=== PATIENT | male | born 1955 | race Caucasian/White ===

== ENCOUNTER 2016-07-08 12:58 | Observation (INO) | payer MEDICARE ==
[2016-07-08 14:03] LABS: Basophils # (A) 0.1 k/uL (0-0.2); Basophils % (A) 1 %; CH 29.9; CHCM 34.4; Eosinophils % (A) 1 %; HCT 40.6 % (39.0-53.0); HGB 13.5 gm/dL (13.0-17.5); Luc # (Auto) 0.13; Luc % (Auto) 2; Lymphocytes # (A) 1.1 k/uL (1.0-4.8); Lymphocytes % (A) 16 %; MCH 29.1 pg (25.0-35.0); MCHC 33.3 g/dL (31.0-37.0); MCV 87.3 fL (80.0-100.0); Mean Platelet Volume 7.7; Monocytes # (A) 0.6 k/uL (0-1.0); Monocytes % (A) 9 %; Neutrophils # (A) 4.7 k/uL (1.3-7.7); Neutrophils % (A) 71 %; RBC 4.65 m/uL (4.30-5.90); WBC 6.6 k/uL (3.8-10.6); WBC (Perox) 6.97
[2016-07-08 14:13] LABS: ALT 37 U/L (21-72); AST 22 U/L (17-59); Alkaline Phosphatase 83 U/L (38-126); Amylase 43 U/L (30-110); Anion Gap 12 mmol/L; Blood Urea Nitrogen 10 mg/dL (9-20); Calcium 9.4 mg/dL (8.4-10.2); Carbon Dioxide 25 mmol/L (22-30); Chloride 102 mmol/L (98-107); Glucose 75 mg/dL (74-99); Magnesium 1.8 mg/dL (1.6-2.3); Non-African American GFR(MDRD) >60 (>60 ml/min/1.73 sqM); Potassium 4.2 mmol/L (3.5-5.1); Sodium 139 mmol/L (137-145); Total Bilirubin 0.7 mg/dL (0.2-1.3); Total Protein 6.9 g/dL (6.3-8.2)
[2016-07-08 14:19] LABS: Partial Thromboplastin Time 24.5 sec (22.0-30.0); Prothrombin Time 10.2 sec (9.0-12.0)
--- NOTE | 2016-07-08 14:31 | XR ---
EXAMINATION TYPE: XR chest 1V portable DATE OF EXAM: 07/08/2016 2:17 PM Comparison: None Clinical History: 61-year-old male with chest pain and shortness of breath Findings: Heart is upper limits of normal in size. Mild diffuse interstitial prominence appears chronic. No fra nk consolidation or significant pleural effusion. Hazy peripheral lower lung densities likely relate to overlying soft tissue. Impression: Limited portable exam. Chronic appearing changes. No definite acute process.
[2016-07-08] MEDS ORDERED: NITROGLYCERIN SL TABS 0.4 MG TAB SUBLINGUAL PRN (15:02)
[2016-07-08] MEDS ORDERED: HYDROcodone/APAP 10-325MG 1 EACH TAB PO PRN (15:06)
[2016-07-08] MEDS ORDERED: METOPROLOL TARTRATE 12.5 MG TAB PO STA (15:07)
--- NOTE | 2016-07-08 15:13 | ED ---
Chest Pain HPI - General Chief Complaint: Chest Pain Stated Complaint: Abnormal Labs Time Seen by Provider: 07/08/16 13:28 Source: patient, RN notes reviewed Mode of arrival: ambulatory Limitations: no limitations - History of Present Illness Initial Comments: This patient is 61-year-old man who presents to have evaluation for chest pain. The patient indicates that he had been having brief episodes of chest pain for the past couple of weeks, however he shoveled a lot of snow 3 days ago which resulted in a prolonged episode of substernal pressure type pain that was moderately severe. The pain had improved after 20-30 minutes of rest. He subsequently developed a bit of cough and a little bit of shortness of breath. The patient had seen his primary physician who told him that an EKG performed there was concerning and he was referred here to be seen. MD Complaint: chest pain -: days(s) Onset: during exertion Pain Location: substernal Pain Radiation: none Severity: moderate Quality: heaviness Consistency: now resolved Improves With: nothing Worsens With: exertion Other Symptoms: cough Treatments Prior to Arrival: none - Related Data Home Medications Medication Instructions Recorded Confirmed Enalapril [Vasotec] 20 mg PO BID 11/07/13 07/08/16 Meloxicam [Mobic] 7.5 tab PO DAILY PRN 12/31/15 07/08/16 Amitriptyline HCl [Elavil] 50 mg PO HS 07/08/16 07/08/16 Methadone [Dolophine] 15 tab PO TID 07/08/16 07/08/16 Previous Rx's Medication Instructions Recorded HYDROcodone/APAP 10-325MG [[place] 1 - 2 tab PO Q8H PRN #120 tab 06/16/16 10-325] Allergies Allergy/AdvReac Type Severity Reaction Status Date / Time ibuprofen [From Motrin] Allergy Nausea & Verified 07/08/16 13:45 Vomiting cashews Allergy Rash/Hives Uncoded 07/08/16 13:17 poison adán Allergy Rash/Hives Uncoded 07/08/16 13:17 POLYESTER AdvReac Rash/Hives Uncoded 07/08/16 13:17 Review of Systems ROS Statement: Those systems with pertinent positive or pertinent negative responses have been documented in the HPI. ROS Other: All systems not noted in ROS Statement are negative. Constitutional: Reports: chills, weakness. Denies: fever ENT: Denies: throat pain Respiratory: Reports: cough, dyspnea. Denies: hemoptysis Cardiovascular: Reports: chest pain. Denies: palpitations, edema, syncope Gastrointestinal: Denies: abdominal pain, nausea, vomiting Genitourinary: Denies: dysuria, hematuria Musculoskeletal: Denies: back pain Skin: Denies: rash Neurological: Reports: weakness (Generalized). Denies: headache, numbness EKG Findings - EKG Results: EKG: interpreted by ERMD, sinus rhythm (Rate 85 bpm), normal axis, normal QRS, normal ST/T Past Medical History Past Medical History: GERD/Reflux, Hyperlipidemia, Hypertension, Musculoskeletal Disorder, Osteoarthritis (OA), Sleep Apnea/CPAP/BIPAP Additional Past Medical History / Comment(s): CURRENT EDEMA ONE FOOT, C-PAP HAS HELPED REFLUX. HX CHRONIC BACK PAIN. SCIATICA-NUMBNESS CHERELLE. LEGS & FEET- AFFECTS BALANCE @ TIMES. HX PLANTAR FASCIITIS History of Any Multi-Drug Resistant Organisms: None Reported Past Surgical History: Back Surgery, Hernia Repair, Orthopedic Surgery Additional Past Surgical History / Comment(s): Back surgeries, pain clinic- multiple times, rt shoulder surgery 2003, [facility]. WRISTS 2005, DEQUERVAINS RELEASE RT WRIST 08/2013 & left wrist recently, umbilical hernia, VARICOSE VEIN SX Past Anesthesia/Blood Transfusion Reactions: No Reported Reaction Past Psychological History: Depression Additional Psychological History / Comment(s): past hx Smoking Status: Never smoker Past Alcohol Use History: None Reported Past Drug Use History: None Reported - Past Family History Mother Family Medical History: Cancer Additional Family Medical History / Comment(s): breast Father Family Medical History: Cancer Additional Family Medical History / Comment(s): lung ca General Exam Limitations: no limitations General appearance: alert, in no apparent distress, obese Head exam: Present: atraumatic, normocephalic Eye exam: Present: normal appearance. Absent: scleral icterus, conjunctival injection Neck exam: Present: normal inspection Respiratory exam: Present: normal lung sounds bilaterally. Absent: respiratory distress, wheezes, rales, rhonchi, stridor Cardiovascular Exam: Present: regular rate, normal rhythm, normal heart sounds. Absent: systolic murmur, diastolic murmur, rubs, gallop GI/Abdominal exam: Present: soft. Absent: distended, tenderness, guarding, rebound, rigid Extremities exam: Present: normal inspection, normal capillary refill. Absent: pedal edema, calf tenderness Back exam: Present: normal inspection. Absent: CVA tenderness (R), CVA tenderness (L) Neurological exam: Present: alert Skin exam: Present: warm, dry, intact, normal color. Absent: rash Course Vital Signs 07/08/16 07/08/16 07/08/16 13:14 14:17 15:17 Temperature 98.7 F Pulse Rate 90 82 78 Pulse Rate [ Right] Respiratory 18 18 Rate Blood Pressure 150/84 140/71 130/80 Blood Pressure [Right Arm] O2 Sat by Pulse 97 100 99 Oximetry 07/08/16 07/08/16 15:47 16:00 Temperature 97.8 F Pulse Rate 78 Pulse Rate [ 83 Right] Respiratory 18 18 Rate Blood Pressure 139/78 Blood Pressure 150/93 [Right Arm] O2 Sat by Pulse 100 100 Oximetry Chest Pain MDM - MDM Patient is 61-year-old man describing episode of angina referred here for possible EKG changes in the clinic. Patient be admitted for serial cardiac enzymes and cardiology consultation. Disposition Clinical Impression: Chest pain Disposition: ADMITTED IP TO THIS HOSP Condition: Fair
[2016-07-08] MEDS ORDERED: SODIUM CHLORIDE 0.9% 1,000 ML IV SCH (15:15)
[2016-07-08] MEDS: HEPARIN SODIUM,PORCINE 5,000 UNIT/ML 1 ML VIAL SQ SCH (17:40)
[2016-07-08] MEDS: METHADONE 5 MG TAB PO SCH (17:41)
[2016-07-08] MEDS: METOPROLOL TARTRATE 12.5 MG TAB PO SCH (20:00)
[2016-07-08] MEDS: LISINOPRIL 20 MG TAB PO SCH (20:01)
[2016-07-08 20:05] LABS: Creatine Kinase 96 U/L (55-170)
[2016-07-08 20:17] LABS: Creatine Kinase MB 2.1 ng/mL (0.0-2.4); Troponin I <0.012 ng/mL (0.000-0.034)
[2016-07-08] MEDS ORDERED: AMITRIPTYLINE HCL 25 MG TAB PO SCH (21:00)
[2016-07-09] MEDS: HEPARIN SODIUM,PORCINE 5,000 UNIT/ML 1 ML VIAL SQ SCH ×2 (00:20→08:46)
[2016-07-09 02:56] LABS: Cholesterol 194 mg/dL (<200); HDL Cholesterol 45 mg/dL (40-60); Triglycerides 173 mg/dL (<150)
[2016-07-09 03:01] LABS: Creatine Kinase 74 U/L (55-170)
[2016-07-09 03:14] LABS: Creatine Kinase MB 1.4 ng/mL (0.0-2.4); Troponin I <0.012 ng/mL (0.000-0.034)
[2016-07-09] MEDS: METHADONE 5 MG TAB PO SCH ×2 (05:21→08:44)
[2016-07-09 07:37] VITALS: BP 137/85; PULSE 78; RESP 18; TEMP 99
[2016-07-09] MEDS: LISINOPRIL 20 MG TAB PO SCH (08:45)
--- NOTE | 2016-07-09 08:45 | P.CRDCN ---
History of Present Illness Consult date: 07/09/16 Chief complaint: Chest pain History of present illness: This is a pleasant 61-year-old male patient with does not see any claim analyst with a past medical history significant for hypertension and dyslipidemia presented to the emergency room complaining of chest discomfort. He describes intermittent episodes of chest discomfort, in the mid of the chest , as a squeezing sensation, without any radiation to the arm or neck or shoulders and without any associated symptoms. These episodes of chest discomfort are of variable duration. The EKG showed sinus rhythm without any significant ST or T-wave abnormalities. The cardiac enzymes came in to be unremarkable. I am proceeding with a stress test to rule out any severe underlying CAD. Past Medical History Past Medical History: GERD/Reflux, Hyperlipidemia, Hypertension, Musculoskeletal Disorder, Osteoarthritis (OA), Sleep Apnea/CPAP/BIPAP Additional Past Medical History / Comment(s): CURRENT EDEMA ONE FOOT, C-PAP HAS HELPED REFLUX. HX CHRONIC BACK PAIN. SCIATICA-NUMBNESS CHERELLE. LEGS & FEET- AFFECTS BALANCE @ TIMES. HX PLANTAR FASCIITIS History of Any Multi-Drug Resistant Organisms: None Reported Past Surgical History: Back Surgery, Hernia Repair, Orthopedic Surgery Additional Past Surgical History / Comment(s): Back surgeries, pain clinic- multiple times, rt shoulder surgery 2003, [facility]. WRISTS 2005, DEQUERVAINS RELEASE RT WRIST 08/2013 & left wrist recently, umbilical hernia, VARICOSE VEIN SX Past Anesthesia/Blood Transfusion Reactions: No Reported Reaction Additional Past Anesthesia/Blood Transfusion Reaction / Comment(s): NO BLOOD TRANSFUSIONS (OTHER THEN HIS OWN DONATED). Past Psychological History: Depression Additional Psychological History / Comment(s): past hx Smoking Status: Never smoker Past Alcohol Use History: None Reported Past Drug Use History: None Reported - Past Family History Mother Family Medical History: Cancer Additional Family Medical History / Comment(s): breast Father Family Medical History: Cancer Additional Family Medical History / Comment(s): lung ca Medications and Allergies Home Medications Medication Instructions Recorded Confirmed Type Enalapril [Vasotec] 20 mg PO BID 11/07/13 07/08/16 History Meloxicam [Mobic] 7.5 tab PO DAILY PRN 12/31/15 07/08/16 History Amitriptyline HCl [Elavil] 50 mg PO HS 07/08/16 07/08/16 History Methadone [Dolophine] 15 tab PO TID 07/08/16 07/08/16 History Allergies Allergy/AdvReac Type Severity Reaction Status Date / Time ibuprofen [From Motrin] Allergy Nausea & Verified 07/08/16 13:45 Vomiting cashews Allergy Rash/Hives Uncoded 07/08/16 13:17 poison adán Allergy Rash/Hives Uncoded 07/08/16 13:17 POLYESTER AdvReac Rash/Hives Uncoded 07/08/16 13:17 Physical Exam Vitals: Vital Signs Temp Pulse Pulse Resp BP BP Pulse Ox 07/09/16 07:35 99 F 78 18 137/85 97 07/09/16 04:00 98.3 F 71 16 113/67 96 07/09/16 03:51 64 16 07/09/16 00:00 72 16 07/08/16 23:46 98.6 F 71 16 123/56 96 07/08/16 20:00 70 16 07/08/16 19:25 99.1 F 78 16 137/74 96 07/08/16 16:00 83 18 150/93 100 07/08/16 15:47 97.8 F 78 18 139/78 100 07/08/16 15:17 78 130/80 99 Intake and Output 07/08/16 07/09/16 07/09/16 22:59 06:59 14:59 Intake Total 568 Balance 568 Intake: Oral 568 Other: Voiding Method Toilet Toilet # Voids 1 1 Weight 110.2 kg - Constitutional General appearance: no acute distress - Respiratory Respiratory: bilateral: CTA - Cardiovascular Rhythm: regular Heart sounds: normal: S1, S2 Results 07/08/16 13:42 07/08/16 13:42 Cardiac Enzymes 07/08/16 07/09/16 Range/Units 19:35 02:09 CK-MB (CK-2) 2.1 1.4 (0.0-2.4) ng/mL Troponin I <0.012 <0.012 (0.000-0.034) ng/mL Lipids 07/09/16 Range/Units 02:09 Triglycerides 173 H (<150) mg/dL Cholesterol 194 (<200) mg/dL HDL Cholesterol 45 (40-60) mg/dL Current Medications Generic Name Dose Route Start Last Admin Trade Name Freq PRN Reason Stop Dose Admin Acetaminophen/Hydrocodone Bitart 1 each 07/08/16 15:06 07/08/16 19:58 [place] 10 PO 1 each Q8H PRN Administration Pain Amitriptyline HCl 50 mg 07/08/16 21:00 07/08/16 17:42 Elavil PO 50 mg HS RAMÍREZ Administration Aspirin 325 mg 07/09/16 09:00 Aspirin PO DAILY [facility] Heparin Sodium (Porcine) 5,000 unit 07/08/16 16:00 07/09/16 00:20 Heparin SQ Not Given Q8HR [facility] Sodium Chloride 1,000 mls @ 20 mls/hr 07/08/16 15:15 07/08/16 19:59 Saline 0.9% IV Not Given .Q24H [facility] Lisinopril 40 mg 07/08/16 21:00 07/08/16 20:01 Zestril PO 40 mg BID RAMÍREZ Administration Meloxicam 7.5 mg 07/09/16 09:00 Mobic PO DAILY PRN Arthritis Pain Methadone HCl 15 mg 07/08/16 16:00 07/09/16 05:21 Dolophine PO Not Given TID [facility] Metoprolol Tartrate 12.5 mg 07/08/16 21:00 07/08/16 20:00 Lopressor PO Not Given BID [facility] Nitroglycerin 0.4 mg 07/08/16 15:02 Nitrostat SUBLINGUAL Q5M PRN Chest Pain Intake and Output 07/08/16 07/09/16 07/09/16 22:59 06:59 14:59 Intake Total 568 Balance 568 Intake: Oral 568 Other: Voiding Method Toilet Toilet # Voids 1 1 Weight 110.2 kg Assessment and Plan Plan: Assessment #1 intermittent episodes of chest discomfort #2 systemic hypertension #3 dyslipidemia Plan #1 proceeding with a stress test #2 follow-up with the patient
[2016-07-09] MEDS ORDERED: MELOXICAM 7.5 MG TAB PO PRN (09:00)
[2016-07-09] MEDS ORDERED: ASPIRIN 325 MG TAB PO SCH (09:00)
--- NOTE | 2016-07-09 12:58 | ECHOS ---
DATE OF SERVICE: 07/09/2016 AGE: 61Y SEX: M HT: 70 WT: 242 lbs. Protocol Zac: X Others: Stress Echo Stage: III Dur. of Exercise: 6:30 *Heart Rate Blood Pressure *Rest: 84 Rest: 146/73 * *Max. Achieved: 137 Maximum BP: 172/51 85% PMHR: 134 100% PMHR: 158 *METS: 7.1 INDICATIONS: Chest pain. MEDICATIONS: CLINICAL INFORMATION: Shortness of breath, chest pain, hypertension, hypercholesterolemia. Patient has been having exertional chest heaviness and tightness described as tightness highly suggestive of angina. Resting ECG shows sinus rhythm, rate of 84 beats per minute, AK interval 0.16, QRS 0.08, normal ST-T waves. Utilizing a standard Zac protocol, a symptom-limited treadmill test was performed. Patient exercised for total of 6 minutes and 30 seconds, attained a peak heart rate of 137 beats per minute, which is approximately 87% predicted maximum heart rate without any ST segment deviations. Mild chest pressure. Patient's baseline images show normal thickening and contractility. Definity was used to look to look at the above to improve the endocardial definition. Postexercise images show improved contractility and thickening without any hypokinetic or dyskinetic segment consistent with normal study, but patient's symptoms are highly suggestive of angina. IMPRESSION: 1. Classical angina. Clinical correlation is suggested. 2. Patient had mild chest tightness without any ST segment deviations indicative of ischemia. 3. The patient has below average level of cardiopulmonary fitness as indicated by VO2 max and METs. 4. Patient attained peak metabolic activity equivalent to 7 to 8 METs.
[2016-07-09] MEDS: METOPROLOL TARTRATE 12.5 MG TAB PO SCH (14:52)
--- NOTE | 2016-07-09 18:38 | HP ---
H&P AND DISCHARGE SUMMARY DATE OF ADMISSION: Patient is ( ) who came in with complaints of shortness of breath and chest pain, mostly in the epigastric area and retrosternal area. Pressure-like sensation lasted for a few hours, without any light-headedness, shortness of breath. Patient's chest pain is non-pleuritic, not associated with food. Patient's chest pain has been going on for a few months on and off. Patient had a stress test which was negative. D-dimer is negative. Chest x-ray did not show any pneumonic process; not sure of the exact etiology of chest pain; may be related to gastritis. Patient will be empirically treated with 14 days of Prilosec. Discontinue meloxicam he was taking at home. REVIEW OF SYSTEMS: CONSTITUTIONAL: No fever, no malaise, no fatigue. HEENT: No recent visual problems or hearing problems. Denied any sore throat. CARDIOVASCULAR: As described in HPI. PULMONARY: No shortness of breath, no cough, no hemoptysis. GASTROINTESTINAL: No diarrhea, no nausea, no vomiting, no abdominal pain. Normoactive bowel sounds. NEUROLOGICAL: No headaches, no weakness, no numbness. HEMATOLOGICAL: Denies any bleeding or petechiae. GENITOURINARY: Denies any burning micturition, frequency, or urgency. MUSCULOSKELETAL/RHEUMATOLOGICAL: Denies any joint pain, swelling, or any muscle pain. ENDOCRINE: Denies any polyuria or polydipsia. The rest of the 14 point review of systems is negative. Past medical history is significant for: 1. Sleep apnea. 2. Diabetes mellitus. 3. Gastroesophageal reflux disease. 4. Hyperlipidemia. 5. Hypertension. 6. Hypothyroidism. PAST SURGICAL HISTORY: Left inguinal hernia repair. Skin cancer that was removed. SOCIAL HISTORY: Former smoker. Quit smoking in 1992. Denied any alcohol abuse or any drug abuse. FAMILY HISTORY: Mother had hypertension. Father is ; unknown history. Home medications include: 1. Acetaminophen. 2. Allopurinol. 3. Atorvastatin. 4. Bumex. 5. Diltiazem. 6. Ferrous sulfate. 7. Insulin Aspart 18 units at bedtime. 8. NovoLog sliding scale. 9. Ipratropium. 10. Albuterol. 11. Levothyroxine. 12. Omeprazole. ALLERGIES: NO KNOWN DRUG ALLERGIES. PHYSICAL EXAMINATION: VITAL SIGNS: ( ) GENERAL: The patient is alert and oriented x3, not in any acute distress. Well developed, well nourished. HEENT: Pupils are round and equally reacting to light. EOMI. No scleral icterus. No conjunctival pallor. Normocephalic, atraumatic. No pharyngeal erythema. No thyromegaly. CARDIOVASCULAR: S1 and S2 present. No murmurs, rubs, or gallops. PULMONARY: Chest is clear to auscultation, no wheezing or crackles. ABDOMEN: Soft, nontender, nondistended, normoactive bowel sounds. No palpable organomegaly. MUSCULOSKELETAL: No joint swelling or deformity. EXTREMITIES: Very minimal pedal edema appreciated. NEUROLOGICAL: Gross neurological examination did not reveal any focal deficits. SKIN: No rashes. LABORATORY DATA: CBC and comprehensive metabolic profile are essentially within normal limits. EKG did not show any ST-T wave changes. Troponins are negative. Stress test is negative at this point of time. ASSESSMENT AND PLAN: 1. Chest pain; appears to atypical. Rule out acute coronary artery syndrome and unstable angina. Patient's stress test was negative. Patient will be discharged today. 2. Possible gastritis or gastroesophageal reflux disease. Unsure of the exact etiology of his chest pain. Empiric proton pump inhibitor as mentioned above. 3. Hypertension. 4. Sleep apnea. 5. Hyperlipidemia. 6. Osteoarthritis. 7. Morbid obesity. For the above-mentioned chronic medical problems, patient will go ahead and continue his home medications. Dietary counseling for obesity was provided. This dictation is both H&P and discharge summary. Patient will follow up with primary care physician in about 3 to 7 days. Activity as tolerated. Cardiac diet.
== END 2016-07-09 15:23 | disposition home or self-care (01) ==
LOC: EC 12:58 → 3OBS 15:02
PROVIDERS: ADMIT Hospitalist; ATTEND Hospitalist
DX: R07.89 Other chest pain (principal); I10 Essential (primary) hypertension; E66.01 Morbid (severe) obesity due to excess calories; Z68.34 Body mass index [BMI] 34.0-34.9, adult; G47.30 Sleep apnea, unspecified; E78.5 Hyperlipidemia, unspecified; K21.9 Gastro-esophageal reflux disease without esophagitis; M19.90 Unspecified osteoarthritis, unspecified site; M54.41 Lumbago with sciatica, right side; F32.9 Major depressive disorder, single episode, unspecified; M54.42 Lumbago with sciatica, left side; G89.29 Other chronic pain; Z99.89 Dependence on other enabling machines and devices; Z79.891 Long term (current) use of opiate analgesic; Z79.1 Long term (current) use of non-steroidal anti-inflammatories (NSAID); Z79.899 Other long term (current) drug therapy; Z88.6 Allergy status to analgesic agent; Z80.1 Family history of malignant neoplasm of trachea, bronchus and lung; E03.9 Hypothyroidism, unspecified; Z87.891 Personal history of nicotine dependence; Z82.49 Family history of ischemic heart disease and other diseases of the circulatory system
CPT/HCPCS: 36415; 93005; 93017; 85379; 84439; 84481; 80061; 80053; 84443; 82150; 82550 ×2; 82553 ×2; 83690; 83735; 84484 ×2; 85025; 85610; 85730; 71010; 99285; G0378 ×2; C8928; J1644; Q9957; S0109 ×2; 93350

== ENCOUNTER 2016-07-27 12:55 | Observation (INO) | payer MEDICARE ==
[2016-07-27] MEDS ORDERED: ASPIRIN 81 MG CHEW PO STA (13:08)
[2016-07-27] MEDS ORDERED: NITROGLYCERIN OINT 1 INCH/GM PACKET TOPICAL STA (13:08)
--- NOTE | 2016-07-27 13:47 | ED ---
General Adult HPI - General Chief complaint: Chest Pain Stated complaint: Chest pain Time Seen by Provider: 07/27/16 13:08 Source: patient, RN notes reviewed Mode of arrival: wheelchair Limitations: no limitations - History of Present Illness Initial comments: Patient is a 61-year-old male significant past medical history for A. fib, who presents emergency room today with a chief complaint of increased chest pain. He does admit that chest pain started yesterday morning. He states he did take aspirin which did give him some relief. States that this morning was woken up with chest pain proxy 4 AM. He states that he took aspirin began with some relief. States he woke up again around 9 AM feeling chest pain once again which she did take another aspirin with begin some relief. States it started again around noon. States took nitro tablets with little relief of the symptoms. Patient states he is scheduled to have a heart catheterization next week. Patient states still having some pain some discomfort to the chest anteriorly. Currently rates a 4/10. She admits that he feels nauseated. Patient denies any recent fever, chills, shortness of breath, back pain, abdominal pain, vomiting, numbness or tingling, dysuria or hematuria, constipation or diarrhea, headaches or visual changes, or any other complaints. - Related Data Home Medications Medication Instructions Recorded Confirmed Amitriptyline HCl [Elavil] 50 mg PO HS 07/08/16 07/27/16 Methadone [Dolophine] 10 - 15 tab PO QID PRN 07/08/16 07/27/16 Enalapril Maleate [Vasotec] 10 mg PO QID 07/27/16 07/27/16 Nitroglycerin Sl Tabs [Nitrostat] 0.4 mg SUBLINGUAL Q5M PRN 07/27/16 07/27/16 Previous Rx's Medication Instructions Recorded HYDROcodone/APAP 10-325MG [[place] 1 - 2 tab PO Q8H PRN #120 tab 06/16/16 10-325] Allergies Allergy/AdvReac Type Severity Reaction Status Date / Time ibuprofen [From Motrin] Allergy Nausea & Verified 07/27/16 12:58 Vomiting cashews Allergy Rash/Hives Uncoded 07/27/16 12:58 poison adán Allergy Rash/Hives Uncoded 07/27/16 12:58 POLYESTER AdvReac Rash/Hives Uncoded 07/27/16 12:58 Review of Systems ROS Statement: Those systems with pertinent positive or pertinent negative responses have been documented in the HPI. ROS Other: All systems not noted in ROS Statement are negative. Past Medical History Past Medical History: GERD/Reflux, Hyperlipidemia, Hypertension, Musculoskeletal Disorder, Osteoarthritis (OA), Sleep Apnea/CPAP/BIPAP Additional Past Medical History / Comment(s): CURRENT EDEMA ONE FOOT, C-PAP HAS HELPED REFLUX. HX CHRONIC BACK PAIN. SCIATICA-NUMBNESS CHERELLE. LEGS & FEET- AFFECTS BALANCE @ TIMES. HX PLANTAR FASCIITIS History of Any Multi-Drug Resistant Organisms: None Reported Past Surgical History: Back Surgery, Hernia Repair, Orthopedic Surgery Additional Past Surgical History / Comment(s): Back surgeries, pain clinic- multiple times, rt shoulder surgery 2003, [facility]. WRISTS 2005, DEQUERVAINS RELEASE RT WRIST 08/2013 & left wrist recently, umbilical hernia, VARICOSE VEIN SX Past Anesthesia/Blood Transfusion Reactions: No Reported Reaction Additional Past Anesthesia/Blood Transfusion Reaction / Comment(s): NO BLOOD TRANSFUSIONS (OTHER THEN HIS OWN DONATED). Past Psychological History: Depression Additional Psychological History / Comment(s): past hx Smoking Status: Never smoker Past Alcohol Use History: None Reported Past Drug Use History: None Reported - Past Family History Mother Family Medical History: Cancer Additional Family Medical History / Comment(s): breast Father Family Medical History: Cancer Additional Family Medical History / Comment(s): lung ca General Exam - General Exam Comments Initial Comments: General: The patient is awake and alert, in no distress, and does not appear acutely ill. Eye: Pupils are equal, round and reactive to light, extra-ocular movements are intact. No nystagmus. There is normal conjunctiva bilaterally. No signs of icterus. Ears, nose, mouth and throat: There are moist mucous membranes and no oral lesions. Neck: The neck is supple, there is no tenderness or JVD. Cardiovascular: There is a regular rate and rhythm. No murmur, rub or gallop is appreciated. Respiratory: Lungs are clear to auscultation, respirations are non-labored, breath sounds are equal. No wheezes, stridor, rales, or rhonchi. Gastrointestinal: Soft, non-distended, non-tender abdomen without masses or organomegaly noted. There is no rebound or guarding present. No CVA tenderness. Bowel sounds are unremarkable. Musculoskeletal: Normal ROM, no tenderness. Strength 5/5. Sensation intact. Pulses equal bilaterally 2+. Neurological: A&O x 3. CN II-XII intact, There are no obvious motor or sensory deficits. Coordination appears grossly intact. Speech is normal. Skin: Skin is warm and dry and no rashes or lesions are noted. Psychiatric: Cooperative, appropriate mood & affect, normal judgment. Limitations: no limitations Course Vital Signs 07/27/16 07/27/16 07/27/16 12:58 13:15 14:24 Temperature 97.7 F Pulse Rate 72 74 68 Respiratory 18 16 18 Rate Blood Pressure 144/80 124/70 123/71 O2 Sat by Pulse 97 99 98 Oximetry Medical Decision Making - Medical Decision Making Patient's EKG shows normal sinus rhythm. Computer previous showing no acute changes. Patient's cardiac enzymes negative. Emergency room. Patient is symptomatic at this time is feeling relief after Nitropaste. Patient's x-ray reviewed and are unremarkable. Case discussed with the physician Dr. Grossman did discuss case with admitting physician Dr. Guzman will but the patient with consult cardiology. Patient aware the plan states understanding. - Lab Data Result diagrams: 07/27/16 13:41 07/27/16 13:41 Lab Results 07/27/16 07/27/16 07/27/16 Range/Units 13:41 13:41 13:41 WBC 6.8 (3.8-10.6) k/uL RBC 4.78 (4.30-5.90) m/uL Hgb 13.7 (13.0-17.5) gm/dL Hct 42.2 (39.0-53.0) % MCV 88.3 (80.0-100.0) fL MCH 28.7 (25.0-35.0) pg MCHC 32.5 (31.0-37.0) g/dL RDW 13.2 (11.5-15.5) % Plt Count 262 (150-450) k/uL Neutrophils % 62 % Lymphocytes % 29 % Monocytes % 6 % Eosinophils % 1 % Basophils % 1 % Neutrophils # 4.2 (1.3-7.7) k/uL Lymphocytes # 2.0 (1.0-4.8) k/uL Monocytes # 0.4 (0-1.0) k/uL Eosinophils # 0.1 (0-0.7) k/uL Basophils # 0.0 (0-0.2) k/uL PT (9.0-12.0) sec INR (<1.1) APTT (22.0-30.0) sec Sodium 140 (137-145) mmol/L Potassium 5.3 H (3.5-5.1) mmol/L Chloride 104 (98-107) mmol/L Carbon Dioxide 26 (22-30) mmol/L Anion Gap 10 mmol/L BUN 12 (9-20) mg/dL Creatinine 0.89 (0.66-1.25) mg/dL Est GFR (MDRD) Af Amer >60 (>60 ml/min/1.73 sqM) Est GFR (MDRD) Non-Af >60 (>60 ml/min/1.73 sqM) Glucose 97 (74-99) mg/dL Calcium 9.7 (8.4-10.2) mg/dL Magnesium 1.9 (1.6-2.3) mg/dL Total Bilirubin 0.5 (0.2-1.3) mg/dL AST 21 (17-59) U/L ALT 42 (21-72) U/L Alkaline Phosphatase 81 (38-126) U/L Total Creatine Kinase 85 (55-170) U/L CK-MB (CK-2) 2.4 (0.0-2.4) ng/mL CK-MB (CK-2) Rel Index 2.8 Troponin I <0.012 (0.000-0.034) ng/mL Total Protein 7.1 (6.3-8.2) g/dL Albumin 4.1 (3.5-5.0) g/dL 07/27/16 Range/Units 13:41 WBC (3.8-10.6) k/uL RBC (4.30-5.90) m/uL Hgb (13.0-17.5) gm/dL Hct (39.0-53.0) % MCV (80.0-100.0) fL MCH (25.0-35.0) pg MCHC (31.0-37.0) g/dL RDW (11.5-15.5) % Plt Count (150-450) k/uL Neutrophils % % Lymphocytes % % Monocytes % % Eosinophils % % Basophils % % Neutrophils # (1.3-7.7) k/uL Lymphocytes # (1.0-4.8) k/uL Monocytes # (0-1.0) k/uL Eosinophils # (0-0.7) k/uL Basophils # (0-0.2) k/uL PT 9.9 (9.0-12.0) sec INR 1.0 (<1.1) APTT 23.8 (22.0-30.0) sec Sodium (137-145) mmol/L Potassium (3.5-5.1) mmol/L Chloride (98-107) mmol/L Carbon Dioxide (22-30) mmol/L Anion Gap mmol/L BUN (9-20) mg/dL Creatinine (0.66-1.25) mg/dL Est GFR (MDRD) Af Amer (>60 ml/min/1.73 sqM) Est GFR (MDRD) Non-Af (>60 ml/min/1.73 sqM) Glucose (74-99) mg/dL Calcium (8.4-10.2) mg/dL Magnesium (1.6-2.3) mg/dL Total Bilirubin (0.2-1.3) mg/dL AST (17-59) U/L ALT (21-72) U/L Alkaline Phosphatase (38-126) U/L Total Creatine Kinase (55-170) U/L CK-MB (CK-2) (0.0-2.4) ng/mL CK-MB (CK-2) Rel Index Troponin I (0.000-0.034) ng/mL Total Protein (6.3-8.2) g/dL Albumin (3.5-5.0) g/dL Disposition Clinical Impression: Chest pain Disposition: ADMITTED IP TO THIS HOSP Condition: Stable Time of Disposition: 15:28
[2016-07-27 13:55] LABS: Basophils % (A) 1 %; CH 29.8; CHCM 33.9; Eosinophils # (A) 0.1 k/uL (0-0.7); Eosinophils % (A) 1 %; HCT 42.2 % (39.0-53.0); HDW 2.66; HGB 13.7 gm/dL (13.0-17.5); Luc # (Auto) 0.13; Luc % (Auto) 2; Lymphocytes % (A) 29 %; MCH 28.7 pg (25.0-35.0); MCHC 32.5 g/dL (31.0-37.0); MCV 88.3 fL (80.0-100.0); Mean Platelet Volume 7.8; Monocytes # (A) 0.4 k/uL (0-1.0); Monocytes % (A) 6 %; Neutrophils # (A) 4.2 k/uL (1.3-7.7); Neutrophils % (A) 62 %; RBC 4.78 m/uL (4.30-5.90); RDW 13.2 % (11.5-15.5); WBC 6.8 k/uL (3.8-10.6); WBC (Perox) 7.16
[2016-07-27 14:03] LABS: ALT 42 U/L (21-72); AST 21 U/L (17-59); Alkaline Phosphatase 81 U/L (38-126); Anion Gap 10 mmol/L; Blood Urea Nitrogen 12 mg/dL (9-20); Calcium 9.7 mg/dL (8.4-10.2); Carbon Dioxide 26 mmol/L (22-30); Chloride 104 mmol/L (98-107); Glucose 97 mg/dL (74-99); Magnesium 1.9 mg/dL (1.6-2.3); Non-African American GFR(MDRD) >60 (>60 ml/min/1.73 sqM); Potassium 5.3 mmol/L (3.5-5.1); Sodium 140 mmol/L (137-145); Total Bilirubin 0.5 mg/dL (0.2-1.3); Total Protein 7.1 g/dL (6.3-8.2)
--- NOTE | 2016-07-27 14:05 | XR ---
EXAMINATION TYPE: XR chest 2V DATE OF EXAM: 07/27/2016 1:53 PM COMPARISON: 07/08/2016 HISTORY: Chest pain FINDINGS: The lungs are clear and there is no pneumothorax, pleural effusion, or focal pneumonia. Hyperinflat ion suggests COPD and there is cardiac enlargement. No overt failure. IMPRESSION: 1. No acute process.
[2016-07-27 14:07] LABS: Partial Thromboplastin Time 23.8 sec (22.0-30.0); Prothrombin Time 9.9 sec (9.0-12.0)
[2016-07-27 14:23] LABS: Creatine Kinase 85 U/L (55-170)
[2016-07-27 14:36] LABS: Creatine Kinase MB 2.4 ng/mL (0.0-2.4); Troponin I <0.012 ng/mL (0.000-0.034)
[2016-07-27] MEDS ORDERED: MORPHINE SULFATE 4 MG/ML SYRINGE IV PRN (15:28)
[2016-07-27] MEDS ORDERED: HEPARIN SODIUM,PORCINE 5,000 UNIT/ML 1 ML VIAL IV ONE (15:28)
[2016-07-27] MEDS ORDERED: SODIUM CHLORIDE 0.9% 1,000 ML IV ONE (15:28)
[2016-07-27] MEDS ORDERED: HEPARIN SODIUM,PORCINE/D5W PMX 25,000 UNIT in DEXTROSE/WATER 1 500ML.BAG IV SCH (15:30)
[2016-07-27] MEDS: NITROGLYCERIN OINT 1 INCH/GM PACKET TOPICAL SCH (18:09)
[2016-07-27] MEDS ORDERED: NITROGLYCERIN SL TABS 0.4 MG TAB SUBLINGUAL PRN (18:48)
[2016-07-27 19:59] LABS: Creatine Kinase 90 U/L (55-170)
[2016-07-27 20:12] LABS: Creatine Kinase MB 2.4 ng/mL (0.0-2.4); Troponin I <0.012 ng/mL (0.000-0.034)
[2016-07-27] MEDS: LISINOPRIL 20 MG TAB PO SCH (20:20)
[2016-07-27] MEDS ORDERED: AMITRIPTYLINE HCL 50 MG TAB PO SCH (21:00)
[2016-07-28] MEDS: NITROGLYCERIN OINT 1 INCH/GM PACKET TOPICAL SCH ×4 (00:12→18:12)
[2016-07-28 01:53] LABS: Creatine Kinase 69 U/L (55-170)
[2016-07-28 02:06] LABS: Creatine Kinase MB 2.1 ng/mL (0.0-2.4); Troponin I <0.012 ng/mL (0.000-0.034)
[2016-07-28] MEDS ORDERED: HEPARIN SODIUM,PORCINE 5,000 UNIT/ML 1 ML VIAL IV PRN (02:59)
[2016-07-28 08:10] VITALS: RESP 18
[2016-07-28] MEDS ORDERED: ASPIRIN 325 MG TAB PO SCH (09:00)
--- NOTE | 2016-07-28 10:10 | CONS ---
DATE OF CONSULTATION: A 61-year-old male patient of Dr. Prince. This is a 61-year-old male patient who was just admitted to the hospital and underwent a stress test for chest discomfort. The chest pain was suspicious. He underwent exercise stress echo, which did not show any ECG abnormalities nor did it show any echocardiographic abnormalities, but he had chest discomfort at that time. He comes back again with recurrent chest discomfort. His cardiac enzymes are normal. Past medical history of hypertension, dyslipidemia and obstructive sleep apnea. PAST SURGERIES: Back surgery and varicose veins. REVIEW OF SYSTEMS: No fever, chills or rigors. No cough or expectoration. No nausea, vomiting, or diarrhea. No hematuria or dysuria. No strokes or seizures. No skin lesions or musculoskeletal complaints. Allergies to IBUPROFEN, CASHEWS, POISON PAULIE and POLYESTER. On examination, his blood pressure is in the normal range of 132/80 mmHg. Head and neck examination is normal. Heart sounds are normal. Lungs are clear on auscultation. Extremities are warm. No edema. ECG was reviewed and ECG is normal. Cardiac enzymes were reviewed and are normal. Labs are normal. IMPRESSION: Recurrent chest discomfort awaiting coronary angiography. SUGGEST: I will speak to Dr. Prince and hopefully he should be able to get an angiogram done in the next 24 to 48 hours. ( ) to the bottle labeler.
[2016-07-28 10:13] LABS: Cholesterol 280 mg/dL (<200); HDL Cholesterol 62 mg/dL (40-60); Triglycerides 182 mg/dL (<150)
[2016-07-28] MEDS ORDERED: HYDROcodone/APAP 10-325MG 1 EACH TAB PO PRN (11:41)
[2016-07-28] MEDS: ENALAPRIL 10 MG PO SCH ×2 (12:26→18:52)
--- NOTE | 2016-07-28 12:28 | P.HPIM ---
History of Present Illness 61-year-old male presented to the emergency room with complaints of chest pain states they were banding in nature with nausea patient has relief of chest pain with nitro. Patient had consultation with cardiology plan is for cardiac cath in the morning Review of Systems Constitutional: Reports fatigue Cardiovascular: Reports chest pain Gastrointestinal: Reports nausea Musculoskeletal: Reports low back pain Past Medical History Past Medical History: GERD/Reflux, Hyperlipidemia, Hypertension, Musculoskeletal Disorder, Osteoarthritis (OA), Sleep Apnea/CPAP/BIPAP Additional Past Medical History / Comment(s): CURRENT EDEMA ONE FOOT, C-PAP HAS HELPED REFLUX. HX CHRONIC BACK PAIN. SCIATICA-NUMBNESS CHERELLE. LEGS & FEET- AFFECTS BALANCE @ TIMES. HX PLANTAR FASCIITIS, STRESS TEST. History of Any Multi-Drug Resistant Organisms: None Reported Past Surgical History: Back Surgery, Hernia Repair, Orthopedic Surgery Additional Past Surgical History / Comment(s): Back surgeries, pain clinic- multiple times, rt shoulder surgery 2003, [facility]. WRISTS 2005, DEQUERVAINS RELEASE RT WRIST 08/2013 & left wrist recently, umbilical hernia, VARICOSE VEIN SX Past Anesthesia/Blood Transfusion Reactions: No Reported Reaction Additional Past Anesthesia/Blood Transfusion Reaction / Comment(s): NO BLOOD TRANSFUSIONS (OTHER THEN HIS OWN DONATED). Past Psychological History: Depression Additional Psychological History / Comment(s): past hx Smoking Status: Never smoker Past Alcohol Use History: Rare Past Drug Use History: None Reported - Past Family History Mother Family Medical History: Cancer Additional Family Medical History / Comment(s): breast Father Family Medical History: Cancer Additional Family Medical History / Comment(s): lung ca Medications and Allergies Home Medications Medication Instructions Recorded Confirmed Type Amitriptyline HCl [Elavil] 50 mg PO HS 07/08/16 07/27/16 History Methadone [Dolophine] 10 - 15 tab PO QID PRN 07/08/16 07/27/16 History Enalapril Maleate [Vasotec] 10 mg PO QID 07/27/16 07/27/16 History Nitroglycerin Sl Tabs [Nitrostat] 0.4 mg SUBLINGUAL Q5M PRN 07/27/16 07/27/16 History Allergies Allergy/AdvReac Type Severity Reaction Status Date / Time ibuprofen [From Motrin] Allergy Nausea & Verified 07/27/16 12:58 Vomiting cashews Allergy Rash/Hives Uncoded 07/27/16 12:58 poison adán Allergy Rash/Hives Uncoded 07/27/16 12:58 POLYESTER AdvReac Rash/Hives Uncoded 07/27/16 12:58 Physical Exam Vitals: Vital Signs Temp Pulse Pulse Resp BP BP Pulse Ox 07/28/16 11:58 98.7 F 84 18 132/80 93 L 07/28/16 08:00 98.5 F 75 18 132/80 95 07/28/16 04:00 97.8 F 70 16 110/55 97 07/28/16 03:31 64 16 07/28/16 00:00 70 16 07/27/16 23:57 98.1 F 72 16 129/63 94 L 07/27/16 20:00 16 07/27/16 19:45 98.8 F 86 16 122/83 94 L 07/27/16 16:15 98.1 F 78 16 125/74 99 Intake and Output 07/27/16 07/28/16 07/28/16 22:59 06:59 14:59 Intake Total 183.908 Balance 183.908 Intake: Intake, IV Titration 183.908 Amount Heparin Sodium,Porcine/ 183.908 D5w Pmx 25,000 unit In Dextrose/Water 1 500ml. bag @ 9.11 UNITS/KG/HR 19 .99 mls/hr IV .Q24H [facility] Rx#:[id number] Other: Voiding Method Toilet Toilet Toilet # Voids 1 2 Weight 109.7 kg 109.7 kg - Constitutional General appearance: obese - EENT Eyes: PERRLA Ears: bilateral: normal - Neck Neck: normal ROM - Respiratory Respiratory: bilateral: CTA - Cardiovascular Rhythm: regular - Gastrointestinal General gastrointestinal: soft - Integumentary Integumentary: normal - Neurologic Neurologic: CNII-XII intact - Psychiatric Psychiatric: A&O x's 3, appropriate affect, intact judgment & insight Results CBC & Chem 7: 07/27/16 13:41 07/27/16 13:41 Labs: Abnormal Lab Results - Last 24 Hours (Table) 07/28/16 07/28/16 Range/Units 09:07 09:07 APTT 34.5 H (22.0-30.0) sec Triglycerides 182 H (<150) mg/dL Cholesterol 280 H (<200) mg/dL LDL Cholesterol, Calc 182 H (0-99) mg/dL HDL Cholesterol 62 H (40-60) mg/dL Chest x-ray: report reviewed Thrombosis Risk Factor Assmnt - Choose All That Apply Any of the Below Risk Factors Present?: Yes Each Factor Represents 1 point: Obesity (BMI >25) Other Risk Factors: Yes Each Risk Factor Represents 2 Points: Age 61-74 years Other congenital or acquired thrombophilia - If yes, enter type in comment: No Thrombosis Risk Factor Assessment Total Risk Factor Score: 3 Thrombosis Risk Factor Assessment Level: Moderate Risk Assessment and Plan Plan: Assessment Chest pain Chronic back pain Sleep apnea uses CPAP Osteoarthritis GERD Hyperlipidemia Hypertension Plan Continue cardiac consultation cardiac catheterization plan for a.m.
[2016-07-28] MEDS: LISINOPRIL 20 MG TAB PO SCH (12:29)
[2016-07-28] MEDS ORDERED: ALPRAZolam 0.5 MG TAB PO PRN (14:07)
[2016-07-28] MEDS ORDERED: SODIUM CHLORIDE 0.9% 1,000 ML in EMPTY BAG 1 BAG IV ONE (14:07)
[2016-07-28] MEDS ORDERED: ASPIRIN 325 MG TAB PO STA (14:07)
[2016-07-28] MEDS ORDERED: ATORVASTATIN 80 MG TAB PO STA (14:07)
[2016-07-28] MEDS ORDERED: ALPRAZolam 0.25 MG TAB PO PRN (14:07)
[2016-07-28] MEDS ORDERED: IV FLUID CONTINUATION 1,000 ML IV ONE (14:45)
[2016-07-28] MEDS ORDERED: LIDOCAINE 2% INJ 20 MG/ML (20 ML MDV) ONE (15:03)
[2016-07-28] MEDS ORDERED: SODIUM CHLORIDE 0.9% (PF) 10 ML VIAL ONE (15:03)
[2016-07-28] MEDS ORDERED: VERAPAMIL 2.5 MG/ML 2 ML AMP ONE (15:03)
[2016-07-28] MEDS ORDERED: MIDAZOLAM 2 MG/2 ML VIAL ONE (15:15)
[2016-07-28] MEDS ORDERED: MIDAZOLAM 2 MG/2 ML VIAL IV ONE (15:16)
[2016-07-28] MEDS ORDERED: LIDOCAINE 2% INJ 20 MG/ML SQ ONE (15:17)
[2016-07-28] MEDS: VERAPAMIL SYRINGE (5 MG/10 ML) INTRAARTER ONE ×2 (15:20→15:28)
[2016-07-28] MEDS ORDERED: HEPARIN SODIUM 1,000 UNIT/ML VIAL ONE (15:20)
[2016-07-28] MEDS ORDERED: SODIUM CHLORIDE 0.9% 1,000 ML IV ONE (15:28)
[2016-07-28] MEDS ORDERED: IOHEXOL 350 MG/ML 100 ML BOTTLE INJ ONE (15:31)
[2016-07-28] MEDS ORDERED: RX INFO: IV CONTRAST WAS GIVEN 1 EACH MISC MISCELLANE PRN (15:49)
[2016-07-28] MEDS ORDERED: SODIUM CHLORIDE 0.9% 1,000 ML IV SCH (16:00)
[2016-07-28] MEDS ORDERED: AMITRIPTYLINE 25 MG PO SCH (21:00)
[2016-07-28 21:09] VITALS: BP 141/78; PULSE 74; TEMP 98.5
--- NOTE | 2016-07-29 07:39 | CC ---
DATE OF SERVICE: 07/28/2016 PERFORMING PHYSICIAN: Martin Prince MD, product support engineer. PROCEDURE PERFORMED: Selective right and left coronary angiogram. INDICATION: This is a pleasant 61-year-old gentleman who was admitted to the hospital with chest discomfort and was seen and evaluated by Dr. Mora who recommended proceeding with heart catheterization. APPROACH: Right radial artery. COMPLICATIONS: None. LEVEL OF SEDATION: Moderate. PROCEDURE DESCRIPTION: After obtaining informed consent, the patient was brought to the cardiac phlebotomy lab assistant. The right radial artery was cannulated using micropuncture technique. The micropuncture wire passed easily, then I placed 6 [place] sheath in the right radial artery. Subsequently, I did selective right and left coronary angiogram using JR4 and JL3.5 catheters. After that, the procedure was completed without any complication. SELECTIVE CORONARY ANGIOGRAM: 1. The right coronary artery is a large-caliber vessel and it is a dominant vessel. It is angiographically normal. It bifurcates distally into PDA and PLV branches; both are angiographically normal. 2. The left main is a short left main and almost ( ) and bifurcates into the left circumflex and left anterior descending artery. 3. The left circumflex is a large-caliber vessel and it is a nondominant vessel. The left circumflex is angiographically normal and in the midportion gives rise into a large first OM branch, which bifurcates into 2 separate branches; both are angiographically normal. 4. The left anterior descending artery; proximal LAD is angiographically normally. The mid LAD is normal and gives rise to the first and second diagonal branches; both are angiographically normal and the LAD distally is angiographically normal. CONCLUSION: Normal coronary angiogram. Postprocedure management will be medical treatment.
--- NOTE | 2016-07-29 10:37 | P.DS ---
Providers Date of admission: 07/27/16 15:28 Expected date of discharge: 07/28/16 Attending physician: Mauro Guzman Primary care physician: Mauro Guzman Hospital Course: 61-year-old male was admitted through the emergency room with complaints of chest pain. Dentition was found to have negative troponins. Patient had a cardiac cath that normal angiogram. Patient will be treated outpatient with medical treatment per cardiology Assessment Chest pain negative cardiac cath Chronic back pain narcotic dependence Sleep apnea was CPAP machine Osteoarthritis GERD Hyperlipidemia Hypertension Plan Discharge home with follow-up with cardiology for medical treatment Follow-up with family physician Patient Condition at Discharge: Stable Plan - Discharge Summary Discharge Medication List HYDROcodone/APAP 10-325MG [[place] 10-325] 1 - 2 tab PO Q8H PRN #120 tab 06/16/16 [Rx] Amitriptyline HCl [Elavil] 50 mg PO HS 07/08/16 [History] Methadone [Dolophine] 10 - 15 tab PO QID PRN 07/08/16 [History] Enalapril Maleate [Vasotec] 10 mg PO QID 07/27/16 [History] Nitroglycerin Sl Tabs [Nitrostat] 0.4 mg SUBLINGUAL Q5M PRN 07/27/16 [History] Follow up Appointment(s)/Referral(s): Mauro Guzman MD [Primary Care Provider] - 1-2 days Martin Prince MD [STAFF PHYSICIAN] - 1 Week (Appt for site check with Dr Prince on Aug 06 at 1:45 pm ) Patient Instructions/Handouts: After Heart Catheterization - Bobbin Handler, Heart Catheterization (DC) Activity/Diet/Wound Care/Special Instructions: TR Band discharge instructions: 1. no flexing at the wrist or lifting anything heavier than 5 pounds for 5 days. 2. remove any dressing over puncture site in 24 hours and leave open to air. 3. do not submerge wrist in water for 3 days. 4. circulation checks; anali, sensation, numbness, temperature, and color Discharge Disposition: HOME SELF-CARE
== END 2016-07-28 20:20 | disposition home or self-care (01) ==
LOC: EC 12:55 → 3OBS 15:28
PROVIDERS: ADMIT Family Medicine; ATTEND Family Medicine
DX: R07.9 Chest pain, unspecified (principal); G89.29 Other chronic pain; M54.9 Dorsalgia, unspecified; F11.20 Opioid dependence, uncomplicated; M19.90 Unspecified osteoarthritis, unspecified site; K21.9 Gastro-esophageal reflux disease without esophagitis; E78.5 Hyperlipidemia, unspecified; I10 Essential (primary) hypertension; F32.9 Major depressive disorder, single episode, unspecified; G47.33 Obstructive sleep apnea (adult) (pediatric); I48.91 Unspecified atrial fibrillation; Z79.899 Other long term (current) drug therapy; Z88.6 Allergy status to analgesic agent
CPT/HCPCS: 36415; 93454; 80061; 80053; 82550 ×2; 82553 ×2; 83735; 84484 ×2; 85025; 85610; 85730 ×2; 71020; 99285; G0378 ×2; C1769 ×2; C1894; J2001; J2250; J1644 ×3; Q9967; 93005; 96361; 96365; 96366; 96376

== ENCOUNTER → 2016-10-05 | Outpatient (CLI) | payer MEDICARE ==
[2016-10-05 14:51] VITALS: BP 140/84; PULSE 75; RESP 18; TEMP 98
--- NOTE | 2016-10-06 10:23 | P.CONS ---
History of Present Illness - Reason for Consult Consult date: 10/05/16 - History of Present Illness This is a follow-up visit for this 61 years old with a chronic history of severe low back pain, and diagnosed with lumbar facet back surgery syndrome, and he is here for medication refill, she'll deny any side effect of the medication and he has any fever or night sweats. Denies any change in the moment or urination, and he reported that the current pain medication helping him control his pain, but he reported that recently he started feeling increased of the low back pain, and intensity of the pain increases with any activity Past Medical History Past Medical History: GERD/Reflux, Hyperlipidemia, Hypertension, Musculoskeletal Disorder, Osteoarthritis (OA), Sleep Apnea/CPAP/BIPAP Additional Past Medical History / Comment(s): CURRENT EDEMA ONE FOOT, C-PAP HAS HELPED REFLUX. HX CHRONIC BACK PAIN. SCIATICA-NUMBNESS CHERELLE. LEGS & FEET- AFFECTS BALANCE @ TIMES. HX PLANTAR FASCIITIS, STRESS TEST. History of Any Multi-Drug Resistant Organisms: None Reported Past Surgical History: Back Surgery, Hernia Repair, Orthopedic Surgery Additional Past Surgical History / Comment(s): Back surgeries, pain clinic- multiple times, rt shoulder surgery 2003, [facility]. WRISTS 2005, DEQUERVAINS RELEASE RT WRIST 08/2013 & left wrist recently, umbilical hernia, VARICOSE VEIN SX Past Anesthesia/Blood Transfusion Reactions: No Reported Reaction Additional Past Anesthesia/Blood Transfusion Reaction / Comm: NO BLOOD TRANSFUSIONS (OTHER THEN HIS OWN DONATED). Past Psychological History: Depression Additional Psychological History / Comment(s): past hx Smoking Status: Never smoker Past Alcohol Use History: Rare Past Drug Use History: None Reported - Past Family History Mother Family Medical History: Cancer Additional Family Medical History / Comment(s): breast Father Family Medical History: Cancer Additional Family Medical History / Comment(s): lung ca Medications and Allergies Home Medications Medication Instructions Recorded Confirmed Type Enalapril Maleate [Vasotec] 10 mg PO QID 07/27/16 07/27/16 History Nitroglycerin Sl Tabs [Nitrostat] 0.4 mg SUBLINGUAL Q5M PRN 07/27/16 07/27/16 History Allergies Allergy/AdvReac Type Severity Reaction Status Date / Time ibuprofen [From Motrin] Allergy Nausea & Verified 10/05/16 14:38 Vomiting cashews Allergy Rash/Hives Uncoded 10/05/16 14:38 poison adán Allergy Rash/Hives Uncoded 10/05/16 14:38 POLYESTER AdvReac Rash/Hives Uncoded 10/05/16 14:38 Physical Exam Vitals: Vital Signs Temp Pulse Resp BP 10/05/16 14:42 98 F 75 18 140/84 Physical Examinations : 1-Constitutiona : Cooperative , not in acute distress . 2-HEENT : nech ; supple , no Lymphadenopathy , no Thyromegaly , normal thyroid size . eyes : no ptosis , no icterus, no photophobia . ENT : normal of hearing , normal oropharynx , no Thrush . 3- Respiratory : Chest clear to auscultations Bilaterally , no wheezing , no Rhonchi . 4- Cardiovascular : regular rate and rhythem , S1 , S2 , no S3 , no S4. 5- Gastrointestinal : abdomen soft no tenderness , bowel sounds positive all four quadrents , no organomegally . 6- Genitourinary : Defferred . 7- neurologic : Cranial nerve II to XII intact , no focal neurological deffecit . 8-psychatric : alert , oriented X 3 , appropriate affect , intact judgment and insight . 9-Lymphatic : no Lymphadenopathy . 10- musculoskeltal : exams of the cervical spine = normal motor stregnth in the deltoid and biceps, exams of the Lumber spine = normal moter stegnth lower extremities ,thigh and legs .5/5 deep tendon reflexes : normal Knee Jerk , normal ankle Jerk . positive lumber facet Loading Test strait leg raising test positive at 30 degree , RT ,LT , Fabere test positive RT and positive LT . 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 -Patient denies any side effect of the medication, and the current medication helped the patient to control the pain and improve activity of daily living, The patient was counseled about risk of opioid use, psychological risk associated with opioids discussed with the patient, body mass index and exercise. Patient signed the narcotic agreement , and was orally counseled not to overuse , abuse , divert, or sell medications ,and take them as prescribed only , and the patient was counseled against driving and while you are using the narcotic medication also not to use alcohol or any illicit drugs and the patient verbalized understanding that lack of compliance and could result in failure to renew narcotics prescriptions and possible discharge from the clinic - diagnoses, prognosis, and treatment options including but not limited to physical therapy, surgical interventions, interventional therapies and medication management including narcotics and adjuvant medication were discussed with the patient and all questions answered to the patient's satisfaction. Patient given a refill on his medication and he will follow up with the pain clinic in 2 months, and also patient could benefit from repeat, epidural steroid injections with lysis of epidural adhesions which would be under fluoroscopy guidance at the earliest convenience for the patient Time with Patient: Less than 30
== END | disposition home or self-care (01) ==
LOC: PNWHC3 13:40
PROVIDERS: ATTEND Specialist
DX: M51.36 Other intervertebral disc degeneration, lumbar region (principal); M47.816 Spondylosis without myelopathy or radiculopathy, lumbar region; E78.5 Hyperlipidemia, unspecified; I10 Essential (primary) hypertension; F32.9 Major depressive disorder, single episode, unspecified; Z79.899 Other long term (current) drug therapy; Z88.6 Allergy status to analgesic agent
CPT/HCPCS: 99211

== ENCOUNTER 2016-11-04 12:20 | Day surgery (SDC) | payer MEDICARE ==
[2016-11-02 18:13] VITALS: BMI 34.4
[~2016-11-04 12:20] MED LIST: LACTATED RINGERS 1,000 ML IV SCH
[2016-11-04 13:06] VITALS: TEMP 98.4
[2016-11-04] MEDS ORDERED: LIDOCAINE 1% 20 ML VIAL (10MG/ML) FOR IV START INTRADERMA ONE (13:17)
[2016-11-04] MEDS ORDERED: IOHEXOL 180 MG/ML 1 ML ML ONE (13:54)
[2016-11-04] MEDS ORDERED: fentaNYL (PF) 50 MCG/ML 2 ML AMP ONE (13:54)
[2016-11-04] MEDS ORDERED: TRIAMCINOLONE ACETONIDE 40 MG/ML 1 ML VIAL ONE (13:54)
[2016-11-04] MEDS ORDERED: MIDAZOLAM (PF) 1 MG/ML 5 ML VIAL ONE (13:54)
--- NOTE | 2016-11-04 14:20 | P.PCN ---
Date of Procedure: 11/04/16 Procedure(s) Performed: PREOP DIAGNOSIS: 1- Lumbar postlaminectomy syndrome POSTOP DIAGNOSIS:1- Lumbar postlaminectomy syndrome PROCEDURE: Caudal epidural steroid injection with epidurolysis and epidurogram under fluoroscopic guidance ANESTHESIA: Local with 1% lidocaine 3 ml ; IV sedation with Versed 5 mg and fentanyl 200 g EBL: Minimal. PROCEDURE INDICATION: The patient with post-laminectomy syndrome with low back pain and radiculopathy radiating down in both legs, here for a caudal epidural steroid injection with epidurolysis. PROCEDURE DESCRIPTION: The patient was seen and identified in the preoperative area. Risks, benefits, complications, and alternatives were discussed with the patient. The patient agreed to proceed with the procedure and signed the consent. IV was started, and vital signs were stable. Patient was taken to the OR and time out was completed. The patient was placed in the prone position on procedure table and a pillow was placed under the abdomen to reduce lumbar lordosis. The lumbosacral area was prepped and draped in the usual sterile fashion. Vital signs were closely monitored during the procedure. lateral view and the anterior-posterior plates of the sacrum were identified with infiltration of the area overlying the sacral hiatus with 1% lidocaine .A 17 gauge RK epidural needle was used to advance through the sacral hiatus into the caudal epidural space. Omnipaque 180 dye. 2cc was injected and the position of the needle was verified to be in the midline. A Racz catheter was introduced into the epidural space and was advanced towards the L5-S1 interspace under direct fluoroscopic guidance. Multiple passes were made with the catheter for lysis of epidural adhesions. Kenalog 80 mg with 3ml of preservative free Lidocaine 1% and 5 ml of preservative free normal saline was injected slowly. Additional spread was seen to L4 under fluoroscopy. The needle and the catheter were withdrawn intact. EPIDUROGRAM: Omnipaque 180 mg dye 2 ml was injected with spread of the dye into the caudal epidural space and with spread cutoff at L5 prior to epidurolysis. Post epidurolysis dye 2 ml was injected and spread was seen to L3- 4.There was further spread of the solution together with the dye above the L3 COMPLICATIONS: None. DISPOSITION / PLANS: The patient was placed in a supine position and transferred to the recovery area in a stable condition for observation and was discharged from the recovery room after meeting discharge criteria. Home discharge instructions given to the patient by the staff. The patient was reexamined prior to discharge. The patient will schedule a follow up in the clinic in 2-4 weeks.
[2016-11-04] MEDS ORDERED: IV FLUID CONTINUATION 1,000 ML IV ONE (14:25)
[2016-11-04 14:40] VITALS: BP 128/82; PULSE 76; RESP 18
--- NOTE | 2016-11-04 14:44 | FL ---
EXAMINATION TYPE: FL guided pain mgmt statistic DATE OF EXAM: 11/04/2016 2:26 PM HISTORY: Pain CAUDAL EPIDURAL STEROID INJECTION, 11SEC FL TIME
== END 2016-11-04 14:53 | disposition home or self-care (01) ==
LOC: ORPAIN 12:20
PROVIDERS: ATTEND Specialist
DX: M96.1 Postlaminectomy syndrome, not elsewhere classified (principal); M54.16 Radiculopathy, lumbar region; Z88.6 Allergy status to analgesic agent; Z91.018 Allergy to other foods; Z91.09 Other allergy status, other than to drugs and biological substances
CPT/HCPCS: 62264; 99152; J3301; Q9965; J2250; J3010

== ENCOUNTER 2016-11-30 06:56 | Day surgery (SDC) | payer MEDICARE ==
[2016-11-25 11:32] VITALS: BMI 34.4
[2016-11-30] MEDS ORDERED: LACTATED RINGERS 1,000 ML IV SCH (07:00)
[2016-11-30 07:45] VITALS: TEMP 98.3
[2016-11-30] MEDS ORDERED: LIDOCAINE 1% 20 ML VIAL (10MG/ML) FOR IV START INTRADERMA ONE (07:49)
[2016-11-30] MEDS ORDERED: LIDOCAINE 1% INJ 10MG/ML (20 ML MDV) ONE (07:54)
[2016-11-30] MEDS ORDERED: DEXAMETHASONE SOD PHOS (MDV) 100 MG/10 ML VIAL ONE (07:54)
[2016-11-30] MEDS ORDERED: fentaNYL (PF) 50 MCG/ML 2 ML AMP ONE (07:54)
[2016-11-30] MEDS ORDERED: MIDAZOLAM 2 MG/2 ML VIAL ONE (07:54)
[2016-11-30] MEDS ORDERED: IOHEXOL 180 MG/ML 1 ML ML ONE (07:54)
--- NOTE | 2016-11-30 08:31 | P.PCN ---
Date of Procedure: 11/30/16 Preoperative Diagnosis: Postoperative Diagnosis: Procedure(s) Performed: PREOP DIAGNOSIS: 1- Lumbar postlaminectomy syndrome POSTOP DIAGNOSIS:1- Lumbar postlaminectomy syndrome PROCEDURE: Caudal epidural steroid injection with epidurolysis and epidurogram under fluoroscopic guidance ANESTHESIA: Local with 1% lidocaine 8 ml ; IV sedation with Versed 4 mg and fentanyl 300 g EBL: Minimal. PROCEDURE INDICATION: The patient with post-laminectomy syndrome with low back pain and radiculopathy radiating down in both legs, here for a caudal epidural steroid injection with epidurolysis. PROCEDURE DESCRIPTION: The patient was seen and identified in the preoperative area. Risks, benefits, complications, and alternatives were discussed with the patient. The patient agreed to proceed with the procedure and signed the consent. IV was started, and vital signs were stable. Patient was taken to the OR and time out was completed. The patient was placed in the prone position on procedure table and a pillow was placed under the abdomen to reduce lumbar lordosis. The lumbosacral area was prepped and draped in the usual sterile fashion. Vital signs were closely monitored during the procedure. lateral view and the anterior-posterior plates of the sacrum were identified with infiltration of the area overlying the sacral hiatus with 1% lidocaine .A 17 gauge RK epidural needle was used to advance through the sacral hiatus into the caudal epidural space. Omnipaque 180 dye. 2cc was injected and the position of the needle was verified to be in the midline. A Racz catheter was introduced into the epidural space and was advanced towards the L5-S1 interspace under direct fluoroscopic guidance. Multiple passes were made with the catheter for lysis of epidural adhesions. Kenalog 80 mg with 3ml of preservative free Lidocaine 1% and 5 ml of preservative free normal saline was injected slowly. Additional spread was seen to L4 under fluoroscopy. The needle and the catheter were withdrawn intact. EPIDUROGRAM: Omnipaque 180 mg dye 2 ml was injected with spread of the dye into the caudal epidural space and with spread cutoff at L5 prior to epidurolysis. Post epidurolysis dye 2 ml was injected and spread was seen to L3- 4.There was further spread of the solution together with the dye above the L3 COMPLICATIONS: None. DISPOSITION / PLANS: The patient was placed in a supine position and transferred to the recovery area in a stable condition for observation and was discharged from the recovery room after meeting discharge criteria. Home discharge instructions given to the patient by the staff. The patient was reexamined prior to discharge. The patient will schedule a follow up in the clinic in 4 weeks. Prescription refill for methadone 10 mg 1-1/2 tablets every 8 hours since 135 tablet, amitriptyline 50 mg daily at bedtime, norco 10/325 to 6 h dispense 90 Implants: Indications for Procedure: Operative Findings: Description of Procedure:
[2016-11-30] MEDS ORDERED: IV FLUID CONTINUATION 1,000 ML IV ONE (08:32)
[2016-11-30 08:36] VITALS: PULSE 73; RESP 18
--- NOTE | 2016-11-30 08:39 | FL ---
FLUOROSCOPY 5 seconds of fluoroscopy time were utilized during Pain Injection. 2 images document the procedure.
[2016-11-30 08:49] VITALS: BP 121/72
== END 2016-11-30 09:13 | disposition home or self-care (01) ==
LOC: ORPAIN 06:56
PROVIDERS: ATTEND Specialist
DX: M96.1 Postlaminectomy syndrome, not elsewhere classified (principal); Y83.8 Other surgical procedures as the cause of abnormal reaction of the patient, or of later complication, without mention of misadventure at the time of the procedure; M54.16 Radiculopathy, lumbar region; Z88.6 Allergy status to analgesic agent; Z88.8 Allergy status to other drugs, medicaments and biological substances
CPT/HCPCS: 62264; 99152; J2250; Q9965; J2001; J3010; J1100

== ENCOUNTER 2016-12-30 10:21 | Day surgery (SDC) | payer MEDICARE ==
[2016-12-24 11:32] VITALS: BMI 34.4
[~2016-12-30 10:21] MED LIST changes: +LACTATED RINGERS 1,000 ML IV ONE; -LACTATED RINGERS 1,000 ML IV SCH
[2016-12-30 11:11] VITALS: RESP 16; TEMP 98.2
[2016-12-30] MEDS ORDERED: MIDAZOLAM 2 MG/2 ML VIAL ONE (12:09)
[2016-12-30] MEDS ORDERED: fentaNYL (PF) 50 MCG/ML 2 ML AMP ONE (12:09)
--- NOTE | 2016-12-30 12:35 | P.PCN ---
Date of Procedure: 12/30/16 Preoperative Diagnosis: Postoperative Diagnosis: Procedure(s) Performed: PREOP DIAGNOSIS: 1- Lumbar postlaminectomy syndrome POSTOP DIAGNOSIS:1- Lumbar postlaminectomy syndrome PROCEDURE: Caudal epidural steroid injection with epidurolysis and epidurogram under fluoroscopic guidance ANESTHESIA: Local with 1% lidocaine 8 ml ; IV sedation with Versed 4 mg and fentanyl 100 g EBL: Minimal. PROCEDURE INDICATION: The patient with post-laminectomy syndrome with low back pain and radiculopathy radiating down in both legs, here for a caudal epidural steroid injection with epidurolysis. PROCEDURE DESCRIPTION: The patient was seen and identified in the preoperative area. Risks, benefits, complications, and alternatives were discussed with the patient. The patient agreed to proceed with the procedure and signed the consent. IV was started, and vital signs were stable. Patient was taken to the OR and time out was completed. The patient was placed in the prone position on procedure table and a pillow was placed under the abdomen to reduce lumbar lordosis. The lumbosacral area was prepped and draped in the usual sterile fashion. Vital signs were closely monitored during the procedure. lateral view and the anterior-posterior plates of the sacrum were identified with infiltration of the area overlying the sacral hiatus with 1% lidocaine .A 17 gauge RK epidural needle was used to advance through the sacral hiatus into the caudal epidural space. Omnipaque 180 dye. 2cc was injected and the position of the needle was verified to be in the midline. A Racz catheter was introduced into the epidural space and was advanced towards the L5-S1 interspace under direct fluoroscopic guidance. Multiple passes were made with the catheter for lysis of epidural adhesions. Dexamethasone 20 mg with 3ml of preservative free Lidocaine 1% and 5 ml of preservative free normal saline was injected slowly. Additional spread was seen to L4 under fluoroscopy. The needle and the catheter were withdrawn intact. EPIDUROGRAM: Omnipaque 180 mg dye 2 ml was injected with spread of the dye into the caudal epidural space and with spread cutoff at L5 prior to epidurolysis. Post epidurolysis dye 2 ml was injected and spread was seen to L3- 4.There was further spread of the solution together with the dye above the L3 COMPLICATIONS: None. DISPOSITION / PLANS: The patient was placed in a supine position and transferred to the recovery area in a stable condition for observation and was discharged from the recovery room after meeting discharge criteria. Home discharge instructions given to the patient by the staff. The patient was reexamined prior to discharge. The patient will schedule a follow up in the clinic in 2-4 weeks. Implants: Indications for Procedure: Operative Findings: Description of Procedure:
[2016-12-30] MEDS ORDERED: IV FLUID CONTINUATION 1,000 ML IV ONE (12:40)
--- NOTE | 2016-12-30 12:53 | FL ---
FLUOROSCOPY 7 seconds of fluoroscopy time were utilized during Pain Injection. 2 images document the procedure.
[2016-12-30 13:02] VITALS: BP 116/76; PULSE 62
== END 2016-12-30 13:31 | disposition home or self-care (01) ==
LOC: ORPAIN 10:21
PROVIDERS: ATTEND Specialist
DX: G96.12 Meningeal adhesions (cerebral) (spinal) (principal); M96.1 Postlaminectomy syndrome, not elsewhere classified; Z88.6 Allergy status to analgesic agent; Z91.018 Allergy to other foods; Z91.09 Other allergy status, other than to drugs and biological substances
CPT/HCPCS: 62264; 99152; J2250; J3010

== ENCOUNTER → 2017-03-23 | Outpatient (CLI) | payer MEDICARE ==
[2017-03-23 11:48] VITALS: BP 153/90; PULSE 76; RESP 16
--- NOTE | 2017-03-23 12:25 | P.PN ---
Progress Note - Text Patient returns for followup for chronic back pain with radiation to both legs due to a history of lumbar postlaminectomy syndrome. Patient underwent caudal epidural steroid injection with ZOE x 3, last in December, which has provided some relief for several months' interval. Patient continues on methadone and Winf[place] medications for pain with good relief and does not want any changes today. Patient denies adverse drug effects from medications. Today, pt denies new- onset weakness, bowel/bladder incontinence, or any other signs or symptoms of cauda equina syndrome. There are no signs of acute intoxication, and no indications of medication diversion or overuse. In addition to above, 13-point review of systems is also negative for chest pain , shortness of breath, changes in vision, changes in hearing, new onset weakness , abdominal pain, diarrhea, extreme fatigue, malaise, fever, skin changes, homicidal or suicidal ideation, or bowel or bladder incontinence. Vital Signs: Reviewed in EMR Gen: WDWN, AAOx3, NAD HEENT: NCAT, EOMI, hearing grossly normal Pulm: resp unlabored Abd: soft, NT, ND Neck: supple, trachea midline ROM in flexion lumbar spine: reduced ROM in extension lumbar spine: reduced Lumbar paravertebral tenderness: ++ bilaterally Facet loading: + bilaterally SI joint tenderness: + R > L Waqas's test: + R > L Straight leg raise: neg Lower extremity: reduced strength due to pain Neuro: CN II-XII grossly intact, muscle strength lower extremities PRESERVED Imaging: Reviewed in EMR Assessment: 1. lumbar PLPS 2. lumbar spondylosis without myelopathy 3. lumbar radiculopathy Plan: 1. Explanation: Opioid and psychological risk scores were reviewed. Diagnoses , prognoses, and multiple treatment options including but not limited to physical therapy, interventional therapies, adjuvant medical therapies, narcotic medication therapies, and surgery were discussed with the patient and all questions were answered to the patient's satisfaction. 2. Opioid agreement: Patient has previously signed narcotic agreement, and was orally counseled to not overuse, abuse, divert, or cell medications, and to take them as prescribed by only 1 healthcare provider. The patient was also counseled to store opioid medications in a safe and preferably locked location. Patient was also counseled against driving while using narcotic medications and also to not use alcohol or any illicit or recreational drugs. The patient verbalized understanding that lack of compliance with any of the above and likely result in failure to renew narcotic prescriptions, possible discharge from the clinic, and possible legal ramifications thereafter if indicated. 3. Counseling: The patient was counseled extensively on BODY MASS INDEX, EXERCISE. Specifically, the patient was instructed regarding the importance of weight loss and regular exercise in the context of both chronic pain and overall health. 4. Procedures: none for now 5. Consultations: None 6. Investigations: UDS today 7. Medications: refill [place] 10/325 #120 with one refill, refill methadone to 10 mg po QID #120 with one refill 8. Disposition: f/u for re-eval in 8 weeks PQRS measures: 1-Patient's medications are documented in the chart. 2-Tobacco use is negative, counseling NOT given 3-Patient has had a pneumococcal vaccine. 4-Advanced care planning discussed, patient unable to give. 5-Opioid contract signed with the patient. 6-Pain positive, follow-up visit or procedure scheduled 7-Patient's blood pressure measured and documented, WNL 8-Patient's weight was measured, and body mass index ABOVE the normal limits, and counseling was done. Patient instructed to follow up with PCP. 9-Patient WAS NOT identified as an unhealthy alcohol user.
[2017-03-24 14:11] LABS: Mis test requested (Non-blood) HEROIN
== END ==
LOC: PNWHC3 11:23
PROVIDERS: ATTEND Anesthesiology
DX: M47.26 Other spondylosis with radiculopathy, lumbar region (principal); Z79.899 Other long term (current) drug therapy; Z79.891 Long term (current) use of opiate analgesic
CPT/HCPCS: 93005; G0480; G0463; 80356; 99211

== ENCOUNTER → 2017-05-18 | Outpatient (CLI) | payer MEDICARE ==
[2017-05-18 12:48] VITALS: BP 159/85; PULSE 95; RESP 18
--- NOTE | 2017-05-18 12:48 | P.PN ---
Progress Note - Text Progress Note Date: 05/18/17 This is a 62-year-old male with history of failed back surgery syndrome. This pain is well controlled with a combination of oral opioids and caudal epidural steroid injection from time to time. This pain increases in cold weather. He is on a stable dose of methadone 40 mg a day and 3 pills of Milan every day when necessary pain. He denies any side effects to these medications except for constipation. He is alert oriented 3 . Neuro exam of the lower extremities showed mildly decreased muscle strength bilaterally and symmetrically to 4 out of 5. Decreased but symmetrical knee reflexes and absent ankle jerks bilaterally and symmetrically. Today I'll refill the patient prescription for methadone and Milan. He refused to get prescription to help with his constipation problem and said the he is able to deal with it. The patient does not show any drug-seeking behavior and denies any suicidal thoughts. We will see the patient 2 months from now.
== END | disposition home or self-care (01) ==
LOC: PNWHC3 11:43
PROVIDERS: ATTEND Anesthesiology
DX: M54.9 Dorsalgia, unspecified (principal)
CPT/HCPCS: 99211

== ENCOUNTER → 2017-08-10 | Outpatient (CLI) | payer MEDICARE ==
[2017-08-10 12:25] VITALS: BP 125/85; PULSE 85; RESP 16
--- NOTE | 2017-08-10 13:01 | P.PN ---
Subjective Progress Note Date: 08/10/17 This is follow-up visit for this patient with a history of severe and chronic low back pain secondary to lumbar degenerative disc diseases , failed back surgery syndrome lumbar area In the past we have done: Epidural steroid injection with lysis of epidural adhesions with excellent pain relief Patients currently on methadone 10 mg every 6 hours, Trevett 10/325 every 6 hours when necessary Patient denies any side effects of the medication, denies excessive drowsiness or sleepiness, denies suicidal ideation, and reports that the current pain medication is helping To control the pain, and improve activity of daily living , currently patient complaining of some right leg numbness and tingling sensation in the anterior and lateral aspect of his right thigh Patient denies any motor or sensory deficit , patient denies any fever or night sweats, denies any change in the bowel movements or urination Physical Examinations : 1-Constitutiona : Cooperative , not in acute distress . 2-HEENT : nech ; supple , no Lymphadenopathy , no Thyromegaly , normal thyroid size . eyes : no ptosis , no icterus, no photophobia . ENT : normal of hearing , normal oropharynx , no Thrush . 3- Respiratory : Chest clear to auscultations Bilaterally , no wheezing , no Rhonchi . 4- Cardiovascular : regular rate and rhythem , S1 , S2 , no S3 , no S4. 5- Gastrointestinal : abdomen soft no tenderness , bowel sounds positive all four quadrents , no organomegally . 6- Genitourinary : Defferred . 7- neurologic : Cranial nerve II to XII intact , no focal neurological deffecit . 8-psychatric : alert , oriented X 3 , appropriate affect , intact judgment and insight . 9-Lymphatic : no Lymphadenopathy . 10- musculoskeltal : exams of the cervical spine = motor strength normal bilateral upper extremities facet loading test cervical area positive. exams of the Lumber spine = motor strength lower extremities ,thigh and legs .5/5 deep tendon reflexes : normal Knee Jerk , normal ankle Jerk . lumber facet Loading Test positive strait leg raising test positive at 30 degree , RT ,LT , Fabere test positive RT and positive LT . Range of motion: Range of motion in flexion of the lumbar spine 30 degrees Range of motion range of motion of extension of the lumbar spine 10 Assessment and plan = Chronic low back pain secondary to lumbar degenerative disc disease , failed back surgery syndrome lumbar area, Right meralgia paresthetica chronic and current use of high-risk medication (Opioids). The patient was counseled about risk of opioid use, psychological risk associated with opioids and was orally counseled to not overuse , divert,or sell dictations to take medications as prescribed only , and to restore medication in safe location , and the patient counseled against driving while using narcotic medications, and also not to use alcohol or any illicit recreational drugs, the patient's verbalized understanding that the lack of compliance will result in failure to renew narcotic prescription and possible discharge from the clinic - diagnoses, prognosis, and treatment options including but not limited to physical therapy, surgical interventions, interventional therapies , and medication management including narcotics and adjuvant medication were discussed with the patient and all the questions answered , Patient given prescription refill/E prescribed for methadone 10 mg every 6 hours dispense 120 with one refill and Trevett 10/325 every 6 hours dispensed 90 with 1 refill And he will be scheduled to have caudal epidural steroid injection with lysis of epidural adhesions Objective - Vital Signs Vital signs: Vital Signs Temp Pulse 85 08/10/17 12:24 Resp 16 08/10/17 12:24 BP 125/85 08/10/17 12:24 Pulse Ox Intake & Output 08/09/17 08/10/17 08/10/17 18:59 06:59 18:59 Weight 108.862 kg
== END | disposition home or self-care (01) ==
LOC: PNWHC3 11:24
PROVIDERS: ATTEND Specialist
DX: G89.29 Other chronic pain (principal); M54.5 Low back pain; M51.36 Other intervertebral disc degeneration, lumbar region; M96.1 Postlaminectomy syndrome, not elsewhere classified; G57.11 Meralgia paresthetica, right lower limb; Z79.891 Long term (current) use of opiate analgesic; Z76.0 Encounter for issue of repeat prescription
CPT/HCPCS: 99211

== ENCOUNTER 2017-08-22 07:48 | Day surgery (SDC) | payer MEDICARE ==
[2017-08-18 12:28] VITALS: BMI 34.4
[~2017-08-22 07:48] MED LIST changes: -LACTATED RINGERS 1,000 ML IV ONE; +LACTATED RINGERS 1,000 ML IV SCH
[2017-08-22 08:15] VITALS: RESP 16; TEMP 97.4
[2017-08-22] MEDS ORDERED: LIDOCAINE 1% 20 ML VIAL (10MG/ML) FOR IV START INTRADERMA ONE (08:15)
--- NOTE | 2017-08-22 10:04 | P.PCN ---
Date of Procedure: 08/22/17 Procedure(s) Performed: PREOP DIAGNOSIS: 1- Lumbar postlaminectomy syndrome POSTOP DIAGNOSIS:1- Lumbar postlaminectomy syndrome PROCEDURE: Caudal epidural steroid injection with epidurolysis and epidurogram under fluoroscopic guidance ANESTHESIA: Local with 1% lidocaine 3 ml ,and moderate sedation, with Versed 4 mg and fentanyl 200 g EBL: Minimal. PROCEDURE INDICATION: The patient with post-laminectomy syndrome with low back pain and radiculopathy radiating down in both legs, here for a caudal epidural steroid injection with epidurolysis. PROCEDURE DESCRIPTION: The patient was seen and identified in the preoperative area. Risks, benefits, complications, and alternatives were discussed with the patient. The patient agreed to proceed with the procedure and signed the consent. IV was started, and vital signs were stable. Patient was taken to the OR and time out was completed. The patient was placed in the prone position on procedure table and a pillow was placed under the abdomen to reduce lumbar lordosis. The lumbosacral area was prepped and draped in the usual sterile fashion. Vital signs were closely monitored during the procedure. lateral view and the anterior-posterior plates of the sacrum were identified with infiltration of the area overlying the sacral hiatus with 1% lidocaine .A 17 gauge RK epidural needle was used to advance through the sacral hiatus into the caudal epidural space. Omnipaque 180 dye. 2cc was injected and the position of the needle was verified to be in the midline. A Racz catheter was introduced into the epidural space and was advanced towards the L5-S1 interspace under direct fluoroscopic guidance. Multiple passes were made with the catheter for lysis of epidural adhesions. Kenalog 80 mg with 3ml of preservative free Lidocaine 1% and 5 ml of preservative free normal saline was injected slowly. Additional spread was seen to L4 under fluoroscopy. The needle and the catheter were withdrawn intact. EPIDUROGRAM: Omnipaque 180 mg dye 2 ml was injected with spread of the dye into the caudal epidural space and with spread cutoff at L5 prior to epidurolysis. Post epidurolysis dye 2 ml was injected and spread was seen to L3- 4.There was further spread of the solution together with the dye above the L3 COMPLICATIONS: None. DISPOSITION / PLANS: The patient was placed in a supine position and transferred to the recovery area in a stable condition for observation and was discharged from the recovery room after meeting discharge criteria. Home discharge instructions given to the patient by the staff. The patient was reexamined prior to discharge. The patient will schedule a follow up in the clinic in 2-4 weeks.
[2017-08-22 10:12] VITALS: PULSE 78
--- NOTE | 2017-08-22 10:15 | FL ---
Fluoroscopy INDICATION: Pain FINDINGS: Fluoroscopy time: 10 seconds. Images obtained: 3. IMPRESSIONS: 1. Documentation of fluoroscopy.
[2017-08-22 10:31] VITALS: BP 114/60
[2017-08-22] MEDS ORDERED: IV FLUID CONTINUATION 1,000 ML IV ONE (10:36)
== END 2017-08-22 10:39 | disposition home or self-care (01) ==
LOC: ORPAIN 07:48
PROVIDERS: ATTEND Specialist
DX: M96.1 Postlaminectomy syndrome, not elsewhere classified (principal); G96.12 Meningeal adhesions (cerebral) (spinal); I10 Essential (primary) hypertension; G47.33 Obstructive sleep apnea (adult) (pediatric); Z88.6 Allergy status to analgesic agent; Z91.018 Allergy to other foods; Z88.8 Allergy status to other drugs, medicaments and biological substances; Z91.048 Other nonmedicinal substance allergy status
CPT/HCPCS: 62264; J2250; J3301; Q9965; J3010; C1894; 99152

== ENCOUNTER 2017-09-08 06:14 | Day surgery (SDC) | payer MEDICARE ==
[2017-09-05 10:16] VITALS: BMI 34.4
[2017-09-08 06:40] VITALS: RESP 16; TEMP 98.9
[2017-09-08] MEDS ORDERED: LIDOCAINE 1% 20 ML VIAL (10MG/ML) FOR IV START INTRADERMA ONE (06:55)
[2017-09-08] MEDS ORDERED: LACTATED RINGERS 1,000 ML IV ONE ×2 (06:55→07:15)
[2017-09-08] MEDS ORDERED: IV FLUID CONTINUATION 1,000 ML IV ONE (07:48)
[2017-09-08 08:06] VITALS: BP 108/73; PULSE 74
--- NOTE | 2017-09-08 08:38 | FL ---
EXAMINATION TYPE: FL guided pain mgmt statistic DATE OF EXAM: 09/08/2017 FLUOROSCOPY Fluoroscopy time of 37 seconds was used during caudal injection. 2 image/s document/s the procedure.
--- NOTE | 2017-09-08 08:50 | P.PCN ---
Date of Procedure: 09/08/17 Surgeon: Chaparro Irene Pathology: none sent Condition: stable Disposition: PACU Description of Procedure: PREOP DIAGNOSIS: Lumbar postlaminectomy syndrome POSTOP DIAGNOSIS: Lumbar postlaminectomy syndrome PROCEDURE: Caudal epidural steroid injection with epidurolysis and epidurogram under fluoroscopic guidance ANESTHESIA: Local with 1% lidocaine; conscious sedation EBL: Minimal. PROCEDURE INDICATION: The patient with post-laminectomy syndrome with low back pain and radiculopathy radiating down in both legs, here for a caudal epidural steroid injection with epidurolysis, #2 in series today. Patient does not use any blood thinning medications. PROCEDURE DESCRIPTION: The patient was seen and identified in the preoperative area. Risks, benefits, complications, and alternatives were discussed with the patient including but not limited to bleeding, infection, nerve damage, incomplete pain relief, and allergic reactions to medications. The patient agreed to proceed with the procedure and signed the consent after all questions were answered. IV was started, and vital signs were stable. Patient was taken to the OR and time out was completed to verify proper patient , procedure, laterality of pain, and allergies. The patient was placed in the prone position on procedure table and a pillow was placed under the abdomen to reduce lumbar lordosis. The lumbosacral area was prepped and draped in the usual sterile fashion. Critical pause was taken. Vital signs were closely monitored during the procedure. Fluoroscopic camera was placed in the lateral view and the anterior-posterior plates of the sacrum were identified with infiltration of the area overlying the sacral hiatus with 1% lidocaine .A 16 gauge RK epidural needle was used to advance through the sacral hiatus into the caudal epidural space. Omnipaque 300 dye 2cc was injected and the position of the needle was verified to be in the midline. A Racz catheter was introduced into the epidural space and was advanced towards the L5-S1 interspace under direct fluoroscopic guidance. Multiple passes were made with the catheter for lysis of epidural adhesions. Depo Medrol 40 mg with 3ml of preservative free Lidocaine 1% and 7 ml of preservative free normal saline was injected slowly. Additional spread was seen to L4 under fluoroscopy. The needle and the catheter were withdrawn intact. EPIDUROGRAM: Omnipaque 300 dye 2 ml was injected with spread of the dye into the caudal epidural space and with spread cutoff at L5 prior to epidurolysis. Post epidurolysis dye 2 ml was injected and spread was seen to L4. There was further spread of the solution together with the dye above the L4. COMPLICATIONS: None. DISPOSITION / PLANS: The patient was placed in a supine position and transferred to the recovery area in a stable condition for observation and was discharged from the recovery room after meeting discharge criteria. Home discharge instructions given to the patient by the staff. The patient was reexamined prior to discharge. The patient will schedule a third procedure in 4- 6 weeks.
== END 2017-09-08 08:23 | disposition home or self-care (01) ==
LOC: ORPAIN 06:14
PROVIDERS: ATTEND Anesthesiology
DX: M96.1 Postlaminectomy syndrome, not elsewhere classified (principal); I10 Essential (primary) hypertension; G47.33 Obstructive sleep apnea (adult) (pediatric); Z88.6 Allergy status to analgesic agent; Z91.018 Allergy to other foods; Z88.8 Allergy status to other drugs, medicaments and biological substances; Z91.048 Other nonmedicinal substance allergy status
CPT/HCPCS: 62264; J2250; J1030; Q9965; J3010; C1894; 99152

== ENCOUNTER 2017-10-04 09:10 | Day surgery (SDC) | payer MEDICARE ==
[2017-09-28 13:57] VITALS: BMI 35.2
[2017-10-04 10:23] VITALS: TEMP 98.2
[2017-10-04] MEDS ORDERED: LIDOCAINE 1% 20 ML VIAL (10MG/ML) FOR IV START INTRADERMA ONE (10:32)
--- NOTE | 2017-10-04 11:24 | P.PCN ---
Date of Procedure: 10/04/17 Surgeon: Chaparro Irene Pathology: none sent Condition: stable Disposition: PACU Description of Procedure: PREOP DIAGNOSIS: Lumbar postlaminectomy syndrome POSTOP DIAGNOSIS: Lumbar postlaminectomy syndrome PROCEDURE: Caudal epidural steroid injection with epidurolysis and epidurogram under fluoroscopic guidance ANESTHESIA: Local with 1% lidocaine; conscious sedation EBL: Minimal. PROCEDURE INDICATION: The patient with post-laminectomy syndrome with low back pain and radiculopathy radiating down in both legs, here for a caudal epidural steroid injection with epidurolysis, #3 in series today after approximately 2-3 weeks' relief from first two procedures. Patient does not use any blood thinning medications. PROCEDURE DESCRIPTION: The patient was seen and identified in the preoperative area. Risks, benefits, complications, and alternatives were discussed with the patient including but not limited to bleeding, infection, nerve damage, incomplete pain relief, and allergic reactions to medications. The patient agreed to proceed with the procedure and signed the consent after all questions were answered. IV was started, and vital signs were stable. Patient was taken to the OR and time out was completed to verify proper patient , procedure, laterality of pain, and allergies. The patient was placed in the prone position on procedure table and a pillow was placed under the abdomen to reduce lumbar lordosis. The lumbosacral area was prepped and draped in the usual sterile fashion. Critical pause was taken. Vital signs were closely monitored during the procedure. Fluoroscopic camera was placed in the lateral view and the anterior-posterior plates of the sacrum were identified with infiltration of the area overlying the sacral hiatus with 1% lidocaine .A 16 gauge RK epidural needle was used to advance through the sacral hiatus into the caudal epidural space. Omnipaque 300 dye 2cc was injected and the position of the needle was verified to be in the midline. A Racz catheter was introduced into the epidural space and was advanced towards the L5-S1 interspace under direct fluoroscopic guidance. Multiple passes were made with the catheter for lysis of epidural adhesions. Depo Medrol 40 mg with 3ml of preservative free Lidocaine 1% and 7 ml of preservative free normal saline was injected slowly. Additional spread was seen to L4 under fluoroscopy. The needle and the catheter were withdrawn intact. EPIDUROGRAM: Omnipaque 300 dye 2 ml was injected with spread of the dye into the caudal epidural space and with spread cutoff at L4 prior to epidurolysis. Post epidurolysis dye 2 ml was injected and spread was seen to L3. There was further spread of the solution together with the dye to the middle of L3. COMPLICATIONS: None. DISPOSITION / PLANS: The patient was placed in a supine position and transferred to the recovery area in a stable condition for observation and was discharged from the recovery room after meeting discharge criteria. Home discharge instructions given to the patient by the staff. The patient was reexamined prior to discharge. The patient will schedule a follow up in clinic in 4-6 weeks.
[2017-10-04 11:40] VITALS: RESP 20
[2017-10-04 12:00] VITALS: BP 136/79; PULSE 73
[2017-10-04] MEDS ORDERED: IV FLUID CONTINUATION 1,000 ML IV ONE (12:08)
--- NOTE | 2017-10-04 12:19 | FL ---
EXAMINATION TYPE: FL guided pain mgmt statistic DATE OF EXAM: 10/04/2017 HISTORY: Pain Caudal epidural w/ lysis. FL time 10 sec. [address] Irene
== END 2017-10-04 12:15 | disposition home or self-care (01) ==
LOC: ORPAIN 09:10
PROVIDERS: ATTEND Anesthesiology
DX: M96.1 Postlaminectomy syndrome, not elsewhere classified (principal); I10 Essential (primary) hypertension; E78.5 Hyperlipidemia, unspecified; Z79.82 Long term (current) use of aspirin; Z79.899 Other long term (current) drug therapy; Z79.891 Long term (current) use of opiate analgesic; Z88.6 Allergy status to analgesic agent; Z91.018 Allergy to other foods; Z91.09 Other allergy status, other than to drugs and biological substances
CPT/HCPCS: 62264; J2250; J1030; J3010; Q9966; C1894

== ENCOUNTER → 2017-10-26 | Outpatient (CLI) | payer MEDICARE ==
[2017-10-26 14:01] VITALS: BP 137/87; PULSE 81; RESP 18; TEMP 98.6
--- NOTE | 2017-10-26 14:36 | P.PN ---
Progress Note - Text Progress Note Date: 10/26/17 This is a very pleasant 62 old gentleman with a history of postlaminectomy syndrome who has chronic pain in his legs, numbness in his feet as well as burning pain in his right thigh. He reports that his last injection therapy reduce his pain by 40%. He denies any new symptoms. He reports that his medicines do help him control his pain. 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 In addition to above, 13-point review of systems is also negative for chest pain , shortness of breath, changes in vision, changes in hearing, new onset weakness , abdominal pain, diarrhea, extreme fatigue, malaise, fever, skin changes, homicidal or suicidal ideation, or bowel or bladder incontinence. Vital Signs: Reviewed in EMR Gen: WDWN, AAOx3, NAD HEENT: NCAT, EOMI, hearing grossly normal Pulm: resp unlabored Abd: soft, NT, ND Neck: supple, trachea midline TTP lower thoracic spine paravertebral area ROM in flexion lumbar spine: reduced ROM in extension lumbar spine: reduced Lumbar paravertebral tenderness: + Facet loading: + bilateral SI joint tenderness: + R > L Waqas's test: + R > L Straight leg raise: +RLE 20 degrees Lower extremity: decreased ROM dorsiflexion/plantarflexion strength, hip flexion/extension, and knee flexion/extension secondary to pain Neuro: CN II-XII grossly intact, decreased sensation in the right thigh Imaging: Reviewed in EMR Assessment: 1. lumbar spinal stenosis 2. lumbar radiculopathy 3. lumbar spondylosis 4. Meralgia paresthetica Plan: 1. Explanation: Opioid and psychological risk scores were reviewed. Diagnoses , prognoses, and multiple treatment options including but not limited to physical therapy, interventional therapies, adjuvant medical therapies, narcotic medication therapies, and surgery were discussed with the patient and all questions were answered to the patient's satisfaction. 2. Opioid agreement: Reviewed. The patient last had an EKG performed in February 2017. His QT interval had prolonged slightly at that time. We will recheck this today and may have to reduce his methadone based on these results. 3. Counseling: The patient was counseled extensively on SMOKING CESSATION, BODY MASS INDEX, EXERCISE. Specifically, the patient was instructed regarding the importance of smoking cessation, obesity, and exercise in the context of both chronic pain and overall health. 4. Procedures: The patient will follow-up for caudal epidural steroid injection with lysis of adhesions on an as-needed basis. 5. Consultations: None 6. Investigations: 12-lead EKG was ordered 7. Medications: None 8. Disposition: f/u for procedure as scheduled PQRS measures: 1-Patient's medications are documented in the chart. 2-Tobacco use is positive, counseling given 3-Patient has not had a pneumococcal vaccine. 4-Advanced care planning discussed, patient unable to give. 5-Opioid contract signed with the patient. 6-Pain positive, follow-up visit or procedure scheduled 7-Patient's blood pressure measured and documented, and WNL. 8-Patient's weight was measured, and body mass index ABOVE the normal limits, and counseling was done. Patient instructed to follow up with PCP. 9-Patient WAS NOT identified as an unhealthy alcohol user.
== END | disposition home or self-care (01) ==
LOC: PNWHC3 13:38
PROVIDERS: ATTEND Pain Medicine Pain Medicine
DX: G89.29 Other chronic pain (principal); M79.606 Pain in leg, unspecified; M48.061 Spinal stenosis, lumbar region without neurogenic claudication; G57.10 Meralgia paresthetica, unspecified lower limb; M47.26 Other spondylosis with radiculopathy, lumbar region; F17.200 Nicotine dependence, unspecified, uncomplicated; Z71.6 Tobacco abuse counseling
CPT/HCPCS: 93005; 80307; G0480 ×3; G0463; 80356; 80358; 80364; 99211

== ENCOUNTER → 2017-11-23 | Outpatient (CLI) | payer MEDICARE ==
[2017-11-23 14:00] VITALS: BP 128/81; PULSE 75; RESP 18; TEMP 98.1
--- NOTE | 2017-11-23 14:55 | P.PN ---
Subjective Progress Note Date: 11/23/17 Principal diagnosis: Lumbar postlaminectomy pain syndrome This is a 62-year-old gentleman with history of chronic lower back pain after he had 13 back surgeries. The patient's pain has been tolerable with the use of opioids including methadone 40 mg per day and Markle 10 mg 2-3 times per day. The patient denies any side effects except for constipation. He denies any bowel or bladder incontinence. He also denies any new paresthesia or weakness in the lower extremities. Patient is that has been having increasing pain in his joints including the hips and the knees. Objective - Vital Signs Vital signs: Vital Signs Temp 98.1 F 11/23/17 13:54 Pulse 75 11/23/17 13:54 Resp 18 11/23/17 13:54 BP 128/81 11/23/17 13:54 Pulse Ox 97 11/23/17 13:54 Intake & Output 11/22/17 11/23/17 11/23/17 18:59 06:59 18:59 Weight 113.398 kg - Constitutional General appearance: Present: obese - EENT Eyes: Present: PERRLA - Respiratory Respiratory: bilateral: CTA - Cardiovascular Rhythm: regular - Neurologic Neurologic: Present: CNII-XII intact - Psychiatric Psychiatric: Present: A&O x's 3, appropriate affect, intact judgment & insight Assessment and Plan Plan: A 62-year-old gentleman with 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 He has slightly prolonged QTc segment however it has been stable for the last 2 EKGs between 462 to 470 ms. We will continue with his methadone 40 mg per day I will decrease his Markle from 90 to 80 pills per month. I asked the patient was seen in orthopedic surgeon for his hip and his pain. I also recommended that he uses a bowel stimulant to help him with his constipation. We will see the patient 4 weeks from now
== END | disposition home or self-care (01) ==
LOC: PNWHC3 13:28
PROVIDERS: ATTEND Anesthesiology
DX: G89.29 Other chronic pain (principal); M96.1 Postlaminectomy syndrome, not elsewhere classified; Z79.899 Other long term (current) drug therapy
CPT/HCPCS: 99211

== ENCOUNTER → 2017-12-21 | Outpatient (CLI) | payer MEDICARE ==
[2017-12-21 13:14] VITALS: BP 129/75; PULSE 84; RESP 18; TEMP 98.5
--- NOTE | 2017-12-22 15:20 | P.PAINPG ---
Subjective Progress Note Date: 12/21/17 This is follow-up visit for this patient with a history of severe and chronic low back pain secondary to lumbar failed back surgery syndrome, We have done interventional pain procedures: Epidural steroid injection with lysis of epidural adhesions Patients currently on methadone 10 mg every 6 hours, [place] 10/325 every 6 hours when necessary Patient denies any side effects of the medication, denies excessive drowsiness or sleepiness, denies suicidal ideation, and reports that the current pain medication is helping to control the pain , she'll complain of constipation and he used [id number] medication to help his constipation and improve activity of daily living Patient denies any motor or sensory deficit , patient denies any fever or night sweats, denies any change in the bowel movements or urination Physical Examinations : 1-Constitutional : Cooperative , not in acute distress . 2-HEENT : nech ; supple , no Lymphadenopathy , no Thyromegaly , normal thyroid size . eyes : no ptosis , no icterus, no photophobia . ENT : normal of hearing , normal oropharynx , no Thrush . 3- Respiratory : Chest clear to auscultations Bilaterally , no wheezing , no Rhonchi . 4- Cardiovascular : regular rate and rhythem , S1 , S2 , no S3 , no S4. 5- Gastrointestinal : abdomen soft no tenderness , bowel sounds positive all four quadrents , no organomegally . 6- Genitourinary : Defferred . 7- neurologic: Cranial nerve II to XII intact , no focal neurological deffecit . 8- Psychatric: alert , oriented X 3 , appropriate affect , intact judgment and insight . 9- Lymphatic : no Lymphadenopathy . 10- Musculoskeltal : exams of the cervical spine = motor strength normal bilateral upper extremities exams of the Lumber spine =motor strength lower extremities ,thigh and legs .5/5 deep tendon reflexes : normal Knee Jerk , normal ankle Jerk . lumber facet Loading Test positive strait leg raising test positive at 30 degree , RT ,LT , Fabere test positive RT and positive LT . Range of motion: Range of motion in flexion of the lumbar spine 30 degrees Range of motion range of motion of extension of the lumbar spine 10 Assessment and plan = Chronic low back pain secondary to lumbar degenerative disc disease , lumbar spondylosis with facet arthropathy without myelopathy chronic and current use of high-risk medication (Opioids). The patient was counseled about risk of opioid use, psychological risk associated with opioids and was orally counseled to not overuse , divert,or sell dictations to take medications as prescribed only , and to restore medication in safe location , the patient counseled against driving while using narcotic medications , and also not to use alcohol or any illicit recreational drugs, patient's verbalized understanding that the lack of compliance will result in failure to renew narcotic prescription and possible discharge from the clinic - diagnoses, prognosis, and treatment options including but not limited to physical therapy, surgical interventions, interventional therapies , and medication management including narcotics and adjuvant medication were discussed with the patient and all the questions answered Prescription refill for methadone 10 mg every 6 hours dispense 120 with one refill and [place] 10/325 every 6 hours dispense 90 with 1 refill Will follow up in the pain clinic in 2 months Objective - Vital Signs Vital signs: Vital Signs Temp 98.5 F 12/21/17 13:07 Pulse 84 12/21/17 13:07 Resp 18 12/21/17 13:07 BP 129/75 12/21/17 13:07 Pulse Ox Intake & Output 12/21/17 12/22/17 12/22/17 18:59 06:59 18:59 Weight 115.666 kg PQRS Measure Charge Sheet Measure #130: Documentation of Current Meds in Medical Chart: Patient's medications documented in chart Measure #226: Tobacco Use: Screen & Cessation Intervention: Pt not a tobacco user Measure #111: Pneumonia Vaccination: Pneumococcal vaccine administered or previously received Measure #47: Advance Care Plan: Advance care planning discussed & documented, plan or surrogate given Measure #412: Opioid Treatment Agreement: Documented signed opioid trtmnt agreemnt min once during opioid trtmnt Measure #408: Opioid Therapy Follow-up Evaluation: Patient had f/u eval minimum every 3 months during opioid therapy Measure #317: Preventitive Care & Scrn High Bld Press & F/U: Normal blood pressure, f/u not required Measure #128: Body Mass Index (BMI) Screening & Follow-up: BMI documented ABOVE normal parameters - f/u documented Measure #131: Pain Assessment & Follow-up: Pain positive & plan documented, Follow-up scheduled Measure #431: Unhealthy Alcohol Use Preventative Care & Scrn: Patient not identified as an unhealthy alcohol user PQRS Narrative: Smoking Status Never smoker Do You Want the Pneumonia Vaccine Up to Date Vaccine AT THIS TIME? Narcotic Agreement Date Signed 05/24/12 Blood Pressure 129/75 Pain Intensity [Bilateral Leg] 7 Pain Intensity [Lower Back] 5 Hx Alcohol Use (MH) No Home Medications: Ambulatory Orders Enalapril Maleate [Vasotec] 10 mg PO QID 07/27/16 Nitroglycerin Sl Tabs [Nitrostat] 0.4 mg SUBLINGUAL Q5M PRN 07/27/16 Amitriptyline HCl [Elavil] 50 mg PO HS #30 tab 10/05/16 Hydrochlorothiazide 25 mg PO DAILY 11/25/16 Aspirin [Adult Low Dose Aspirin EC] 81 mg PO DAILY 09/08/17 HYDROcodone/APAP 10-325MG [[place] 10-325] 1 tab PO Q6H PRN #90 tab 10/26/17 Methadone [Dolophine] 10 mg PO Q6HR #120 tab 10/26/17 Controlled Substance Measures - Controlled Substance Measures Is patient prescribed a controlled substance at discharge?: Yes When asked, does pt state using other controlled substances?: Yes If prescribed controlled substance>3 days was MAPS reviewed?: Yes If Rx opioid, was Start Talking consent form obtained?: Yes If opioid is for acute pain is fill amount 7 days or less?: No Was information provided regarding opioid addiction?: Yes
== END | disposition home or self-care (01) ==
LOC: PNWHC3 12:44
PROVIDERS: ATTEND Specialist
DX: G89.29 Other chronic pain (principal); M54.5 Low back pain; M51.36 Other intervertebral disc degeneration, lumbar region; M47.816 Spondylosis without myelopathy or radiculopathy, lumbar region; M96.1 Postlaminectomy syndrome, not elsewhere classified; M46.86 Other specified inflammatory spondylopathies, lumbar region; Z79.891 Long term (current) use of opiate analgesic; Z79.899 Other long term (current) drug therapy; Z79.82 Long term (current) use of aspirin
CPT/HCPCS: 99211

== ENCOUNTER → 2018-01-18 | Outpatient (CLI) | payer MEDICARE ==
[2018-01-18 13:51] VITALS: BP 132/76; PULSE 87; RESP 16
--- NOTE | 2018-01-18 14:44 | P.PN ---
Progress Note - Text Progress Note Date: 01/18/18 Subjective Progress Note Date: 01/18/2018 This is follow-up visit for this patient with a history of severe and chronic low back pain secondary to lumbar failed back surgery syndrome, We have done interventional pain procedures: Epidural steroid injection with lysis of epidural adhesions Patients currently on methadone 10 mg every 6 hours, Clifton 10/325 every 6 hours when necessary Patient denies any side effects of the medication, denies excessive drowsiness or sleepiness, denies suicidal ideation, and reports that the current pain medication is helping to control the pain , she'll complain of constipation and he used [id number] medication to help his constipation and improve activity of daily living . I had lengthy discussion with the patient regarding the use of opiates for chronic pain. I discussed with him other therapies that potentially could be alternates to narcotics, including spinal cord stimulation. The issue in the past has been that insurance has not been willing to cover the expenses and he is on a financial restricted lifestyle. We will look into attempting to get him at least covered for trial to see if there is any benefit potentially for spinal cord stimulation. Patient has stated that the epidural lysis of adhesions have been beneficial overall. We discussed potentially weaning his methadone or at least the dose maintaining the every 6 hours dosing because of its optimal pain relieving mechanisms. Patient is understanding with the fact that minimizing narcotics is the overall goal, and is hopeful that spinal coursing ablation can be a potential therapy for him. Patient denies any motor or sensory deficit , patient denies any fever or night sweats, denies any change in the bowel movements or urination Physical Examinations : 1-Constitutional : Cooperative , not in acute distress . 2-HEENT : nech ; supple , no Lymphadenopathy , no Thyromegaly , normal thyroid size . eyes : no ptosis , no icterus, no photophobia . ENT : normal of hearing , normal oropharynx , no Thrush . 3- Respiratory : Chest clear to auscultations Bilaterally , no wheezing , no Rhonchi . 4- Cardiovascular : regular rate and rhythem , S1 , S2 , no S3 , no S4. 5- Gastrointestinal : abdomen soft no tenderness , bowel sounds positive all four quadrents , no organomegally . 6- Genitourinary : Defferred . 7- neurologic: Cranial nerve II to XII intact , no focal neurological deffecit . 8- Psychatric: alert , oriented X 3 , appropriate affect , intact judgment and insight . 9- Lymphatic : no Lymphadenopathy . 10- Musculoskeltal : exams of the cervical spine = motor strength normal bilateral upper extremities exams of the Lumber spine =motor strength lower extremities ,thigh and legs .5/5 deep tendon reflexes : normal Knee Jerk , normal ankle Jerk . lumber facet Loading Test positive strait leg raising test positive at 30 degree , RT ,LT , Fabere test positive RT and positive LT . Range of motion: Range of motion in flexion of the lumbar spine 30 degrees Range of motion range of motion of extension of the lumbar spine 10 Assessment and plan: Chronic low back pain secondary to lumbar degenerative disc disease , lumbar spondylosis with facet arthropathy without myelopathy chronic and current use of high-risk medication (Opioids). The patient was counseled about risk of opioid use, psychological risk associated with opioids and was orally counseled to not overuse , divert,or sell dictations to take medications as prescribed only , and to restore medication in safe location , the patient counseled against driving while using narcotic medications , and also not to use alcohol or any illicit recreational drugs, patient's verbalized understanding that the lack of compliance will result in failure to renew narcotic prescription and possible discharge from the clinic - diagnoses, prognosis, and treatment options including but not limited to physical therapy, surgical interventions, interventional therapies , and medication management including narcotics and adjuvant medication were discussed with the patient and all the questions answered Prescription refill for methadone 10 mg every 6 hours dispense 120 with one refill and Clifton 10/325 every 6 hours dispense 90 with 1 refill Will follow up in the pain clinic in 2 months On his next visit we'll schedule for a epidural lysis of adhesions. Objective - Vital Signs Vital signs: Vital Signs Temp 98.5 F 12/21/17 13:07 Pulse 84 12/21/17 13:07 Resp 18 12/21/17 13:07 BP 129/75 12/21/17 13:07 Pulse Ox Intake & Output 12/21/17 12/22/17 12/22/17 18:59 06:59 18:59 Weight 115.666 kg PQRS Measure Charge Sheet Measure #130: Documentation of Current Meds in Medical Chart: Patient's medications documented in chart Measure #226: Tobacco Use: Screen & Cessation Intervention: Pt not a tobacco user Measure #111: Pneumonia Vaccination: Pneumococcal vaccine administered or previously received Measure #47: Advance Care Plan: Advance care planning discussed & documented, plan or surrogate given Measure #412: Opioid Treatment Agreement: Documented signed opioid trtmnt agreemnt min once during opioid trtmnt Measure #408: Opioid Therapy Follow-up Evaluation: Patient had f/u eval minimum every 3 months during opioid therapy Measure #317: Preventitive Care & Scrn High Bld Press & F/U: Normal blood pressure, f/u not required Measure #128: Body Mass Index (BMI) Screening & Follow-up: BMI documented ABOVE normal parameters - f/u documented Measure #131: Pain Assessment & Follow-up: Pain positive & plan documented, Follow-up scheduled Measure #431: Unhealthy Alcohol Use Preventative Care & Scrn: Patient not identified as an unhealthy alcohol user PQRS Narrative: Smoking Status Never smoker Do You Want the Pneumonia Vaccine Up to Date Vaccine AT THIS TIME? Narcotic Agreement Date Signed 05/24/12 Blood Pressure 129/75 Pain Intensity [Bilateral Leg] 7 Pain Intensity [Lower Back] 5 Hx Alcohol Use (MH) No Home Medications: Ambulatory Orders Enalapril Maleate [Vasotec] 10 mg PO QID 07/27/16 Nitroglycerin Sl Tabs [Nitrostat] 0.4 mg SUBLINGUAL Q5M PRN 07/27/16 Amitriptyline HCl [Elavil] 50 mg PO HS #30 tab 10/05/16 Hydrochlorothiazide 25 mg PO DAILY 11/25/16 Aspirin [Adult Low Dose Aspirin EC] 81 mg PO DAILY 09/08/17 HYDROcodone/APAP 10-325MG [Clifton 10-325] 1 tab PO Q6H PRN #90 tab 10/26/17 Methadone [Dolophine] 10 mg PO Q6HR #120 tab 10/26/17 Controlled Substance Measures - Controlled Substance Measures Is patient prescribed a controlled substance at discharge?: Yes When asked, does pt state using other controlled substances?: Yes If prescribed controlled substance>3 days was MAPS reviewed?: Yes If Rx opioid, was Start Talking consent form obtained?: Yes If opioid is for acute pain is fill amount 7 days or less?: No Was information provided regarding opioid addiction?: Yes
== END | disposition home or self-care (01) ==
LOC: PNWHC3 12:46
PROVIDERS: ATTEND Anesthesiology
DX: G89.29 Other chronic pain (principal); M51.36 Other intervertebral disc degeneration, lumbar region; M47.816 Spondylosis without myelopathy or radiculopathy, lumbar region; M46.96 Unspecified inflammatory spondylopathy, lumbar region; Z87.891 Personal history of nicotine dependence; Z79.899 Other long term (current) drug therapy; Z79.82 Long term (current) use of aspirin
CPT/HCPCS: 99211

== ENCOUNTER → 2018-03-15 | Outpatient (CLI) | payer MEDICARE ==
[2018-03-15 12:13] VITALS: BP 139/90; PULSE 76; RESP 16
--- NOTE | 2018-03-15 13:17 | P.PAINPG ---
Subjective Progress Note Date: 03/15/18 This is follow-up visit for this patient with a history of severe and chronic low back pain secondary to lumbar failed back surgery syndrome, We have done interventional pain procedures:caudal Epidural steroid injection with lysis of epidural adhesions Patients currently on methadone 10 mg every 6 hours, Dix 10/325 every 6 hours when necessary Patient denies any side effects of the medication, denies excessive drowsiness or sleepiness, denies suicidal ideation, and reports that the current pain medication is helping to control the pain , he complain of constipation and he used [id number] medication to help his constipation, he reported that he had occasional muscle spasm in the lower extremity bilaterally And is questioning of recording give him prescription for muscle relaxant to help his muscle spasm and improve activity of daily living . Patient has stated that the epidural lysis of adhesions have been beneficial overall. We discussed potentially weaning his methadone or at least the dose maintaining the every 6 hours dosing because of its optimal pain relieving mechanisms. Patient is understanding with the fact that minimizing narcotics is the overall goal, Patient denies any motor or sensory deficit , patient denies any fever or night sweats, denies any change in the bowel movements or urination Physical Examinations : 1-Constitutional : Cooperative , not in acute distress . 2-HEENT : nech ; supple , no Lymphadenopathy , no Thyromegaly , normal thyroid size . eyes : no ptosis , no icterus, no photophobia . ENT : normal of hearing , normal oropharynx , no Thrush . 3- Respiratory : Chest clear to auscultations Bilaterally , no wheezing , no Rhonchi . 4- Cardiovascular : regular rate and rhythem , S1 , S2 , no S3 , no S4. 5- Gastrointestinal : abdomen soft no tenderness , bowel sounds positive all four quadrents , no organomegally . 6- Genitourinary : Defferred . 7- neurologic: Cranial nerve II to XII intact , no focal neurological deffecit . 8- Psychatric: alert , oriented X 3 , appropriate affect , intact judgment and insight . 9- Lymphatic : no Lymphadenopathy . 10- Musculoskeltal : exams of the cervical spine = motor strength normal bilateral upper extremities exams of the Lumber spine =motor strength lower extremities ,thigh and legs .5/5 deep tendon reflexes : normal Knee Jerk , normal ankle Jerk . lumber facet Loading Test positive strait leg raising test positive at 30 degree , RT ,LT , Fabere test positive RT and positive LT . Range of motion: Range of motion in flexion of the lumbar spine 30 degrees Range of motion range of motion of extension of the lumbar spine 10 Assessment and plan: Chronic low back pain secondary to lumbar failed back surgery syndrome chronic and current use of high-risk medication (Opioids). The patient was counseled about risk of opioid use, psychological risk associated with opioids and was orally counseled to not overuse , divert,or sell dictations to take medications as prescribed only , and to restore medication in safe location , the patient counseled against driving while using narcotic medications , and also not to use alcohol or any illicit recreational drugs, patient's verbalized understanding that the lack of compliance will result in failure to renew narcotic prescription and possible discharge from the clinic - diagnoses, prognosis, and treatment options including but not limited to physical therapy, surgical interventions, interventional therapies , and medication management including narcotics and adjuvant medication were discussed with the patient and all the questions answered Prescription refill for methadone 10 mg every 6 hours dispense 120 with one refill and Dix 10/325 every 6 hours dispense 90 with 1 refill Will follow up in the pain clinic in 2 months patient will continue prescription for baclofen 5 mg when necessary daily dispensed 30 with one refill On his next visit we'll schedule for a epidural lysis of adhesions. MAPS reviewed and it was Ok Objective - Vital Signs Vital signs: Vital Signs Temp Pulse 76 03/15/18 12:06 Resp 16 03/15/18 12:06 BP 139/90 03/15/18 12:06 Pulse Ox 97 03/15/18 12:06 Intake & Output 03/14/18 03/15/18 03/15/18 18:59 06:59 18:59 Weight 111.13 kg PQRS Measure Charge Sheet Measure #130: Documentation of Current Meds in Medical Chart: Patient's medications documented in chart Measure #226: Tobacco Use: Screen & Cessation Intervention: Pt not a tobacco user Measure #111: Pneumonia Vaccination: Pneumococcal vaccine administered or previously received Measure #47: Advance Care Plan: Advance care planning discussed & documented, pt chose/unable to give Measure #412: Opioid Treatment Agreement: Documented signed opioid trtmnt agreemnt min once during opioid trtmnt Measure #408: Opioid Therapy Follow-up Evaluation: Patient had f/u eval minimum every 3 months during opioid therapy Measure #317: Preventitive Care & Scrn High Bld Press & F/U: Pre-hypertensive or hypertensive BP documented, pt will f/u with PCP Measure #128: Body Mass Index (BMI) Screening & Follow-up: BMI documented ABOVE normal parameters - f/u documented Measure #131: Pain Assessment & Follow-up: Pain positive & plan documented, Follow-up scheduled Measure #431: Unhealthy Alcohol Use Preventative Care & Scrn: Patient not identified as an unhealthy alcohol user PQRS Narrative: Smoking Status Never smoker Narcotic Agreement Date Signed 12/21/17 Blood Pressure 139/90 Pain Intensity [Left Lower 8 Back] Scale Used Numeric (1 - 10) Hx Alcohol Use (MH) No Home Medications: Ambulatory Orders Enalapril Maleate [Vasotec] 10 mg PO QID 07/27/16 Nitroglycerin Sl Tabs [Nitrostat] 0.4 mg SUBLINGUAL Q5M PRN 07/27/16 Amitriptyline HCl [Elavil] 50 mg PO HS #30 tab 10/05/16 Hydrochlorothiazide 25 mg PO DAILY 11/25/16 Aspirin [Adult Low Dose Aspirin EC] 81 mg PO DAILY 09/08/17 Baclofen 5 mg PO DAILY PRN #30 tablet 03/15/18 HYDROcodone/APAP 10-325MG [Dix 10-325] 1 tab PO Q6H PRN #90 tab 03/15/18 HYDROcodone/APAP 10-325MG [Dix 10-325] 1 tab PO Q8HR PRN 30 Days #90 tab 03/15 Methadone HCl [Dolophine HCl] 10 mg PO Q6H 30 Days #120 tab 03/15/18 Methadone [Dolophine] 10 mg PO Q6HR #120 tab 03/15/18 Controlled Substance Measures - Controlled Substance Measures Is patient prescribed a controlled substance at discharge?: Yes When asked, does pt state using other controlled substances?: No If prescribed controlled substance>3 days was MAPS reviewed?: Yes If Rx opioid, was Start Talking consent form obtained?: Yes If opioid is for acute pain is fill amount 7 days or less?: No Was information provided regarding opioid addiction?: Yes
== END | disposition home or self-care (01) ==
LOC: PNWHC3 11:44
PROVIDERS: ATTEND Specialist
DX: G89.29 Other chronic pain (principal); M54.5 Low back pain; M96.1 Postlaminectomy syndrome, not elsewhere classified; F11.90 Opioid use, unspecified, uncomplicated; Z71.89 Other specified counseling
CPT/HCPCS: 99211

== ENCOUNTER → 2018-05-10 | Outpatient (CLI) | payer MEDICARE ==
[2018-05-10 13:24] VITALS: BP 134/73; PULSE 75; RESP 16
--- NOTE | 2018-05-10 13:48 | P.PN ---
Subjective Progress Note Date: 05/10/18 This is a follow-up visit for this 63 years old with a chronic history of severe low back pain, and diagnosed with lumbar Failed back surgery syndrome, and he is here for medication refill, he deny any side effect of the medication and he has any fever or night sweats. Denies any change in the moment or urination, and he reported that the current pain medication helping him control his pain, but he reported that recently he started feeling increased of the low back pain, and intensity of the pain increases with any activity, currently he is on methadone 10 mg every 6 hours, Larose 10/325 every 8 hours when necessary for breakthrough pain and baclofen 10 mg when necessary, he reports that the intensity of the pain increased recently and he had the some numbness and tingling sensation in the lower extremity, we have done caudal epidural with lysis of epidural adhesions previously patient had good pain relief Past Medical History Past Medical History: GERD/Reflux, Hyperlipidemia, Hypertension, Musculoskeletal Disorder, Osteoarthritis (OA), Sleep Apnea/CPAP/BIPAP Additional Past Medical History / Comment(s): CURRENT EDEMA ONE FOOT, C-PAP HAS HELPED REFLUX. HX CHRONIC BACK PAIN. SCIATICA-NUMBNESS CHERELLE. LEGS & FEET- AFFECTS BALANCE @ TIMES. HX PLANTAR FASCIITIS, STRESS TEST. History of Any Multi-Drug Resistant Organisms: None Reported Past Surgical History: Back Surgery, Hernia Repair, Orthopedic Surgery Additional Past Surgical History / Comment(s): Back surgeries, pain clinic- multiple times, rt shoulder surgery 2003, [facility]. WRISTS 2005, DEQUERVAINS RELEASE RT WRIST 08/2013 & left wrist recently, umbilical hernia, VARICOSE VEIN SX Past Anesthesia/Blood Transfusion Reactions: No Reported Reaction Additional Past Anesthesia/Blood Transfusion Reaction / Comm: NO BLOOD TRANSFUSIONS (OTHER THEN HIS OWN DONATED). Past Psychological History: Depression Additional Psychological History / Comment(s): past hx Smoking Status: Never smoker Past Alcohol Use History: Rare Past Drug Use History: None Reported Physical Examinations : 1-Constitutiona : Cooperative , not in acute distress . 2-HEENT : nech ; supple , no Lymphadenopathy , no Thyromegaly , normal thyroid size . eyes : no ptosis , no icterus, no photophobia . ENT : normal of hearing , normal oropharynx , no Thrush . 3- Respiratory : Chest clear to auscultations Bilaterally , no wheezing , no Rhonchi . 4- Cardiovascular : regular rate and rhythem , S1 , S2 , no S3 , no S4. 5- Gastrointestinal : abdomen soft no tenderness , bowel sounds positive all four quadrents , no organomegally . 6- Genitourinary : Defferred . 7- neurologic : Cranial nerve II to XII intact , no focal neurological deffecit . 8-psychatric : alert , oriented X 3 , appropriate affect , intact judgment and insight . 9-Lymphatic : no Lymphadenopathy . 10- musculoskeltal : exams of the cervical spine = normal motor stregnth in the deltoid and biceps, exams of the Lumber spine = normal moter stegnth lower extremities ,thigh and legs .5/5 deep tendon reflexes : normal Knee Jerk , normal ankle Jerk . positive lumber facet Loading Test strait leg raising test positive at 30 degree , RT ,LT , Fabere test positive RT and positive LT . Assessment and plan = - Chronic low back pain secondary to lumbar degenerative disc disease , lumbar spondylosis with , failed back surgery syndrome lumbar area -chronic and current use of high-risk medication (Opioids). -Patient denies any side effect of the medication, and the current medication helped the patient to control the pain and improve activity of daily living, The patient was counseled about risk of opioid use, psychological risk associated with opioids discussed with the patient, body mass index and exercise. Patient signed the narcotic agreement , and was orally counseled not to overuse , abuse , divert, or sell medications ,and take them as prescribed only , and the patient was counseled against driving and while you are using the narcotic medication also not to use alcohol or any illicit drugs and the patient verbalized understanding that lack of compliance and could result in failure to renew narcotics prescriptions and possible discharge from the clinic - diagnoses, prognosis, and treatment options including but not limited to physical therapy, surgical interventions, interventional therapies and medication management including narcotics and adjuvant medication were discussed with the patient and all questions answered to the patient's satisfaction. Patient given a refill on his medication and he will follow up with the pain clinic in 3 months, because patient is leaving to [place] next month, for this reason we give him medication refills for 3 months and also patient could benefit from repeat, caudal epidural steroid injections with lysis of epidural adhesions which would be under fluoroscopy guidance at the earliest convenience for the patient. Discussion refill for methadone 10 mg every 6 hours dispense 20 with 1 refill given, Larose 10/325 every 8 hours dispense 90 with 2 refills for, baclofen 10 mg - PQRS measures = - Patient's medications are documented in the chart. -Tobacco use is negative and counseling.Given. -Patient's has not received pneumococcal vaccine. -Advanced care planning discussed, patient not eligible. -Opiate contract signed. -Pain positive and follow-up visit/procedure is scheduled. -Patient's blood pressure measured [134/73 ] , and documented in the record ,and patient will follow up with the primary care. -Patient's weight was measured and body mass index [ 35 ] above the, within the normal limits and counseling was done. and patient instructed to follow- up with the primary care physician. -Patient was not identified as an unhealthy alcohol user Objective - Vital Signs Vital signs: Intake & Output 05/09/18 05/10/18 05/10/18 18:59 06:59 18:59 Weight 108.862 kg
== END ==
LOC: PNWHC3 12:09
PROVIDERS: ATTEND Specialist
DX: G89.29 Other chronic pain (principal); M51.36 Other intervertebral disc degeneration, lumbar region; M47.816 Spondylosis without myelopathy or radiculopathy, lumbar region; M96.1 Postlaminectomy syndrome, not elsewhere classified; Z79.891 Long term (current) use of opiate analgesic; Z79.899 Other long term (current) drug therapy
CPT/HCPCS: 99211

== ENCOUNTER 2018-05-12 11:32 | Day surgery (SDC) | payer MEDICARE ==
[2018-05-09 11:15] VITALS: BMI 34.4
[~2018-05-12 11:32] MED LIST changes: +LIDOCAINE 1% 20 ML VIAL (10MG/ML) FOR IV START INTRADERMA PRN
[2018-05-12 12:04] VITALS: TEMP 97.9
[2018-05-12] MEDS ORDERED: PROPOFOL 10 MG/ML 20 ML VIAL IV ONE (12:31)
[2018-05-12] MEDS ORDERED: LIDOCAINE 1% INJ 10MG/ML (20 ML MDV) ONE (12:31)
--- NOTE | 2018-05-12 12:54 | P.PCN ---
Date of Procedure: 05/12/18 Procedure(s) Performed: BRIEF HISTORY: Patient is a 63-year-old pleasant, white male scheduled for an elective colonoscopy as a part of evaluation of prior history of colon polyps. Last endoscopy was 5 years ago. PROCEDURE PERFORMED: Colonoscopy with biopsy. PREOPERATIVE DIAGNOSIS: History of Colon polyps. IV sedation per Anesthesia. PROCEDURE: After informed consent was obtained, the patient, was brought into the endoscopy unit. IV sedation was administered by Anesthesia under continuous monitoring. Digital rectal examination was normal. Initially the Olympus CF- 160 flexible video colonoscope was then inserted in the rectum, gradually advanced into the cecum without any difficulty. Careful examination was performed as the scope was gradually being withdrawn. Ileocecal valve and the appendiceal orifice were visualized and appeared normal. Prep was excellent. Mucosa of the cecum, ascending colon, transverse colon, descending colon, sigmoid colon, and rectum appeared normal. There was a 3 mm sessile polyp noted in the proximal rectum that was removed by cold biopsy. Retroflexion was performed in the rectum and no lesions were seen. The patient tolerated the procedure well. IMPRESSION: 3 mm proximal rectal polyp status post removal by biopsy. Rest of the colon appeared normal RECOMMENDATIONS: Findings of this examination were discussed with the patient as well as his family. She was advised to follow with the biopsy results and have a repeat colonoscopy in 5 years.
[2018-05-12 13:10] VITALS: PULSE 64
[2018-05-12 13:19] VITALS: BP 114/73; RESP 18
== END 2018-05-12 13:47 | disposition home or self-care (01) ==
LOC: ORWHC2ENDO 11:32
PROVIDERS: ATTEND Internal Medicine Gastroenterology
DX: Z12.11 Encounter for screening for malignant neoplasm of colon (principal); K62.1 Rectal polyp; I10 Essential (primary) hypertension; E78.5 Hyperlipidemia, unspecified; G47.33 Obstructive sleep apnea (adult) (pediatric); K21.9 Gastro-esophageal reflux disease without esophagitis; Z79.1 Long term (current) use of non-steroidal anti-inflammatories (NSAID); Z88.6 Allergy status to analgesic agent; Z79.82 Long term (current) use of aspirin; Z79.891 Long term (current) use of opiate analgesic; Z79.899 Other long term (current) drug therapy; Z88.8 Allergy status to other drugs, medicaments and biological substances; Z86.010 Personal history of colon polyps
CPT/HCPCS: 88305; 45380; J2001; J2704

== ENCOUNTER → 2018-05-17 | Day surgery (SDC) | payer MEDICARE ==
[~2018-05-17] MED LIST changes: -LACTATED RINGERS 1,000 ML IV SCH; -LIDOCAINE 1% 20 ML VIAL (10MG/ML) FOR IV START INTRADERMA PRN; +SODIUM CHLORIDE 0.9% 500 ML 500 ML IV ONE
[2018-05-17 10:32] VITALS: TEMP 97.9
--- NOTE | 2018-05-17 11:09 | P.PCN ---
Date of Procedure: 05/17/18 Surgeon: Red Marin Pathology: none sent Condition: stable Disposition: PACU Description of Procedure: PREOP DIAGNOSIS: Lumbar postlaminectomy syndrome POSTOP DIAGNOSIS: Lumbar postlaminectomy syndrome PROCEDURE: Caudal epidural steroid injection with epidurolysis and epidurogram under fluoroscopic guidance ANESTHESIA: Local with 1% lidocaine; conscious sedation EBL: Minimal. PROCEDURE DESCRIPTION: The patient was seen and identified in the preoperative area. Risks, benefits, complications, and alternatives were discussed with the patient including but not limited to bleeding, infection, nerve damage, incomplete pain relief, and allergic reactions to medications. The patient agreed to proceed with the procedure and signed the consent after all questions were answered. IV was started, and vital signs were stable. Patient was taken to the OR and time out was completed to verify proper patient , procedure, laterality of pain, and allergies. The patient was placed in the prone position on procedure table and a pillow was placed under the abdomen to reduce lumbar lordosis. The lumbosacral area was prepped and draped in the usual sterile fashion. Critical pause was taken. Vital signs were closely monitored during the procedure. Fluoroscopic camera was placed in the lateral view and the anterior-posterior plates of the sacrum were identified with infiltration of the area overlying the sacral hiatus with 1% lidocaine .A 16 gauge RK epidural needle was used to advance through the sacral hiatus into the caudal epidural space. Omnipaque 300 dye 2cc was injected and the position of the needle was verified to be in the midline. A Racz catheter was introduced into the epidural space and was advanced towards the L4-5 interspace under direct fluoroscopic guidance. Multiple passes were made with the catheter for lysis of epidural adhesions. Kenalog 80 mg with 3ml of preservative free Lidocaine 1% and 7 ml of preservative free normal saline was injected slowly. Additional spread was seen to L4 under fluoroscopy. The needle and the catheter were withdrawn intact. COMPLICATIONS: None. DISPOSITION / PLANS: The patient was placed in a supine position and transferred to the recovery area in a stable condition for observation and was discharged from the recovery room after meeting discharge criteria. Home discharge instructions given to the patient by the staff. The patient was reexamined prior to discharge.
--- NOTE | 2018-05-17 11:27 | FL ---
Fluoroscopy INDICATION: Pain FINDINGS: Fluoroscopy time: 10 seconds. Images obtained: 2. IMPRESSIONS: 1. Documentation of fluoroscopy.
[2018-05-17 11:39] VITALS: BP 101/59; PULSE 61; RESP 18
== END ==
LOC: ORPAIN 09:04
PROVIDERS: ATTEND Anesthesiology
DX: M96.1 Postlaminectomy syndrome, not elsewhere classified (principal); Z88.6 Allergy status to analgesic agent; Z88.8 Allergy status to other drugs, medicaments and biological substances
CPT/HCPCS: 62264; J2250; J3301; J3010; Q9966; C1894; 99152

== ENCOUNTER 2018-06-07 09:41 | Day surgery (SDC) | payer MEDICARE ==
[2018-06-05 16:08] VITALS: BMI 34.4
[~2018-06-07 09:41] MED LIST changes: -SODIUM CHLORIDE 0.9% 500 ML 500 ML IV ONE; +SODIUM CHLORIDE 0.9% 500 ML 500 ML IV SCH
[2018-06-07] MEDS ORDERED: LACTATED RINGERS 1,000 ML IV ONE (11:11)
[2018-06-07 11:13] VITALS: TEMP 98
[2018-06-07] MEDS ORDERED: IV FLUID CONTINUATION 1,000 ML IV ONE (11:37)
[2018-06-07 11:55] VITALS: BP 161/94; PULSE 71; RESP 16
--- NOTE | 2018-06-07 12:08 | FL ---
EXAMINATION TYPE: FL guided pain mgmt statistic DATE OF EXAM: 06/07/2018 COMPARISON: NONE HISTORY: Back pain TECHNIQUE: Fluoroscopy. FINDINGS/IMPRESSION: Fluoroscopic guidance was provided during procedure performed by Dr. Mehta. A total of 3 seconds of fluoroscopic time was utilized during the procedure and 2 spot images was acqu ired demonstrate localization of the lumbosacral spine and postoperative changes of the lumbosacral s pine.
--- NOTE | 2018-06-07 12:51 | P.PCN ---
Date of Procedure: 06/07/18 Surgeon: Cristobal Mehta Description of Procedure: Procedure= caudal epidural steroid injection with lysis of epidural adhesions under fluoroscopy guidance. Preoperative diagnosis=1-failed back surgery syndrome lumbar area. 2 lumbar degenerative disc disease 3-lumbar radiculopathy Postoperative diagnosis= same Anesthesia= IV sedation with Versed 3 mg and fentanyl 100 mcg, and local infiltration with lidocaine 1% 3 mL for skin and subcutaneous tissue infiltrations. Fluoroscopy time= 3 seconds Description of the procedure= procedure risk and benefits discussed with the patient, including but not limited to risk of infection and bleeding and ALLERGIC reaction to the medication and no complete pain relief discussed with the patient and he agreed to preceding. patient taken to the operating room, placed in prone position standard monitors applied, then after induction of anesthesia the lumbar and the caudal Area prepped with chlorhexidine X3 , then the under fluoroscopy guidance, local infiltration of the skin and subcutaneous tissue at the caudal hiatus area, then a 17-gauge Touhy needle advanced slowly under fluoroscopy and passed through the cauda hiatus and advanced to the epidural space, there was positive loss of resistance to normal saline, no heme, no paresthesia, no cerebrospinal fluid, then after negative aspiration Omnipaque 180 mg per mL and 3 mL injected that showed possible spread in the epidural space, no intrathecal spread, then 22 gauge catheter advanced slowly through the needle up to L 3-4 interlaminar space , and I was able to break the scar tissue by advancing and withdrawing the catheter multiple times ,and after all this done, mixture of 80 mg of Depo-Medrol and 5 mL of preservative free normal saline mixed together , and injected epidurally after negative aspiration patient tolerated the procedure well without any complication and patient will follow up with up in the pain clinic within 3 weeks.
== END 2018-06-07 12:12 | disposition home or self-care (01) ==
LOC: ORPAIN 09:41
PROVIDERS: ATTEND Pain Medicine Pain Medicine
DX: M96.1 Postlaminectomy syndrome, not elsewhere classified (principal); M51.16 Intervertebral disc disorders with radiculopathy, lumbar region; I10 Essential (primary) hypertension; G47.30 Sleep apnea, unspecified; H91.90 Unspecified hearing loss, unspecified ear; M25.552 Pain in left hip
CPT/HCPCS: 62264; J2250; J1030; J3010; 62323

== ENCOUNTER 2018-07-03 08:18 | Day surgery (SDC) | payer MEDICARE ==
[2018-06-29 11:06] VITALS: BMI 35.2
[2018-07-03 08:52] VITALS: TEMP 98.4
[2018-07-03] MEDS ORDERED: IV FLUID CONTINUATION 1,000 ML IV ONE ×2 (08:52→09:22)
[2018-07-03] MEDS ORDERED: SODIUM CHLORIDE 0.9% 500 ML 500 ML IV SCH (09:00)
--- NOTE | 2018-07-03 09:16 | P.PCN ---
Date of Procedure: 07/03/18 Procedure(s) Performed: PREOP DIAGNOSIS: 1- Lumbar postlaminectomy syndrome POSTOP DIAGNOSIS:1- Lumbar postlaminectomy syndrome PROCEDURE: Caudal epidural steroid injection with epidurolysis and epidurogram under fluoroscopic guidance ANESTHESIA: Local with 1% lidocaine 3 ml ,and moderate sedation, with Versed 3 mg and fentanyl 150 g EBL: Minimal. PROCEDURE INDICATION: The patient with post-laminectomy syndrome with low back pain and radiculopathy radiating down in both legs, here for a caudal epidural steroid injection with epidurolysis. PROCEDURE DESCRIPTION: The patient was seen and identified in the preoperative area. Risks, benefits, complications, and alternatives were discussed with the patient. The patient agreed to proceed with the procedure and signed the consent. IV was started, and vital signs were stable. Patient was taken to the OR and time out was completed. The patient was placed in the prone position on procedure table and a pillow was placed under the abdomen to reduce lumbar lordosis. The lumbosacral area was prepped and draped in the usual sterile fashion. Vital signs were closely monitored during the procedure. lateral view and the anterior-posterior plates of the sacrum were identified with infiltration of the area overlying the sacral hiatus with 1% lidocaine .A 17 gauge RK epidural needle was used to advance through the sacral hiatus into the caudal epidural space. Omnipaque 180 dye. 2cc was injected and the position of the needle was verified to be in the midline. A Racz catheter was introduced into the epidural space and was advanced towards the L5-S1 interspace under direct fluoroscopic guidance. Multiple passes were made with the catheter for lysis of epidural adhesions. Depo-Medrol 80 mg with 3ml of preservative free Lidocaine 1% and 5 ml of preservative free normal saline was injected slowly. Additional spread was seen to L4 under fluoroscopy. The needle and the catheter were withdrawn intact. EPIDUROGRAM: Omnipaque 180 mg dye 2 ml was injected with spread of the dye into the caudal epidural space and with spread cutoff at L5 prior to epidurolysis. Post epidurolysis dye 2 ml was injected and spread was seen to L3- 4.There was further spread of the solution together with the dye above the L3 COMPLICATIONS: None. DISPOSITION / PLANS: The patient was placed in a supine position and transferred to the recovery area in a stable condition for observation and was discharged from the recovery room after meeting discharge criteria. Home discharge instructions given to the patient by the staff. The patient was reexamined prior to discharge. The patient will schedule a follow up in the clinic in 2-4 weeks.
[2018-07-03 09:54] VITALS: BP 124/67; PULSE 61; RESP 16
--- NOTE | 2018-07-03 10:07 | FL ---
EXAMINATION TYPE: FL guided pain mgmt statistic DATE OF EXAM: 07/03/2018 CLINICAL HISTORY: Low back pain. TECHNIQUE: Fluoroscopy. COMPARISON: None. FINDINGS: Fluoroscopic guidance was provided during pain relief procedure performed by Dr. Lopez . A total of 4 seconds of fluoroscopic time was utilized during the procedure and 3 spot images are acquired. Images acquired shows needle localization the lumbosacral spine. IMPRESSION: As Above.
== END 2018-07-03 10:01 | disposition home or self-care (01) ==
LOC: ORPAIN 08:18
PROVIDERS: ATTEND Specialist
DX: M96.1 Postlaminectomy syndrome, not elsewhere classified (principal)
CPT/HCPCS: 62264; J2250; J1030; J3010; Q9966; C1894; 62323

== ENCOUNTER → 2018-08-02 | Outpatient (CLI) | payer MEDICARE ==
[2018-08-02 12:25] VITALS: BP 126/81; PULSE 75; RESP 16
--- NOTE | 2018-08-02 12:47 | P.PN ---
Subjective Progress Note Date: 08/02/18 This is a 63-year-old gentleman with history of chronic lower back pain with radiation to the lower extremities in no specific radicular distribution status post multiple back surgeries. He does have failed back surgery syndrome. His pain has been well-controlled with a combination of interventional pain procedures and opioids including methadone 40 mg a day and Seaview 10 mg 3 times a day. He just finished a series of 3 caudal epidural steroid injection which helped his pain significantly. He does feel increasing fatigue in the lower extremities with prolonged standing. Today, pt denies new-onset weakness, bowel/bladder incontinence, or any other signs or symptoms of cauda equina syndrome. There are no signs of acute intoxication, and no indications of medication diversion or overuse. In addition to above, 13-point review of systems is also negative for chest pain , shortness of breath, changes in vision, changes in hearing, new onset weakness , abdominal pain, diarrhea, extreme fatigue, malaise, fever, skin changes, homicidal or suicidal ideation, or bowel or bladder incontinence. Vital Signs: Reviewed in EMR Gen: AAOx3, NAD HEENT: PERRLA,hearing grossly normal Pulm: resp unlabored,CTA Heart:S1,S2, No Mur Neck: supple, trachea midline Neuro exam of the lower extremities: Normal muscle strength bilaterally and symmetrically but absent right knee reflex due to previous knee surgery and decreased left knee reflex and absent ankle reflexes bilaterally. Straight leg raising test: Negative bilaterally Range of motion of the lumbar spine: Decreased Tenderness in the paravertebral musculature: Positive on the lumbar paravertebral area bilaterally Neuro: CN II-XII grossly intact, Imaging: Reviewed in EMR/chart Assessment: Failed back surgery syndrome Chronic pain syndrome Opioid dependence Plan: 1. Explanation: Opioid and psychological risk scores were reviewed. Diagnoses , prognoses, and multiple treatment options including but not limited to physical therapy, interventional therapies, adjuvant medical therapies, narcotic medication therapies, and surgery were discussed with the patient and all questions were answered to the patient's satisfaction. 2. Opioid agreement: Signed with the patient and the patient is warned not to use opioids while driving or before driving and not to combine opioids with benzodiazepines or alcohol. 3. Counseling: The patient was counseled extensively on SMOKING CESSATION, BODY MASS INDEX, EXERCISE. Specifically, the patient was instructed regarding the importance of smoking cessation, obesity, and exercise in the context of both chronic pain and overall health. 4. Procedures: None 5. Consultations: None 6. Investigations: None 7. Medications: Methadone 10 mg #120 pills for the month and Seaview 10 mg #90 for the month with one refill on both. 8. Disposition: Return to clinic in 8 weeks 9. Maps were reviewed and were appropriate. PQRS measures: 1-Patient's medications are documented in the chart. 2-Tobacco use is negative, counseling given 3-Patient has had a pneumococcal vaccine. 4-Advanced care planning discussed, patient unable to give 5-Opioid contract signed with the patient. 6-Pain positive, follow-up visit or procedure scheduled 7-Patient's blood pressure measured and documented within normal limits. 8-Patient's weight was measured, and body mass index ABOVE the normal limits, and counseling was done. Patient instructed to follow up with PCP. 9-Patient WAS NOT identified as an unhealthy alcohol user. Controlled Substance Measures Is patient prescribed a controlled substance at discharge?: Yes When asked, does pt state using other controlled substances?: No If prescribed controlled substance>3 days was MAPS reviewed?: Yes If Rx opioid, was Start Talking consent form obtained?: Yes If opioid is for acute pain is fill amount 7 days or less?: No Was information provided regarding opioid addiction?: Yes Objective - Vital Signs Vital signs: Vital Signs Temp Pulse 75 08/02/18 12:20 Resp 16 08/02/18 12:20 BP 126/81 08/02/18 12:20 Pulse Ox 96 08/02/18 12:20 Intake & Output 08/01/18 08/02/18 08/02/18 18:59 06:59 18:59 Weight 128 kg
== END | disposition home or self-care (01) ==
LOC: PNWHC3 11:58
PROVIDERS: ATTEND Anesthesiology
DX: G89.4 Chronic pain syndrome (principal); M54.5 Low back pain; M96.1 Postlaminectomy syndrome, not elsewhere classified; F11.20 Opioid dependence, uncomplicated; R53.83 Other fatigue; Z98.890 Other specified postprocedural states; Z79.899 Other long term (current) drug therapy
CPT/HCPCS: 93005; G0463; 99211

== ENCOUNTER → 2018-08-18 | Outpatient (CLI) | payer MEDICARE ==
--- NOTE | 2018-08-18 15:09 | CT ---
EXAMINATION TYPE: CT abdomen pelvis w con DATE OF EXAM: 08/18/2018 COMPARISON: Alex pain HISTORY: Mid abdominal pain x [address] DLP: 1946.4 mGycm Automated exposure control for dose reduction was used. CONTRAST: CT scan of the abdomen pelvis is performed with IV Contrast, patient injected with 100 mL of Isovue M 300. FINDINGS- LUNG BASES- No significant abnormality is appreciated. LIVER/GB- tiny hypodensity within the right lobe of the liver is too small to characterize. PANCREAS- No gross abnormality is seen. SPLEEN- No gross abnormality is seen. ADRENALS- No gross abnormality is seen. KIDNEYS/BLADDER- no hydronephrosis or nephrolithiasis. There is a 3.5 cm hypodense lesion involving t he right kidney which measures 10 Hounsfield units suggestive of a simple cyst. BOWEL-postsurgical change noted. Bowel gas pattern nonspecific. No diagnostic evidence of diverticuli tis. Retained bowel content throughout the colon. LYMPH NODES- No greater than 1cm abdominal or pelvic lymph nodes areappreciated. OSSEOUS STRUCTURES-hypertrophic and degenerative change of the vertebral canal. There is evidence of previous surgery involving the vertebral column. Multilevel degenerative disc disease with vacuum dis c noted. Sclerotic density involving the bilateral femoral head likely related to bone. OTHER- aorta of normal caliber. No free fluid or free air. Prostate gland is markedly enlarged IMPRESSION- 1. Postsurgical changes with no diagnostic evidence of acute diverticulitis. 2. Prostate hypertrophy. 3. Multilevel degenerative disc disease with postsurgical changes involving the vertebral column. #4 simple appearing right renal cyst. 4. Nonspecific bowel gas pattern with no obstruction. Correlate for constipation with retained fecal debris.
== END | disposition home or self-care (01) ==
LOC: RADCTMAIN 12:47
PROVIDERS: ATTEND Family Medicine
DX: N28.1 Cyst of kidney, acquired (principal); N40.0 Benign prostatic hyperplasia without lower urinary tract symptoms; Z98.890 Other specified postprocedural states
CPT/HCPCS: 74177; Q9967

== ENCOUNTER → 2018-08-28 | Outpatient (CLI) | payer MEDICARE ==
--- NOTE | 2018-08-28 15:17 | US ---
EXAMINATION TYPE: US gallbladder DATE OF EXAM: 08/28/2018 COMPARISON: CT dated 08/18/2018 CLINICAL HISTORY: R10.9 Unspecified abdominal pain. Epigastric pain since Thanksgiving EXAM MEASUREMENTS: Liver Length: 15.5 cm Gallbladder Wall: 0.2 cm Right Kidney: 10.0 x 5.7 x 4.3 cm Pancreas: Tail not visualized due to overlying bowel gas. Liver: wnl Gallbladder: wnl Evidence for sonographic Vaca's sign: neg CBD: Obscured by overlying bowel gas Right Kidney: Emanating from the right kidney there is a nearly anechoic 4.0 x 3.9 x 3.3 cm cyst with increased through transmission. IMPRESSION: No sonographic evidence of cholelithiasis nor acute cholecystitis. HIDA scan with CCK cou ld evaluate for chronic cholecystitis and/or biliary dyskinesia.
== END | disposition home or self-care (01) ==
LOC: RADUSWWP 14:14
PROVIDERS: ATTEND Family Medicine
DX: R10.9 Unspecified abdominal pain (principal)
CPT/HCPCS: 76705

== ENCOUNTER → 2018-09-02 | Outpatient (CLI) | payer MEDICARE ==
--- NOTE | 2018-09-02 12:06 | NM ---
EXAMINATION TYPE: NM hepatobiliary w CCK DATE OF EXAM: 09/02/2018 COMPARISON: NONE HISTORY: Abdominal ultrasound dated 08/28/2018 TECHNIQUE: After the intravenous administration of 4.3 mCi Tc 99m Mebrofenin hepatobiliary scintigrap hy is performed. Immediate images post injection. FINDINGS: There is satisfactory initial accumulation of tracer by the liver. The gallbladder is visualized wit hin 12 minutes. The small bowel activity is noted within 46 minutes. At one hour CCK was administer ed, patient was injected with 2.2 mcg of Kinevac, and gallbladder ejection fraction is calculated at 83 %, upper limits of normal. Therefore there is no scintigraphic evidence of cystic or common bile duct obstruction to suggest acute cholecystitis or gallbladder dyskinesia. IMPRESSION: Biliary ejection fraction is upper limits of normal suggesting the possibility of biliary hyperkinesia. No scintigraphic evidence of acute or chronic cholecystitis.
== END | disposition home or self-care (01) ==
LOC: RADNMMAIN 08:45
PROVIDERS: ATTEND Family Medicine
DX: R10.9 Unspecified abdominal pain (principal)
CPT/HCPCS: 78227; A9537; J2805

== ENCOUNTER → 2018-09-27 | Outpatient (CLI) | payer MEDICARE ==
[2018-09-27 11:37] VITALS: BP 154/79; PULSE 74; RESP 16
--- NOTE | 2018-09-27 12:13 | P.PAINPG ---
Subjective Progress Note Date: 09/27/18 Details a 63-year-old gentleman who presents today for follow-up. He presents today with a chief complaint of low back pain and lower extremity pain. He continues to have same pain is had for many years. He's had extensive back surgery numbering 13. He reports that his back pain is significant with st anding for longer than a few minutes. He reports after standing for a while he is able to get moving but towards in the day his legs become numb all the way to his feet. He reports that this pain is only relieved by resting for a little while sometimes he is able to rest [place] for a few minutes and that relieved some of the numbness and tingling. Had a long history of chronic pain and has been on multiple medications in the past. That higher doses of his current opioid regimen which is at about 150 morphine equivalence. He denies any side effects from the medications. Objective - Vital Signs Vital signs: Vital Signs Temp Pulse 74 09/27/18 11:31 Resp 16 09/27/18 11:31 BP 154/79 09/27/18 11:31 Pulse Ox 97 09/27/18 11:31 Intake & Output 09/26/18 09/27/18 09/27/18 18:59 06:59 18:59 Weight 109.769 kg - Exam General: Awake and alert oriented 3 no distress Respiratory exam: No audible wheezing no accessory muscle usage Cardiovascular exam: regular rate, palpable bilateral pulses, no lower extremity edema Abdominal exam: No distention nontender to palpation Cervical spine: Normal alignment, Spurling's negative, facet loading negative Lumbar spine: Loss of lumbar lordosis, surgical scars are well-healed normal alignment, tender to palpation over bilateral paraspinal muscles, facet loading is positive bilaterally. Straight leg raise is positive bilateral. Sacroiliac joints: Tender to palpation, CALLIE is negative, Gaenselon negative Neuro exam: Normal sensation in bilateral upper extremities, deep tendon reflexes are 2+ bilateral upper extremities. Normal sensation in bilateral lower extremities. Deep tendon reflexes are absent in the lower extremities Psych exam: Cooperative, appropriate mood Assessment and Plan Assessment: #1 lumbar postlaminectomy syndrome #2 lumbar radiculopathy sign #3 chronic opioid dependence Plan: A long discussion with the patient regarding his current medication regimen and the safety profile. He's been on these medications since 1984. We have and EKG in the chart as the patient is been on higher doses of methadone. At this point is currently on 150 morphine equivalence which has been decrease in the past. He denies any side effects from medication regimen. His urine drug screens have been appropriate. Maps was checked and every visit. Opioid start talking form a narcotics agreement is also on the chart. At this time I'll continue his medications for the next 2 months and we will work with the patient try to find other ways to decrease his pain meds. We have also done 3 epidural steroid injections recently and he reports that these injections have been very helpful. PQRS Measure Charge Sheet Measure #130: Documentation of Current Meds in Medical Chart: Patient's medications documented in chart Measure #226: Tobacco Use: Screen & Cessation Intervention: Pt not a tobacco user Measure #111: Pneumonia Vaccination: Pneumococcal vaccine administered or previously received Measure #47: Advance Care Plan: Advance care planning discussed & documented, plan or surrogate given Measure #412: Opioid Treatment Agreement: Documented signed opioid trtmnt agreemnt min once during opioid trtmnt Measure #408: Opioid Therapy Follow-up Evaluation: Patient had f/u eval minimum every 3 months during opioid therapy Measure #317: Preventitive Care & Scrn High Bld Press & F/U: Normal blood pressu re, f/u not required Measure #128: Body Mass Index (BMI) Screening & Follow-up: BMI documented ABOVE normal parameters - f/u documented Measure #131: Pain Assessment & Follow-up: Pain positive & plan documented, Follow-up scheduled Measure #431: Unhealthy Alcohol Use Preventative Care & Scrn: Patient not identified as an unhealthy alcohol user PQRS Narrative: Smoking Status Never smoker Do You Want the Pneumonia Yes Vaccine AT THIS TIME? Narcotic Agreement Date Signed 12/21/17 Blood Pressure 154/79 Pain Intensity [Bilateral 6 Buttock] Scale Used Numeric (1 - 10) Hx Alcohol Use (MH) No Home Medications: Ambulatory Orders Enalapril Maleate [Vasotec] 20 mg PO BID 07/27/16 HYDROcodone/APAP 10-325MG [[place] 10-325] 1 tab PO TID PRN 05/09/18 Methadone [Dolophine] 10 mg PO QID 05/09/18 Hydrochlorothiazide 25 mg PO DAILY 08/02/18 Controlled Substance Measures - Controlled Substance Measures Is patient prescribed a controlled substance at discharge?: Yes When asked, does pt state using other controlled substances?: No If prescribed controlled substance>3 days was MAPS reviewed?: Yes If Rx opioid, was Start Talking consent form obtained?: Yes If opioid is for acute pain is fill amount 7 days or less?: No Was information provided regarding opioid addiction?: Yes
== END ==
LOC: PNWHC3 11:09
PROVIDERS: ATTEND Hospitalist
DX: G89.29 Other chronic pain (principal); M96.1 Postlaminectomy syndrome, not elsewhere classified; M54.16 Radiculopathy, lumbar region; F11.20 Opioid dependence, uncomplicated; Z98.890 Other specified postprocedural states; Z79.899 Other long term (current) drug therapy
CPT/HCPCS: 99211

== ENCOUNTER 2018-09-29 07:32 | Day surgery (SDC) | payer MEDICARE ==
[2018-09-28 09:01] VITALS: BMI 34.7
[~2018-09-29 07:32] MED LIST changes: +LACTATED RINGERS 1,000 ML IV SCH; +LIDOCAINE 1% 20 ML VIAL (10MG/ML) FOR IV START INTRADERMA PRN; -SODIUM CHLORIDE 0.9% 500 ML 500 ML IV SCH
[2018-09-29 07:45] VITALS: TEMP 97.3
[2018-09-29] MEDS ORDERED: PROPOFOL 10 MG/ML 20 ML VIAL IV ONE (08:56)
[2018-09-29] MEDS ORDERED: LIDOCAINE 1% INJ 10MG/ML (20 ML MDV) ONE (08:56)
--- NOTE | 2018-09-29 09:05 | P.PCN ---
Date of Procedure: 09/29/18 Procedure(s) Performed: BRIEF HISTORY: Patient is a 63-year-old, pleasant, white male, scheduled for an upper endoscopy as a part of evaluation of persistent epigastric pain for the last 3-4 months duration. He is presently on Prilosec 20 mg daily with minimal help. He tried Zantac and Carafate in the past with no help. Because of the persistent symptoms he is scheduled for an upper endoscopy to evaluate further. PROCEDURE PERFORMED: Esophagogastroduodenoscopy with biopsy PREOPERATIVE DIAGNOSIS: Chronic epigastric pain of 6 months duration IV sedation per anesthesia. PROCEDURE: After informed consent was obtained, the patient was brought into the endoscopy unit. IV sedation was administered by Anesthesia under continuous monitoring. Initially the Olympus GIF-140 video endoscope was inserted into the mouth. Esophagus intubated without any difficulty. It was gradually advanced into the stomach and duodenum and carefully examined. The bulb and the second part of the duodenum appeared normal. The scope at this time was withdrawn to the stomach, adequately insufflated with air, and upon careful examination, mucosa of the antrum and mild gastritis and biopsies were done from this area. There were no ulcerations seen. The body, cardia and the fundus appeared normal. The scope was then withdrawn into the esophagus. The GE junction was located at 39 cm from the incisors. The esophagus appeared normal. There were no erosions or ulcerations seen, biopsies were done from the distal esophagus and the patient tolerated the procedure well. IMPRESSION: 1. Mild antral gastritis 2. No evidence of esophagitis or peptic ulcer disease. RECOMMENDATIONS: The findings of this examination were discussed with the patient as well as his family. He was advised to follow with the biopsy results. He will continue with Prilosec 20 mg daily and follow measures. He'll be seen in office in one to 2 weeks
[2018-09-29 09:13] VITALS: RESP 16
[2018-09-29 09:23] VITALS: BP 120/71; PULSE 66
== END 2018-09-29 09:42 | disposition home or self-care (01) ==
LOC: ORWHC2ENDO 07:32
PROVIDERS: ATTEND Internal Medicine Gastroenterology
DX: K29.50 Unspecified chronic gastritis without bleeding (principal); M19.90 Unspecified osteoarthritis, unspecified site; K21.9 Gastro-esophageal reflux disease without esophagitis; I10 Essential (primary) hypertension; E78.5 Hyperlipidemia, unspecified; G47.33 Obstructive sleep apnea (adult) (pediatric); G89.29 Other chronic pain; M54.9 Dorsalgia, unspecified; Z99.89 Dependence on other enabling machines and devices; Z88.6 Allergy status to analgesic agent; Z88.8 Allergy status to other drugs, medicaments and biological substances; Z79.899 Other long term (current) drug therapy; Z79.891 Long term (current) use of opiate analgesic
CPT/HCPCS: 88305; 43239; J2001; J2704

== ENCOUNTER → 2018-12-06 | Outpatient (CLI) | payer MEDICARE ==
[2018-12-06 11:37] VITALS: BP 147/88; PULSE 82; RESP 18
--- NOTE | 2018-12-06 11:52 | P.PN ---
Subjective Progress Note Date: 12/06/18 This is a 63-year-old gentleman with history of 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 The patient has been on oral opioids and interventional pain procedures from time to time as an appropriate treatment for his pain as he states. Lately his pain has been getting worse with radiation to both legs down to the feet. He denies any bowel or bladder dysfunction though. By physical exam he is alert oriented 3 in no apparent distress Neuro exam of the lower extremities showed normal and symmetrical knee reflexes, normal right ankle reflex and absent left ankle reflex. He has normal muscle strength in the lower extremities. He has tenderness in the lumbar paravertebral musculature on the left side especially of the spine. The patient may benefit from getting caudal epidural steroid injection with lysis of adhesions under fluoroscopic guidance. We will continue his methadone 40 mg per day and [place] 10 mg 3 times a day if needed for pain. The patient will get prescription for 2 months of his opioids. His last EKG 4 QT intervals monitoring was in July of this year and QT was normal. We will do a urine drug screen on his next visit. Objective - Vital Signs Vital signs: Vital Signs Temp Pulse 82 12/06/18 11:31 Resp 18 12/06/18 11:31 BP 147/88 12/06/18 11:31 Pulse Ox 99 12/06/18 11:31 Intake & Output 12/05/18 12/06/18 12/06/18 18:59 06:59 18:59 Weight 109.769 kg
== END ==
LOC: PNWHC3 11:24
PROVIDERS: ATTEND Anesthesiology
DX: G89.29 Other chronic pain (principal); M96.1 Postlaminectomy syndrome, not elsewhere classified; Z79.891 Long term (current) use of opiate analgesic; Z79.899 Other long term (current) drug therapy
CPT/HCPCS: 99211

== ENCOUNTER 2018-12-14 05:45 | Day surgery (SDC) | payer MEDICARE ==
[2018-12-12 10:58] VITALS: BMI 34.4
[2018-12-14] MEDS ORDERED: LACTATED RINGERS 1,000 ML IV SCH (05:52)
[2018-12-14] MEDS ORDERED: LIDOCAINE 1% 20 ML VIAL (10MG/ML) FOR IV START INTRADERMA ONE (06:41)
[2018-12-14 06:43] VITALS: TEMP 98.9
--- NOTE | 2018-12-14 07:18 | P.PCN ---
Date of Procedure: 12/14/18 Procedure(s) Performed: PREOP DIAGNOSIS: 1- Lumbar postlaminectomy syndrome POSTOP DIAGNOSIS:1- Lumbar postlaminectomy syndrome PROCEDURE: Caudal epidural steroid injection with epidurolysis and epidurogram under fluoroscopic guidance ANESTHESIA: Local with 1% lidocaine 3 ml ,and moderate sedation, with Versed 4 mg and fentanyl 100 g EBL: Minimal. PROCEDURE INDICATION: The patient with post-laminectomy syndrome with low back pain and radiculopathy radiating down in both legs, here for a caudal epidural steroid injection with epidurolysis. PROCEDURE DESCRIPTION: The patient was seen and identified in the preoperative area. Risks, benefits, complications, and alternatives were discussed with the patient. The patient agreed to proceed with the procedure and signed the consent. IV was started, and vital signs were stable. Patient was taken to the OR and time out was completed. The patient was placed in the prone position on procedure table and a pillow was placed under the abdomen to reduce lumbar lordosis. The lumbosacral area was prepped and draped in the usual sterile fashion. Vital signs were closely monitored during the procedure. lateral view and the anterior-posterior plates of the sacrum were identified with infiltration of the area overlying the sacral hiatus with 1% lidocaine .A 17 gauge RK epidural needle was used to advance through the sacral hiatus into the caudal epidural space. Omnipaque 180 dye. 2cc was injected and the position of the needle was verified to be in the midline. A Racz catheter was introduced into the epidural space and was advanced towards the L5-S1 interspace under direct fluoroscopic guidance. Multiple passes were made with the catheter for lysis of epidural adhesions. Depo-Medrol 80 mg with 3ml of preservative free Lidocaine 1% and 5 ml of preservative free normal saline was injected slowly. Additional spread was seen to L4 under fluoroscopy. The needle and the catheter were withdrawn intact. EPIDUROGRAM: Omnipaque 180 mg dye 2 ml was injected with spread of the dye into the caudal epidural space and with spread cutoff at L5 prior to epidurolysis. Post epidurolysis dye 2 ml was injected and spread was seen to L3-4.There was further spread of the solution together with the dye above the L3 COMPLICATIONS: None. DISPOSITION / PLANS: The patient was placed in a supine position and transferred to the recovery area in a stable condition for observation and was discharged from the recovery room after meeting discharge criteria. Home discharge instructions given to the patient by the staff. The patient was reexamined prior to discharge. The patient will schedule a follow up in the clinic in 2-4 weeks.
[2018-12-14 07:31] VITALS: RESP 18
[2018-12-14] MEDS ORDERED: LACTATED RINGERS 1,000 ML IV ONE (07:37)
[2018-12-14 07:43] VITALS: BP 117/71; PULSE 58
--- NOTE | 2018-12-14 08:27 | FL ---
EXAMINATION TYPE: FL guided pain mgmt statistic DATE OF EXAM: 12/14/2018 HISTORY: Flouroscopy time 6 seconds of fluoroscopy provided. IMPRESSION: 1. Fluoroscopy time.
== END 2018-12-14 08:00 | disposition home or self-care (01) ==
LOC: ORPAIN 05:45
PROVIDERS: ATTEND Specialist
DX: M96.1 Postlaminectomy syndrome, not elsewhere classified (principal); G96.12 Meningeal adhesions (cerebral) (spinal); I10 Essential (primary) hypertension; K21.9 Gastro-esophageal reflux disease without esophagitis; Z88.6 Allergy status to analgesic agent; Z91.018 Allergy to other foods; Z88.8 Allergy status to other drugs, medicaments and biological substances; Z91.09 Other allergy status, other than to drugs and biological substances
CPT/HCPCS: 62264; J2250; J1030; J3010; Q9966; 99152

== ENCOUNTER → 2019-01-31 | Outpatient (CLI) | payer MEDICARE ==
[2019-01-31 12:06] VITALS: BP 142/79; PULSE 57; RESP 18
--- NOTE | 2019-01-31 12:45 | P.PAINPG ---
Subjective Progress Note Date: 01/31/19 This is a 63-year-old male who presents for follow-up after his Racz catheter caudal with lysis. He states that he has good relief of some muscular type pain that he usually has in the morning. He is very happy with the results. He continues to have pain consistent with post laminectomy syndrome. He continues to be on opiate therapy from our clinic. He denies any adverse effects his medication and denies any misuse of the medication. 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 He has not had a UDS in over a year. Thus he will have a UDS today. Objective - Vital Signs Vital signs: Vital Signs Temp Pulse 57 L 01/31/19 11:59 Resp 18 01/31/19 11:59 BP 142/79 01/31/19 11:59 Pulse Ox 98 01/31/19 11:59 Intake & Output 01/30/19 01/31/19 01/31/19 18:59 06:59 18:59 Weight 108.862 kg - Exam Gen: WDWN, AAOx3, NAD HEENT: NCAT, EOMI, hearing grossly normal Pulm: resp unlabored Abd: soft, NT, ND Neck: supple, trachea midline ROM in flexion lumbar spine: Slightly decreased ROM in extension lumbar spine: Slightly decreased He does have a scar from previous lumbar surgery Neuro: muscle strength lower extremities intact Assessment and Plan Assessment: Assessment and plan: 1 Failed back syndrome 2. DDD 3. Chronic Opioid use 1. Interventions and will call in for a caudal with lysis of his pain 2. Physical Therapy continue home exercises 3. Medications Chronic and current use of high-risk medication (opioids) can cause serious complications to overall health. Patient denies any side effects of the current pain medication and the current treatment/medication and the patient to do activity of daily living , Diagnoses, prognosis, treatment options, including but not limited to physical therapy, medication management, interventional therapies, and surgery, were discussed with the patient All the questions answered Patient was counseled not to drive or operate heavy equipment while using narcotic medication, and advised not to use alcohol or any Illicit drugs while using the narcotis, the patient's verbalized understanding that lack of compliance with any of the above instructions and will likely to cause discharge from the pain service, not to renew his narcotic prescriptions Refills given for methadone and [place] We will obtain a UDS today 6. Follow up in 8 weeks , PQRS Measure Charge Sheet Measure #226: Tobacco Use: Screen & Cessation Intervention: Pt not a tobacco user Measure #111: Pneumonia Vaccination: Pneumococcal vaccine administered or previously received Measure #47: Advance Care Plan: Advance care planning discussed & documented, pt chose/unable to give Measure #412: Opioid Treatment Agreement: No documentation of signed opioid treatment agreement Measure #408: Opioid Therapy Follow-up Evaluation: Patient had NO f/u eval minimum every 3 months during opioid therapy Measure #131: Pain Assessment & Follow-up: Pain positive & plan documented, Follow-up scheduled Measure #431: Unhealthy Alcohol Use Preventative Care & Scrn: Patient not identified as an unhealthy alcohol user PQRS Narrative: Smoking Status Never smoker Narcotic Agreement Date Signed 12/21/17 Blood Pressure 142/79 Pain Intensity [Lower Back] 5 Scale Used Numeric (1 - 10) Hx Alcohol Use (MH) No Home Medications: Ambulatory Orders Enalapril Maleate [Vasotec] 20 mg PO BID 07/27/16 HYDROcodone/APAP 10-325MG [[place] 10-325] 1 tab PO TID PRN 05/09/18 Methadone [Dolophine] 10 mg PO QID 05/09/18 Hydrochlorothiazide 25 mg PO DAILY 08/02/18 Omeprazole Magnesium [PriLOSEC OTC] 20 mg PO BID 09/28/18 Controlled Substance Measures - Controlled Substance Measures Is patient prescribed a controlled substance at discharge?: Yes When asked, does pt state using other controlled substances?: No If prescribed controlled substance>3 days was MAPS reviewed?: Yes If Rx opioid, was Start Talking consent form obtained?: No If opioid is for acute pain is fill amount 7 days or less?: No Was information provided regarding opioid addiction?: Yes
== END | disposition home or self-care (01) ==
LOC: PNWHC3 11:15
PROVIDERS: ATTEND Student in an Organized Health Care Education/Training Program
DX: M96.1 Postlaminectomy syndrome, not elsewhere classified (principal); M51.36 Other intervertebral disc degeneration, lumbar region; Z79.891 Long term (current) use of opiate analgesic; Z79.899 Other long term (current) drug therapy
CPT/HCPCS: 80307; G0482; G0463; 99211

== ENCOUNTER 2019-02-12 07:44 | Day surgery (SDC) | payer MEDICARE ==
[2019-02-09 09:28] VITALS: BMI 34.4
[~2019-02-12 07:44] MED LIST changes: -LIDOCAINE 1% 20 ML VIAL (10MG/ML) FOR IV START INTRADERMA PRN
[2019-02-12 08:05] VITALS: TEMP 97.9
--- NOTE | 2019-02-12 08:57 | P.PCN ---
Date of Procedure: 02/12/19 Procedure(s) Performed: Procedure= caudal epidural steroid injection with lysis of epidural adhesions under fluoroscopy guidance. Preoperative diagnosis=1-failed back surgery syndrome lumbar area. 2 lumbar degenerative disc disease 3-lumbar radiculopathy Postoperative diagnosis= same Anesthesia= moderate sedation with 4 mg Versed and 100 mcg fentanyl , and local infiltration with lidocaine 1% 3 mL for skin and subcutaneous tissue infiltrations. Description of the procedure:procedure risk and benefits discussed with the patient, including but not limited to risk of infection and bleeding and ALLERGIC reaction to the medication and no complete pain relief discussed with the patient and he, she agreed with preceding. patient taken to the operating room, placed in prone position standard monitors applied, then after induction of anesthesia the lumbar and the caudal Area prepped with chlorhexidine X3 , then the under fluoroscopy guidance, local infiltration of the skin and subcu tissuel at the caudal hiatus area, then a 17-gauge Touhy needle advanced slowly under fluoroscopy and passed through the cauda hiatus and advanced to the epidural space, there was positive loss of resistance to normal saline, no heme, no paresthesia, no cerebrospinal fluid, then after negative aspiration Omnipaque 180 mg per mL and 3 mL injected that showed possible spread in the epidural space, no intrathecal spread, then 22 jamie Racz catheter advanced slowly through the needle up to L 5 interlaminar space , and I was able to break the scar tissue by advancing the needle ,and after all this done, mixture of lidocaine 1% 2 mL +7 mL of preservative-free normal saline +80 mg of depomedrol mixed together , and injected epidurally after negative aspiration patient tolerated the procedure well without any complication and patient will follow up with up in the pain clinic in a few weeks.
[2019-02-12] MEDS ORDERED: IV FLUID CONTINUATION 1,000 ML IV ONE (08:58)
--- NOTE | 2019-02-12 09:29 | FL ---
Fluoroscopy INDICATION: Pain FINDINGS: Fluoroscopy time: 8 seconds. Images obtained: 3. IMPRESSIONS: 1. Documentation of fluoroscopy.
[2019-02-12 09:35] VITALS: BP 110/81; PULSE 82; RESP 17
== END 2019-02-12 09:38 | disposition home or self-care (01) ==
LOC: ORPAIN 07:44
PROVIDERS: ATTEND Student in an Organized Health Care Education/Training Program
DX: M96.1 Postlaminectomy syndrome, not elsewhere classified (principal); M51.16 Intervertebral disc disorders with radiculopathy, lumbar region
CPT/HCPCS: 62264; J2250; J1030; J3010; Q9966; C1894; 99152

== ENCOUNTER → 2019-03-28 | Outpatient (CLI) | payer MEDICARE ==
[2019-03-28 12:25] VITALS: BP 187/82; PULSE 61; RESP 16
--- NOTE | 2019-03-28 13:13 | P.PAINPG ---
Subjective Progress Note Date: 03/28/19 This is follow-up visit for this patient with a history of severe and chronic low back pain secondary to lumbar failed back surgery syndrome, His pain is well controlled between nterventional pain procedures:caudal epidural steroid injection with lysis of epidural adhesions, and medication management ,Patients currently on methadone 10 mg every 6 hours, [place] 10/325 every 8 hours when necessary ,Patient denies any side effects of the medication, denies excessive drowsiness or sleepiness, denies suicidal ideation, and reports that the current pain medication is helping to control the pain , he complain of constipation and he used [id number] medication to help his constipation, he reported that he had occasional muscle spasm in the lower extremity bilaterally. Patient denies any motor or sensory deficit , patient denies any fever or night sweats, denies any change in the bowel movements or urination, and he reported that the current medication helping him to improve his pain, and do activities of daily livings Objective - Vital Signs Vital signs: Vital Signs Temp Pulse 61 03/28/19 12:19 Resp 16 03/28/19 12: BP 187/82 03/28/19 12:19 Pulse Ox 100 03/28/19 12:19 - Exam Physical Examinations : -Constitutiona : Cooperative , not in acute distress . -HEENT : nech : supple , no Lymphadenopathy , normal thyroid size . eyes : no ptosis , no icterus, no photophobia . - neurologic : Cranial nerve II to XII intact , no focal neurological deffecit . -psychatric : alert , oriented X 3 , appropriate affect , intact judgment and insight . -Lymphatic : no Lymphadenopathy . - musculoskeltal : Lumber spine moter stegnth lower extremities ,thigh and legs 5/5 Right side , 5/5 Left side Assessment and Plan Plan: Assessment and plan= chronic low back pain secondary to lumbar degenerative disc disease , lumbar spondylosis with lumbar facet arthropathy . chronic and current use of high-risk medication (opioids) Patient denies any side effects of the current pain medication and the current treatment/medication helping the patient to do activity of daily living , Diagnoses, prognosis, treatment options, including but not limited to physical therapy, medication management, interventional therapies, and surgery, were discussed with the patient All the questions answered The narcotic consent was signed and patient agreed and understood the side effects and complications of opioid treatment. Patient signed the narcotic agreement, and was orally counseled, not to overuse, not to abuse, not to Divert , not tp sell pain medication, and to take it as prescribed only, Patient was counseled not to drive or operate heavy equipment while using narcotic medication, and advised not to use alcohol or any Illicit drugs while using the narcotis. understanding that lack of compliance with any of the above instructions, will likely to cause discharge from, the pain service, not to renew his narcotic prescriptions MAPS Reviwed and it was apropriate . Urine drug screen done last visit ,it was checked and it was appropriate Medication managements= patient will be given prescription refills for methadone 10 mg every 6 hours dispense 120 with one refill, [place] 10/325 every 8 hours dispense 90 with 1 refill And he will follow up in the pain clinic in 2 months , Time with Patient: Less than 30 PQRS Measure Charge Sheet Measure #130: Documentation of Current Meds in Medical Chart: Patient's medications documented in chart Measure #226: Tobacco Use: Screen & Cessation Intervention: Pt not a tobacco user Measure #111: Pneumonia Vaccination: Pneumococcal vaccine administered or previously received Measure #47: Advance Care Plan: Advance care planning discussed & documented, pt chose/unable to give Measure #412: Opioid Treatment Agreement: Documented signed opioid trtmnt agreemnt min once during opioid trtmnt Measure #408: Opioid Therapy Follow-up Evaluation: Patient had f/u eval minimum every 3 months during opioid therapy Measure #317: Preventitive Care & Scrn High Bld Press & F/U: Normal blood pressure, f/u not required Measure #128: Body Mass Index (BMI) Screening & Follow-up: BMI documented ABOVE normal parameters - f/u documented Measure #131: Pain Assessment & Follow-up: Pain positive & plan documented, Follow-up scheduled Measure #431: Unhealthy Alcohol Use Preventative Care & Scrn: Patient not identified as an unhealthy alcohol user PQRS Narrative: Smoking Status Never smoker Narcotic Agreement Date Signed 12/21/17 Blood Pressure 187/82 Pain Intensity [Back] 6 Scale Used Numeric (1 - 10) Hx Alcohol Use (MH) No Home Medications: Ambulatory Orders Enalapril Maleate [Vasotec] 20 mg PO BID 07/27/16 HYDROcodone/APAP 10-325MG [[place] 10-325] 1 tab PO TID PRN 05/09/18 Methadone [Dolophine] 10 mg PO QID 05/09/18 Omeprazole Magnesium [PriLOSEC OTC] 20 mg PO BID 09/28/18 amLODIPine [Norvasc] 5 mg PO QAM 03/26/19 Controlled Substance Measures - Controlled Substance Measures Is patient prescribed a controlled substance at discharge?: Yes When asked, does pt state using other controlled substances?: No If prescribed controlled substance>3 days was MAPS reviewed?: Yes If Rx opioid, was Start Talking consent form obtained?: Yes If opioid is for acute pain is fill amount 7 days or less?: No Was information provided regarding opioid addiction?: Yes
== END | disposition home or self-care (01) ==
LOC: PNWHC3 11:31
PROVIDERS: ATTEND Specialist
DX: M51.36 Other intervertebral disc degeneration, lumbar region (principal); M47.816 Spondylosis without myelopathy or radiculopathy, lumbar region; M46.96 Unspecified inflammatory spondylopathy, lumbar region; G89.29 Other chronic pain; Z79.899 Other long term (current) drug therapy; Z79.891 Long term (current) use of opiate analgesic
CPT/HCPCS: 99211

== ENCOUNTER → 2019-05-23 | Outpatient (CLI) | payer MEDICARE ==
[2019-05-23 11:40] VITALS: BP 131/74; PULSE 63; RESP 18
--- NOTE | 2019-05-25 08:56 | P.PAINPG ---
Subjective Progress Note Date: 05/23/19 This is a 64-year-old male who presents for follow-up. He is been managed in our clinic with a combination of procedures including caudal epidural steroid injections with lysis of adhesions and medications. He continues to have pain consistent with post laminectomy syndrome including low back pain and numbness and tingling in bilateral lower extremities, circumferentially. He continues to be on opiate therapy from our clinic. He has mild adverse effects in the form of constipation from his medication and he denies any misuse of the medication. The medications are helping control his pain and help him function. 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 He is requesting a repeat caudal with tc is of adhesions. The last few have worked well, giving him about 2 and half months of pain relief. Review of systems is negative for chest pain, shortness of breath, new onset weakness, numbness/tingling, abdominal pain, malaise, fever, night sweats, chills, homicidal or suicidal ideation, or bowel or bladder incontinence. He does endorse hot flashes. Objective Vitals: Reviewed in EMR Gen: WDWN, AAOx3, NAD HEENT: NCAT, EOMI, hearing grossly normal Pulm: resp unlabored Abd: ND Cardiac: No pedal edema Neck: trachea midline Musculoskeletal: Reduced sensation to touch at bilateral anterior thighs, calves, feet He does have a scar from previous lumbar surgery, tenderness to palpation of lumbar spinous processes and paraspinal musculature bilaterally Neuro: muscle strength lower extremities intact Assessment and Plan Assessment: Assessment and plan: 1 Failed back syndrome 2. DDD 3. Chronic Opioid use 1. Interventions: We will schedule caudal epidural steroid injection with lysis of adhesions 2. Physical Therapy continue home exercises 3. Medications Chronic and current use of high-risk medication (opioids) can cause serious complications to overall health. Patient denies any side effects of the current pain medication and the current treatment/medication and the patient to do activity of daily living , Diagnoses, prognosis, treatment options, including but not limited to physical therapy, medication management, interventional therapies, and surgery, were discussed with the patient All the questions answered Patient was counseled not to drive or operate heavy equipment while using narcotic medication, and advised not to use alcohol or any Illicit drugs while using the narcotics, the patient's verbalized understanding that lack of compliance with any of the above instructions and will likely to cause discharge from the pain service, not to renew his narcotic prescriptions Refills given for methadone and [place] UDS reviewed and consistent with medications prescribed Follow up in 8 weeks PQRS Measure Charge Sheet Measure #130: Documentation of Current Meds in Medical Chart: Patient's medications documented in chart Measure #226: Tobacco Use: Screen & Cessation Intervention: Pt not a tobacco user Measure #111: Pneumonia Vaccination: Pneumococcal vaccine NOT administered or previously given Measure #47: Advance Care Plan: Advance care planning discussed & documented, pt chose/unable to give Measure #412: Opioid Treatment Agreement: Documented signed opioid trtmnt agreemnt min once during opioid trtmnt Measure #408: Opioid Therapy Follow-up Evaluation: Patient had f/u eval minimum every 3 months during opioid therapy Measure #317: Preventitive Care & Scrn High Bld Press & F/U: Normal blood pressure, f/u not required Measure #128: Body Mass Index (BMI) Screening & Follow-up: BMI documented ABOVE normal parameters - f/u documented Measure #131: Pain Assessment & Follow-up: Pain positive & plan documented, Follow-up scheduled Measure #431: Unhealthy Alcohol Use Preventative Care & Scrn: Patient not identified as an unhealthy alcohol user PQRS Narrative: Smoking Status Never smoker Narcotic Agreement Date Signed 12/21/17 Pain Intensity [Lower Back] 6 Scale Used Numeric (1 - 10) Hx Alcohol Use (MH) No Home Medications: Ambulatory Orders Enalapril Maleate [Vasotec] 20 mg PO BID 07/27/16 HYDROcodone/APAP 10-325MG [[place] 10-325] 1 tab PO TID PRN 05/09/18 Methadone [Dolophine] 10 mg PO QID 05/09/18 amLODIPine [Norvasc] 5 mg PO QAM 03/26/19 Controlled Substance Measures - Controlled Substance Measures Is patient prescribed a controlled substance at discharge?: Yes When asked, does pt state using other controlled substances?: No If prescribed controlled substance>3 days was MAPS reviewed?: Yes If Rx opioid, was Start Talking consent form obtained?: Yes If opioid is for acute pain is fill amount 7 days or less?: No Was information provided regarding opioid addiction?: Yes
== END | disposition home or self-care (01) ==
LOC: PNWHC3 11:01
PROVIDERS: ATTEND Anesthesiology
DX: M96.1 Postlaminectomy syndrome, not elsewhere classified (principal); M54.5 Low back pain; M51.36 Other intervertebral disc degeneration, lumbar region; R20.0 Anesthesia of skin; K59.00 Constipation, unspecified; Z79.891 Long term (current) use of opiate analgesic
CPT/HCPCS: 99211

== ENCOUNTER → 2019-05-31 | Outpatient (CLI) | payer MEDICARE ==
--- NOTE | 2019-05-31 10:40 | US ---
EXAMINATION TYPE: US venous doppler duplex LE DATE OF EXAM: 05/31/2019 10:24 AM COMPARISON: NONE CLINICAL HISTORY: I82.409 ACUTE EMBOLSIM AND THROMBOSIS. Leg pain and swelling SIDE PERFORMED: Bilateral TECHNIQUE: The lower extremity deep venous system is examined utilizing real time linear array sonog tasia with graded compression, doppler sonography and color-flow sonography. VESSELS IMAGED: External Iliac Vein (EIV) Common Femoral Vein Deep Femoral Vein Greater Saphenous Vein * Femoral Vein Popliteal Vein Small Saphenous Vein * Proximal Calf Veins (* superficial vessels) Right Leg: Negative for DVT Left Leg: Negative for DVT IMPRESSION: 1. Bilateral lower extremity ultrasound negative for deep venous thrombosis.
--- NOTE | 2019-05-31 10:52 | XR ---
EXAMINATION TYPE: XR knee complete bilateral DATE OF EXAM: 05/31/2019 COMPARISON: None HISTORY: Osteoarthritis bilateral knees, pain TECHNIQUE: Bilateral knees examination 3 views each FINDINGS: Right knee: There is narrowing of the medial compartment joint space. Some minimal calcification with in the lateral meniscus may be present. Medial and lateral tibial plateau and femoral condylar spurri ng is present. Small joint effusion may be present. Posterior patellar spurring is noted with narrowi ng of the patellofemoral joint space. Left knee: Small amount of calcification may be within the medial lateral menisci. No joint effusion is evident. Large anterior superior talar spur is noted. IMPRESSION: 1. Moderate osteoarthritic degenerative change right knee. 2. Mild degenerative changes are present within the left knee.
== END | disposition home or self-care (01) ==
LOC: RADUSWWP 09:59
PROVIDERS: ATTEND Family Medicine
DX: I82.409 Acute embolism and thrombosis of unspecified deep veins of unspecified lower extremity (principal); M17.11 Unilateral primary osteoarthritis, right knee; M17.12 Unilateral primary osteoarthritis, left knee
CPT/HCPCS: 93970

== ENCOUNTER 2019-06-05 05:49 | Day surgery (SDC) | payer MEDICARE ==
[2019-06-04 10:47] VITALS: BMI 34.9
[2019-06-05] MEDS ORDERED: LACTATED RINGERS 1,000 ML IV SCH (06:03)
[2019-06-05 06:19] VITALS: TEMP 98.3
--- NOTE | 2019-06-05 07:24 | P.PCN ---
Date of Procedure: 06/05/19 Procedure(s) Performed: PREOP DIAGNOSIS: 1- Lumbar postlaminectomy syndrome. POSTOP DIAGNOSIS:1- Lumbar postlaminectomy syndrome. PROCEDURE: 1-Caudal epidural steroid injection with epidurolysis and epidurogram under fluoroscopic guidance. (Fluoroscopy images available in the radiology Department ) 2-caudal epidurogram. ANESTHESIA: Local with 1% lidocaine 3 ml ,and moderate sedation, with Versed 4 mg and fentanyl 200 g. EBL: Minimal. PROCEDURE INDICATION: The patient with post-laminectomy syndrome with low back pain and radiculopathy radiating down in both legs, here for a caudal epidural steroid injection with epidurolysis. PROCEDURE DESCRIPTION: The patient was seen and identified in the preoperative area. Risks, benefits, complications, and alternatives were discussed with the patient. The patient agreed to proceed with the procedure and signed the consent. IV was started, and vital signs were stable. Patient was taken to the OR and time out was completed. The patient was placed in the prone position on procedure table and a pillow was placed under the abdomen to reduce lumbar lordosis. The lumbosacral area was prepped and draped in the usual sterile fashion. Vital signs were closely monitored during the procedure. lateral view and the anterior-posterior plates of the sacrum were identified with infiltration of the area overlying the sacral hiatus with 1% lidocaine .A 17 gauge RK epidural needle was used to advance through the sacral hiatus into the caudal epidural space. Omnipaque 180 dye. 2cc was injected and the position of the needle was verified to be in the midline. A Racz catheter was introduced into the epidural space and was advanced towards the L5-S1 interspace under direct fluoroscopic guidance. Multiple passes were made with the catheter for lysis of epidural adhesions. Depo-Medrol 80 mg with 3ml of preservative free Lidocaine 1% and 5 ml of preservative free normal saline was injected slowly. Additional spread was seen to L4 under fluoroscopy. The needle and the catheter were withdrawn intact. EPIDUROGRAM: Omnipaque 180 mg dye 2 ml was injected with spread of the dye into the caudal epidural space and with spread cutoff at L5 prior to epidurolysis. Post epidurolysis dye 2 ml was injected and spread was seen to L3-4.There was further spread of the solution together with the dye above the L3 COMPLICATIONS: None. DISPOSITION / PLANS: The patient was placed in a supine position and transferred to the recovery area in a stable condition for observation and was discharged from the recovery room after meeting discharge criteria. Home discharge instructions given to the patient by the staff. The patient was reexamined prior to discharge. The patient will schedule a follow up in the clinic in 2-4 weeks.
[2019-06-05] MEDS ORDERED: IV FLUID CONTINUATION 1,000 ML IV ONE (07:30)
[2019-06-05 07:32] VITALS: RESP 18
[2019-06-05 07:57] VITALS: BP 120/79; PULSE 72
--- NOTE | 2019-06-05 08:24 | FL ---
EXAMINATION TYPE: FL guided pain mgmt statistic DATE OF EXAM: 06/05/2019 CLINICAL HISTORY: Low back pain. TECHNIQUE: Fluoroscopy. COMPARISON: None. FINDINGS: Fluoroscopic guidance was provided during pain relief procedure performed by Dr. Lopez . A total of 6 seconds of fluoroscopic time was utilized during the procedure and 3 spot images are acquired. Images acquired shows needle localization over the sacrum. IMPRESSION: As Above.
== END 2019-06-05 07:57 | disposition home or self-care (01) ==
LOC: ORPAIN 05:49
PROVIDERS: ATTEND Specialist
DX: M96.1 Postlaminectomy syndrome, not elsewhere classified (principal); M54.16 Radiculopathy, lumbar region; Z88.6 Allergy status to analgesic agent; Z91.018 Allergy to other foods; Z91.041 Radiographic dye allergy status
CPT/HCPCS: 62264; J2250; J1030; J3010; Q9966; C1894; 99152

== ENCOUNTER → 2019-07-18 | Outpatient (CLI) | payer MEDICARE ==
[2019-07-18 11:39] VITALS: BP 163/85; PULSE 80; RESP 20
--- NOTE | 2019-07-18 14:13 | P.PAINPG ---
Subjective Progress Note Date: 07/18/19 This is follow-up visit for this patient with a history of severe and chronic low back pain secondary to lumbar failed back surgery syndrome, Recently we have done ,caudal epidural steroid injection with lysis of epidural adhesions, and medication management , patient reported that he continued to h ave severe low back pain Patients currently on methadone 10 mg every 6 hours, [place] 10/325 every 8 hours when necessary ,Patient denies any side effects of the medication, denies excessive drowsiness or sleepiness, denies suicidal ideation, and reports that the current pain medication is helping to control the pain , he complain of constipation and he used [id number] medication to help his constipation, Patient denies any motor or sensory deficit , patient denies any fever or night sweats, denies any change in the bowel movements or urination, and he reported that the current medication helping him to improve his pain, and do activities of daily livings Objective - Vital Signs Vital signs: Vital Signs Temp Pulse 80 07/18/19 11:32 Resp 20 07/18/19 11:32 BP 163/85 07/18/19 11:32 Pulse Ox 97 07/18/19 11:32 Intake & Output 07/17/19 07/18/19 07/18/19 18:59 06:59 18:59 Weight 110.677 kg - Exam Physical Examinations : -Constitutiona : Cooperative , not in acute distress . -HEENT : nech : supple , no Lymphadenopathy , normal thyroid size . : eyes : no ptosis , no icterus, no photophobia . - neurologic : Cranial nerve II to XII intact , no focal neurological deffecit . -psychatric : alert , oriented X 3 , appropriate affect , intact judgment and insight . -Lymphatic : no Lymphadenopathy . - musculoskeltal : Lumber spine moter stegnth lower extremities ,thigh and legs 5/5 Right side , 5/5 Left side deep tendon reflexes : normal Knee Jerk , normal ankle Jerk lumber facet Loading Test =positive Right , positive Left Range of motion of the lumbar spine Flexion 30 degrees, extension 10 degrees strait leg raising test = positive at 30 degree Fabere test= positive Right , and positive LT . Sever tenderness over the Sacroiliac joint on the Left sides Gaenslen test= negative right ,and positive left . Seated flexion test= negative right ,and positive Left . Assessment and Plan Plan: Assessment and plan= chronic low back pain secondary to failed back surgery syndrome lumbar area, lumbar spondylosis with lumbar facet arthropathy . Left sacroiliitis chronic and current use of high-risk medication (opioids) Patient denies any side effects of the current pain medication and the current treatment/medication helping the patient to do activity of daily living , Diagnoses, prognosis, treatment options, including but not limited to physical therapy, medication management, interventional therapies, and surgery, were discussed with the patient All the questions answered The narcotic consent was signed and patient agreed and understood the side effects and complications of opioid treatment. Patient signed the narcotic agreement, and was orally counseled, not to overuse, not to abuse, not to Divert , not tp sell pain medication, and to take it as prescribed only, Patient was counseled not to drive or operate heavy equipment while using narcotic medication, and advised not to use alcohol or any Illicit drugs while using the narcotis. understanding that lack of compliance with any of the above instructions, will likely to cause discharge from, the pain service, not to renew his narcotic prescriptions MAPS Reviwed and it was apropriate . Medication managements= patient will be given prescription refills for methadone 10 mg every 6 hours dispense 120 with one refill, [place] 10/325 every 8 hours dispense 90 with 1 refill Today we did renew her electrocardiogram= and QT interval was 424 ms Interventions= patient could benefit from repeat caudal epidural steroid injection with lysis of epidural adhesions, and if patient continued to have pain after that then we have to order a new MRI of the lumbar spine . And if he continued to have pain after caudal epidural steroid injection then would consider doing left-sided sacroiliac joint steroid injection and medial branch block , Time with Patient: Less than 30 PQRS Measure Charge Sheet Measure #130: Documentation of Current Meds in Medical Chart: Patient's medications documented in chart Measure #226: Tobacco Use: Screen & Cessation Intervention: Pt not a tobacco user Measure #111: Pneumonia Vaccination: Pneumococcal vaccine administered or previously received Measure #47: Advance Care Plan: Advance care planning discussed & documented, pt chose/unable to give Measure #412: Opioid Treatment Agreement: Documented signed opioid trtmnt agreemnt min once during opioid trtmnt Measure #408: Opioid Therapy Follow-up Evaluation: Patient had f/u eval minimum every 3 months during opioid therapy Measure #317: Preventitive Care & Scrn High Bld Press & F/U: Pre-hypertensive or hypertensive BP documented, pt will f/u with PCP Measure #128: Body Mass Index (BMI) Screening & Follow-up: BMI documented ABOVE normal parameters - f/u documented Measure #131: Pain Assessment & Follow-up: Pain positive & plan documented, Follow-up scheduled Measure #431: Unhealthy Alcohol Use Preventative Care & Scrn: Patient not identified as an unhealthy alcohol user PQRS Narrative: Smoking Status Never smoker Narcotic Agreement Date Signed 09/27/18 Blood Pressure 163/85 Pain Intensity [Lower Back] 5 Scale Used Numeric (1 - 10) Hx Alcohol Use (MH) No Home Medications: Ambulatory Orders Enalapril Maleate [Vasotec] 20 mg PO BID 07/27/16 HYDROcodone/APAP 10-325MG [[place] 10-325] 1 tab PO TID PRN 05/09/18 Methadone [Dolophine] 10 mg PO QID 05/09/18 amLODIPine [Norvasc] 5 mg PO QAM 03/26/19 Meloxicam 7.5 mg PO DAILY 06/04/19 Controlled Substance Measures - Controlled Substance Measures Is patient prescribed a controlled substance at discharge?: Yes When asked, does pt state using other controlled substances?: No If prescribed controlled substance>3 days was MAPS reviewed?: Yes If Rx opioid, was Start Talking consent form obtained?: Yes If opioid is for acute pain is fill amount 7 days or less?: No Was information provided regarding opioid addiction?: Yes
== END | disposition home or self-care (01) ==
LOC: PNWHC3 11:23
PROVIDERS: ATTEND Specialist
DX: G89.29 Other chronic pain (principal); M96.1 Postlaminectomy syndrome, not elsewhere classified; M47.816 Spondylosis without myelopathy or radiculopathy, lumbar region; M46.96 Unspecified inflammatory spondylopathy, lumbar region; M46.1 Sacroiliitis, not elsewhere classified; K59.00 Constipation, unspecified; Z79.891 Long term (current) use of opiate analgesic; Z79.1 Long term (current) use of non-steroidal anti-inflammatories (NSAID); Z79.899 Other long term (current) drug therapy
CPT/HCPCS: 93005; G0463; 99211

== ENCOUNTER → 2019-08-07 | Day surgery (SDC) | payer MEDICARE ==
[2019-08-06 12:08] VITALS: BMI 34.9
[~2019-08-07] MED LIST changes: +BUPIVACAINE (PF) 0.5% 30 ML VIAL ONE; +IOPAMIDOL M200 10 ML VIAL ONE; +IV FLUID CONTINUATION 1,000 ML IV ONE; -LACTATED RINGERS 1,000 ML IV SCH; +MIDAZOLAM 2 MG/2 ML VIAL ONE; +TRIAMCINOLONE ACETONIDE 40 MG/ML 1 ML VIAL ONE; +fentaNYL (PF) 50 MCG/ML 2 ML AMP ONE
[2019-08-07 06:14] VITALS: TEMP 98
--- NOTE | 2019-08-07 07:16 | P.PCN ---
Date of Procedure: 08/07/19 Surgeon: Red Marin Pathology: none sent Condition: stable Disposition: PACU Description of Procedure: PREOP DIAGNOSIS: Lumbar postlaminectomy syndrome POSTOP DIAGNOSIS: Lumbar postlaminectomy syndrome PROCEDURE: Caudal epidural steroid injection with epidurolysis and epidurogram under fluoroscopic guidance SURGEON:Red Marin MD RAMP ATTENDANT: ANESTHESIA: Local with 1% lidocaine; IV moderate concious sedation EBL: Minimal. PROCEDURE INDICATION: The patient with post-laminectomy syndrome with low back pain and radiculopathy radiating down in both legs, here for a caudal epidural steroid injection with epidurolysis. PROCEDURE DESCRIPTION: The patient was seen and identified in the preoperative area. Risks, benefits, complications, and alternatives were discussed with the patient. The patient agreed to proceed with the procedure and signed the consent. IV was started, and vital signs were stable. Patient was taken to the OR and time out was completed. The patient was placed in the prone position on procedure table and a pillow was placed under the abdomen to reduce lumbar lordosis. The lumbosacral area was prepped and draped in the usual sterile fashion. Critical pause was taken. Vital signs were closely monitored during the procedure. Fluoroscopic camera was placed in the lateral view and the anterior-posterior plates of the sacrum were identified with infiltration of the area overlying the sacral hiatus with 1% lidocaine .A 16 gauge RK epidural needle was used to advance through the sacral hiatus into the caudal epidural space. Omnipaque 300 dye 2cc was injected and the position of the needle was verified to be in the midline. A Racz catheter was introduced into the epidural space and was advanced towards the L5-S1 interspace under direct fluoroscopic guidance. Multiple passes were made with the catheter for lysis of epidural adhesions. Kenalog 40mg with 2ml of preservative free Ropivacaine 0.5% and 7 ml of preservative free normal saline was injected slowly. The needle and the catheter were withdrawn intact. EPIDUROGRAM: Omnipaque 300 dye 2 ml was injected with spread of the dye into the caudal epidural space and with spread cutoff at S1 prior to epidurolysis. Post epidurolysis dye 2 ml was injected and spread was seen to L4.There was further spread of the solution together with the dye above the L4. COMPLICATIONS: None. DISPOSITION / PLANS: The patient was placed in a supine position and transferred to the recovery area in a stable condition for observation and was discharged from the recovery room after meeting discharge criteria. Home discharge instructions given to the patient by the staff. The patient was reexamined prior to discharge. The patient will schedule a follow up in the clinic in 2-4 weeks.
[2019-08-07 07:23] VITALS: RESP 17
[2019-08-07 07:31] VITALS: BP 110/69; PULSE 81
--- NOTE | 2019-08-07 09:19 | FL ---
EXAMINATION TYPE: FL guided pain mgmt statistic DATE OF EXAM: 08/07/2019 CLINICAL HISTORY: Low back and sacral pain. TECHNIQUE: Fluoroscopy. COMPARISON: None. FINDINGS: Fluoroscopic guidance was provided during pain relief procedure performed by Dr. Marin. A total of 19 seconds of fluoroscopic time was utilized during the procedure and two spot images are acquired. Images acquired shows needle localization over the sacrum. IMPRESSION: As Above.
== END ==
LOC: ORPAIN 05:49
PROVIDERS: ATTEND Anesthesiology
DX: M96.1 Postlaminectomy syndrome, not elsewhere classified (principal); M53.3 Sacrococcygeal disorders, not elsewhere classified; I10 Essential (primary) hypertension; Z88.6 Allergy status to analgesic agent; Z88.8 Allergy status to other drugs, medicaments and biological substances
CPT/HCPCS: 62264; J2250; J3301; J3010; Q9966; 99152

== ENCOUNTER → 2019-11-02 | Outpatient (CLI) | payer MEDICARE ==
--- NOTE | 2019-11-02 14:17 | P.PAINPG ---
Subjective Progress Note Date: 11/02/19 THIS ENCOUNTER WAS PERFORMED A TELEMEDICINE VISIT VIA SECURE TWO-WAY VIDEO AND AUDIO TO MINIMIZE RISK AND TRANSMISSION OF COVID-19. This is a follow-up visit for this 64-year-old patient with a history of severe and chronic low back pain secondary to lumbar failed back surgery syndrome, today his pain is primarily located in the bilateral low back, radiating to bilateral lower extremity. He does endorse numbness and tingling in bilateral feet, this is chronic. He also endorses subjective weakness of bilateral lower extremities. He denies bowel or bladder incontinence. Pain is rated as 5/10, constant, increases with activity, is better with laying down and medications. Recently we have done caudal epidural steroid injection with lysis of epidural adhesions on 08/07/2019, he reports 60% pain relief from this procedure, he is still getting some relief from this. He is also been managed with medications, including methadone 10 mg every 6 hours, [place] 10/325 every 8 hours when necessary ,Patient denies any side effects of the medication, except for mild constipation,denies excessive drowsiness or sleepiness, denies suicidal ideation, and reports that the current pain medication is helping to control the pain Review of systems is negative for chest pain, shortness of breath, new onset weakness, numbness/tingling, abdominal pain, malaise, fever, night sweats, chills, homicidal or suicidal ideation, or bowel or bladder incontinence. e does endorse mild constipation Objective Physical exam : Constitutional: Healthy appearing, well developed, alert, in no acute distress Psychiatric: Judgement and insight intact, alert and oriented Mood and Affect: mood normal, affect appropriate Head and Face: Inspection: normocephalic atraumatic, extraocular movement intact Respiratory: Breathing non-labored nondyspneic Skin: Head and Neck: skin with no lesions of rash Assessment and Plan Plan: Assessment and plan= chronic low back pain secondary to failed back surgery syndrome lumbar area, lumbar spondylosis with lumbar facet arthropathy . Left sacroiliitis chronic and current use of high-risk medication (opioids) Patient denies any side effects of the current pain medication and the current treatment/medication helping the patient to do activity of daily living , The narcotic consent has been signed MAPS Reviewed and it was appropriate . Medication managements= patient will be given prescription refills for methadone 10 mg every 6 hours dispense 120 with one refill, [place] 10/325 every 8 hours dispense 90 with 1 refill at last visit his EKG was reviewed, QT interval was 424 ms Interventions= none at this time, in the future he would likely benefit from repeat caudal with lysis of adhesions PQRS Measure Charge Sheet PQRS Narrative: Smoking Status Never smoker Narcotic Agreement Date Signed 09/27/18 Hx Alcohol Use (MH) No Home Medications: Ambulatory Orders Enalapril Maleate [Vasotec] 20 mg PO BID 07/27/16 amLODIPine [Norvasc] 5 mg PO QAM 03/26/19 Meloxicam 7.5 mg PO DAILY PRN 06/04/19 Tamsulosin [Flomax] 0.4 mg PO HS 09/06/19 HYDROcodone/APAP 10-325MG [[place] 10-325] 1 tab PO Q8H PRN 30 Days #90 tab 11/02/19 HYDROcodone/APAP 10-325MG [[place] 10-325] 1 tab PO TID PRN #90 tab 11/02/19 HYDROcodone/APAP 10-325MG [[place] 10-325] 1 tab PO TID PRN 30 Days #90 tab 11/02/19 Methadone [Dolophine] 10 mg PO QID #120 tab 11/02/19 Methadone [Dolophine] 10 mg PO QID 30 Days #120 tab 11/02/19 Methadone [Dolophine] 10 mg PO QID 30 Days #120 tab 11/02/19 Controlled Substance Measures - Controlled Substance Measures Is patient prescribed a controlled substance at discharge?: Yes When asked, does pt state using other controlled substances?: No If prescribed controlled substance>3 days was MAPS reviewed?: Yes If Rx opioid, was Start Talking consent form obtained?: Yes If opioid is for acute pain is fill amount 7 days or less?: No Was information provided regarding opioid addiction?: Yes
== END | disposition home or self-care (01) ==
LOC: PNWHC3 07:24
PROVIDERS: ATTEND Anesthesiology
DX: Z53.9 Procedure and treatment not carried out, unspecified reason (principal)

== ENCOUNTER → 2019-12-19 | Outpatient (CLI) | payer MEDICARE ==
--- NOTE | 2019-12-19 08:39 | P.PAINPG ---
Subjective Progress Note Date: 12/19/19 This is follow-up visit for this patient with a history of severe and chronic low back pain secondary to lumbar failed back surgery syndrome, His pain control between interventional pain management (caudal epidural steroid injection with lysis of epidural adhesions), and medication management , patient reported that he continued to have severe low back pain Patients currently on methadone 10 mg every 6 hours, [place] 10/325 every 8 hours when necessary ,Patient denies any side effects of the medication, denies excessive drowsiness or sleepiness, denies suicidal ideation, and reports that the current pain medication is helping to control the pain , he complain of constipation and he used [id number] medication to help his constipation, Patient denies any motor or sensory deficit , patient denies any fever or night sweats, denies any change in the bowel movements or urination, and he reported that the current medication helping him to improve his pain, and do activities of daily livings Objective - Exam -Constitutiona : Cooperative , not in acute distress . -HEENT : nech : supple , no Lymphadenopathy , normal thyroid size . : eyes : no ptosis , no icterus, no photophobia . - neurologic : Cranial nerve II to XII intact , no focal neurological deffecit . -psychatric : alert , oriented X 3 , appropriate affect , intact judgment and insight . -Lymphatic : no Lymphadenopathy . - musculoskeltal : Lumber spine moter stegnth lower extremities ,thigh and legs 5/5 Right side , 5/5 Left side deep tendon reflexes : normal Knee Jerk , normal ankle Jerk lumber facet Loading Test =positive Right , positive Left Range of motion of the lumbar spine Flexion 30 degrees, extension 10 degrees strait leg raising test = positive at 30 degree Fabere test= positive Right , and positive LT . Sever tenderness over the Sacroiliac joint on the Left sides Gaenslen test= negative right ,and positive left . Seated flexion test= negative right ,and positive Left . Tenderness over the left sacroiliac joint area Assessment and Plan Plan: Assessment and plan= chronic low back pain secondary to failed back surgery syndrome lumbar area, lumbar spondylosis with lumbar facet arthropathy . Left sacroiliitis chronic and current use of high-risk medication (opioids) Patient denies any side effects of the current pain medication and the current treatment/medication helping the patient to do activity of daily living , Diagnoses, prognosis, treatment options, including but not limited to physical therapy, medication management, interventional therapies, and surgery, were discussed with the patient All the questions answered The narcotic consent was signed and patient agreed and understood the side effects and complications of opioid treatment. Patient signed the narcotic agreement, and was orally counseled, not to overuse, not to abuse, not to Divert , not tp sell pain medication, and to take it as prescribed only, Patient was counseled not to drive or operate heavy equipment while using narcotic medication, and advised not to use alcohol or any Illicit drugs while using the narcotis. understanding that lack of compliance with any of the above instructions, will likely to cause discharge from, the pain service, not to renew his narcotic prescriptions MAPS Reviwed and it was apropriate . Medication managements= patient will be given prescription refills for methadone 10 mg every 6 hours dispense 120 with one refill, [place] 10/325 every 8 hours dispense 90 with 1 refill Interventions= patient could benefit from repeat caudal epidural steroid injection with lysis of epidural adhesions, and if patient continued to have pain after that then we have to order a new MRI of the lumbar spine . And if he continued to have pain after caudal epidural steroid injection then would consider doing left-sided sacroiliac joint steroid injection and medial branch block Patient had a new narcotic agreement today, and we ordered new urine drug screen Time with Patient: Less than 30 PQRS Measure Charge Sheet Measure #130: Documentation of Current Meds in Medical Chart: Patient's medications documented in chart Measure #226: Tobacco Use: Screen & Cessation Intervention: Pt not a tobacco user Measure #111: Pneumonia Vaccination: Pneumococcal vaccine administered or previously received Measure #47: Advance Care Plan: Advance care planning discussed & documented, pt chose/unable to give Measure #412: Opioid Treatment Agreement: Documented signed opioid trtmnt agreemnt min once during opioid trtmnt Measure #408: Opioid Therapy Follow-up Evaluation: Patient had f/u eval minimum every 3 months during opioid therapy Measure #317: Preventitive Care & Scrn High Bld Press & F/U: Normal blood pressure, f/u not required Measure #128: Body Mass Index (BMI) Screening & Follow-up: BMI documented ABOVE normal parameters - f/u documented Measure #131: Pain Assessment & Follow-up: Pain positive & plan documented, Follow-up scheduled Measure #431: Unhealthy Alcohol Use Preventative Care & Scrn: Patient not identified as an unhealthy alcohol user PQRS Narrative: Smoking Status Never smoker Narcotic Agreement Date Signed 09/27/18 Pain Intensity [Lower Back] 5 Hx Alcohol Use (MH) No Home Medications: Ambulatory Orders Enalapril Maleate [Vasotec] 20 mg PO BID 07/27/16 amLODIPine [Norvasc] 5 mg PO QAM 03/26/19 Meloxicam 7.5 mg PO DAILY PRN 06/04/19 Tamsulosin [Flomax] 0.4 mg PO HS 09/06/19 HYDROcodone/APAP 10-325MG [[place] 10-325] 1 tab PO TID PRN 30 Days #90 tab 11/02/19 Methadone [Dolophine] 10 mg PO QID 30 Days #120 tab 11/02/19 Controlled Substance Measures - Controlled Substance Measures Is patient prescribed a controlled substance at discharge?: Yes When asked, does pt state using other controlled substances?: No If prescribed controlled substance>3 days was MAPS reviewed?: Yes If Rx opioid, was Start Talking consent form obtained?: Yes If opioid is for acute pain is fill amount 7 days or less?: No Was information provided regarding opioid addiction?: Yes
[2019-12-19 08:41] VITALS: BP 134/73; PULSE 69; RESP 16
== END | disposition home or self-care (01) ==
LOC: PNWHC3 07:55
PROVIDERS: ATTEND Specialist
DX: G89.29 Other chronic pain (principal); M47.816 Spondylosis without myelopathy or radiculopathy, lumbar region; M96.1 Postlaminectomy syndrome, not elsewhere classified; M46.1 Sacroiliitis, not elsewhere classified; Z79.891 Long term (current) use of opiate analgesic; Z79.899 Other long term (current) drug therapy; Z79.1 Long term (current) use of non-steroidal anti-inflammatories (NSAID)
CPT/HCPCS: 80307; G0482; G0463; 99211

== ENCOUNTER 2020-01-03 05:46 | Day surgery (SDC) | payer MEDICARE ==
[2019-12-31 15:33] VITALS: BMI 34.9
[2020-01-03] MEDS ORDERED: LACTATED RINGERS 1,000 ML IV SCH (05:58)
[2020-01-03] MEDS ORDERED: fentaNYL (PF) 50 MCG/ML 2 ML AMP ONE (06:48)
[2020-01-03] MEDS ORDERED: methylPREDNISolone ACETATE 40 MG/ML 1 ML VIAL ONE (06:48)
[2020-01-03] MEDS ORDERED: MIDAZOLAM 2 MG/2 ML VIAL ONE (06:48)
[2020-01-03] MEDS ORDERED: IOPAMIDOL M200 10 ML VIAL ONE (06:48)
--- NOTE | 2020-01-03 07:12 | P.PCN ---
Date of Procedure: 01/03/20 Procedure(s) Performed: PREOP DIAGNOSIS: 1- Lumbar postlaminectomy syndrome. POSTOP DIAGNOSIS:1- Lumbar postlaminectomy syndrome. PROCEDURE: 1-Caudal epidural steroid injection with epidurolysis and epidurogram under fluoroscopic guidance. (Fluoroscopy images available in the radiology Department ) 2-caudal epidurogram. ANESTHESIA: Local with 1% lidocaine 3 ml ,and moderate sedation, with Versed 4 mg and fentanyl 200 g. EBL: Minimal. PROCEDURE INDICATION: The patient with post-laminectomy syndrome with low back pain and radiculopathy radiating down in both legs, here for a caudal epidural steroid injection with epidurolysis. PROCEDURE DESCRIPTION: The patient was seen and identified in the preoperative area. Risks, benefits, complications, and alternatives were discussed with the patient. The patient agreed to proceed with the procedure and signed the consent. IV was started, and vital signs were stable. Patient was taken to the OR and time out was completed. The patient was placed in the prone position on procedure table and a pillow was placed under the abdomen to reduce lumbar lordosis. The lumbosacral area was prepped and draped in the usual sterile fashion. Vital signs were closely monitored during the procedure. lateral view and the anterior-posterior plates of the sacrum were identified with infiltration of the area overlying the sacral hiatus with 1% lidocaine .A 17 gauge RK epidural needle was used to advance through the sacral hiatus into the caudal epidural space. Omnipaque 180 dye. 2cc was injected and the position of the needle was verified to be in the midline. A Racz catheter was introduced into the epidural space and was advanced towards the L5-S1 interspace under direct fluoroscopic guidance. Multiple passes were made with the catheter for lysis of epidural adhesions. Depo-Medrol 80 mg with 3ml of preservative free Lidocaine 1% and 5 ml of preservative free normal saline was injected slowly. Additional spread was seen to L4 under fluoroscopy. The needle and the catheter were withdrawn intact. EPIDUROGRAM: Omnipaque 180 mg dye 2 ml was injected with spread of the dye into the caudal epidural space and with spread cutoff at L5 prior to epidurolysis. Post epidurolysis dye 2 ml was injected and spread was seen to L3-4.There was further spread of the solution together with the dye above the L3 COMPLICATIONS: None. DISPOSITION / PLANS: The patient was placed in a supine position and transferred to the recovery area in a stable condition for observation and was discharged from the recovery room after meeting discharge criteria. Home discharge instructions given to the patient by the staff. The patient was reexamined prior to discharge. The patient will schedule a follow up in the clinic in 2-4 weeks.
[2020-01-03] MEDS ORDERED: IV FLUID CONTINUATION 1,000 ML IV ONE ×2 (07:20)
--- NOTE | 2020-01-03 07:52 | FL ---
Fluoroscopy History: CAUDAL EPIDURAL STEROID INJ 6 sec fl, 4 films scanned
[2020-01-04 08:12] VITALS: BP 109/61; PULSE 56; RESP 17; TEMP 97.1
== END 2020-01-03 08:00 | disposition home or self-care (01) ==
LOC: ORPAIN 05:46
PROVIDERS: ATTEND Specialist
DX: M96.1 Postlaminectomy syndrome, not elsewhere classified (principal); M54.10 Radiculopathy, site unspecified; G96.12 Meningeal adhesions (cerebral) (spinal); Z88.6 Allergy status to analgesic agent; Z88.8 Allergy status to other drugs, medicaments and biological substances; Z91.018 Allergy to other foods; Z91.09 Other allergy status, other than to drugs and biological substances
CPT/HCPCS: 62264; J2250; J1030; J3010; Q9966; 99152

== ENCOUNTER → 2020-02-13 | Outpatient (CLI) | payer MEDICARE ==
[2020-02-13 11:27] VITALS: BP 158/90; PULSE 70; RESP 18; TEMP 98.2
--- NOTE | 2020-02-13 12:12 | P.PAINPG ---
Subjective Progress Note Date: 02/13/20 his is follow-up visit for this patient with a history of severe and chronic low back pain secondary to lumbar failed back surgery syndrome, His pain control between interventional pain management (caudal epidural steroid injection with lysis of epidural adhesions), and medication management. He re cently had caudal epidural steroid injection with lysis of adhesions on 01/03/2020. He is here for followup today. Patient says that recent caudal epidural with lysis of adhesions gave him 3 days of 100% relief, but the pain is back now. patient reported that he continued to have severe low back pain Patients currently on methadone 10 mg every 6 hours, [facility] 10/325 every 8 hours when necessary. Patient was distressed as he is stating that the pharmacy will not refill his medications when he needs them, given the fact that they're out of stock mostly these medications. He is also concerned that he is due to have neck surgery this month and does not want to be given medications are not controlling his pain. ,Patient denies any side effects of the medication, denies excessive drowsiness or sleepiness, denies suicidal ideation, and reports that the current pain medication is helping to control the pain , he complain of constipation and he used [id number] medication to help his constipation, Patient denies any motor or sensory deficit , patient denies any fever or night sweats, denies any change in the bowel movements or urination, and he reported that the current medication helping him to improve his pain, and do activities of daily livings Objective - Exam -Constitutiona : Cooperative , not in acute distress . -HEENT : nech : supple , no Lymphadenopathy , normal thyroid size . : eyes : no ptosis , no icterus, no photophobia . - neurologic : Cranial nerve II to XII intact , no focal neurological deffecit . -psychatric : alert , oriented X 3 , appropriate affect , intact judgment and insight . -Lymphatic : no Lymphadenopathy . - musculoskeltal : Lumber spine moter stegnth lower extremities ,thigh and legs 5/5 Right side , 5/5 Left side deep tendon reflexes : normal Knee Jerk , normal ankle Jerk lumber facet Loading Test =positive Right , positive Left Range of motion of the lumbar spine Flexion 30 degrees, extension 10 degrees strait leg raising test = positive at 30 degree Fabere test= positive Right , and positive LT . Sever tenderness over the Sacroiliac joint on the Left sides Gaenslen test= negative right ,and positive left . Seated flexion test= negative right ,and positive Left . Tenderness over the left sacroiliac joint area Assessment and Plan Plan: Assessment and plan= chronic low back pain secondary to failed back surgery syndrome lumbar area, lumbar spondylosis with lumbar facet arthropathy . Left sacroiliitis chronic and current use of high-risk medication (opioids) Patient denies any side effects of the current pain medication and the current treatment/medication helping the patient to do activity of daily living , Diagnoses, prognosis, treatment options, including but not limited to physical therapy, medication management, interventional therapies, and surgery, were discussed with the patient All the questions answered The narcotic consent was signed and patient agreed and understood the side effects and complications of opioid treatment. Patient signed the narcotic agreement, and was orally counseled, not to overuse, not to abuse, not to Divert , not tp sell pain medication, and to take it as prescribed only, Patient was counseled not to drive or operate heavy equipment while using narcotic medication, and advised not to use alcohol or any Illicit drugs while using the narcotis. understanding that lack of compliance with any of the above instructions, will likely to cause discharge from, the pain service, not to renew his narcotic prescriptions MAPS Reviwed and it was apropriate . Medication managements= patient will be given prescription refills for methadone 10 mg every 6 hours dispense 120 with one refill, [facility] 10/325 every 8 hours dispense 90 with 1 refill. I specified in the prescription when to refill the medication so hopefully he does not have any issues with the pharmacy. Interventions= patient could benefit from repeat caudal epidural steroid injection with lysis of epidural adhesions in the future he does not want that right now as he is more concerned about his neck surgery. patient could also benefit from left-sided SI joint injection or medial branch blocks our patient is more interested in his medications and is concerned about his neck surgery that is coming this month. Told patient to let his primary surgery team no that he is a pain patient here at the clinic as he is having surgery at [facility]. That way we are consulted immediately and we can help control his postoperative pain Smoking Status Never smoker Narcotic Agreement Date Signed 09/27/18 Pain Intensity [Lower Back] 5 Hx Alcohol Use (MH) No PQRS Measure Charge Sheet Measure #47: Advance Care Plan: Advance care planning discussed & documented, pt chose/unable to give Measure #412: Opioid Treatment Agreement: Documented signed opioid trtmnt agreemnt min once during opioid trtmnt Measure #408: Opioid Therapy Follow-up Evaluation: Patient had f/u eval minimum every 3 months during opioid therapy Measure #131: Pain Assessment & Follow-up: Pain positive & plan documented, Follow-up scheduled PQRS Narrative: Smoking Status Never smoker Narcotic Agreement Date Signed 12/19/19 Pain Intensity [Lower Back] 7 Hx Alcohol Use (MH) No Home Medications: Ambulatory Orders Enalapril Maleate [Vasotec] 20 mg PO BID 07/27/16 amLODIPine [Norvasc] 5 mg PO QAM 03/26/19 Meloxicam 7.5 mg PO DAILY PRN 06/04/19 Tamsulosin [Flomax] 0.4 mg PO HS 09/06/19 HYDROcodone/APAP 10-325MG [[facility] 10-325] 1 tab PO Q6HR PRN 30 Days #90 tab 02/13/20 HYDROcodone/APAP 10-325MG [[facility] 10-325] 1 tab PO Q8HR PRN 30 Days #90 tab 02/13/20 Methadone [Dolophine] 10 mg PO QID 30 Days #120 tab 02/13/20 Testosterone Enanthate [Xyosted] 1 injection SQ DIRECTED 02/13/20 Controlled Substance Measures - Controlled Substance Measures Is patient prescribed a controlled substance at discharge?: Yes When asked, does pt state using other controlled substances?: No If prescribed controlled substance>3 days was MAPS reviewed?: Yes If Rx opioid, was Start Talking consent form obtained?: No If opioid is for acute pain is fill amount 7 days or less?: Yes Was information provided regarding opioid addiction?: Yes
== END | disposition home or self-care (01) ==
LOC: PNWHC3 10:26
PROVIDERS: ATTEND Anesthesiology
DX: G89.29 Other chronic pain (principal); M47.816 Spondylosis without myelopathy or radiculopathy, lumbar region; M96.1 Postlaminectomy syndrome, not elsewhere classified; M46.1 Sacroiliitis, not elsewhere classified; F11.90 Opioid use, unspecified, uncomplicated; Z79.1 Long term (current) use of non-steroidal anti-inflammatories (NSAID); Z79.890 Hormone replacement therapy; Z79.899 Other long term (current) drug therapy
CPT/HCPCS: 99211

== ENCOUNTER → 2020-03-13 | Outpatient (CLI) | payer MEDICARE ==
--- NOTE | 2020-03-13 10:06 | US ---
EXAMINATION TYPE: US thyroid st tissue head/neck DATE OF EXAM: 03/13/2020 COMPARISON: NONE CLINICAL HISTORY: Thyroid nodule E04.1, M54.2 Cervicalgia, M47.812,M50.322. abn MRI showed thyroid no dules GLAND SIZE: Right Lobe: 5.1 x 1.5 x 3.3 cm Overall Parenchyma: heterogenous Left Lobe: 4.6 x 2.8 x 3.1 cm Overall Parenchyma: heterogeneous Isthmus Thickness: 0.7 cm NODULES RIGHT: # of nodules measured on right: 2 1. 1.3 X 1.2 x 1.1 cm hypoechoic solid nodule at the lower pole with well-defined margins. This no dule is wider than tall and shows intranodular vascularity. Prior size: no previous 2. 0.7 X 0.7 x 0.6 cm hypoechoic solid nodule at the lower pole with well-defined margins. This nodu le is wider than tall and shows no intranodular vascularity. Prior size: no previous LEFT: # of nodules measured on left: 1 1. 3.2 X 2.7 x 2.4 cm hypoechoic solid nodule at the mid pole with well-defined margins. This nodu le is wider than tall and shows intranodular vascularity. Prior size: no previous ISTHMUS: # of nodules measured in the isthmus: 0 Bilateral neck scanned, no evidence of lymphadenopathy. IMPRESSION: Nonspecific thyroid nodularity. Need to biopsy should be made on a clinical basis.
== END | disposition home or self-care (01) ==
LOC: RADUSWWP 07:53
PROVIDERS: ATTEND Orthopaedic Surgery Orthopaedic Surgery of the Spine
DX: E04.1 Nontoxic single thyroid nodule (principal); M50.322 Other cervical disc degeneration at C5-C6 level; M47.812 Spondylosis without myelopathy or radiculopathy, cervical region; E66.9 Obesity, unspecified
CPT/HCPCS: 76536

== ENCOUNTER → 2020-04-09 | Outpatient (CLI) | payer MEDICARE ==
[2020-04-09 08:14] VITALS: BP 150/77; PULSE 74; RESP 14; TEMP 98
--- NOTE | 2020-04-09 08:33 | P.PN ---
Subjective Progress Note Date: 04/09/20 this is a 65-year-old gentleman with history of 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 The patient also has been having increasing neck pain with radiation to the left upper extremity down to the left hand with and without paresthesia. The patient also has some pain with range of motion of the cervical spine. He also had a mini stroke however he is not on any anticoagulants at this point. The stroke resulted in difficulty memorizing thinks and focusing. He still takes methadone 40 mg a day and Norcoup to 3 times a day if needed for his pain. He denies any side effects to these medications. He does not show any drug-seeking behavior. The patient is going to visit his daughter in [place] and is going to stay there for couple of months and he requested prescriptions for 3 months. Patient denies new-onset weakness, bowel/bladder incontinence, or any other signs or symptoms of cauda equina syndrome. There are no signs of acute intoxication, and no indications of medication diversion or overuse. In addition to above, 13-point review of systems is also negative for chest pain, shortness of breath, changes in vision, changes in hearing, new onset weakness, abdominal pain, diarrhea, extreme fatigue, malaise, fever, skin changes, homicidal or suicidal ideation, or bowel or bladder incontinence. Vital Signs: Reviewed in EMR Gen: AAOx3, NAD HEENT: PERRLA,hearing grossly normal Pulm: resp unlabored Neck: supple, trachea midline Neuro exam of the lower extremities:decreased right knee reflex compared to the left side, absent ankle reflexes bilaterally, decreased muscle strength to 4 out of 5 bilaterally in the lower extremities. Muscle strength exam of the upper extremities showed normal and symmetrical muscle strength for elbow flexion and extension decreased deltoidmuscle strength to 4 out of 5 bilaterally and decreased handgrip on the left side to 4 out of 5. Positive tenderness in the cervical paravertebral musculature. Decreased range of motion of the cervical spine showed 2 left rotation. Neuro: CN II-XII grossly intact, Imaging: Reviewed in EMR/chart Assessment: lumbar failed back surgery syndrome Cervical spondylosis without myelopathy Left cervical radiculitis Opioid dependence recent history over many stroke with no treatment with anticoagulants Plan: 1. Explanation: Opioid and psychological risk scores were reviewed. Diagnoses, prognoses, and multiple treatment options including but not limited to physical therapy, interventional therapies, adjuvant medical therapies, narcotic medication therapies, and surgery were discussed with the patient and all questions were answered to the patient's satisfaction. 2. Opioid agreement: Signed with the patient and the patient is warned not to use opioids while driving or before driving and not to combine opioids with benzodiazepines or alcohol. 3. Counseling: The patient was counseled extensively on SMOKING CESSATION, BODY MASS INDEX, EXERCISE. Specifically, the patient was instructed regarding the importance of smoking cessation, obesity, and exercise in the context of both chronic pain and overall health. 4. Procedures: the patient may benefit from getting cervical epidural steroid injection in the future 5. Consultations: None 6. Investigations: None 7. Medications: continue methadone 10 mg 4 times a day and [place] 10 mg 3 times a day as needed for pain 8. Disposition: return to clinic in 12 weeks 9. Maps were reviewed and were appropriate. Controlled Substance Measures Is patient prescribed a controlled substance at discharge?: Yes When asked, does pt state using other controlled substances?: No If prescribed controlled substance>3 days was MAPS reviewed?: Yes If Rx opioid, was Start Talking consent form obtained?: Yes If opioid is for acute pain is fill amount 7 days or less?: No Was information provided regarding opioid addiction?: Yes Objective - Vital Signs Vital signs: Vital Signs Temp 98.0 F 04/09/20 08:08 Pulse 74 04/09/20 08:08 Resp 14 04/09/20 08:08 BP 150/77 04/09/20 08:08 Pulse Ox 97 04/09/20 08:08
== END | disposition home or self-care (01) ==
LOC: PNWHC3 07:37
PROVIDERS: ATTEND Anesthesiology
DX: M96.1 Postlaminectomy syndrome, not elsewhere classified (principal); M47.22 Other spondylosis with radiculopathy, cervical region; M48.02 Spinal stenosis, cervical region; F11.20 Opioid dependence, uncomplicated; Z86.73 Personal history of transient ischemic attack (TIA), and cerebral infarction without residual deficits
CPT/HCPCS: 99211

== ENCOUNTER 2020-05-08 12:42 | Day surgery (SDC) | payer MEDICARE ==
[2020-05-08 13:27] VITALS: TEMP 98.2
--- NOTE | 2020-05-08 14:29 | US ---
ULTRASOUND GUIDED FNA THYROID BIOPSY: CLINICAL HISTORY: Right and left thyroid nodule requested for biopsy FINDINGS: The procedure was explained to the patient. The risks, complications, benefits and alternatives were discussed and any questions were answered. Informed consent was obtained. Patient was placed supin e on the ultrasound table and prepped and draped in the usual sterile fashion. Utilizing a 25 gauge needle, five passes were made into the requested right and subsequently left thyroid nodule. Patient was stable throughout the procedure. Pathology is pending. All elements of maximal barrier technique were utilized. IMPRESSION: 1. Successful ultrasound guided FNA thyroid biopsy.
[2020-05-08 14:31] VITALS: BP 150/85; PULSE 64; RESP 16
== END 2020-05-08 14:31 | disposition home or self-care (01) ==
LOC: RADUSMAIN 12:42
PROVIDERS: ATTEND Otolaryngology
DX: E04.2 Nontoxic multinodular goiter (principal)
CPT/HCPCS: 10005; 10006; 88173; 88305

== ENCOUNTER → 2020-05-08 | Outpatient (CLI) | payer MEDICARE ==
--- NOTE | 2020-05-08 09:15 | FL ---
EXAMINATION TYPE: FL barium swallow DATE OF EXAM: 05/08/2020 CLINICAL HISTORY: Dysphagia. Abnormal outside MRI. TECHNIQUE: A double contrast esophagram is performed utilizing air and barium. A total of 0.27 tamiko melody of fluoroscopic time was utilized during procedure and 58 images obtained COMPARISON: None FINDINGS: The esophagus shows satisfactory motility and emptying into the stomach. No evidence of fi xed hiatal hernia or stricture noted. There is small right posterior outpouching in the hypopharyngea l airway and a roughly C2 level that rapidly clears consistent with small diverticulum. No significan t gastroesophageal reflux was seen during real time performance of this study. IMPRESSION: Small hypopharyngeal diverticulum right posterior C2 level. Correlate with outside MRI a dvised if this is the area of concern.
== END | disposition home or self-care (01) ==
LOC: RADFLMAIN 07:50
PROVIDERS: ATTEND Otolaryngology
DX: R13.10 Dysphagia, unspecified (principal); E04.1 Nontoxic single thyroid nodule; Z88.6 Allergy status to analgesic agent
CPT/HCPCS: 74220

== ENCOUNTER → 2020-05-15 | Outpatient (CLI) | payer MEDICARE ==
[2020-05-15 09:15] VITALS: BP 134/78; PULSE 62; RESP 18; TEMP 98.5
--- NOTE | 2020-05-15 09:31 | P.PAINPG ---
Subjective Progress Note Date: 05/14/20 this is a 65-year-old gentleman with history of 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 The patient also has been having increasing neck pain with radiation to the left upper extremity down to the left hand with and without paresthesia. Patient is having this pain for very long period of time and was referred by Dr. Jon for consideration of medial branch blocks. Pain is located in the neck with occasional radiation into the shoulders bilaterally. Patient also has isolated right shoulder pain as he has a tear in that shoulder and is supposed to have surgery in that shoulder however he cannot afford at this time. Patient also notes that he has diagnostic testing showing his carpal tunnels in both hands and is having weakness and difficulty holding objects. Pain is not radiating into the arms and is described as sharp and stabbing. Currently 8 out of 10, at worst a 1010, at best 5 out of 10. He still takes methadone 40 mg a day and [place] to 3 times a day if needed for his pain. He does mention he also takes gabapentin but is going to stop this on his own as he does not feel lik eit's helping. He denies any side effects to these medications. He does not show any drug-seeking behavior. Patient denies new-onset weakness, bowel/bladder incontinence, or any other signs or symptoms of cauda equina syndrome. There are no signs of acute intoxication, and no indications of medication diversion or overuse. In addition to above, 13-point review of systems is also negative for chest pain, shortness of breath, changes in vision, changes in hearing, new onset weakness, abdominal pain, diarrhea, extreme fatigue, malaise, fever, skin changes, homicidal or suicidal ideation, or bowel or bladder incontinence. Vital Signs: Reviewed in EMR Gen: AAOx3, NAD HEENT: PERRLA,hearing grossly normal Pulm: resp unlabored Neck: supple, trachea midline Neuro exam Muscle strength exam of the upper extremities: 3/5 on the right side shoulder abduction, elbow flexion due to his shoulder pain. Inability to fully extend right arm. Left side 5/5 in all muscle groups. Positive tenderness in the cervical paravertebral musculature. Decreased range of motion of the cervical spine showed 2 left rotation. Neuro: CN II-XII grossly intact, Imaging: Cervical MRI C2-C3: Disc bulge. Mild bilateral facet arthropathy. Minimal left neural foraminal narrowing. No spinal canal stenosis. C3-C4: Mild broad-based disc bulge abuts the spinal cord at the ventral aspect of deforming it. Mild to moderate spinal canal stenosis. Mild right and left uncovertebral joint hypertrophy. Moderate left and mild right facet arthr opathy. C4-C5: Minimal annular bulge partially effaces the ventral CSF space. Mild bilateral uncovertebral joint hypertrophy with moderate. Left and mild to moderate right facet arthropathy. Moderate to severe left and mild to moderate right neural foraminal narrowing. C5-C6: Small disc protrusion abuts the spinal cord at its ventral aspect. Results in mild spinal canal stenosis. Moderate to severe bilateral facet arthropathy and mild bilateral uncovertebral joint hypertrophy. EMG shows no diagnostic evidence to support radiculopathy, plexopathy, ulnar neuropathy, cubital tunnel syndrome. Right carpal tunnel syndrome. MRI right shoulder in January 2020 shows large full-thickness tear of the rotator cuff involving supraspinatus, infraspinous and subscapularis tendon. Assessment: lumbar failed back surgery syndrome Cervical spondylosis without myelopathy Left cervical radiculitis Opioid dependence recent history over many stroke with no treatment with anticoagulants Plan: 1. Explanation: Opioid and psychological risk scores were reviewed. Diagnoses, prognoses, and multiple treatment options including but not limited to physical therapy, interventional therapies, adjuvant medical therapies, narcotic medication therapies, and surgery were discussed with the patient and all questions were answered to the patient's satisfaction. 2. Opioid agreement: Signed with the patient and the patient is warned not to use opioids while driving or before driving and not to combine opioids with benzodiazepines or alcohol. 3. Counseling: The patient was counseled extensively on SMOKING CESSATION, BODY MASS INDEX, EXERCISE. Specifically, the patient was instructed regarding the importance of smoking cessation, obesity, and exercise in the context of both chronic pain and overall health. 4. Procedures: Bilateral MBB C2-C3, C3-C4, C4-C5. 5. Consultations: Encouraged him to try to pursue a shoulder replacement surgery whenever he is able to. 6. Investigations: None 7. Medications: continue methadone 10 mg 4 times a day and [place] 10 mg 3 times a day as needed for pain, no refills were given today as patient was seen on 03/2020 and was given medication for 3 months 8. Disposition: for procedure 9. Maps were reviewed and were appropriate. Controlled Substance Measures Is patient prescribed a controlled substance at discharge?: Yes When asked, does pt state using other controlled substances?: No If prescribed controlled substance>3 days was MAPS reviewed?: Yes If Rx opioid, was Start Talking consent form obtained?: Yes If opioid is for acute pain is fill amount 7 days or less?: No Was information provided regarding opioid addiction?: Yes PQRS Measure Charge Sheet PQRS Narrative: Smoking Status Never smoker Narcotic Agreement Date Signed 12/19/19 Hx Alcohol Use (MH) No Home Medications: Ambulatory Orders Enalapril Maleate [Vasotec] 10 mg PO QID 07/27/16 amLODIPine [Norvasc] 5 mg PO QAM 03/26/19 Meloxicam 7.5 mg PO DAILY PRN 06/04/19 Tamsulosin [Flomax] 0.4 mg PO HS 09/06/19 HYDROcodone/APAP 10-325MG [[place] 10-325] 1 tab PO Q8HR PRN 30 Days #90 tab 02/13/20 Methadone [Dolophine] 10 mg PO QID 30 Days #120 tab 02/13/20 Testosterone Enanthate [Xyosted] 1 injection SQ Q14D 02/13/20 Zolpidem Tartrate [Ambien] 5 mg PO HS PRN 04/04/20 hydroCHLOROthiazide 25 mg PO HS 04/04/20 Controlled Substance Measures - Controlled Substance Measures Is patient prescribed a controlled substance at discharge?: No
== END | disposition home or self-care (01) ==
LOC: PNWHC3 08:46
PROVIDERS: ATTEND Anesthesiology
DX: M96.1 Postlaminectomy syndrome, not elsewhere classified (principal); M47.812 Spondylosis without myelopathy or radiculopathy, cervical region; M54.12 Radiculopathy, cervical region; F11.20 Opioid dependence, uncomplicated; Z86.73 Personal history of transient ischemic attack (TIA), and cerebral infarction without residual deficits; Z79.891 Long term (current) use of opiate analgesic; Z79.899 Other long term (current) drug therapy
CPT/HCPCS: 99211

== ENCOUNTER 2020-06-17 12:32 | Day surgery (SDC) | payer MEDICARE ==
[2020-06-17 13:01] VITALS: RESP 16; TEMP 98.2
[2020-06-17 14:24] VITALS: BP 137/73; PULSE 71
--- NOTE | 2020-06-17 15:54 | US ---
ULTRASOUND GUIDED FNA AND CORE BIOPSY THYROID BIOPSY: CLINICAL HISTORY: Request for large right thyroid nodule biopsy FINDINGS: The procedure was explained to the patient. The risks, complications, benefits and alternatives were discussed and any questions were answered. Informed consent was obtained. Patient was placed supin e on the ultrasound table and prepped and draped in the usual sterile fashion. Utilizing a 25 gauge needle, five passes were made into the requested right thyroid nodule. A 20-gauge core biopsy sample was also obtained. Patient was stable throughout the procedure. Pathology is pending. All elements of maximal barrier technique were utilized. IMPRESSION: 1. Successful ultrasound guided right thyroid nodule biopsy.
== END 2020-06-17 14:10 | disposition home or self-care (01) ==
LOC: RADPROMAIN 12:32
PROVIDERS: ATTEND Otolaryngology
DX: E04.1 Nontoxic single thyroid nodule (principal)
CPT/HCPCS: 10005; 88173; 88305

== ENCOUNTER → 2020-07-02 | Outpatient (CLI) | payer MEDICARE ==
[2020-07-02 08:12] VITALS: BP 157/81; PULSE 69; RESP 18; TEMP 98
--- NOTE | 2020-07-02 08:32 | P.PN ---
Subjective Progress Note Date: 07/02/20 This is a 65-year-old gentleman who is a well-known patient in our clinic here for chronic low back pain after multiple back surgeries. The pain has been stable with the patient's treatment with methadone 40 mg a day and [place] when necessary pain. The patient also has been getting caudal epidural steroid injection with loss of adhesions. There are no new changes since the last time he was seen in our clinic. Patient denies new-onset weakness, bowel/bladder incontinence, or any other signs or symptoms of cauda equina syndrome. There are no signs of acute intoxication, and no indications of medication diversion or overuse. In addition to above, 13-point review of systems is also negative for chest pain, shortness of breath, changes in vision, changes in hearing, new onset weakness, abdominal pain, diarrhea, extreme fatigue, malaise, fever, skin changes, homicidal or suicidal ideation, or bowel or bladder incontinence. Vital Signs: Reviewed in EMR Gen: AAOx3, NAD HEENT: PERRLA,hearing grossly normal Pulm: resp unlabored Neck: supple, trachea midline Neuro exam of the lower extremities showed decreased but symmetrical mild weakness to 4 out of 5 for knee flexion and extension and normal ankle flexion and extension bilaterally. Neuro: CN II-XII grossly intact, Imaging: Cervical MRI C2-C3: Disc bulge. Mild bilateral facet arthropathy. Minimal left neural foraminal narrowing. No spinal canal stenosis. C3-C4: Mild broad-based disc bulge abuts the spinal cord at the ventral aspect of deforming it. Mild to moderate spinal canal stenosis. Mild right and left uncovertebral joint hypertrophy. Moderate left and mild right facet arthropathy. C4-C5: Minimal annular bulge partially effaces the ventral CSF space. Mild bilateral uncovertebral joint hypertrophy with moderate. Left and mild to moderate right facet arthropathy. Moderate to severe left and mild to moderate right neural foraminal narrowing. C5-C6: Small disc protrusion abuts the spinal cord at its ventral aspect. Results in mild spinal canal stenosis. Moderate to severe bilateral facet arthropathy and mild bilateral uncovertebral joint hypertrophy. EMG shows no diagnostic evidence to support radiculopathy, plexopathy, ulnar neuropathy, cubital tunnel syndrome. Right carpal tunnel syndrome. MRI right shoulder in January 2020 shows large full-thickness tear of the rotator cuff involving supraspinatus, infraspinous and subscapularis tendon. Assessment: lumbar failed back surgery syndrome Cervical spondylosis without myelopathy Left cervical radiculitis Opioid dependence recent history of many strokes with no treatment with anticoagulants Plan: 1. Explanation: Opioid and psychological risk scores were reviewed. Diagnoses, prognoses, and multiple treatment options including but not limited to physical therapy, interventional therapies, adjuvant medical therapies, narcotic medication therapies, and surgery were discussed with the patient and all questions were answered to the patient's satisfaction. 2. Opioid agreement: Signed with the patient and the patient is warned not to use opioids while driving or before driving and not to combine opioids with benzodiazepines or alcohol. 3. Counseling: The patient was counseled extensively on SMOKING CESSATION, BODY MASS INDEX, EXERCISE. Specifically, the patient was instructed regarding the importance of smoking cessation, obesity, and exercise in the context of both chronic pain and overall health. 4. Procedures: None at this time 5. Consultations: None 6. Investigations: UDS will be done today 7. Medications: continue methadone 10 mg 4 times a day and [place] 10 mg 3 times a day as needed for pain, the patient will be given prescription for 3 months. 8. Disposition: Return to clinic in 12 weeks 9. Maps were reviewed and were appropriate. Controlled Substance Measures Is patient prescribed a controlled substance at discharge?: Yes When asked, does pt state using other controlled substances?: No If prescribed controlled substance>3 days was MAPS reviewed?: Yes If Rx opioid, was Start Talking consent form obtained?: Yes If opioid is for acute pain is fill amount 7 days or less?: No Was information provided regarding opioid addiction?: Yes PQRS Measure Charge Sheet PQRS Narrative: Smoking Status Never smoker Narcotic Agreement Date Signed 12/19/19 Hx Alcohol Use (MH) No Home Medications: Ambulatory Orders Enalapril Maleate [Vasotec] 10 mg PO QID 07/27/16 amLODIPine [Norvasc] 5 mg PO QAM 03/26/19 Meloxicam 7.5 mg PO DAILY PRN 06/04/19 Tamsulosin [Flomax] 0.4 mg PO HS 09/06/19 HYDROcodone/APAP 10-325MG [[place] 10-325] 1 tab PO Q8HR PRN 30 Days #90 tab 0 02/13/20 Methadone [Dolophine] 10 mg PO QID 30 Days #120 tab 02/13/20 Testosterone Enanthate [Xyosted] 1 injection SQ Q14D 02/13/20 Zolpidem Tartrate [Ambien] 5 mg PO HS PRN 04/04/20 hydroCHLOROthiazide 25 mg PO HS 04/04/20 Objective - Vital Signs Vital signs: Vital Signs Temp 98.0 F 07/02/20 08:06 Pulse 69 07/02/20 08:06 Resp 18 07/02/20 08:06 BP 157/81 07/02/20 08:06 Pulse Ox 98 07/02/20 08:06
== END | disposition home or self-care (01) ==
LOC: PNWHC3 07:25
PROVIDERS: ATTEND Anesthesiology
DX: M96.1 Postlaminectomy syndrome, not elsewhere classified (principal); M47.22 Other spondylosis with radiculopathy, cervical region; Z86.73 Personal history of transient ischemic attack (TIA), and cerebral infarction without residual deficits; F11.20 Opioid dependence, uncomplicated; Z79.891 Long term (current) use of opiate analgesic; Z79.899 Other long term (current) drug therapy
CPT/HCPCS: 80307; G0482; G0463; 99212

== ENCOUNTER → 2020-07-24 | Outpatient (CLI) | payer MEDICARE ==
--- NOTE | 2020-07-24 10:33 | MR ---
EXAMINATION TYPE: MR cervical spine wo/w con DATE OF EXAM: 07/24/2020 COMPARISON: None HISTORY: Neck Pain x 5 years, Pain and weakness into right arm and fingers TECHNIQUE: Multiplanar, multisequence images of the cervical spine were acquired utilizing 10 mL intravenous Rodrick avist gadolinium contrast. Diffusion weighted imaging was performed. C2-C3: No evidence for degenerative disc disease. No disc bulge/herniation or protrusion. No Canal stenosis. Foramina are patent bilaterally. C3-C4: There is a posterior disc bulge causing anterior mass effect on the thecal sac and possibly co ntact with the cervical cord. Difficult to exclude cord signal changes at this level on axial T2 imag es, there is AP diameter of the spinal canal by approximately 6.3 mm as measured on sagittal T2 image . Uncovertebral joint hypertrophy, facet arthropathy noted, suspect some foraminal encroachment right greater than left C4-C5: There is no significant spinal stenosis. No disc herniation. Some mild foraminal encroachment present due to uncovertebral joint hypertrophy. C5-C6: Small posterior disc bulge causes slight anterior mass effect on the thecal sac. No significan t spinal stenosis. There is some mild left-sided foraminal encroachment. C6-C7: Mild posterior disc bulge causes slight anterior mass effect on the thecal sac. There is mild left-sided foraminal encroachment greater than right due to uncovertebral joint hypertrophy. C7-T1: Small posterior disc bulge is noted. No significant foraminal encroachment or spinal stenosis. Cervical segments are intact. Craniovertebral junction relationships are within normal limits. The re is multilevel spondylosis. Loss of disc height and signal is present C3-4, C4-5, C5-6 and C6-7, C7 -T1. There is an anterolisthesis grade 1 C4-5, C5-6, minimal retrograde listhesis C3-4 grade 1. Some minimal endplate discogenic marrow signal changes are present. No abnormal enhancement following cont rast administration within the cervical cord. Incidental left thyroid nodule is present with some enhancement. There is some asymmetry seen within the level of the arytenoid cartilages which is indeterminate. IMPRESSION: Degenerative disc disease as described. Indeterminate thyroid nodule. Consider ultrasound follow-up. Questionable asymmetry noted within the level of the larynx as described. Correlate for s ymptomatology.
== END | disposition home or self-care (01) ==
LOC: RADMRIMAIN 08:35
PROVIDERS: ATTEND Specialist
DX: M50.10 Cervical disc disorder with radiculopathy, unspecified cervical region (principal); M47.812 Spondylosis without myelopathy or radiculopathy, cervical region
CPT/HCPCS: 72156; A9585

== ENCOUNTER → 2020-09-02 | Outpatient (CLI) | payer MEDICARE ==
--- NOTE | 2020-09-02 22:21 | CONS ---
CONSULTATION REASON FOR CONSULTATION: Sleep apnea. This is a 65-year-old male patient who is coming in for chronic hypersomnia and sleepiness. The patient has multiple medical problems and comorbidities. Around 15 to 20 years ago he was given a CPAP machine from a friend which he has been using consistently over the years. This is an older-generation CPAP unit which is set at a pressure of 10 cm of water. He has not undergone any polysomnogram. He reported that he had benefit from the treatment and he kept on using the treatment over the years. He is coming in for re-evaluation. He is known to have chronic pain. He is maintained on methadone 10 mg 4 times a day and [place] 10/325 three times a day. He has been involved in an occupational back and spine injury and the patient has had multiple surgeries on his back; a total of 13. He also has degenerative arthritis. He has chronic neck and back pain and chronic body stiffness, which has been an ongoing problem for him. He states that he has difficulties in getting himself comfortable in bed and he is easily stimulated. He can wake up with a minimum amount of noise or disruption in the bedroom environment. Over the years, the patient has had sleep fragmentation and sleep disruption. He goes to bed between 10 p.m. and midnight and wakes up between 3 and 5 a.m. in the morning. He is averaging around 4 to 5 hours of sleep. He snores, he stops breathing, and his sleep is fragmented. He occasionally wakes up choking and gasping for air. As such, his symptoms are typical of obstructive sleep apnea, and he has done better while on CPAP. His current [place] score is 21. He has gained weight over the years and currently is maintaining his own body weight of 249 pounds. He has had a previous CVA. No history of coronary artery disease. No congestive heart failure. No history of any atrial fibrillation. He does have nocturia, which improved with CPAP therapy and use of tamsulosin. PAST MEDICAL HISTORY: History of back injury with chronic back pain and neck pain. The patient has opiate dependence and he has been taking a combination of [place] and methadone. He has BPH, hypertension, history of CVA, and next suspected obstructive sleep apnea. PAST SURGICAL HISTORY: Back surgery x13, right knee surgery, right shoulder surgery and carpal tunnel release in both hands. DRUG ALLERGIES: NOT KNOWN. He is ALLERGIC TO POISON PAULIE AND POLYESTER. OUTPATIENT MEDICATIONS: Outpatient medications include: 1. Vasotec 10 mg p.o. daily. 2. Meloxicam 7.5 mg on a p.r.n. basis. 3. Methadone 10 mg 4 times a day. 4. [place] 10/325 three times a day. 5. Amlodipine 5 mg p.o. daily. 6. Hydrochlorothiazide 25 mg p.o. daily. 7. Zolpidem 10 mg at bedtime. 8. Flomax 0.4 mg p.o. twice a day. SOCIAL HISTORY: He is a nonsmoker. No history of alcoholism. No history of IV drugs. FAMILY HISTORY: Negative for sleep apnea. REVIEW OF SYSTEMS: Fourteen-point review of systems was done. Positive findings are all mentioned above in the history of present illness. He falls asleep and takes naps at different times during the day. He wakes up several times in the middle of the night and the patient thinks that his sleep quality is not good. He is having a very shallow breathing. He sleeps only on his back. No sleep paralysis. No hallucinations. No cataplexy. PHYSICAL EXAMINATION: VITAL SIGNS: BP is 126/76, pulse 71, respirations 20, temperature 98.6, saturation 99% on room air. BMI 37.8. Lakewood score 21. Neck size is 19-1/2 inches. GENERAL APPEARANCE: Calm, comfortable. No acute distress. HEAD: Atraumatic, normocephalic. NECK: Supple. No JVD. No goiter or neck masses. Mallampati class IV. LUNGS: Clear to auscultation. HEART: Heart sounds are regular rate and rhythm. Normal S1, S2. No S3, S4. No murmurs. ABDOMEN: Soft, nontender. No organomegaly. EXTREMITIES: No edema. No cyanosis or clubbing. IMPRESSION: 1. Chronic hypersomnia, [place]wood score of 21. High likelihood for underlying obstructive sleep apnea. The patient has been utilizing CPAP at a pressure of 10 cm of water without establishing a diagnosis. This machine was given to him by a friend many years back and he has been using it regularly. 2. Chronic pain, maintained on a combination of methadone and [place]. He takes methadone 10 mg p.o. 4 times a day and [place] 10/325 three times a day. Rule out underlying central sleep apnea complicating his picture. 3. History of occupational back injury requiring multiple back surgeries, and he has chronic stiffness and pain involving the back and the neck. 4. Hypertension. 5. Benign prostatic hypertrophy. 6. History of cerebrovascular accident. PLAN: 1. Will proceed with a screening polysomnogram to assess the presence and severity of sleep apnea being obstructive or central. 2. Keep utilizing the same CPAP unit until the diagnosis has been established and further adjustments are done. 3. Encourage weight loss. 4. Maintain regular sleep hygiene pattern. 5. Continue Ambien for now for sleep induction and maintenance. 6. Will continue to follow and make further recommendations based on his progress and results of the sleep study. MMODL / IJN: [id number] /
== END ==
LOC: SLEEP 15:54
PROVIDERS: ATTEND Internal Medicine Critical Care Medicine
DX: G47.10 Hypersomnia, unspecified (principal); G47.33 Obstructive sleep apnea (adult) (pediatric); I11.0 Hypertensive heart disease with heart failure; G89.29 Other chronic pain; N40.1 Benign prostatic hyperplasia with lower urinary tract symptoms; Z86.73 Personal history of transient ischemic attack (TIA), and cerebral infarction without residual deficits; Z79.899 Other long term (current) drug therapy; Z98.890 Other specified postprocedural states

== ENCOUNTER 2020-09-05 06:00 | Day surgery (SDC) | payer MEDICARE ==
[2020-09-03 12:04] VITALS: BMI 35.2
[~2020-09-05 06:00] MED LIST changes: -BUPIVACAINE (PF) 0.5% 30 ML VIAL ONE; -IOPAMIDOL M200 10 ML VIAL ONE; -IV FLUID CONTINUATION 1,000 ML IV ONE; +LACTATED RINGERS 1,000 ML IV SCH; -MIDAZOLAM 2 MG/2 ML VIAL ONE; -TRIAMCINOLONE ACETONIDE 40 MG/ML 1 ML VIAL ONE; -fentaNYL (PF) 50 MCG/ML 2 ML AMP ONE
[2020-09-05] MEDS ORDERED: LIDOCAINE 1% (10MG/ML) FOR IV START INTRADERMA ONE (06:30)
[2020-09-05 06:43] VITALS: RESP 16; TEMP 98.2
[2020-09-05] MEDS ORDERED: fentaNYL (PF) 50 MCG/ML 2 ML AMP ONE (06:59)
[2020-09-05] MEDS ORDERED: MIDAZOLAM 2 MG/2 ML VIAL ONE (06:59)
[2020-09-05] MEDS ORDERED: ROPIVACAINE 5MG/ML 20ML VIAL ONE (06:59)
[2020-09-05] MEDS ORDERED: methylPREDNISolone ACETATE 40 MG/ML 1 ML VIAL ONE (06:59)
--- NOTE | 2020-09-05 07:32 | P.PCN ---
Date of Procedure: 09/05/20 Procedure(s) Performed: PREOPERATIVE DIAGNOSIS: 1=Cervical Spondylosis with Facet Arthropathy.without myelopathy POSTOPERATIVE DIAGNOSIS:1- Cervical Spondylosis Facet Arthropathy. Without myelopathy. PROCEDURES: Diagnostic bilateral C3, C4 , C5 medial branch blocks, with fluoroscopic guidance (fluoroscopy images available in radiology department ) ( to target the facet joint at bilateral C3- 4 , C4- 5 ) # 1st ANESTHESIA= monitored anesthesia care as per anesthesia department. EBL: Minimal PROCEDURE INDICATION: The patient with neck pain secondary to cervical arthropathy unresponsive to more conservative treatments. PROCEDURE DESCRIPTION / TECHNIQUE: The patient was seen and identified in the preoperative area. Risks, benefits, complications, and alternatives were discussed with the patient, the patient agreed to proceed with the procedure and signed the consent. IV was started. Vital signs remained stable throughout the procedure. Patient was taken to the OR and time out was completed. The patient was placed in the supine position on the procedure table. The cervical area was prepped and draped in the usual sterile fashion. Critical pause was taken. Vital signs were closely monitored during the procedure. Conscious sedation was used during the procedure to decrease patients anxiety. Using cross-table lateral fluoroscopy, the centroid of the trapezoid of right C3, C4 , C5 was identified, marked, and localized with 0.5% ropivacaine 1 ml at each level for skin and Sub Q infiltrations . Subsequently, a 22 G 3 spinal needle was advanced guided by fluoroscopy to the centroid of the trapezoid of Right C3, C4 , C5. Leonard tip position was confirmed at the centroid of the trapezoids of Right C3 , C4 , C5 with anteroposterior fluoroscopy. Subsequently, 1.5 ml of preservative-free Ropivacaine 0.5% mixed with Depo- Medrol 20 mg and half ml of the mixture was injected after negative aspiration for blood and CSF. Leonard was then removed intact the same procedure was repeated at the left C3 , C4 , C5 levels. COMPLICATIONS: No acute complications. DISPOSITION / PLANS: The patient was placed in a supine position and transferred to the recovery area in a stable condition for observation and was discharged from the recovery room after meeting discharge criteria. Home discharge instructions given to the patient by the staff. The patient was reexamined prior to discharge. The patient will schedule a follow up in the clinic in 2-4 weeks.
[2020-09-05] MEDS ORDERED: IV FLUID CONTINUATION 1,000 ML IV ONE (07:36)
--- NOTE | 2020-09-05 07:46 | FL ---
EXAMINATION TYPE: FL guided pain mgmt statistic DATE OF EXAM: 09/05/2020 CLINICAL HISTORY: Neck pain. TECHNIQUE: Fluoroscopy. COMPARISON: None. FINDINGS: Fluoroscopic guidance was provided during pain relief procedure performed by Dr. Lopez . A total of 34 seconds of fluoroscopic time was utilized during the procedure and two spot images a re acquired. Images acquired shows needle localization of several levels of the cervical spine artic ulating facets. IMPRESSION: As Above.
[2020-09-05 07:59] VITALS: BP 132/64; PULSE 60
== END 2020-09-05 08:06 | disposition home or self-care (01) ==
LOC: ORPAIN 06:00
PROVIDERS: ATTEND Specialist
DX: M47.812 Spondylosis without myelopathy or radiculopathy, cervical region (principal); M26.609 Unspecified temporomandibular joint disorder, unspecified side; E78.5 Hyperlipidemia, unspecified; I10 Essential (primary) hypertension; G47.33 Obstructive sleep apnea (adult) (pediatric); E07.9 Disorder of thyroid, unspecified; I69.398 Other sequelae of cerebral infarction; R20.0 Anesthesia of skin; R20.2 Paresthesia of skin; Z88.8 Allergy status to other drugs, medicaments and biological substances; Z88.6 Allergy status to analgesic agent; Z91.018 Allergy to other foods; Z79.899 Other long term (current) drug therapy; Z79.891 Long term (current) use of opiate analgesic; Z98.890 Other specified postprocedural states
CPT/HCPCS: 64490; 64491; J2250; J1030; J3010; J2795

== ENCOUNTER → 2020-09-10 | Outpatient (CLI) | payer MEDICARE ==
[~2020-09-10] MED LIST changes: -LACTATED RINGERS 1,000 ML IV SCH; +REGADENOSON 0.4 MG/5 ML SYRINGE IV PRN
--- NOTE | 2020-09-10 12:00 | NM ---
EXAMINATION TYPE: NM stress lexiscan cardiolite DATE OF EXAM: 09/10/2020 COMPARISON: Prior stress test July 23, 2010 HISTORY: History of hypertension, prior stroke, prior catheterization, and hypercholesterolemia prese nts with chest pain and difficulty in breathing. TECHNIQUE: After the intravenous administration of 9.7 mCi Tc 99m Sestamibi - Cardiolite resting SPE CT images acquired 45 minutes post injection. The patient received 0.4mg Lexiscan, 26.3 mCi Tc 99m Sestamibi - Stress images obtained [address] injection FINDINGS: Review of stress and rest SPECT images demonstrates no distinct perfusion abnormality. Gated analysi s shows normal wall motion with an estimated left ventricular ejection fraction of 60 %. IMPRESSION: No scintigraphic evidence for reversible ischemia. No significant change from prior.
--- NOTE | 2020-09-10 12:20 | ECHOF ---
Referral Reason:R07.9 chest pain, I10 hypertension MEASUREMENTS -------- HEIGHT: 175.3 cm WEIGHT: 111.6 kg BP: RVIDd: 3.6 cm (< 3.3) IVSd: 1.0 cm (0.6 - 1.1) LVIDd: 5.9 cm (3.9 - 5.3) LVPWd: 1.3 cm (0.6 - 1.1) IVSs: 1.7 cm LVIDs: 2.9 cm LVPWs: 1.9 cm LAESV Index (A-L): 24.99 ml/m Ao Diam: 2.7 cm (2.0 - 3.7) AV Cusp: 2.1 cm (1.5 - 2.6) LA Diam: 4.1 cm (2.7 - 3.8) MV EXCURSION: 20.468 mm (> 18.000) MV EF SLOPE: 170 mm/s (70 - 150) EPSS: 0.7 cm MV E Santhosh: 0.77 m/s MV DecT: 324 ms MV A Santhosh: 0.81 m/s MV E/A Ratio: 0.95 RAP: 5.00 mmHg RVSP: 12.12 mmHg FINDINGS -------- This was a technically difficult study with suboptimal views. The left ventricular size is normal. Left ventricular wall thickness is normal. Overall left vent ricular systolic function is normal with, an EF between 55 - 60 %. The diastolic filling pattern is normal for the age of the patient 8.54. The right ventricle is mildly enlarged. The left atrial size is normal. Normal LA size by volume 22+/-6 ml/m2. The right atrial size is normal. 5.0mg of Lumason was utilized for enhancement of images The aortic valve is trileaflet and appears structurally normal. The mitral valve is normal. There is trace mitral regurgitation. The tricuspid valve appears structurally normal. Trace tricuspid regurgitation present. Right sujata tricular systolic pressure is normal at < 35 mmHg. There is no pulmonic regurgitation present. The aortic root size is normal. IVC Not well visulized. There is no pericardial effusion. CONCLUSIONS -------- 1. The left ventricular size is normal. 2. Left ventricular wall thickness is normal. 3. Overall left ventricular systolic function is normal with, an EF between 55 - 60 %. 4. The diastolic filling pattern is normal for the age of the patient 8.54 5. The right ventricle is mildly enlarged. 6. There is trace mitral regurgitation. 7. Trace tricuspid regurgitation present. 8. There is no pericardial effusion. [employer]MANCE ENGINEER: Dejah Rich RDCS
--- NOTE | 2020-09-10 13:09 | P.STRESS ---
- Stress Test Note Stress Test Results/Findings: Exam Performed: NM stress lexiscan cardiolite Exam Date: 09/10/20 Reason for Exam: Chest Pain Height: 5 ft 9 in Weight: 111.13 kg Protocol: Lexiscan Stage: na Duration of Exercise: na Resting Heart Rate: 70 Resting Blood Pressure: 127/74 Maximum Achieved Heart Rate: 86 Maximum Achieved Blood Pressure: 128/72 85% PMHR: 131 100% PMHR: 154 METS: na Technologist Comment: Stress Test Results/Findings: At baseline EKG showed normal sinus rhythm, normal axis, no significant ST or T- wave abnormalities. Patient recieved IV infusion of Lexiscan 0.4mg and at peak infusion EKG showed no significant change from baseline Conclusions: 1. Normal EKG response to Lexiscan infusion 2. Nuclear imaging to be reported separately.
== END ==
LOC: RADNMMAIN 08:12
PROVIDERS: ATTEND Family Medicine
DX: I08.1 Rheumatic disorders of both mitral and tricuspid valves (principal); I10 Essential (primary) hypertension; E78.00 Pure hypercholesterolemia, unspecified; Z86.73 Personal history of transient ischemic attack (TIA), and cerebral infarction without residual deficits
CPT/HCPCS: 93017; 78452; C8929; A9500; J2785; Q9950; 93306

== ENCOUNTER → 2020-09-24 | Outpatient (CLI) | payer MEDICARE ==
[2020-09-24 07:51] VITALS: BP 149/72; PULSE 74; RESP 18; TEMP 98.1
--- NOTE | 2020-09-24 08:50 | P.PN ---
Subjective Progress Note Date: 09/24/20 Pepe presents today for follow-up secondary to his chronic pain. He continues to have neck pain and right shoulder pain. He reports he had a cervical facet block done recently which offered him significant relief. He reports greater than 8090% relief for about 6 or 8 hours during the day. He did not use any pain medication during that time. He continues to have right shoulder pain. He was told that he needs possible shoulder surgery and replacement but he is hesitant to have that done. He also has low back pain which is chronic in nature and unchanged. He continues to use chronic pain medications as prescribed. He uses them responsibly tries not to use him as much as possible. He continues to use about 120 morphine equivalence per day including methadone and hydrocodone and has been stable on these doses for quite some time. He does not work. He continues to try and do his hobbies which include building trains. Objective - Vital Signs Vital signs: Vital Signs Temp 98.1 F 09/24/20 07:48 Pulse 74 09/24/20 07:48 Resp 18 09/24/20 07:48 BP 149/72 09/24/20 07:48 Pulse Ox 95 09/24/20 07:48 Intake & Output 09/23/20 09/24/20 09/24/20 18:59 06:59 18:59 Weight 109.769 kg - Exam General: Awake and alert oriented 3 no distress Respiratory exam: No audible wheezing no accessory muscle usage Cardiovascular exam: regular rate, palpable bilateral pulses, no lower extremity edema Abdominal exam: No distention nontender to palpation Cervical spine: Midline alignment, stiffness with extension and flexion which causes pain. There are no radicular symptoms shooting down the arm. Velasco's is negative. Right shoulder exam reveals a relatively preserved range of motion but there is pain with movement. Internal and external rotation cause pain. Lumbar spine: Slight loss of lordosis atrophy of paraspinal muscles. He is in a forward flexed body position. Straight leg raise negative bilateral Sacroiliac joints: Nontender to palpation, CALLIE is negative, [place] negative Neuro exam: Normal sensation in bilateral upper extremities, deep tendon reflexes are 2+ bilateral upper extremities. Normal sensation in bilateral lower extremities. Deep tendon reflexes are 2+ in lower extremities Psych exam: Cooperative, appropriate mood Assessment and Plan Assessment: #1 cervical spondylosis without myelopathy #2 lumbar spondylosis without myelopathy #3 chronic opioid dependence Plan: After review the medical records, examination the patient, I believe that he would benefit from a second cervical facet block C3/4, C4/5 B/L and potentially radiofrequency ablation of the cervical spine since he had excellent relief from the procedure. He had greater than 80% relief on the first injections I believe he would benefit from the second. He is also very interested in moving forward and is very excited with the relief. We discussed pain medication details, we discussed using medications appropriately is the only option, he needs to continue to try and decrease medications much as possible. He has high hopes for the procedures that may offer him a window to decrease the pain medications as he is developing significant tolerance to the meds. I will refill his medications for 3 months. The patient's been very stable on his medication has no history of any suspicion of diversion or misuse. I discussed with the patient's medications are potentially life-threatening if used outside of the prescribed dosing regimens. I have spent 28 minutes on patient care today. The time was used to review the medical records including relevant urine studies and Prescription history (MAPs), review of the available imaging, evaluation and examination of the patient, coordination of care with the medical staff and if applicable referring physicians, as well as creation of the medical record. Maps were checked, opioid start talking form is on file, urine drug screens of been appropriate.
== END ==
LOC: PNWHC3 07:22
PROVIDERS: ATTEND Hospitalist
DX: M47.816 Spondylosis without myelopathy or radiculopathy, lumbar region (principal); M47.812 Spondylosis without myelopathy or radiculopathy, cervical region; F11.20 Opioid dependence, uncomplicated
CPT/HCPCS: 99211

== ENCOUNTER 2020-10-31 08:07 | Day surgery (SDC) | payer MEDICARE ==
[2020-10-29 17:10] VITALS: BMI 37.2
[2020-10-31 08:44] VITALS: TEMP 97.5
[2020-10-31] MEDS ORDERED: LACTATED RINGERS 1,000 ML IV ONE (08:52)
[2020-10-31] MEDS ORDERED: LIDOCAINE 1% (10MG/ML) FOR IV START INTRADERMA ONE (08:52)
[2020-10-31] MEDS ORDERED: MIDAZOLAM 2 MG/2 ML VIAL ONE (09:19)
[2020-10-31] MEDS ORDERED: IOPAMIDOL M200 10 ML VIAL ONE (09:19)
[2020-10-31] MEDS ORDERED: DEXAMETHASONE SOD PHOSPHATE 10 MG/ML 1 ML VIAL ONE (09:19)
[2020-10-31] MEDS ORDERED: LIDOCAINE 1% INJ 10MG/ML (20 ML MDV) ONE (09:19)
[2020-10-31] MEDS ORDERED: fentaNYL (PF) 50 MCG/ML 2 ML AMP ONE (09:19)
[2020-10-31] MEDS ORDERED: ROPIVACAINE 5MG/ML 20ML VIAL ONE (09:19)
--- NOTE | 2020-10-31 09:38 | P.PCN ---
Date of Procedure: 10/31/20 Description of Procedure: PREOPERATIVE DIAGNOSIS: 1=Cervical Spondylosis with Facet Arthropathy.without myelopathy POSTOPERATIVE DIAGNOSIS:1- Cervical Spondylosis Facet Arthropathy. Without myelopathy. PROCEDURES: Diagnostic bilateral C3, C4 , C5 medial branch blocks, with fluoroscopic guidance (fluoroscopy images available in radiology department ) ( to target the facet joint at bilateral C3- 4 , C4- 5 ) #2 ANESTHESIA= monitored anesthesia care as per anesthesia department. EBL: Minimal PROCEDURE INDICATION: The patient with neck pain secondary to cervical arthropathy unresponsive to more conservative treatments. PROCEDURE DESCRIPTION / TECHNIQUE: The patient was seen and identified in the preoperative area. Risks, benefits, complications, and alternatives were discussed with the patient, the patient agreed to proceed with the procedure and signed the consent. IV was started. Vital signs remained stable throughout the procedure. Patient was taken to the OR and time out was completed. The patient was placed in the supine position on the procedure table. The cervical area was prepped and draped in the usual sterile fashion. Critical pause was taken. Vital signs were closely monitored during the procedure. Conscious sedation was used during the procedure to decrease patients anxiety. Using cross-table lateral fluoroscopy, the centroid of the trapezoid of right C3, C4 , C5 was identified, marked, and localized with 0.5% ropivacaine 1 ml at each level for skin and Sub Q infiltrations . Subsequently, a 25 G 3.5 inch spinal needle was advanced guided by fluoroscopy to the centroid of the trapezoid of Right C3, C4 , C5. Madison tip position was confirmed at the centroid of the trapezoids of Right C3 , C4 , C5 with anteroposterior fluoroscopy. Subsequently, 1.5 ml of preservative-free Ropivacaine 0.5% mixed with dexamethasone 5 mg and half ml of the mixture was injected after negative aspiration for blood and CSF. Madison was then removed intact the same procedure was repeated at the left C3 , C4 , C5 levels. COMPLICATIONS: No acute complications. DISPOSITION / PLANS: The patient was placed in a supine position and transferred to the recovery area in a stable condition for observation and was discharged from the recovery room after meeting discharge criteria. Home discharge instructions given to the patient by the staff. The patient was reexamined prior to discharge. The patient will schedule a follow up in the clinic in 2-4 weeks.
[2020-10-31] MEDS ORDERED: IV FLUID CONTINUATION 1,000 ML IV ONE (09:43)
--- NOTE | 2020-10-31 09:48 | FL ---
EXAMINATION TYPE: FL guided pain mgmt statistic DATE OF EXAM: 10/31/2020 CLINICAL HISTORY: Neck pain. TECHNIQUE: Fluoroscopy. COMPARISON: None. FINDINGS: Fluoroscopic guidance was provided during pain relief procedure performed by Dr. Lopez . A total of 15 seconds of fluoroscopic time was utilized during the procedure and 6 spot images are acquired. Images acquired shows needle localization at several levels in the cervical spine. IMPRESSION: As Above.
[2020-10-31 09:58] VITALS: BP 118/65; PULSE 61; RESP 16
== END 2020-10-31 10:14 | disposition home or self-care (01) ==
LOC: ORPAIN 08:07
PROVIDERS: ATTEND Anesthesiology
DX: M47.812 Spondylosis without myelopathy or radiculopathy, cervical region (principal); I10 Essential (primary) hypertension; E78.5 Hyperlipidemia, unspecified; G47.33 Obstructive sleep apnea (adult) (pediatric); Z86.73 Personal history of transient ischemic attack (TIA), and cerebral infarction without residual deficits; M54.2 Cervicalgia; Z79.1 Long term (current) use of non-steroidal anti-inflammatories (NSAID); Z79.891 Long term (current) use of opiate analgesic; Z79.899 Other long term (current) drug therapy; Z91.018 Allergy to other foods; Z88.6 Allergy status to analgesic agent; Z88.8 Allergy status to other drugs, medicaments and biological substances; Z91.09 Other allergy status, other than to drugs and biological substances
CPT/HCPCS: 64490; 64491; J2250; J1100; J2001; J3010; Q9966; J2795

== ENCOUNTER → 2020-12-22 | Outpatient (CLI) | payer MEDICARE ==
[2020-12-22 08:21] VITALS: BP 146/69; RESP 18
--- NOTE | 2020-12-22 08:46 | P.PN ---
Subjective Progress Note Date: 12/22/20 This is follow-up visit for this patient with a history of severe and chronic low back pain secondary to lumbar failed back surgery syndrome, and severe neck pain secondary to cervical spondylosis cervical facet arthropathy, and cervical foraminal stenosis, recently we did diagnostic medial branch block cervical area,x2 showed reported that he gets more than 80% pain relief of his neck after each diagnostic block, the pain relief was only for short-term, since reported that he had occasional weakness in his upper extremity after does a lot of physical activity he feels his hand week His pain control between interventional pain management , and medication management , patient reported that he continued to have severe low back pain Patients currently on methadone 10 mg every 6 hours, Crandall 10/325 every 8 hours when necessary ,Patient denies any side effects of the medication, denies exce ssive drowsiness or sleepiness, denies suicidal ideation, and reports that the current pain medication is helping to control the pain , he complain of constipation and he used [id number] medication to help his constipation, Patient denies any motor or sensory deficit , patient denies any fever or night sweats, denies any change in the bowel movements or urination, and he reported that the current medication helping him to improve his pain, and do activities of daily livings Physical Examinations : -Constitutiona : Cooperative , not in acute distress . -HEENT : nech : supple , no Lymphadenopathy , normal thyroid size . : eyes : no ptosis , no icterus, no photophobia . - neurologic : Cranial nerve II to XII intact , no focal neurological deffecit . -psychatric : alert , oriented X 3 , appropriate affect , intact judgment and insight . -Lymphatic : no Lymphadenopathy . - musculoskeltal : Cervical Spine motor stregnth in the deltoid and biceps, normal right side , normal Left side motor stregnth biceps and the wrist extensors normal right side ,normal left side . motor stregnth in the triceps muscle . normal Right side , normal Left side deep tendon reflexes normal at the biceps , normal at Brachioradialis , normal at triceps. cervical facet loading test: Positive Bilaterally Spurling test= positive Right , positive left. Neck distraction test= positive Right , positive left. Chuck sign= positive right, positive left . Lumber spine moter stegnth lower extremities ,thigh and legs 5/5 Right side , 5/5 Left side deep tendon reflexes : normal Knee Jerk , normal ankle Jerk lumber facet Loading Test =positive Right , positive Left Range of motion of the lumbar spine Flexion 30 degrees, extension 10 degrees strait leg raising test = positive at degree Fabere test= positive Right , and positive LT . Assessment and plan= chronic low back pain secondary to failed back surgery syndrome lumbar area, lumbar spondylosis with lumbar facet arthropathy . Chronic severe neck pain secondary to cervical spondylosis with cervical facet arthropathy, cervical foraminal stenosis chronic and current use of high-risk medication (opioids) Patient denies any side effects of the current pain medication and the current treatment/medication helping the patient to do activity of daily living , Diagnoses, prognosis, treatment options, including but not limited to physical therapy, medication management, interventional therapies, and surgery, were discussed with the patient All the questions answered The narcotic consent was signed and patient agreed and understood the side effects and complications of opioid treatment. Patient signed the narcotic agreement, and was orally counseled, not to overuse, not to abuse, not to Divert , not tp sell pain medication, and to take it as prescribed only, Patient was counseled not to drive or operate heavy equipment while using narcotic medication, and advised not to use alcohol or any Illicit drugs while using the narcotis. understanding that lack of compliance with any of the above instructions, will likely to cause discharge from, the pain service, not to renew his narcotic prescriptions MAPS Reviwed and it was apropriate . Medication managements= patient will be given prescription refills for methadone 10 mg every 6 hours dispense 120 with one refill, Crandall 10/325 every 8 hours dispense 90 with 1 refill Interventions= patient could benefit from RFA medial branch cervical area bilaterally C3, C4, C5 In the future if patient continued to have some weakness in his upper extremity he would be a good candidate to have cervical epidural steroid injections Time with Patient: Less than 30 - PQRS measures = - Patient's medications are documented in the chart. -Tobacco use is negative and counseling.Given. -Patient's has not received pneumococcal vaccine. -Advanced care planning discussed, patient not eligible. -Opiate contract signed. -Pain positive and follow-up visit/procedure is scheduled. -Patient's blood pressure measured [ 146/69 ] , and documented in the record ,and patient will follow up with the primary care. -Patient's weight was measured and body mass index [ 37 ] above the normal limits and counseling was done. and patient instructed to follow-up with the primary care physician. -Patient was not identified as an unhealthy alcohol user Objective - Vital Signs Vital signs: Vital Signs Temp Pulse Resp 18 12/22/20 08:15 BP 146/69 12/22/20 08:15 Pulse Ox 96 12/22/20 08:15
== END ==
LOC: PNWHC3 07:49
PROVIDERS: ATTEND Specialist
DX: G89.29 Other chronic pain (principal); M96.1 Postlaminectomy syndrome, not elsewhere classified; M47.816 Spondylosis without myelopathy or radiculopathy, lumbar region; M47.812 Spondylosis without myelopathy or radiculopathy, cervical region; M48.02 Spinal stenosis, cervical region; Z79.891 Long term (current) use of opiate analgesic; Z88.8 Allergy status to other drugs, medicaments and biological substances; Z88.6 Allergy status to analgesic agent; Z91.018 Allergy to other foods; Z91.048 Other nonmedicinal substance allergy status
CPT/HCPCS: 99211

== ENCOUNTER 2021-01-16 11:26 | Day surgery (SDC) | payer MEDICARE ==
[2021-01-15 09:36] VITALS: BMI 36.3
[2021-01-16] MEDS ORDERED: LACTATED RINGERS 1,000 ML IV ONE ×3 (11:51→13:03)
[2021-01-16 11:53] VITALS: TEMP 97.8
[2021-01-16] MEDS ORDERED: MIDAZOLAM 2 MG/2 ML VIAL ONE (12:25)
[2021-01-16] MEDS ORDERED: fentaNYL (PF) 50 MCG/ML 2 ML AMP ONE ×2 (12:25)
[2021-01-16] MEDS ORDERED: ROPIVACAINE 5MG/ML 20ML VIAL ONE (12:25)
[2021-01-16] MEDS ORDERED: LIDOCAINE 1% INJ 10MG/ML (20 ML MDV) ONE (12:25)
--- NOTE | 2021-01-16 12:58 | P.PCN ---
Date of Procedure: 01/16/21 Description of Procedure: PREOPERATIVE DIAGNOSIS: Cervicalgia POSTOPERATIVE DIAGNOSIS: Same Surgeon: Yoel Gilliland M.D. PROCEDURE PERFORMED: Cervical Medial Branch Radiofrequency Ablation, at the following levels: left C3 C4 C5 ANESTHESIA: Lidocaine 1% 5 mL, Monitored anesthesia care with anesthesia team ESTIMATED BLOOD LOSS: Minimal Fluoroscopy was used for the procedure and images were saved in the radiology portion of the chart. PROCEDURE INDICATION: The patient with neck pain secondary to cervical facet arthropathy who had more than 50% relief of pain with previous diagnostic lumbar medial branch block X2. PROCEDURE DESCRIPTION / TECHNIQUE: The patient was seen and identified in the preoperative area. Risks, benefits, complications, including but not limited to risk of infection ,bleeding , allergic reactions to the medications and incomplete pain relief , and alternatives were discussed with the patient, the patient agreed to proceed with the procedure and signed the consent. IV was started. The operative site was marked. Patient was taken to the OR and time out was completed. The patient was placed in the prone position on the procedure table. The lumbar area was prepped and draped in the usual sterile fashion. . Vital signs were closely monitored during the procedure .IV sedation was used during the procedure to decrease patients anxiety. An AP fluoroscopic hazardous materials waste technician film was taken to identify the dens, the C3 C4 C5 vertebral bodies, and the waists of the articular pillars at the aforementioned levels [] levels. A pillar (caudal tilt) view was utilized to highlight the waists of the articular pillars at these levels. The skin was prepped with chlorhexidine and draped in the usual sterile fashion. The skin and subcutaneous tissue overlying the above levels were anesthetized using a 25-gauge 1-1/2-inch needle with 1% preservative free lidocaine for a total volume of 1 ml per level. An 18-gauge and 100 mm SMK needle with a 10 mm active tip was advanced, coaxially, in the pillar view until the needle tip was noted to slide into the groove of the articular pillar. A true lateral view was obtained and the needle tips were advanced to cover to the lateral aspect of the articular pillar at left C3 C4 C5, for corresponding medial branch ablation. The needles were advanced until bony contact was felt and the tip of the SMK needle was confirmed to be in the groove of the left waist of the articular pillars at the aforementioned levels. The needle positions were confirmed with AP and lateral fluoroscopic views. Motor stimulation was then performed at 2 Hz and up to 2V with only paraspinal muscle contraction noted at each level and no upper extremity stimulation. At this point, after negative aspiration, Bupivacaine 0.5% x 0.5 mL was injected at each level prior to radiofrequency ablation. Lesioning was then carried out at 85 degrees Celsius times 90 seconds with 2 cycles per level. Following lesioning the needles were removed. COMPLICATIONS: No acute complications. DISPOSITION / PLANS: The patient was placed in a supine position and t ransferred to the recovery area in a stable condition for observation and was discharged from the recovery room after meeting discharge criteria. Home discharge instructions given to the patient by the staff. The patient will follow up in clinic in 4 weeks.
--- NOTE | 2021-01-16 13:13 | FL ---
Fluoroscopy INDICATION: Pain FINDINGS: Fluoroscopy time: 31 seconds. Images obtained: 2. IMPRESSIONS: 1. Documentation of fluoroscopy.
[2021-01-16 13:20] VITALS: BP 117/73; PULSE 69; RESP 16
[2021-01-16] MEDS ORDERED: IV FLUID CONTINUATION 700 ML IV ONE (13:27)
== END 2021-01-16 13:36 | disposition home or self-care (01) ==
LOC: ORPAIN 11:26
PROVIDERS: ATTEND Anesthesiology
DX: M54.2 Cervicalgia (principal); Z88.6 Allergy status to analgesic agent; Z88.8 Allergy status to other drugs, medicaments and biological substances; I10 Essential (primary) hypertension; E78.5 Hyperlipidemia, unspecified; G47.33 Obstructive sleep apnea (adult) (pediatric); Z86.73 Personal history of transient ischemic attack (TIA), and cerebral infarction without residual deficits; M19.90 Unspecified osteoarthritis, unspecified site; Z97.2 Presence of dental prosthetic device (complete) (partial)
CPT/HCPCS: 64633; 64634; J2250; J2001; J3010; J2795

== ENCOUNTER → 2021-02-16 | Outpatient (CLI) | payer MEDICARE ==
[2021-02-16 07:47] VITALS: BP 150/82; PULSE 66; RESP 18; TEMP 98.2
--- NOTE | 2021-02-16 07:48 | P.PAINPG ---
Subjective Progress Note Date: 02/16/21 This is follow-up visit for this patient with a history of severe and chronic low back pain secondary to lumbar failed back surgery syndrome, and severe neck pain secondary to cervical spondylosis cervical facet arthropathy, and cervical foraminal stenosis, Patients currently on methadone 10 mg every 6 hours, Allgood 10/325 every 8 hours when necessary , recently had a left C3 C4 C5 RFA. Patient mentions at the lower aspect of his left neck has great relief, however the upper aspect has about 50% relief. Overall the patient is very frustrated as he is having bilateral hip pain and was told by his physician at his hip pain might be coming from his back. He is now scheduled for a visit with Dr. Delgadillo to evaluate his low back pain. He would like a repeat caudal epidural steroid injection as he had last year, but this time he is scheduled for the right side cervical radio frequency ablation in about 10 days. Patient denies any side effects of the medication, denies excessive drowsiness or sleepiness, denies suicidal ideation, and reports that the current pain medication is helping to control the pain , he complain of constipation and he used [id number] medication to help his constipation, Patient denies any motor or sensory deficit , patient denies any fever or night sweats, denies any change in the bowel movements or urination, and he reported that the current medication helping him to improve his pain, and do activities of daily livings Physical Examinations : -Constitutiona : Cooperative , not in acute distress . -HEENT : nech : supple , no Lymphadenopathy , normal thyroid size . : eyes : no ptosis , no icterus, no photophobia . - neurologic : Cranial nerve II to XII intact , no focal neurological deffecit . -psychatric : alert , oriented X 3 , appropriate affect , intact judgment and insight . -Lymphatic : no Lymphadenopathy . - musculoskeltal : Cervical Spine motor stregnth in the deltoid and biceps, normal right side , normal Left side motor stregnth biceps and the wrist extensors normal right side ,normal left side . motor stregnth in the triceps muscle . normal Right side , normal Left side deep tendon reflexes normal at the biceps , normal at Brachioradialis , normal at triceps. cervical facet loading test: Positive Bilaterally Spurling test= positive Right , positive left. Neck distraction test= positive Right , positive left. Chuck sign= positive right, positive left . Lumber spine moter stegnth lower extremities ,thigh and legs 5/5 Right side , 5/5 Left side deep tendon reflexes : normal Knee Jerk , normal ankle Jerk lumber facet Loading Test =positive Right , positive Left Range of motion of the lumbar spine Flexion 30 degrees, extension 10 degrees strait leg raising test = positive at degree Fabere test= positive Right , and positive LT . Assessment and plan= chronic low back pain secondary to failed back surgery syndrome lumbar area, lumbar spondylosis with lumbar facet arthropathy . Chronic severe neck pain secondary to cervical spondylosis with cervical facet arthropathy, cervical foraminal stenosis chronic and current use of high-risk medication (opioids) Patient denies any side effects of the current pain medication and the current treatment/medication helping the patient to do activity of daily living , Diagnoses, prognosis, treatment options, including but not limited to physical therapy, medication management, interventional therapies, and surgery, were discussed with the patient All the questions answered The narcotic consent was signed and patient agreed and understood the side effects and complications of opioid treatment. Patient signed the narcotic agreement, and was orally counseled, not to overuse, not to abuse, not to Divert , not tp sell pain medication, and to take it as prescribed only, Patient was counseled not to drive or operate heavy equipment while using narcotic medication, and advised not to use alcohol or any Illicit drugs while using the narcotis. understanding that lack of compliance with any of the above instructions, will likely to cause discharge from, the pain service, not to renew his narcotic prescriptions MAPS Reviwed and it was apropriate . Medication managements= patient will be given prescription refills for methadone 10 mg every 6 hours dispense 120 with one refill, Allgood 10/325 every 8 hours dispense 90 with 1 refill Interventions= R C3 C4 C5 RFA. Can consider repeating caudal epidural steroid injections future. Overall this patient is a significant amount of opioids and likely has an element of opioid-induced hyperalgesia as well. Performed a urinary drug screen today to ensure medication compliance given that he is on chronic long-term opioids. I have spent 23 minutes on patient care today. The time was used to review the medical records including relevant urine studies and prescription history, review of the available imaging, evaluation and examination of the patient, coordination of care with the medical staff and if applicable referring physicians, as well as creation of the medical record. - PQRS measures = - Patient's medications are documented in the chart. -Tobacco use is negative and counseling.Given. -Patient's has not received pneumococcal vaccine. -Advanced care planning discussed, patient not eligible. -Opiate contract signed. -Pain positive and follow-up visit/procedure is scheduled. -Patient's blood pressure measured [ 146/69 ] , and documented in the record ,and patient will follow up with the primary care. -Patient's weight was measured and body mass index [ 37 ] above the normal limits and counseling was done. and patient instructed to follow-up with the primary care physician. -Patient was not identified as an unhealthy alcohol user PQRS Measure Charge Sheet PQRS Narrative: Smoking Status Never smoker Narcotic Agreement Date Signed 12/22/20 Pain Intensity [Lower Back] 5 Hx Alcohol Use (MH) No Home Medications: Ambulatory Orders Enalapril Maleate [Vasotec] 10 - 20 mg PO QID 07/27/16 amLODIPine [Norvasc] 5 mg PO QAM 03/26/19 Tamsulosin [Flomax] 0.8 mg PO HS 09/06/19 Testosterone Enanthate [Xyosted] 1 injection SQ Q14D 02/13/20 hydroCHLOROthiazide 25 mg PO HS 04/04/20 Diclofenac Sodium Gel [Voltaren Gel] 4 gm TOPICAL QID PRN 09/23/20 Naproxen 500 mg PO DIRECTED PRN 12/17/20 traZODone HCL [TraZODone HCl] 50 mg PO HS PRN 12/17/20 HYDROcodone/APAP 10-325MG [Allgood 10-325] 1 tab PO TID PRN 30 Days #90 tab 02/16/21 HYDROcodone/APAP 10-325MG [Allgood 10-325] 1 tab PO TID PRN 30 Days #90 tab 02/16/21 Methadone [Dolophine] 10 mg PO QID 30 Days #120 tab 02/16/21 Methadone [Dolophine] 10 mg PO QID PRN 30 Days #120 tab 02/16/21 Controlled Substance Measures - Controlled Substance Measures Is patient prescribed a controlled substance at discharge?: Yes When asked, does pt state using other controlled substances?: No If prescribed controlled substance>3 days was MAPS reviewed?: Yes If Rx opioid, was Start Talking consent form obtained?: Yes If opioid is for acute pain is fill amount 7 days or less?: No Was information provided regarding opioid addiction?: No
== END ==
LOC: PNWHC3 07:23
PROVIDERS: ATTEND Anesthesiology
DX: M96.1 Postlaminectomy syndrome, not elsewhere classified (principal); M47.816 Spondylosis without myelopathy or radiculopathy, lumbar region; M47.812 Spondylosis without myelopathy or radiculopathy, cervical region; M48.02 Spinal stenosis, cervical region; G89.29 Other chronic pain; Z79.891 Long term (current) use of opiate analgesic; Z88.8 Allergy status to other drugs, medicaments and biological substances; Z88.6 Allergy status to analgesic agent; Z91.018 Allergy to other foods; Z91.048 Other nonmedicinal substance allergy status
CPT/HCPCS: 80307; G0482; G0463; 99212

== ENCOUNTER 2021-02-27 06:40 | Day surgery (SDC) | payer MEDICARE ==
[2021-02-26 08:33] VITALS: BMI 36.3
[~2021-02-27 06:40] MED LIST changes: +LACTATED RINGERS 1,000 ML IV SCH; -REGADENOSON 0.4 MG/5 ML SYRINGE IV PRN
[2021-02-27] MEDS ORDERED: LACTATED RINGERS 1,000 ML IV ONE (07:02)
[2021-02-27 07:04] VITALS: TEMP 98
[2021-02-27] MEDS ORDERED: ROPIVACAINE 5MG/ML 20ML VIAL ONE (07:50)
[2021-02-27] MEDS ORDERED: methylPREDNISolone ACETATE 40 MG/ML 1 ML VIAL ONE (07:50)
[2021-02-27] MEDS ORDERED: PROPOFOL 10 MG/ML 20 ML VIAL IV ONE (07:52)
[2021-02-27] MEDS ORDERED: fentaNYL (PF) 50 MCG/ML 2 ML AMP ONE (07:52)
[2021-02-27] MEDS ORDERED: MIDAZOLAM 2 MG/2 ML VIAL ONE (07:52)
--- NOTE | 2021-02-27 08:34 | P.PCN ---
Date of Procedure: 02/27/21 Procedure(s) Performed: PREOPERATIVE DIAGNOSIS: Cervical spondylosis with Facet Arthropathy without myelopathy. POSTOPERATIVE DIAGNOSIS: Cervical spondylosis with Facet Arthropathy without myelopathy. PROCEDURES: Radiofrequency thermocoagulation,Right C3, C4, C5 medial branch with Fluroscopy [place]idence(fluoroscopy was available in etiology department ) (to denervate the facet joint at Right C3- 4 , C4- 5 ) ANESTHESIA: monitered anesthesia care as per anesthesia department. EBL: Minimal PROCEDURE INDICATION: The patient with neck pain secondary to cervical arthropathy who had signifigant relief of his pain with previous diagnostic cervical medial branch block. PROCEDURE DESCRIPTION / TECHNIQUE: The patient was seen and identified in the preoperative area. Risks, benefits, complications, and alternatives were discussed with the patient, the patient agreed to proceed with the procedure and signed the consent. IV was started. Vital signs remained stable throughout the procedure. Patient was taken to the OR and time out was completed. The patient was placed in the prone position on the procedure table. A pillow was placed under the patients chest to increase the cervical interlaminar space. The cervical area was prepped and draped in the usual sterile fashion. Critical pause was taken. Vital signs were closely monitored during the procedure. Conscious sedation was used during the procedure to decrease patients anxiety. Using cross-table lateral fluoroscopy, the centroid of the trapezoid of right C3, C4, C5, were identified, marked, and localized with 1% lidocaine. Subsequently, a 20 [id number] radiofrequency cannula with a 10-mm active tip was advanced guided by fluoroscopy to the centroid of the trapezoid of right C3, C4, C5, . Needle tip position was confirmed at the centroid of the trapezoids of C3, C4, C5, with anteroposterior fluoroscopy. Each site then underwent sensory testing at 50 Hz and 0 to 1 volt and motor testing at 2 Hz and 0 to 3 volt with local stimulation, but no radicular symptoms down the arm. Thereafter each sites underwent radiofrequency thermocoagulation at 80 degrees celsius for 90 seconds after injecting 0.5 ml of PF Ropivacaine 0.5 %. After thermocoagulation, 1 ml of the block solution containing Depo-Medrol 40 mg and 5 mL of preservative-free normal saline was injected at the C3, C4, C5, levels after negative aspiration of CSF and blood and with no paresthesias. Cannulas were retracted while injecting lidocaine 1% until the needle is out. Skin was cleansed and bandages were applied. COMPLICATIONS: No acute complications. DISPOSITION / PLANS: The patient was placed in a supine position and transferred to the recovery area in a stable condition for observation and was discharged from the recovery room after meeting discharge criteria. Home discharge instructions given to the patient by the staff. The patient was reexamined prior to discharge. The patient will schedule a follow up in the clinic in 2-4 weeks.
[2021-02-27] MEDS ORDERED: IV FLUID CONTINUATION 1,000 ML IV ONE (08:36)
[2021-02-27 08:43] VITALS: RESP 16
[2021-02-27 08:52] VITALS: BP 114/56; PULSE 71
--- NOTE | 2021-02-27 09:01 | FL ---
Fluoroscopy History: Cervical rf 31 sec fl time used cervical rf
== END 2021-02-27 09:02 | disposition home or self-care (01) ==
LOC: ORPAIN 06:40
PROVIDERS: ATTEND Specialist
DX: M47.812 Spondylosis without myelopathy or radiculopathy, cervical region (principal); I10 Essential (primary) hypertension; E78.5 Hyperlipidemia, unspecified; G47.33 Obstructive sleep apnea (adult) (pediatric); Z79.890 Hormone replacement therapy; Z99.89 Dependence on other enabling machines and devices
CPT/HCPCS: 64633; 64634; J2250; J1030; J3010; J2704; J2795

== ENCOUNTER → 2021-04-08 | Outpatient (CLI) | payer MEDICARE ==
[2021-04-08 07:49] VITALS: BP 139/81; PULSE 66; RESP 18
--- NOTE | 2021-04-08 08:12 | P.PN ---
Subjective Progress Note Date: 04/08/21 This is follow-up visit for this patient with a history of severe, and chronic low back pain secondary to lumbar failed back surgery syndrome, and severe neck pain secondary to cervical spondylosis cervical facet arthropathy, and cervical foraminal stenosis, previously we have done RFA medial branch block cervical area his neck pain improved, currently is complaining of severe low back pain mainly on the right side localized in the low back area with radiation to the right buttock His pain control between interventional pain management , and medication management , patient reported that he continued to have severe low back pain Patients currently on methadone 10 mg every 6 hours, [employer] 10/325 every 8 hours when necessary ,Patient denies any side effects of the medication, denies excessive drowsiness or sleepiness, denies suicidal ideation, and reports that the current pain medication is helping to control the pain , he complain of constipation and he used [id number] medication to help his constipation, Patient denies any motor or sensory deficit , patient denies any fever or night sweats, denies any change in the bowel movements or urination, and he reported that the current medication helping him to improve his pain, and do activities of daily livings Physical Examinations : -Constitutiona : Cooperative , not in acute distress . -HEENT : nech : supple , no Lymphadenopathy , normal thyroid size . : eyes : no ptosis , no icterus, no photophobia . - neurologic : Cranial nerve II to XII intact , no focal neurological deffecit . -psychatric : alert , oriented X 3 , appropriate affect , intact judgment and insight . -Lymphatic : no Lymphadenopathy . - musculoskeltal : Cervical Spine motor stregnth in the deltoid and biceps, normal right side , normal Left side motor stregnth biceps and the wrist extensors normal right side ,normal left side . motor stregnth in the triceps muscle . normal Right side , normal Left side Lumber spine moter stegnth lower extremities ,thigh and legs 5/5 Right side , 5/5 Left side deep tendon reflexes : normal Knee Jerk , normal ankle Jerk lumber facet Loading Test =positive Ri ght , positive Left Range of motion of the lumbar spine Flexion 30 degrees, extension 10 degrees strait leg raising test = positive at 45 degree Fabere test= positive Right , and positive LT . Sever tenderness over the Sacroiliac joint on the Right . Gaenslen test= positive right . Seated flexion test= positive right . Distraction test= positive right Sacroiliac compression test= positive right Assessment and plan= chronic low back pain secondary to failed back surgery syndrome lumbar area, lumbar spondylosis with lumbar facet arthropathy . Right sacroiliitis Chronic severe neck pain secondary to cervical spondylosis with cervical facet arthropathy, cervical foraminal stenosis Neck pain improved after RFA of the medial branch cervical area chronic and current use of high-risk medication (opioids) Patient denies any side effects of the current pain medication and the current treatment/medication helping the patient to do activity of daily living , Diagnoses, prognosis, treatment options, including but not limited to physical therapy, medication management, interventional therapies, and surgery, were discussed with the patient All the questions answered The narcotic consent was signed and patient agreed and understood the side effects and complications of opioid treatment. Patient signed the narcotic agreement, and was orally counseled, not to overuse, not to abuse, not to Divert , not tp sell pain medication, and to take it as prescribed only, Patient was counseled not to drive or operate heavy equipment while using narcotic medication, and advised not to use alcohol or any Illicit drugs while using the narcotis. understanding that lack of compliance with any of the above instructions, will likely to cause discharge from, the pain service, not to renew his narcotic prescriptions MAPS Reviwed and it was apropriate . Medication managements= patient will be given prescription refills for methadone 10 mg every 6 hours dispense 120 with one refill, [employer] 10/325 every 8 hours dispense 90 with 1 refill Interventions= patient could benefit from Right side accreditation steroid injections under fluoroscopy guidance UDS was OK Time with Patient: Less than 30 - PQRS measures = - Patient's medications are documented in the chart. -Tobacco use is negative and counseling.Given. -Patient's has not received pneumococcal vaccine. -Advanced care planning discussed, patient not eligible. -Opiate contract signed. -Pain positive and follow-up visit/procedure is scheduled. -Patient's blood pressure measured [ 139/81 ] , and documented in the record ,and patient will follow up with the primary care. -Patient's weight was measured and body mass index [ 37 ] above the normal limits and counseling was done. and patient instructed to follow-up with the primary care physician. -Patient was not identified as an unhealthy alcohol user Objective - Vital Signs Vital signs: Vital Signs Temp Pulse 66 04/08/21 07:45 Resp 18 04/08/21 07:45 BP 139/81 04/08/21 07:45 Pulse Ox 98 04/08/21 07:45
== END ==
LOC: PNWHC3 07:28
PROVIDERS: ATTEND Specialist
DX: M96.1 Postlaminectomy syndrome, not elsewhere classified (principal); M47.816 Spondylosis without myelopathy or radiculopathy, lumbar region; M47.812 Spondylosis without myelopathy or radiculopathy, cervical region; M46.1 Sacroiliitis, not elsewhere classified; G89.29 Other chronic pain; M48.02 Spinal stenosis, cervical region; Z79.891 Long term (current) use of opiate analgesic; Z88.6 Allergy status to analgesic agent; Z88.8 Allergy status to other drugs, medicaments and biological substances; Z91.018 Allergy to other foods; Z91.048 Other nonmedicinal substance allergy status
CPT/HCPCS: 99211

== ENCOUNTER → 2021-05-19 | Day surgery (SDC) | payer MEDICARE ==
[2021-05-15 12:09] VITALS: BMI 36.8
[~2021-05-19] MED LIST changes: +IV FLUID CONTINUATION 1,000 ML IV ONE; +LACTATED RINGERS 1,000 ML IV ONE; +MIDAZOLAM 2 MG/2 ML VIAL ONE; +ROPIVACAINE 5MG/ML 20ML VIAL ONE; +TRIAMCINOLONE ACETONIDE 40 MG/ML 1 ML VIAL ONE; +fentaNYL (PF) 50 MCG/ML 2 ML AMP ONE
[2021-05-19 07:17] VITALS: RESP 18; TEMP 97.5
--- NOTE | 2021-05-19 07:53 | P.PCN ---
Date of Procedure: 05/19/21 Surgeon: Red Marin Pathology: none sent Condition: stable Disposition: PACU Description of Procedure: Preoperative diagnoses= sacroiliac joint dysfunction and sacroiliitis on the ri ght side. Postlaminectomy pain syndrome. Postoperative diagnoses= same as preoperative diagnosis. Procedure= sacroiliac joint steroid injection under fluoroscopic guidance. Anesthesia= local anesthesia with lidocaine 1% and IV moderate conscious sedation with fentanyl and Versed Estimated blood loss=minimal. Procedure indication= the patient had a history of severe chronic low back pain, diagnosed with sacroiliitis and lumbar sacral facet arthropathy unresponsive to conservative treatment. Procedure description= the patient was seen and identified in the preoperative holding area, risks and benefits and alternative of the procedure and possible complications discussed with the patient, patient signed the consent. an IV was started, and vital signs were monitored and were stable throughout the procedure, patient was placed in the prone position or table and the lumbosacral area was prepped and draped with a sterile fashion, vital signs were closely monitored during the procedure.The sacroiliac joint was identified on the AP view of fluoroscopy then the C-arm was tilted to the contralateral oblique position to superimpose the anterior and posterior joint lines on each other and to have a unified joint line with the target point at the inferior one third of this line. I used 22-gauge 3-1/2 inch Quincke spinal needle for this procedure and after getting into the sacroiliac joint I injected 40 mg of Kenalog +2 MLS of Ropivacaine 0.5%. Patient tolerated the procedure well without any complication, The patient returned to supine position after the back was cleaned and a Band- Aid applied, the patient transported to recovery room in stable condition and he was monitored for 30 minutes before she was discharged home in stable condition . patient will follow up with the pain clinic in a few weeks. A copy of the needle placement was saved to the C-arm machine.
--- NOTE | 2021-05-19 08:19 | FL ---
EXAMINATION TYPE: FL guided pain mgmt statistic DATE OF EXAM: 05/19/2021 CLINICAL HISTORY: Right sacroiliac joint pain. TECHNIQUE: Fluoroscopy. COMPARISON: None. FINDINGS: Fluoroscopic guidance was provided during pain relief procedure performed by Dr. Marin . A total of 5 seconds of fluoroscopic time was utilized during the procedure and 1 spot images are a cquired. Single image acquired shows needle localization at inferior right sacroiliac joint level. IMPRESSION: As Above.
[2021-05-19 08:27] VITALS: BP 125/71; PULSE 69
== END ==
LOC: ORPAIN 06:40
PROVIDERS: ATTEND Anesthesiology
DX: M46.1 Sacroiliitis, not elsewhere classified (principal); M96.1 Postlaminectomy syndrome, not elsewhere classified; Y83.8 Other surgical procedures as the cause of abnormal reaction of the patient, or of later complication, without mention of misadventure at the time of the procedure
CPT/HCPCS: J2250; J3301; J3010; J2795; G0260; 27096

== ENCOUNTER → 2021-06-03 | Outpatient (CLI) | payer MEDICARE ==
[2021-06-03 08:24] VITALS: BP 135/83; PULSE 62; RESP 18; TEMP 98.1
--- NOTE | 2021-06-03 08:59 | P.PN ---
Subjective Progress Note Date: 06/03/21 This is follow-up visit for this patient with a history of severe, and chronic low back pain secondary to lumbar failed back surgery syndrome, and severe neck pain secondary to cervical spondylosis cervical facet arthropathy, and cervical foraminal stenosis, and cervical degenerative disc disease, previously we have done RFA medial branch block cervical area his neck pain improved, currently is complaining of severe neck pain with radiation to the upper extremity, associated with numbness and tingling sensation and patient reported that he feels some weakness in his hands bilaterally His pain control between interventional pain management , and medication management , patient reported that he continued to have severe low back pain Patients currently on methadone 10 mg every 6 hours, [place] 10/325 every 8 hours when necessary ,Patient denies any side effects of the medication, denies exce ssive drowsiness or sleepiness, denies suicidal ideation, and reports that the current pain medication is helping to control the pain , he complain of constipation and he used [id number]-[id number] medication to help his constipation, Patient denies any motor or sensory deficit , patient denies any fever or night sweats, denies any change in the bowel movements or urination, and he reported that the current medication helping him to improve his pain, and do activities of daily livings Physical Examinations : -Constitutiona : Cooperative , not in acute distress . -HEENT : nech : supple , no Lymphadenopathy , normal thyroid size . : eyes : no ptosis , no icterus, no photophobia . - neurologic : Cranial nerve II to XII intact , no focal neurological deffecit . -psychatric : alert , oriented X 3 , appropriate affect , intact judgment and insight . -Lymphatic : no Lymphadenopathy . - musculoskeltal : Cervical Spine motor stregnth in the deltoid and biceps, normal right side , normal Left side motor stregnth biceps and the wrist extensors normal right side ,normal left side . motor stregnth in the triceps muscle . normal Right side , normal Left side Lumber spine moter stegnth lower extremities ,thigh and legs 5/5 Right side , 5/5 Left side deep tendon reflexes : normal Knee Jerk , normal ankle Jerk lumber facet Loading Test =positive Right , positive Left Range of motion of the lumbar spine Flexion 30 degrees, extension 10 degrees strait leg raising test = positive at 45 degree Fabere test= positive Right , and positive LT . Sever tenderness over the Sacroiliac joint on the Right . Gaenslen test= positive right . Seated flexion test= positive right . Distraction test= positive right Sacroiliac compression test= positive right Assessment and plan= chronic low back pain secondary to failed back surgery syndrome lumbar area, lumbar spondylosis with lumbar facet arthropathy . Cervical radiculopathy ,cervical spondylosis with cervical facet arthropathy, cervical foraminal stenosis chronic and current use of high-risk medication (opioids) Patient denies any side effects of the current pain medication and the current treatment/medication helping the patient to do activity of daily living , Diagnoses, prognosis, treatment options, including but not limited to physical therapy, medication management, interventional therapies, and surgery, were discussed with the patient All the questions answered The narcotic consent was signed and patient agreed and understood the side effects and complications of opioid treatment. Patient signed the narcotic agreement, and was orally counseled, not to overuse, not to abuse, not to Divert , not tp sell pain medication, and to take it as prescribed only, Patient was counseled not to drive or operate heavy equipment while using narcotic medication, and advised not to use alcohol or any Illicit drugs while using the narcotis. understanding that lack of compliance with any of the above instructions, will likely to cause discharge from, the pain service, not to renew his narcotic prescriptions MAPS Reviwed and it was apropriate . Medication managements= patient will be given prescription refills for methadone 10 mg every 6 hours dispense 120 with one refill, [place] 10/325 every 8 hours dispense 90 with 1 refill Interventions= patient could benefit from cervical epidural steroid injection at C7-T1 Of lead electrocardiogram was ordered today to evaluate QTc intervals (need to be checked if patient on methadone therapy ) UDS was OK Time with Patient: Less than 30 - PQRS measures = - Patient's medications are documented in the chart. -Tobacco use is negative and counseling.Given. -Patient's has not received pneumococcal vaccine. -Advanced care planning discussed, patient not eligible. -Opiate contract signed. -Pain positive and follow-up visit/procedure is scheduled. -Patient's blood pressure measured [ 135/83 ] , and documented in the record ,and patient will follow up with the primary care. -Patient's weight was measured and body mass index [ 34.9 ] above the normal limits and counseling was done. and patient instructed to follow-up with the primary care physician. -Patient was not identified as an unhealthy alcohol user Objective - Vital Signs Vital signs: Vital Signs Temp 98.1 F 06/03/21 08:16 Pulse 62 06/03/21 08:16 Resp 18 06/03/21 08:16 BP 135/83 06/03/21 08:16 Pulse Ox 99 06/03/21 08:16 Intake & Output 06/02/21 06/03/21 06/03/21 18:59 06:59 18:59 Weight 110.223 kg
== END ==
LOC: PNWHC3 07:54
PROVIDERS: ATTEND Specialist
DX: M96.1 Postlaminectomy syndrome, not elsewhere classified (principal); M47.816 Spondylosis without myelopathy or radiculopathy, lumbar region; M47.22 Other spondylosis with radiculopathy, cervical region; M48.02 Spinal stenosis, cervical region; Z79.891 Long term (current) use of opiate analgesic; Z88.8 Allergy status to other drugs, medicaments and biological substances; Z88.6 Allergy status to analgesic agent; Z91.018 Allergy to other foods; Z91.09 Other allergy status, other than to drugs and biological substances
CPT/HCPCS: 93005; G0463; 99211

== ENCOUNTER → 2021-08-06 | Outpatient (CLI) | payer MEDICARE ==
--- NOTE | 2021-08-06 08:05 | P.PN ---
Subjective Progress Note Date: 08/06/21 Principal diagnosis: A 66 yr old malewith a history of severe and chronic neck pain secondary to cervical degenerative disc diseases and spondylosis with facet arthropathy presents today for medication refills. Pain level is 6 out of 10 in intensity, constant for years with radiation of pain to the bilateral upper extremities. Patient also recalls a syncopal episode when rotating his head which varied him as he was using a chainsaw at the time. 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 Pain is provoked by rotation, lateral flexion and extension. Pain is alleviated with medications, topicals, injections, ice, heat, home exercise regimen, repositioning and rest. Patient is also looking forward to having the cervical injections he was approved for in May. Interventional pain procedures completed include right cervical RFA in February 2021 Patient is currently on [place] 10/325 3 times a day, diclofenac gel when necessary and methadone 10 mg 4 times a day Patient denies any side effects of the medication(s), denies excessive drowsiness or sleepiness, denies suicidal ideation and reports that the current pain medication is helping to control the pain and improve activities of daily living. Patient denies any motor or sensory deficits. Patient denies any fever or night sweats, denies any change in the bowel movements or urination. Physical Examination: -Constitutional: Cooperative. Not in acute distress . -HEENT: Neck is supple. No lymphadenopathy. No thyromegaly. Normal thyroid size. Eyes: No ptosis , no icterus, no photophobia. ENT: No auditory deficits. Normal oropharynx. No Thrush. - Respiratory: Chest clear to auscultations bilaterally. No wheezing. No rhonchi. - Cardiovascular: Regular rate and rhythm. S1 / S2 , no S3 , no S4. - Gastrointestinal: Abdomen soft no tenderness. Bowel sounds positive in all four quadrants. No organomegaly. - Genitourinary: Deferred. - Neurologic: Cranial nerve II to XII intact. No focal neurological deficits. - Psychatric: Alert & oriented x 3. Matching mood & appropriate affect. Judgment and insight intact. - Lymphatic: No Lymphadenopathy. - Musculoskeletal: Cervical spine: Muscle bulk/ tone/ strength in the bilateral upper extremities normal. Mild Vertebral body tenderness to palpation on the C4-C5 and C6 Facet loading test cervical area positive over the bilateral C4 to C5, C5 to C6, C6 to C7, C7 to T1 Lumbar spine: Motor bulk/ tone/ strength lower extremities , thigh and legs : 5/5 Deep tendon reflexes : Normal Knee Jerk. Normal Ankle Jerk . Vertebral body tenderness to palpation over Lumbar Facet Loading Test positive Straight Leg Raise: positive at 30 degrees right side/ left side Gaenslen's Test postive Sacral spine : Severe tenderness over the Sacroiliac joint: right side / left side Range of motion: Flexion of the lumbar spine <60 degrees Range of motion: Extension of the lumbar spine <20 degrees Gaenslen's Test positive Rohan test: positive right side / left side Assessment and plan: Chronic neck pain secondary to cervical degenerative disc disease , spondylosis with facet arthropathy without myelopathy Chronic and current use of high-risk medication (Opioids). The patient was counseled about risk of opioid use, psychological risk associated with opioids and was orally counseled to not overuse , divert or sell medications. Pt is to store medication in a safe location. The patient is counseled against driving while using narcotic medications and also not to use alcohol or any illicit recreational drugs. Patient verbalized understanding that the lack of compliance will result in failure to renew narcotic prescription(s) as well as possible discharge from the clinic Diagnoses, prognosis and treatment options including but not limited to physical therapy, surgical interventions, interventional therapies and medication management including narcotics and adjuvant medication were discussed. 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 Prescription refill for [place] 10/325 #90 with 1 refill and methadone 10 mg #120 with one refill and diclofenac gel 1% with 1 refill I have spent 31 minutes on patient care today. Dr Lopez was available by phone for the evaluation of this patient. The time was used to review the medical records including relevant urine studies and Prescription history (MAPs), review of the available imaging, evaluation and examination of the patient, coordination of care with the medical staff and if applicable referring physicians, as well as creation of the medical record PQRS Measure Charge Sheet PQRS Narrative: Smoking Status Never smoker Narcotic Agreement Date Signed 12/22/20 Pain Intensity [Bilateral Hip] 3 Pain Intensity [Neck] 6 Scale Used Numeric (1 - 10) Hx Alcohol Use (MH) No Home Medications: Ambulatory Orders amLODIPine [Norvasc] 5 mg PO QAM 03/26/19 Tamsulosin [Flomax] 0.8 mg PO HS 09/06/19 Testosterone Enanthate [Xyosted] 1 injection SQ Q14D 02/13/20 hydroCHLOROthiazide 25 mg PO HS PRN 04/04/20 Naproxen 500 mg PO DAILY PRN 12/17/20 traZODone HCL [TraZODone HCl] 50 mg PO HS PRN 12/17/20 Enalapril [Vasotec] 10 mg PO BID 02/26/21 Diclofenac Sodium Gel [Voltaren Gel] 4 gm TOPICAL QID PRN 30 Days #100 gm 08/06/21 HYDROcodone/APAP 10-325MG [[place] 10-325] 1 tab PO Q8HR PRN 30 Days #90 tab 08/06/21 HYDROcodone/APAP 10-325MG [[place] 10-325] 1 tab PO TID PRN 30 Days #90 tab 08/06/21 Methadone HCl 10 mg PO QID 30 Days #120 tablet 08/06/21 Methadone [Dolophine] 10 mg PO QID PRN 30 Days #120 tab 08/06/21
[2021-08-06 08:14] VITALS: BP 132/68; PULSE 67; RESP 18; TEMP 98
== END ==
LOC: PNWHC3 07:28
PROVIDERS: ATTEND Physician Assistant Medical
DX: M50.30 Other cervical disc degeneration, unspecified cervical region (principal); M47.816 Spondylosis without myelopathy or radiculopathy, lumbar region; G89.29 Other chronic pain; Z79.891 Long term (current) use of opiate analgesic; Z88.8 Allergy status to other drugs, medicaments and biological substances; Z91.018 Allergy to other foods; Z88.6 Allergy status to analgesic agent; Z91.048 Other nonmedicinal substance allergy status; Z91.038 Other insect allergy status
CPT/HCPCS: 80307; G0482; G0463; 99212

== ENCOUNTER → 2021-10-08 | Outpatient (CLI) | payer MEDICARE ==
--- NOTE | 2021-10-09 06:41 | US ---
EXAMINATION TYPE: US thyroid st tissue head/neck DATE OF EXAM: 10/08/2021 COMPARISON: 03/13/2020 CLINICAL HISTORY: 66-year-old male E04.1 Nodule. Hx nodule, FNA. TECHNIQUE: Multiple sonographic images of the thyroid gland are obtained. FINDINGS: GLAND SIZE: Right Lobe: 5.0 x 1.5 x 2.7 cm Overall Parenchyma: heterogenous Left Lobe: 4.7 x 2.8 x 2.8 cm Overall Parenchyma: heterogeneous Isthmus Thickness: 0.3 cm NODULES RIGHT: # of nodules measured on right: 2. 1. 0.6 X 0.7 x 0.7 cm, lower, lateral solid or almost completely solid, hypoechoic TR 4 nodule, whi ch is as wide as it is tall, with ill-defined margins, without echogenic foci. Prior size: 0.7 x 0.7 x 0.6 cm 2. 1.7 X 1.4 x 1.2 cm, lower medial, solid or almost completely solid, hypoechoic TR 4 nodule, whic h is wider than tall, with smooth margins, without echogenic foci. Prior size: 1.3 x 1.2 x 1.1 cm 3. Additional subcentimeter (4.3 mm) anechoic nodule visualized at the superior pole with hyperechoic focus within. Compatible with a benign colloid cyst. LEFT: # of nodules measured on left: 1 1. 3.3 X 2.5 x 2.3 cm, mid mid, solid or almost completely solid, isoechoic to hypoechoic TR 4 nodu le, which is wider than tall, with smooth margins, without echogenic foci. Prior size: 3.2 x 2.7 x 2.4 cm ISTHMUS: # of nodules measured in the isthmus: 0 Bilateral neck scanned, no evidence of lymphadenopathy. IMPRESSION: A few TR4 nodules. Dominant nodule in the left lobe relatively stable at 3.3 x 2.5 cm (versus 3.2 x 2 .7 cm, previously). Dominant nodule on the right may be slightly larger at 1.7 x 1.4 cm (versus 1.3 x 1.2 cm, previously).
== END | disposition home or self-care (01) ==
LOC: RADUSWWP 14:49
PROVIDERS: ATTEND Otolaryngology
DX: E04.2 Nontoxic multinodular goiter (principal)
CPT/HCPCS: 76536

== ENCOUNTER → 2021-11-11 | Outpatient (CLI) | payer MEDICARE ==
--- NOTE | 2021-11-11 07:46 | MR ---
EXAMINATION TYPE: MR lumbar spine wo con DATE OF EXAM: 11/11/2021 COMPARISON: CT abdomen and pelvis August 18, 2018 HISTORY: Low back pain, unspecified, pain in bilateral hips TECHNIQUE: Multiplanar, multisequence imaging of the lumbar spine is performed without IV contrast. FINDINGS: Sagittal images of the lumbar spine show vertebral body heights to remain satisfactory. Pr ominent Schmorl node in the superior L1 endplate sagittal image 11 is redemonstrated. Smaller Schmorl node in the anterior superior T12 endplate is redemonstrated. Slight grade 1 retrolisthesis L1 on L2 and L2 on L3 redemonstrated. Artifact from posterior interpedicular rods and screws noted bilaterall y at L2-L3 level. Artifact from intrapedicular screws noted at the right L5-S1 and left L4-L5 and L5- S1 levels. Multilevel disc desiccation. Moderate to advanced disc space narrowing L3-L4 and L5-S1 lev els redemonstrated. Moderate to severe disc space narrowing and vacuum disc phenomenon at L1-L2 level and moderate anterior spurring redemonstrated. Mild to moderate disc space narrowing at L2-L3 level redemonstrated. Some bony fusion or ankylosis of the left L3 and L4 vertebra again seen. The conus me dullaris is difficult to distinctly visualize. Bone marrow signal intensity is overall heterogeneous. Posterior disc herniation noted at base anterior thecal sac at T10-T11 level sagittal image 11. Axial images at T12-L1 level show mild/moderate facet arthropathy bilaterally. Tiny central disc prot rusion minimally effaces anterior thecal sac. Axial images at L1-L2 level show artifact from surgical change an spondylolisthesis. There is moderat e to advanced broad disc bulge effacing the anterior thecal sac. There is facet arthropathy effacing posterior lateral thecal sac. Degree of spinal canal stenosis suspected at this level sagittal image 11 and axial image 31. Bilateral neural foramina are patent on sagittal images. Axial images at L2-L3 level shows spondylolisthesis. There is artifact from surgical change identifie d. Spinal canal is preserved. Bilateral neural foramina are patent. Axial images at L3-L4 level show artifact from surgical change. Spinal canal is preserved. Bilateral neural foramina are patent. Axial images at L4-L5 level show artifact from surgical change. Spinal canal is preserved. Bilateral neural foramina are patent. Axial images at L5-S1 level show artifact from surgical change. Spinal canal is preserved. Bilateral neural foramina are likely patent. Some artifact degradation is seen. Posterior bone grafting mid to lower lumbar spine is identified seen better on CT. Paraspinal muscle bulk shows some posterior lower lumbar generalized atrophy. IMPRESSION: Extensive surgical changes as detailed above. Multilevel spondylolisthesis and degenerati ve changes as noted above.
== END | disposition home or self-care (01) ==
LOC: RADMRIMAIN 05:41
PROVIDERS: ATTEND Orthopaedic Surgery Orthopaedic Surgery of the Spine
DX: M47.816 Spondylosis without myelopathy or radiculopathy, lumbar region (principal); M43.16 Spondylolisthesis, lumbar region
CPT/HCPCS: 72148

== ENCOUNTER → 2021-11-25 | Outpatient (CLI) | payer MEDICARE ==
[2021-11-25 07:55] VITALS: BP 164/79; PULSE 72; RESP 18; TEMP 97.9
--- NOTE | 2021-11-25 08:03 | P.PN ---
Subjective Progress Note Date: 11/25/21 Principal diagnosis: A 66 yr old male with a history of severe and chronic low back pain secondary to lumbar degenerative disc diseases and lumbar spondylosis with facet arthropathy presents today for follow-up status post LESI and medication refills. He states he experienced 75% pain relief for 6 days status post procedure. Pain level is currently at 5 out of 10 in intensity, burning, throbbing pain in the lower aspects of his lumbar spine with sharp pain in the bilateral hips. Pain is provoked by bending, walking and standing. Pain is alleviated with medications, topicals, injections, heat, use of a lumbar support brace, home exercise stretching regimen, repositioning and rest. As the pain relief was intermittent in his lumbar spine radiating to his hips, he states he will be returning to Dr. Delgadillo to reconsider surgical intervention. Interventional pain procedures completed include LESI, Cervical RFA (Feb 2021) Patient is currently on [place] 10/325 #90, methadone 10 mg #120, Voltaren gel when necessary Patient denies any side effects of the medication(s), denies excessive drowsiness or sleepiness, denies suicidal ideation and reports that the current pain medication is helping to control the pain and improve activities of daily living. Patient denies any motor or sensory deficits. Patient denies any fever or night sweats, denies any change in the bowel movements or urination. Physical Examination: -Constitutional: Cooperative. Not in acute distress . -HEENT: Neck is supple. No lymphadenopathy. No thyromegaly. Normal thyroid size. Eyes: No ptosis , no icterus, no photophobia. ENT: No auditory deficits. Normal oropharynx. No Thrush. - Respiratory: Chest clear to auscultations bilaterally. No wheezing. No rhonchi. - Cardiovascular: Regular rate and rhythm. S1 / S2 , no S3 , no S4. - Gastrointestinal: Abdomen soft no tenderness. Bowel sounds positive in all four quadrants. No organomegaly. - Genitourinary: Deferred. - Neurologic: Cranial nerve II to XII intact. No focal neurological deficits. - Psychatric: Alert & oriented x 3. Matching mood & appropriate affect. Judgment and insight intact. - Lymphatic: No Lymphadenopathy. - Musculoskeletal: Cervical spine: Muscle bulk/ tone/ strength in the bilateral upper extremities normal Vertebral body tenderness to palpation over Facet loading test positive Thoracic spine Muscle bulk / tone/ strength in the bilateral paraspinal muscles normal Vertebral body tender to palpation over Facet loading test positive Lumbar spine: Motor bulk/ tone/ strength lower extremities , thigh and legs : 5/5 Deep tendon reflexes : Normal Knee Jerk. Normal Ankle Jerk . Vertebral body tenderness to palpation over L3, L4, L5 Lumbar Facet Loading Test positive Straight Leg Raise: positive at 30 degrees right side/ left side Gaenslen's Test positive Sacral spine : Severe tenderness over the Sacroiliac joint: right side / left side Range of motion: Flexion of the lumbar spine <60 degrees Range of motion: Extension of the lumbar spine <20 degrees Gaenslen's Test positive Waqas's Test positive Rohan test: positive right side / left side Thigh Thrust Test Sacral Thrust Test Assessment and plan: Chronic low back pain secondary to lumbar degenerative disc disease , lumbar spondylosis with facet arthropathy without myelopathy Medications refilled. Pt will return to Dr Delgadillo for reconsideration of surgical intervention. Risks, benefits of procedure discussed and pt verbalized understanding. Denies anticoagulant use or medical history of diabetes. Chronic and current use of high-risk medication (Opioids). The patient was counseled about risk of opioid use, psychological risk associated with opioids and was orally counseled to not overuse , divert or sell medications. Pt is to store medication in a safe location. The patient is counseled against driving while using narcotic medications and also not to use alcohol or any illicit recreational drugs. Patient verbalized understanding that the lack of compliance will result in failure to renew narcotic prescription(s) as well as possible discharge from the clinic Diagnoses, prognosis and treatment options including but not limited to physical therapy, surgical interventions, interventional therapies and medication management including narcotics and adjuvant medication were discussed. All patient questions answered MAPS reviewed and it was appropriate. Prescription refill for [place] 10/325mg #90, Methadone 10mg #120, Voltaren gel prn, all with 1 refill. I have spent 31 minutes on patient care today. Dr Lopez was available by phone for the evaluation of this patient. The time was used to review the medical records including relevant urine studies and Prescription history (MAPs), review of the available imaging, evaluation and examination of the patient, coordination of care with the medical staff and if applicable referring physicians, as well as creation of the medical record Objective - Vital Signs Vital signs: Vital Signs Temp 97.9 F 06/01/22 07:48 Pulse 72 11/25/21 07:48 Resp 18 11/25/21 07:48 BP 164/79 11/25/21 07:48 Pulse Ox FiO2 Intake & Output 11/24/21 11/25/21 11/25/21 18:59 06:59 18:59 Weight 113.852 kg PQRS Measure Charge Sheet Mode of Arrival: Ambulatory - Pain Location Bilateral Hip Non-Pharmacological Interventions: Heat, Home Exercise, Inactivity, Stretching Pharmacological Interventions: Block, Epidural, PRN Medication, Scheduled Medication, Topical Medication PQRS Narrative: Smoking Status Never smoker Narcotic Agreement Date Signed 12/22/20 Blood Pressure 164/79 Pain Intensity [Bilateral Hip] 5 Scale Used Numeric (1 - 10) Hx Alcohol Use (MH) No Home Medications: Ambulatory Orders amLODIPine [Norvasc] 5 mg PO QAM 03/26/19 Tamsulosin [Flomax] 0.4 mg PO HS 09/06/19 Testosterone Enanthate [Xyosted] 1 injection SQ Q14D 02/13/20 hydroCHLOROthiazide 25 mg PO HS PRN 04/04/20 traZODone HCL [TraZODone HCl] 50 mg PO HS PRN 12/17/20 Enalapril [Vasotec] 10 mg PO BID 02/26/21 Diclofenac Sodium Gel [Voltaren Gel] 4 gm TOPICAL QID PRN 30 Days #100 gm 11/25/21 HYDROcodone/APAP 10-325MG [[place] 10-325] 1 tab PO Q8HR PRN 30 Days #90 tab 11/25/21 HYDROcodone/APAP 10-325MG [[place] 10-325] 1 tab PO Q8HR PRN 30 Days #90 tab 11/25/21 Methadone HCl 10 mg PO QID 30 Days #120 tablet 11/25/21 Methadone [Dolophine] 10 mg PO QID PRN 30 Days #120 tab 11/25/21
== END ==
LOC: PNWHC3 07:22
PROVIDERS: ATTEND Specialist
DX: M51.36 Other intervertebral disc degeneration, lumbar region (principal); M47.816 Spondylosis without myelopathy or radiculopathy, lumbar region; G89.29 Other chronic pain; Z79.891 Long term (current) use of opiate analgesic; Z91.018 Allergy to other foods; Z88.6 Allergy status to analgesic agent; Z91.038 Other insect allergy status; Z88.8 Allergy status to other drugs, medicaments and biological substances; Z91.09 Other allergy status, other than to drugs and biological substances
CPT/HCPCS: 99211

== ENCOUNTER 2022-01-07 09:12 | Day surgery (SDC) | payer MEDICARE ==
--- NOTE | 2022-01-07 11:15 | US ---
ULTRASOUND GUIDED FNA AND CORE THYROID BIOPSY: CLINICAL HISTORY: Large left thyroid nodule FINDINGS: The procedure was explained to the patient. The risks, complications, benefits and alternatives were discussed and any questions were answered. Informed consent was obtained. Patient was placed supin e on the ultrasound table and prepped and draped in the usual sterile fashion. Utilizing a 25 gauge needle, five passes were made into the large left thyroid nodule. Single 20-gauge core sample also o btained. Patient was stable throughout the procedure. Pathology is pending. All elements of maximal barrier technique were utilized. IMPRESSION: 1. Successful ultrasound guided thyroid biopsy.
[2022-01-07 11:20] VITALS: BP 113/66; PULSE 76; RESP 18; TEMP 98
== END 2022-01-07 11:10 | disposition home or self-care (01) ==
LOC: RADPROMAIN 09:12
PROVIDERS: ATTEND Otolaryngology
DX: E04.1 Nontoxic single thyroid nodule (principal); Z88.6 Allergy status to analgesic agent; Z88.8 Allergy status to other drugs, medicaments and biological substances; Z91.018 Allergy to other foods; Z91.09 Other allergy status, other than to drugs and biological substances; Z79.899 Other long term (current) drug therapy; Z79.891 Long term (current) use of opiate analgesic; Z80.1 Family history of malignant neoplasm of trachea, bronchus and lung; Z80.3 Family history of malignant neoplasm of breast
CPT/HCPCS: 10005; 88173; 88305

== ENCOUNTER → 2022-01-20 | Outpatient (CLI) | payer MEDICARE ==
[2022-01-20 07:53] VITALS: BP 146/84; PULSE 68; RESP 16; TEMP 98.7
--- NOTE | 2022-01-20 08:06 | P.PN ---
Subjective Progress Note Date: 01/20/22 This is follow-up visit for this patient with a history of severe, and chronic low back pain secondary to lumbar failed back surgery syndrome, and severe neck pain secondary to cervical spondylosis cervical facet arthropathy, and cervical foraminal stenosis, and cervical degenerative disc disease, previously we have done RFA medial branch block cervical area his neck pain improved, and also previously we have done bilateral sacroiliac joint steroid injection, she continued to complain complaining of severe neck pain with radiation to the upper extremity, associated with numbness and tingling sensation , His pain control between interventional pain management , and medication management , patient reported that he continued to have severe low back pain Patients currently on methadone 10 mg every 6 hours, [place] 10/325 every 8 hours when necessary ,Patient denies any side effects of the medication, denies excessive drowsiness or sleepiness, denies suicidal ideation, and reports that the current pain medication is helping to control the pain , he complain of constipation and he used [id number] medication to help his constipation, Patient denies any motor or sensory deficit , patient denies any fever or night sweats, denies any change in the bowel movements or urination, and he reported that the current medication helping him to improve his pain, and do activities of daily livings Patient already done physical therapy in the past without any significant benefit, he continued to use her and said naproxen and he uses Voltaren gel locally, Physical Examinations : -Constitutiona : Cooperative , not in acute distress . -HEENT : nech : supple , no Lymphadenopathy , normal thyroid size . : eyes : no ptosis , no icterus, no photophobia . - neurologic : Cranial nerve II to XII intact , no focal neurological deffecit . -psychatric : alert , oriented X 3 , appropriate affect , intact judgment and insight . -Lymphatic : no Lymphadenopathy . - musculoskeltal : Cervical Spine motor stregnth in the deltoid and bic eps, normal right side , normal Left side motor stregnth biceps and the wrist extensors normal right side ,normal left side . motor stregnth in the triceps muscle . normal Right side , normal Left side Lumber spine moter stegnth lower extremities ,thigh and legs 5/5 Right side , 5/5 Left side deep tendon reflexes : normal Knee Jerk , normal ankle Jerk lumber facet Loading Test =positive Right , positive Left Range of motion of the lumbar spine Flexion 30 degrees, extension 10 degrees strait leg raising test = positive at 45 degree Fabere test= positive Right , and positive LT . tenderness over the Sacroiliac joint bilateral . Gaenslen test= positive bilateral . Seated flexion test= positive Bilateral . Distraction test= positive bilateral Sacroiliac compression test= positive right Assessment and plan= chronic low back pain secondary to failed back surgery syndrome lumbar area, lumbar spondylosis with lumbar facet arthropathy . Bilateral sacroiliitis Cervical radiculopathy ,cervical spondylosis with cervical facet arthropathy, cervical foraminal stenosis chronic and current use of high-risk medication (opioids) Patient denies any side effects of the current pain medication and the current treatment/medication helping the patient to do activity of daily living , Diagnoses, prognosis, treatment options, including but not limited to physical therapy, medication management, interventional therapies, and surgery, were discussed with the patient All the questions answered The narcotic consent was signed and patient agreed and understood the side effects and complications of opioid treatment. Patient signed the narcotic agreement, and was orally counseled, not to overuse, not to abuse, not to Divert , not tp sell pain medication, and to take it as prescribed only, Patient was counseled not to drive or operate heavy equipment while using narcotic medication, and advised not to use alcohol or any Illicit drugs while using the narcotis. understanding that lack of compliance with any of the above instructions, will likely to cause discharge from, the pain service, not to renew his narcotic prescriptions MAPS Reviwed and it was apropriate . Medication managements= patient will be given prescription refills for methadone 10 mg every 6 hours dispense 120 with one refill, [place] 10/325 every 8 hours dispense 90 with 1 refill Interventions= none we will order 12 lead electrocardiogram to evaluate QTc intervals (need to be checked if patient on methadone therapy ) Urine drug screen ordered today narcotic agreement to continue today - PQRS measures = - Patient's medications are documented in the chart. -Tobacco use is negative and counseling.Given. -Patient's has received pneumococcal vaccine. -Advanced care planning discussed, patient not eligible. -Opiate contract signed. -Pain positive and follow-up visit/procedure is scheduled. -Patient's blood pressure measured [ 146/84 ] , and documented in the record ,and patient will follow up with the primary care. -Patient's weight was measured and body mass index [ 35.3 ] above the normal limits and counseling was done. and patient instructed to follow-up with the primary care physician. -Patient was not identified as an unhealthy alcohol user Objective - Vital Signs Vital signs: Vital Signs Temp 98.7 F 01/20/22 07:45 Pulse 68 01/20/22 07:45 Resp 16 01/20/22 07:45 BP 146/84 01/20/22 07:45 Pulse Ox 96 01/20/22 07:45 FiO2 Intake & Output 01/19/22 01/20/22 01/20/22 18:59 06:59 18:59 Weight 111.584 kg
== END ==
LOC: PNWHC3 07:11
PROVIDERS: ATTEND Specialist
DX: Z51.81 Encounter for therapeutic drug level monitoring (principal); G89.29 Other chronic pain; M96.1 Postlaminectomy syndrome, not elsewhere classified; M47.816 Spondylosis without myelopathy or radiculopathy, lumbar region; M46.1 Sacroiliitis, not elsewhere classified; M47.22 Other spondylosis with radiculopathy, cervical region; M48.02 Spinal stenosis, cervical region; Z79.891 Long term (current) use of opiate analgesic; Z88.8 Allergy status to other drugs, medicaments and biological substances; Z88.6 Allergy status to analgesic agent; Z91.018 Allergy to other foods; Z91.09 Other allergy status, other than to drugs and biological substances
CPT/HCPCS: 93005; 80307; G0482; G0463; 99212

== ENCOUNTER → 2022-03-17 | Outpatient (CLI) | payer MEDICARE ==
[2022-03-17 08:00] VITALS: BP 139/73; PULSE 66; RESP 18
--- NOTE | 2022-03-17 15:08 | P.PAINPG ---
PQRS Measure Charge Sheet Comment: A 67 yr old male with a history of severe and chronic low back pain secondary to lumbar degenerative disc diseases and lumbar spondylosis with facet arthropathy without myelopathy presents today for medication refills. Pain level is currently at 7/10 in intensity, constant, localized in lower [place] spine, debilitating in character w shooting towards the BLEs. Pain is provoked by PT, activity for 10 minutes. Pain is alleviated with home exercise regimen as tolerated, heat, little ice, medications, laying supine, repositioning and rest. Interventional pain procedures completed include Cauda GEETHA w lysis, RFA C3-5 Patient is currently on [place] 10/325mg #90, Methadone 10mg #120m, Naproxen, Voltaren gel Patient denies any side effects of the medication(s), denies excessive drowsiness or sleepiness, denies suicidal ideation and reports that the current pain medication is helping to control the pain and improve activities of daily living. Patient denies any motor or sensory deficits. Patient denies any fever or night sweats, denies any change in the bowel movements or urination. Physical Examination: -Constitutional: Cooperative. Not in acute distress . - Neurologic: Cranial nerve II to XII intact. No focal neurological deficits. - Psychatric: Alert & oriented x 3. Matching mood & appropriate affect. Judgment and insight intact. - Musculoskeletal: Cervical spine: Muscle bulk/ tone/ strength in the bilateral upper extremities normal Vertebral body tenderness to palpation over Spurling test positive Distraction test positive Facet loading test positive Thoracic spine Muscle bulk / tone/ strength in the bilateral paraspinal muscles normal Vertebral body tender to palpation over Facet loading test positive Lumbar spine: Motor bulk/ tone/ strength lower extremities , thigh and legs : 5/5 Deep tendon reflexes : Normal Knee Jerk. Normal Ankle Jerk . Vertebral body tenderness to palpation over L1 Lumbar Facet Loading Test positive Straight Leg Raise: positive at 30 degrees right side/ left side Gaenslen's Test positive Sacral spine : Severe tenderness over the Sacroiliac joint: right side / left side Range of motion: Flexion of the lumbar spine <60 degrees Range of motion: Extension of the lumbar spine <20 degrees Gaenslen's Test positive Waqas's Test positive Rohan test: positive right side / left side Thigh Thrust Test Sacral Thrust Test Imaging: EKG from 01/20/22 reviewed and consistent Assessment and plan: Chronic low back pain secondary to lumbar degenerative disc disease , l umbar spondylosis with facet arthropathy without myelopathy Recommendation of BL TFESI L1-L2. May need a series of injections, up to 3 within a 6 mo period, for optimal pain relief. Risks, benefits of procedure discussed and pt verbalized understanding. Denies anticoagulant use or medical history of diabetes. Chronic and current use of high-risk medication (Opioids). The patient was counseled about risk of opioid use, psychological risk associated with opioids and was orally counseled to not overuse , divert or sell medications. Pt is to store medication in a safe location. The patient is counseled against driving while using narcotic medications and also not to use alcohol or any illicit recreational drugs. Patient verbalized understanding that the lack of compliance will result in failure to renew narcotic prescription(s) as well as possible discharge from the clinic Diagnoses, prognosis and treatment options including but not limited to physical therapy, surgical interventions, interventional therapies and medication management including narcotics and adjuvant medication were discussed. All patient questions answered MAPS reviewed and it was appropriate. UDS from 01/20/22 reviewed and consistent. Prescription refill for [place] 10/325mg #90, Methadone 10mg #120, Naproxen, Voltaren gel w 1 RF I have spent less than 30 minutes on patient care today. Dr Lopez was available by phone for the evaluation of this patient. The time was used to review the medical records including relevant urine studies and Prescription history (MAPs), review of the available imaging, evaluation and examination of the patient, coordination of care with the medical staff and if applicable [facility] physicians, as well as creation of the medical record PQRS Narrative: Smoking Status Never smoker Narcotic Agreement Date Signed 01/20/22 Hx Alcohol Use (MH) No Home Medications: Ambulatory Orders amLODIPine [Norvasc] 5 mg PO QAM 03/26/19 Tamsulosin [Flomax] 0.8 mg PO HS 09/06/19 Testosterone Enanthate [Xyosted] 1 injection SQ Q14D 02/13/20 hydroCHLOROthiazide 25 mg PO HS 04/04/20 traZODone HCL [TraZODone HCl] 50 mg PO HS PRN 12/17/20 Enalapril [Vasotec] 10 mg PO QID 02/26/21 Famotidine 20 mg PO BID PRN 12/16/21 Lactulose 10 gm PO DAILY PRN 12/16/21 Sucralfate [Carafate] 1 gm PO ACHS PRN 12/16/21 HYDROcodone/APAP 10-325MG [[place] 10-325] 1 tab PO Q8HR PRN 30 Days #90 tab 01/20/22 Methadone HCl 10 mg PO QID 30 Days #120 tablet 01/20/22 Diclofenac Sodium Gel [Voltaren Gel] 4 gm TOPICAL QID PRN 30 Days #100 gm 03/17/22 HYDROcodone/APAP 10-325MG [[place] 10-325] 1 tab PO Q6HR PRN 30 Days #120 tab 03/17/22 HYDROcodone/APAP 10-325MG [[place] 10-325] 1 tab PO Q6HR PRN 30 Days #120 tab 03/17/22 Methadone HCl 10 mg PO QID 30 Days #120 tab 03/17/22 Methadone HCl 10 mg PO QID 30 Days #120 tablet 03/17/22 Naproxen [Naprosyn] 500 mg PO BID PRN 30 Days #60 tab 03/17/22 Controlled Substance Measures - Controlled Substance Measures Is patient prescribed a controlled substance at discharge?: Yes When asked, does pt state using other controlled substances?: No If prescribed controlled substance>3 days was MAPS reviewed?: Yes If Rx opioid, was Start Talking consent form obtained?: Yes Was information provided regarding opioid addiction?: Yes
== END ==
LOC: PNWHC3 07:15
PROVIDERS: ATTEND Specialist
DX: M51.36 Other intervertebral disc degeneration, lumbar region (principal); M47.816 Spondylosis without myelopathy or radiculopathy, lumbar region; G89.29 Other chronic pain; Z79.891 Long term (current) use of opiate analgesic; Z88.8 Allergy status to other drugs, medicaments and biological substances; Z88.6 Allergy status to analgesic agent; Z91.018 Allergy to other foods; Z91.048 Other nonmedicinal substance allergy status; Z91.038 Other insect allergy status
CPT/HCPCS: 99211

== ENCOUNTER → 2022-06-14 | Outpatient (CLI) | payer MEDICARE ==
[2022-06-14 07:48] VITALS: BP 157/79; PULSE 72; RESP 18; TEMP 98.2
--- NOTE | 2022-06-14 14:58 | P.PAINPG ---
PQRS Measure Charge Sheet Comment: A 67 yr old male with a history of severe and chronic low back pain secondary to lumbar DDD and spondylosis with facet arthropathy without myelopathy presents today for med refills. Pain level is currently at 4/10 in intensity, constant, localized in the lower lumbar spine, stabbing/ sharp in character w shooting towards the BL feet. Pain is provoked by over activity. Pain is alleviated with PT in Apr 2022 without relief, heat & ice, . Interventional pain procedures completed include LESIs Patient is currently on Methadone, [place], Voltaren gel Patient denies any side effects of the medication(s), denies excessive drowsiness or sleepiness, denies suicidal ideation and reports that the current pain medication is helping to control the pain and improve activities of daily living. Patient denies any motor or sensory deficits. Patient denies any fever or night sweats, denies any change in the bowel movements or urination. Physical Examination: -Constitutional: Cooperative. Not in acute distress . - Neurologic: Cranial nerve II to XII intact. No focal neurological deficits. - Psychatric: Alert & oriented x 3. Matching mood & appropriate affect. Judgment and insight intact. - Musculoskeletal: Cervical spine: Muscle bulk/ tone/ strength in the bilateral upper extremities normal Vertebral body tenderness to palpation over Spurling test positive Distraction test positive Facet loading test positive Thoracic spine Muscle bulk / tone/ strength in the bilateral paraspinal muscles normal Vertebral body tender to palpation over Facet loading test positive Lumbar spine: Motor bulk/ tone/ strength lower extremities , thigh and legs : 5/5 Deep tendon reflexes : Normal Knee Jerk. Normal Ankle Jerk . Vertebral body tenderness to palpation over L4 Lumbar Facet Loading Test positive Straight Leg Raise: positive at 30 degrees right side/ left side Gaenslen's Test positive Sacral spine : Severe tenderness over the Sacroiliac joint: right side / left side Range of motion: Flexion of the lumbar spine <60 degrees Range of motion: Extension of the lumbar spine <20 degrees Gaenslen's Test positive Rohan test: positive right side / left side Thigh Thrust Test Sacral Thrust Test Assessment and plan: Chronic low back pain secondary to lumbar degenerative disc disease, spondylosis with facet arthropathy without myelopathy Chronic and current use of high-risk medication (Opioids). The patient was counseled about risk of opioid use, psychological risk associated with opioids and was orally counseled to not overuse , divert or sell medications. Pt is to store medication in a safe location. The patient is counseled against driving while using narcotic me dications and also not to use alcohol or any illicit recreational drugs. Patient verbalized understanding that the lack of compliance will result in failure to renew narcotic prescription(s) as well as possible discharge from the clinic Diagnoses, prognosis and treatment options including but not limited to physical therapy, surgical interventions, interventional therapies and medic ation management including narcotics and adjuvant medication were discussed. All patient questions answered MAPS reviewed and it was appropriate. Prescription refill for Methadone 10mg #120, [place] 10/325mg #90, Voltaren gel w 1 RF I have spent less than 30 minutes on patient care today. Dr Lopez was available by phone for the evaluation of this patient. The time was used to review the medical records including relevant urine studies and Prescription history (MAPs), review of the available imaging, evaluation and examination of the patient, coordination of care with the medical staff and if applicable referring physicians, as well as creation of the medical record - Pain Location Lower Back Non-Pharmacological Interventions: Heat, Home Exercise, Ice, Inactivity, Physical Therapy, Position/Reposition, Stretching Pharmacological Interventions: Epidural, PRN Medication, Scheduled Medication, Topical Medication PQRS Narrative: Smoking Status Never smoker Narcotic Agreement Date Signed 01/20/22 Hx Alcohol Use (MH) No Home Medications: Ambulatory Orders amLODIPine [Norvasc] 5 mg PO QAM 03/26/19 Tamsulosin [Flomax] 0.8 mg PO HS 09/06/19 Testosterone Enanthate [Xyosted] 1 injection SQ Q14D 02/13/20 hydroCHLOROthiazide 25 mg PO HS 04/04/20 traZODone HCL [TraZODone HCl] 50 mg PO HS PRN 12/17/20 Enalapril [Vasotec] 10 mg PO QID 02/26/21 Famotidine 20 mg PO BID PRN 12/16/21 Lactulose 10 gm PO DAILY PRN 12/16/21 Sucralfate [Carafate] 1 gm PO ACHS PRN 12/16/21 HYDROcodone/APAP 10-325MG [[place] 10-325] 1 tab PO Q8HR PRN 30 Days #90 tab 03/17/22 Methadone HCl 10 mg PO QID 30 Days #120 tablet 03/17/22 Naproxen [Naprosyn] 500 mg PO BID PRN 30 Days #60 tab 03/17/22 Diclofenac Sodium Gel [Voltaren Gel] 4 gm TOPICAL QID PRN 30 Days #100 gm 06/14/22 HYDROcodone/APAP 10-325MG [[place] 10-325] 1 tab PO Q6HR PRN 30 Days #120 tab 06/14/22 HYDROcodone/APAP 10-325MG [[place] 10-325] 1 tab PO Q6HR PRN 30 Days #120 tab 06/14/22 Methadone HCl 10 mg PO QID 30 Days #120 tab 06/14/22 Methadone HCl 10 mg PO QID 30 Days #120 tablet 06/14/22 Controlled Substance Measures - Controlled Substance Measures Is patient prescribed a controlled substance at discharge?: Yes When asked, does pt state using other controlled substances?: No If prescribed controlled substance>3 days was MAPS reviewed?: Yes If Rx opioid, was Start Talking consent form obtained?: Yes Was information provided regarding opioid addiction?: Yes
== END ==
LOC: PNWHC3 07:16
PROVIDERS: ATTEND Specialist
DX: M47.816 Spondylosis without myelopathy or radiculopathy, lumbar region (principal); M51.36 Other intervertebral disc degeneration, lumbar region; Z79.891 Long term (current) use of opiate analgesic; Z88.8 Allergy status to other drugs, medicaments and biological substances; Z88.6 Allergy status to analgesic agent; Z91.018 Allergy to other foods; Z91.048 Other nonmedicinal substance allergy status; Z91.09 Other allergy status, other than to drugs and biological substances
CPT/HCPCS: 99211

== ENCOUNTER 2022-06-17 06:07 | Day surgery (SDC) | payer MEDICARE ==
[~2022-06-17 06:07] MED LIST changes: -IV FLUID CONTINUATION 1,000 ML IV ONE; -LACTATED RINGERS 1,000 ML IV ONE; +LIDOCAINE 1% (10MG/ML) FOR IV START INTRADERMA PRN; -MIDAZOLAM 2 MG/2 ML VIAL ONE; -ROPIVACAINE 5MG/ML 20ML VIAL ONE; -TRIAMCINOLONE ACETONIDE 40 MG/ML 1 ML VIAL ONE; -fentaNYL (PF) 50 MCG/ML 2 ML AMP ONE
[2022-06-17 06:32] VITALS: RESP 18; TEMP 98.9
[2022-06-17] MEDS ORDERED: IOPAMIDOL M200 10 ML VIAL ONE (07:00)
[2022-06-17] MEDS ORDERED: methylPREDNISolone ACETATE 80 MG/ML 1 ML VIAL ONE (07:00)
[2022-06-17] MEDS ORDERED: MIDAZOLAM 2 MG/2 ML VIAL ONE (07:00)
[2022-06-17] MEDS ORDERED: fentaNYL (PF) 50 MCG/ML 2 ML AMP ONE (07:00)
--- NOTE | 2022-06-17 07:19 | P.PCN ---
Date of Procedure: 06/17/22 Procedure(s) Performed: PREOPERATIVE DIAGNOSIS: 1-Lumbar radiculopathy . 2-lumbar degenerative disc disease. 3-lumbar spondylosis with lumbar facet arthropathy 4-previous lumbar laminectomy and fusion surgery POSTOPERATIVE DIAGNOSIS: Same as preoperative diagnoses. PROCEDURE 1. Transforaminal epidural steroid injection under fluoroscopic guidance at bilateral L1-2 level. (Fluoroscopy images stored on file in the radiology Department ) 2. Lumbar epidurogram . ANESTHESIA: Local with 1% lidocaine 3 ml , moderate sedation with intravenous Versed 2 mg and fentanyle 100 micrograms. Sedation start time : 07 . Sedation. stop time : 0 7:15 . EBL: Minimal PROCEDURE INDICATION: The patient with low back pain and radiculopathy symptoms unresponsive to conservative treatment. PROCEDURE DESCRIPTION / TECHNIQUE: The patient was seen and identified in the preoperative area. Risks, benefits, complications, and alternatives were discussed with the patient. The patient agreed to proceed with the procedure and signed the consent. IV was started, and vital signs were stable. Patient was taken to the OR and time out was completed. The patient was placed in the prone position on procedure table and a pillow was placed under the abdomen to reduce lumbar lordosis. The lumbosacral area was prepped and draped in the usual sterile fashion. Critical pause was taken. Vital signs were closely monitored during the procedure. Conscious sedation was used during the procedure to decrease patient s anxiety. Using oblique fluoroscopy, the chin of the `Gudelia dog at right L1-2 level was identified, and the skin and deeper tissues just below was localized with 1% lidocaine. Subsequently, a 22-gauge 3.5-inch spinal needle was advanced under a tunneled view fluoroscopic guidance just underneath the chin of the `[place]elia dog at the right L1-2 Under lateral fluoroscopy, the needle was then advanced to the posterior border of the interforaminal space. After negative aspiration of CSF and blood and with no paresthesias, 1 mL Isovue 200 contrast dye was injected excellent epidurogram and outlining of the nerve root Subsequently, 3 mL of block solution containing 40 mg Depo-Medrol and 2 mL of 0.9% normal saline PF was injected. Needle was removed and the same procedure was repeated at the left L1-2 level . At the end of the procedure, skin was cleansed, and bandages were applied. COMPLICATIONS:none DISPOSITION / PLANS: The patient was placed in a supine position and transferred to the recovery area in a stable condition for observation. There was no evidence of lower extremity motor or sensory deficit after the procedure. Patient was discharged from the recovery room after meeting discharge criteria. Home discharge instructions were given to the patient by the staff. The patient was reexamined prior to discharge.
[2022-06-17] MEDS ORDERED: IV FLUID CONTINUATION 1,000 ML IV ONE (07:21)
[2022-06-17 07:37] VITALS: BP 132/78; PULSE 76
--- NOTE | 2022-06-17 08:24 | FL ---
Fluoroscopy History: Transforaminal Inj Pramod Transforaminal Inj 13sec fluoro time..2 images to PACS
== END 2022-06-17 07:55 | disposition home or self-care (01) ==
LOC: ORPAIN 06:07
PROVIDERS: ATTEND Specialist
DX: M47.26 Other spondylosis with radiculopathy, lumbar region (principal); M51.16 Intervertebral disc disorders with radiculopathy, lumbar region; Z98.1 Arthrodesis status; Z88.8 Allergy status to other drugs, medicaments and biological substances; Z88.6 Allergy status to analgesic agent
CPT/HCPCS: 99152; 64483; J2250; J1040; J3010; Q9966

== ENCOUNTER → 2022-07-08 | Outpatient (CLI) | payer MEDICARE ==
[2022-07-08 08:33] VITALS: BP 136/83; PULSE 69; RESP 18; TEMP 98.1
--- NOTE | 2022-07-08 14:42 | P.PAINPG ---
PQRS Measure Charge Sheet Comment: A 67 yr old male with a history of severe and chronic low back pain secondary to lumbar DDD and spondylosis with facet arthropathy without myelopathy presents today for evaluation s/p BL TFESI L1-L2. She states he experienced 0% pain relief s/p procedure. Pain level is provoked at 6 /10 in intensity, constant, localized in the lumbar spine, sharp in character w shooting towards the BL hips and BLEs. Pain is provoked by over activity, walking/ standing for periods of 15 min or more, or lifting. Pain is alleviated with PT x 6 wks in May 2022, heat, ice, medications ([place], Methadone), topicals, repositioning and rest. Interventional pain procedures completed include BL TFESI L1-L2, GEETHA L1-L2, GEETHA C7-T1, Caudal GEETHA w Lysis, BL RFA C4-C6. Patient is currently on [place], Methadone Patient denies any side effects of the medication(s), denies excessive drowsiness or sleepiness, denies suicidal ideation and reports that the current pain medication is helping to control the pain and improve activities of daily living. Patient denies any motor or sensory deficits. Patient denies any fever or night sweats, denies any change in the bowel movements or urination. Physical Examination: -Constitutional: Cooperative. Not in acute distress . - Neurologic: Cranial nerve II to XII intact. No focal neurological deficits. - Psychatric: Alert & oriented x 3. Matching mood & appropriate affect. Judgment and insight intact. - Musculoskeletal: Cervical spine: Muscle bulk/ tone/ strength in the bilateral upper extremities normal Vertebral body tenderness to palpation over Spurling test positive Distraction test positive Facet loading test positive Thoracic spine Muscle bulk / tone/ strength in the bilateral paraspinal muscles normal Vertebral body tender to palpation over Facet loading test positive Lumbar spine: Motor bulk/ tone/ strength lower extremities , thigh and legs : 5/5 Deep tendon reflexes : Normal Knee Jerk. Normal Ankle Jerk . Vertebral body tenderness to palpation over Lumbar Facet Loading Test positive Straight Leg Raise: positive at 30 degrees right side/ left side Gaenslen's Test positive Sacral spine : Severe tenderness over the Sacroiliac joint: right side / left side Range of motion: Flexion of the lumbar spine <60 degrees Range of motion: Extension of the lumbar spine <20 degrees Gaenslen's Test positive BL Rohan test: positive right side / left side BL Thigh Thrust Test Bilateral Sacral Thrust Test Assessment and plan: Chronic low back pain secondary to lumbar degenerative disc disease, spondylosis with facet arthropathy without myelopathy Recommendation of BL SI injection. May need a series for optimal pain relief. Risks, benefits of procedure discussed and pt verbalized understanding. Admits to anticoagulant use or medical history of diabetes. Protocol for discontinuation/ continuation of medications cristobal procedure discussed. All patient questions answered I have spent less than 30 minutes on patient care today. Dr Lopez was available by phone for the evaluation of this patient. The time was used to review the medical records including relevant urine studies and Prescription history (MAPs), review of the available imaging, evaluation and examination of the patient, coordination of care with the medical staff and if applicable referring physicians, as well as creation of the medical record PQRS Narrative: Smoking Status Never smoker Narcotic Agreement Date Signed 01/20/22 Hx Alcohol Use (MH) No Home Medications: Ambulatory Orders amLODIPine [Norvasc] 5 mg PO QAM 03/26/19 Tamsulosin [Flomax] 0.8 mg PO HS 09/06/19 Testosterone Enanthate [Xyosted] 1 injection SQ Q14D 02/13/20 hydroCHLOROthiazide 25 mg PO HS 04/04/20 traZODone HCL [TraZODone HCl] 50 mg PO HS PRN 12/17/20 Enalapril [Vasotec] 10 mg PO QID 02/26/21 Famotidine 20 mg PO BID PRN 12/16/21 Lactulose 10 gm PO DAILY PRN 12/16/21 Sucralfate [Carafate] 1 gm PO ACHS PRN 12/16/21 Naproxen [Naprosyn] 500 mg PO BID PRN 30 Days #60 tab 03/17/22 Diclofenac Sodium Gel [Voltaren Gel] 4 gm TOPICAL QID PRN 30 Days #100 gm 06/14/22 HYDROcodone/APAP 10-325MG [[place] 10-325] 1 tab PO Q6HR PRN 30 Days #120 tab 06/14/22 Methadone HCl 10 mg PO QID 30 Days #120 tab 06/14/22 predniSONE 5 mg PO DIRECTED PRN 06/16/22 Controlled Substance Measures - Controlled Substance Measures Is patient prescribed a controlled substance at discharge?: No
== END ==
LOC: PNWHC3 07:49
PROVIDERS: ATTEND Specialist
DX: M47.816 Spondylosis without myelopathy or radiculopathy, lumbar region (principal); M51.36 Other intervertebral disc degeneration, lumbar region; Z88.8 Allergy status to other drugs, medicaments and biological substances; Z88.6 Allergy status to analgesic agent; Z91.018 Allergy to other foods; Z91.048 Other nonmedicinal substance allergy status
CPT/HCPCS: 99211

== ENCOUNTER → 2022-07-13 | Outpatient (CLI) | payer MEDICARE ==
--- NOTE | 2022-07-13 15:30 | P.PN ---
Progress Note - Text Progress Note Date: 07/13/22 This is a 67-year-old male patient was seen me for a follow-up regarding obstructive sleep apnea. The last evaluation in the office was approximately 2 years ago.. The patient currently has a newer generation ResMed 11 and this is a CPAP machine, which is set at an APAP mode pressures of 5/15 cm of water. The patient is using the Mirage Activa LT nasal mask. The patient is doing well. No specific complaints. He is utilizing his machine every night. Based on the compliancy data that has been collected between 04/14/2022 and 07/12/2022, the patient is utilizing the machine more than 4 hours 98% of the time. The patient has been averaging about 8 hours and 9 minutes of APAP use per night. The patient has a P95th percentile pressure of 10.4 cm of water and the leak is in order of 18.7 L/m. The patient's AHI down to 0.4 indicating very successful treatment. His weight has remained stable. His [place] score remains elevated and this is a subjective score. His sleep is fragmented because of his chronic pain. He continues to take methadone 10 mg a day for times a day and is also taken [place] on an as-needed basis typically around 3 times a day. He has occasional nighttime awakening for urination. He takes also trazodone 50 mg 3 tablets a day at bedtime. No heartburn. No chest pain. No shortness of breath. No angina. No palpitations. BP is 161/76 with a pulse of 75 and a respiration of 16 with a temperature 97.3 and the patient has an Hebron score of 20 The patient appeared well nourished and normally developed. Vital signs as documented. Head exam is unremarkable. No scleral icterus or corneal arcus noted. Neck is without jugular venous distension, thyromegaly, or carotid bruits. Carotid upstrokes are brisk bilaterally. Lungs are clear to auscultation and percussion. Cardiac exam reveals the PMI to be normally sized and situated. Rhythm is regular. First and second heart sounds normal. No murmurs, rubs or gallops. Abdominal exam reveals normal bowel sounds, no masses, no organomegaly and no aortic enlargement. Extremities are nonedematous and both femoral and pedal pulses are normal.Examination of the skin revealed no evidence of significant rashes, suspicious appearing nevi or other concerning lesions.Neurologically, the patient is awake and alert and the patient does not have any focal neurological deficit. Cranial nerves are essentially intact. Impression Symptomatic obstructive sleep apnea adequately treated with a ResMed 11 APAP unit pressures of 5/15 cm of water. Hypertension Chronic pain limited on a combination of methadone and [place]. BPH Hypertension Previous history of CVA Obesity with a weight of 249 pounds Plan Treatment has remained successful. Compliance data was checked. No need for any adjustments in the pressure setting Refill supplies Refill medication chamber Encourage weight loss Pain management with a combination of methadone and [place] This is a fluid intake in the afternoon or evening No alcohol ingestion Sleep hygiene measures are slightly abnormal and the patient was instructed on to maintain adequate sleep hygiene measures See her back in one year's time and follow-up.
== END ==
LOC: SLEEP 14:36
PROVIDERS: ATTEND Internal Medicine Critical Care Medicine
DX: G47.33 Obstructive sleep apnea (adult) (pediatric) (principal); Z99.89 Dependence on other enabling machines and devices; I10 Essential (primary) hypertension; E66.9 Obesity, unspecified; G89.29 Other chronic pain; N40.0 Benign prostatic hyperplasia without lower urinary tract symptoms; Z86.73 Personal history of transient ischemic attack (TIA), and cerebral infarction without residual deficits; Z88.6 Allergy status to analgesic agent; Z88.8 Allergy status to other drugs, medicaments and biological substances; Z91.018 Allergy to other foods; Z91.048 Other nonmedicinal substance allergy status
CPT/HCPCS: 99212

== ENCOUNTER → 2022-09-06 | Outpatient (CLI) | payer MEDICARE ==
[2022-09-06 08:29] VITALS: BP 155/85; PULSE 69; RESP 18; TEMP 98.2
--- NOTE | 2022-09-06 14:15 | P.PAINPG ---
PQRS Measure Charge Sheet Comment: A 67 yr old male with a history of severe and chronic LBP secondary to lumbar DDD and spondylosis with facet arthropathy without myelopathy presents today for medication refills. Pt states he received a BL SI injection and only received 90% pain relief x 3 days s/p procedure. He will follow up w an orthopedic surgeon for additional treatment options. Pain level is provoked at 5/10 in intensity, constant, localized in the lumbar spine, sharp in character w shooting towards . Pain is provoked by over activity or standing for periods of 20 min or mroe. Pain is alleviated with Pt x 4 wks in May 2022, chiropractic treatment is contraindicated, heat, ice, medications, topicals, repositioning and rest. Interventional pain procedures completed include BL SI x 2, BL TFESI L1-L2, R RFA C3-C5, Caudal GEETHA w Lysis x2 Patient is currently on [place] , Methadone , Voltaren gel Patient denies any side effects of the medication(s), denies excessive drowsiness or sleepiness, denies suicidal ideation and reports that the current pain medication is helping to control the pain and improve activities of daily living. Patient denies any motor or sensory deficits. Patient denies any fever or night sweats, denies any change in the bowel movements or urination. Physical Examination: -Constitutional: Cooperative. Not in acute distress . - Neurologic: Cranial nerve II to XII intact. No focal neurological deficits. - Psychatric: Alert & oriented x 3. Matching mood & appropriate affect. Judgment and insight intact. - Musculoskeletal: Cervical spine: Muscle bulk/ tone/ strength in the bilateral upper extremities normal Vertebral body tenderness to palpation over Spurling test positive Distraction test positive Facet loading test positive TTP Thoracic spine Muscle bulk / tone/ strength in the bilateral paraspinal muscles normal Vertebral body tender to palpation over Facet loading test positive TTP Lumbar spine: Motor bulk/ tone/ strength lower extremities , thigh and legs : 5/5 Deep tendon reflexes : Normal Knee Jerk. Normal Ankle Jerk . Vertebral body tenderness to palpation over Lumbar Facet Loading Test positive Straight Leg Raise: positive at 30 degrees right side/ left side Gaenslen's Test positive Sacral spine : Severe tenderness over the Sacroiliac joint: right side / left side Range of motion: Flexion of the lumbar spine <60 degrees Range of motion: Extension of the lumbar spine <20 degrees Gaenslen's Test positive right side / left side Rohan test: positive right side / left side Thigh Thrust Test positive right side / left side Sacral Thrust Test positive right side / left side Assessment and plan: Chronic LBP secondary to lumbar DDD, spondylosis with facet arthropathy without myelopathy Chronic and current use of high-risk medication (Opioids). The patient was counseled about risk of opioid use, psychological risk associated with opioids and was orally counseled to not overuse , divert or sell medications. Pt is to store medication in a safe location. The patient is counseled against driving while using narcotic medications and also not to use alcohol or any illicit recreational drugs. Patient verbalized understanding that the lack of compliance will result in failure to renew narcotic prescription(s) as well as possible discharge from the clinic Diagnoses, prognosis and treatment options including but not limited to physical therapy, surgical interventions, interventional therapies and medication management including narcotics and adjuvant medication were discussed. All patient questions answered MAPS reviewed and it was appropriate. UDS & EKG due today 09/06/22. Prescription refill for [place] 10/325mg # 120, Methadone 10mg #120, Voltaren gel w 1 RF I have spent less than 30 minutes on patient care today. Dr Lopez was available by phone for the evaluation of this patient. The time was used to review the medical records including relevant urine studies and Prescription history (MAPs), review of the available imaging, evaluation and examination of the patient, coordination of care with the medical staff and if applicable referring physicians, as well as creation of the medical record PQRS Narrative: Smoking Status Never smoker Narcotic Agreement Date Signed 01/20/22 Hx Alcohol Use (MH) No Home Medications: Ambulatory Orders amLODIPine [Norvasc] 5 mg PO QAM 03/26/19 Tamsulosin [Flomax] 0.4 mg PO HS 09/06/19 Testosterone Enanthate [Xyosted] 1 injection SQ Q14D 02/13/20 hydroCHLOROthiazide 25 mg PO HS 04/04/20 traZODone HCL [TraZODone HCl] 50 mg PO HS PRN 12/17/20 Enalapril [Vasotec] 10 mg PO QID 02/26/21 Famotidine 20 mg PO BID PRN 12/16/21 Lactulose 10 gm PO DAILY PRN 12/16/21 Sucralfate [Carafate] 1 gm PO ACHS PRN 12/16/21 Naproxen [Naprosyn] 500 mg PO BID PRN 30 Days #60 tab 03/17/22 predniSONE 5 mg PO DIRECTED PRN 06/16/22 Diclofenac Sodium Gel [Voltaren Gel] 2 - 3 gm TOPICAL QID PRN 30 Days #100 gm 09/06/22 HYDROcodone/APAP 10-325MG [[place] 10-325] 1 tab PO Q6H PRN 30 Days #120 tab 09/06/22 HYDROcodone/APAP 10-325MG [[place] 10-325] 1 tab PO Q6HR PRN 30 Days #120 tab 09/06/22 HYDROcodone/APAP 10-325MG [[place] 10-325] 1 tab PO QID PRN 30 Days #120 tab 09/06/22 Methadone HCl 10 mg PO QID 30 Days #120 tab 09/06/22 Methadone HCl 10 mg PO QID 30 Days #120 tab 09/06/22 Methadone HCl 10 mg PO QID 30 Days #120 tablet 09/06/22 Controlled Substance Measures - Controlled Substance Measures Is patient prescribed a controlled substance at discharge?: Yes
== END ==
LOC: PNWHC3 07:22
PROVIDERS: ATTEND Specialist
DX: M47.816 Spondylosis without myelopathy or radiculopathy, lumbar region (principal); M51.36 Other intervertebral disc degeneration, lumbar region; G89.29 Other chronic pain; Z79.891 Long term (current) use of opiate analgesic; Z91.018 Allergy to other foods; Z88.6 Allergy status to analgesic agent; Z91.09 Other allergy status, other than to drugs and biological substances
CPT/HCPCS: 93005; 80307; G0482; G0463; 99212

== ENCOUNTER → 2022-09-22 | Outpatient (CLI) | payer MEDICARE ==
[2022-09-22 10:42] LABS: INR 0.9 (<1.2); Prothrombin Time 9.6 sec (9.0-12.0)
--- NOTE | 2022-09-22 11:08 | XR ---
EXAMINATION TYPE: XR chest 2V DATE OF EXAM: 09/22/2022 10:41 AM COMPARISON: Chest radiographs from 07/27/2016 TECHNIQUE: XR chest 2V Frontal and lateral views of the chest. CLINICAL INDICATION:Male, 67 years old with history of PRE SURG; FINDINGS: Lungs/Pleura: There is no evidence of pleural effusion, focal consolidation, or pneumothorax. Pulmonary vascularity: Unremarkable. Heart/mediastinum: Cardiomediastinal silhouette is unremarkable. Musculoskeletal: Degenerative changes of the shoulder joints. IMPRESSION: No acute cardiopulmonary disease/process.
[2022-09-22 14:24] LABS: Basophils # (A) 0.04 X 10*3/uL (0.00-0.10); Basophils % (A) 0.5 %; Eosinophils # (A) 0.07 X 10*3/uL (0.04-0.35); Eosinophils % (A) 0.9 %; HGB 14.6 g/dL (13.0-17.0); Immature Grans, Automated 0.4 %; Lymphocytes # (A) 1.72 X 10*3/uL (0.90-5.00); Lymphocytes % (A) 21.5 %; MCH 29.9 pg (27.0-32.0); MCHC 32.4 g/dL (32.0-37.0); MCV 92.2 fL (80.0-97.0); Monocytes # (A) 0.62 X 10*3/uL (0.20-1.00); Monocytes % (A) 7.7 %; NRBC Per 100 WBC 0 /100 WBCS (0.0-0.0); Neutrophils # (A) 5.53 X 10*3/uL (1.80-7.70); Platelet Count 262 X 10*3/uL (140-440); RBC 4.88 X 10*6/uL (4.40-5.60); RDW 14.6 % (11.5-14.5); WBC 8.01 X 10*3/uL (4.50-10.00)
[2022-09-22 15:51] LABS: African American GFR (CKD) 83.2 (60.0-200.0); BUN/Creat Ratio 22.55 Ratio (12.00-20.00); Blood Urea Nitrogen 23.9 mg/dL (9.0-27.0); Calcium 9.7 mg/dL (8.7-10.3); Carbon Dioxide 25.6 mmol/L (20.0-27.5); Non-African American GFR(CKD) 71.8 (60.0-200.0); Potassium 4.6 mmol/L (3.5-5.5)
[2022-09-22 17:04] LABS: Appearance,Urine Clear (Clear); Bilirubin,Urine Negative (Negative); Blood,Urine Negative (Negative); Color,Urine Yellow (Yellow); Ketones,Urine Negative (Negative); Nitrite,Urine Negative (Negative); Specific Gravity,Urine 1.017 (1.001-1.030); Urobilinogen,Urine 0.2 (0.2,1.0)
[2022-09-22 17:11] LABS: Bacteria,Urine None Seen /HPF (None Seen)
== END | disposition home or self-care (01) ==
LOC: LABPAT 09:59
PROVIDERS: ATTEND Orthopaedic Surgery Orthopaedic Surgery of the Spine
DX: Z01.818 Encounter for other preprocedural examination (principal); M46.1 Sacroiliitis, not elsewhere classified
CPT/HCPCS: 71046; 80048; 81001; 85025; 85610; 85730; 87070

== ENCOUNTER 2022-09-29 06:55 | Observation (INO) | payer MEDICARE ==
[~2022-09-29 06:55] MED LIST changes: -LACTATED RINGERS 1,000 ML IV SCH; -LIDOCAINE 1% (10MG/ML) FOR IV START INTRADERMA PRN; +ceFAZolin 1,000 MG in SODIUM CHLORIDE 0.9% IRRIGATIO 1,000 ML IRRIGATION PRN
[2022-09-29] MEDS ORDERED: HYDROmorphone 0.5 MG/0.5 ML SYRINGE IVP PRN ×2 (07:12→11:05)
[2022-09-29] MEDS ORDERED: LIDOCAINE 1% (10MG/ML) FOR IV START INTRADERMA PRN (07:12)
[2022-09-29] MEDS ORDERED: ONDANSETRON 4 MG/2 ML VIAL IVP ONE (07:12)
[2022-09-29] MEDS ORDERED: DEXAMETHASONE SOD PHOSPHATE 4 MG/ML 1 ML VIAL IV ONE (07:12)
[2022-09-29] MEDS ORDERED: LACTATED RINGERS 1,000 ML IV SCH (07:12)
[2022-09-29 07:36] LABS: Glucose,Whole Blood 109 mg/dL (70-110)
[2022-09-29] MEDS ORDERED: VASOPRESSIN 20 UNIT/ML 1 ML VIAL ONE (07:54)
[2022-09-29] MEDS ORDERED: ePHEDrine 50 MG/ML 1 ML VIAL ONE (07:54)
[2022-09-29] MEDS ORDERED: fentaNYL (PF) 50 MCG/ML 2 ML AMP ONE (07:54)
[2022-09-29] MEDS ORDERED: PHENYLEPHRINE-0.9% NACL SYG 1,000 MCG/10 ML SYRINGE ONE (07:54)
[2022-09-29] MEDS ORDERED: LIDOCAINE 2% INJ 20 MG/ML (2 ML VIAL) ONE (07:54)
[2022-09-29] MEDS ORDERED: SUCCINYLCHOLINE CHLORIDE 200 MG/10 ML VIAL IV ONE (07:54)
[2022-09-29] MEDS ORDERED: MIDAZOLAM 2 MG/2 ML VIAL ONE (07:54)
[2022-09-29] MEDS ORDERED: PROPOFOL 10 MG/ML 20 ML VIAL IV ONE (07:54)
[2022-09-29] MEDS ORDERED: BUPIVACAIN-EPI 0.25%-1:200,000 30 ML VIAL SQ ONE (08:45)
[2022-09-29] MEDS ORDERED: ceFAZolin 1,000 MG in SODIUM CHLORIDE 0.9% 1,000 ML IRRIGATION ONE (08:52)
[2022-09-29] MEDS ORDERED: LACTATED RINGERS 1,000 ML IV ONE (09:35)
[2022-09-29] MEDS ORDERED: HYDROmorphone 1 MG/ML 1 ML SYRINGE IVP PRN (11:05)
[2022-09-29] MEDS ORDERED: BENZOCAINE/MENTHOL LOZENG 1 EACH LOZENGE MUCOUS MEM PRN (11:05)
[2022-09-29] MEDS ORDERED: HYDROcodone/APAP 10-325MG 1 EACH TAB PO PRN ×2 (11:05→11:11)
[2022-09-29] MEDS ORDERED: MAGNESIUM HYDROXIDE 2,400 MG/10 ML CUP PO PRN (11:08)
[2022-09-29] MEDS ORDERED: CYCLOBENZAPRINE 10 MG TAB PO PRN (11:08)
[2022-09-29] MEDS ORDERED: SENNOSIDES-DOCUSATE SODIUM 1 EACH TAB PO PRN (11:08)
[2022-09-29] MEDS ORDERED: ONDANSETRON 4 MG/2 ML VIAL IVP PRN (11:08)
[2022-09-29] MEDS ORDERED: FAMOTIDINE 20 MG TAB PO PRN (11:11)
[2022-09-29] MEDS ORDERED: traZODone HCL 50 MG TAB PO PRN (11:11)
[2022-09-29] MEDS ORDERED: LACTULOSE 20 GM/30 ML CUP PO PRN (11:11)
[2022-09-29] MEDS ORDERED: SUCRALFATE 1 GM TAB PO PRN (11:11)
--- NOTE | 2022-09-29 11:55 | P.OP ---
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 Postoperative Diagnosis: Same Anesthesia: GETA Pathology: none sent Condition: stable Disposition: PACU Description of Procedure: BRIEF OPERATIVE NOTE Preoperative Diagnosis: Bilateral sacroiliitis, bilateral sacroiliac joint pain, bilateral sacroiliac degenerative joint disease, positive bilateral SI joint testing, positive bilateral SI joint diagnostic SI injections, history of prior lumbar fusion to the sacrum, 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 Delgadillo Attending Radiologist: Sukh LARIOS Anesthesia: General anesthesia Estimated blood loss: Approximately 300 mL Specimen: None Complications: None apparent Components implanted: SIFuse sacroiliac joint screws 6 measuring from 35 mm to 55 mm with 3 on the right SI joint and 3 on the left SI joint Disposition: To recovery room in good stable condition. OPERATIVE INDICATIONS The patient has been having issues in their back chronically and has been having worsening pain low his prior fusion for his bilateral SI joints worse on the right than the left. He has had surgeries decades ago and had adjacent level degeneration above his heart fusion which underwent further decompression and fusion successfully. However over the past year he has been having worsening pain below his prior fusion which we identified toward his SI joints. He had significant provocative testing clinically when stressing the SI joints with multiple different positive clinical tests. He underwent interventional pain management and had great relief with SI joint injections laterally. However interventional pain management did not provide lasting relief and had recurrent symptoms bilaterally worse on the right and left. We felt that he could be a g ood candidate for SI joint fusion. We discussed the possibility of doing one side and then later coming back for the other side but the patient was having such significant symptoms that he felt that he preferred to have bilateral SI joints done simultaneously at the same operative setting. We discussed the restricted ambulation status with him and he understood. The patient has been through conservative treatment. They attempted conservative care with bracing however they're not having lasting benefit despite brace use. They continue to have significant pain and debility due to their SI joint pain. We discussed various treatment options including surgery, and the patient wishes to proceed with surgery We discussed the risk, patient's alternatives and benefits of surgery including but not limited to, risk of bleeding risk of infection, risk of need for further surgery, risk of decreased, loss of motion, loss of function, cement extravasation, nerve damage, paralysis, heart attack, blindness and . OPERATIVE SUMMARY After discussing all the risks, patient alternatives and benefits at length, the patient elected to proceed with surgical intervention, signed informed consent, and presented for their procedure. The patient was seen and examined in the preoperative holding area and the surgical site was marked bilaterally. The patient was given antibiotics and brought to the operating room. The patient was sedated and intubated by anesthesia in standard fashion. The patient was positioned on to the operating room table in a prone position on the appropriate well-padded and well molded Héctor table with pads. We were careful to pad any bony prominences and pressure points. We were careful to maintain the patient's cervical spine and good neutral alignment and position throughout. We used C-arm machines to establish excellent views and lateral positions as well as pelvic inlet pelvic outlet and outlet oblique angles for visualization We were able to localize the sacroiliac joints and appropriate landmarks with the anterior line as well as the L5-S1 disc space and anterior cervical bodies appropriately. The patient was prepped and draped in a normal standard fashion. An appropriate timeout and keystone protocol performed. We were able to proceed with the surgery. I started on the right side as this was more symptoms may site for him. The procedure was performed similarly on the right and then on the left. The local wound area was infiltrated with local anesthetic. An incision was made over the lateral aspect of the gluteus after establishing appropriate lines at the anterior ala line and the midportion of the sacral bodies in line with the sacrum. This was confirmed with C-arm guidance. A 3 cm incision was established along the axis of the sacrum and bilateral gluteal space. I was able to dissect down appropriate cauterized space. I was able to use a guidepin with C-arm guidance to establish the appropriate starting point dorsal and distal to the anterior alar line at the midportion of the first sacral vertebral body. As able to gently secure the guidepin and then evaluate the alignment and the position under inlet and outlet views and then proceeded to insert the guide pin appropriately with the outlet and I'll let oblique views to the space just cephalad to the first sacral foramen and excellent alignment and position. We took great care to advance appropriately in excellent position without penetrating the neurologic foramen and keep the tip in good position within the vertebral body. With this accomplished we measured appropriately with the guide sleeve and measuring device I was able to bluntly dissect with the appropriate device over the guidepin. With this in good alignment and good position I then used the referencing guide at 1-1/2 cm to establish the second pin in similar fashion just distal to the first pin this was done similarly placed appropriately in excellent alignment and position without penetrating into the neural foramen. I was able to dilate and bluntly dissected off the tissue and in similar fashion we placed the third guidewire distally into the sacrum in good alignment and position measured and bluntly dissect soft tissue. We did not have any evidence of stimulation with the neuro monitoring. I was then able to use the dilator and the soft tissue protector to establish access so that I could drill over the guidewire. The guidewire is drilled appropriately across the SI joint and then we took the appropriate length self harvesting screw and we are able place the screw across the SI joint appropriately with excellent alignment and position excellent bony purchase while harvesting the bone graft within the screw itself visualizing the screw across the SI joint without penetration into the neural foramen and without displacement cephalad inferior anteriorly or posteriorly the screw in excellent position the guidepin was removed and this was done similarly with the second and third screw on the right side. Final images were taken on the right side which showed excellent position of all 3 screws at SI joint without any displacement or malposition. This was done in similar fashion on the left side for 3 screws across the SI joint and imaging showed excellent position of those 3 screws on the left as well. There is no sustained stimulation with neuro monitoring. There is no evidence of any displacement or penetration into the neural foramen or outside the sacrum. The position is confirmed with C-arm guidance in lateral outlet and inlet sacral views We were able to control the bleeding there was a small bleeder on the right side which were able to control. It is no further bleeding areas dry to was cleaned and dried copiously irrigated all the counts were correct we're able proceed with closure. The deep tissue layers was closed with 2-0 Vicryl, subcu tissue closed with 2-0 Vicryl in subcutaneous tissue layer tissue closed with 3-0 Vicryl. Cleaned wound clean and dried and sealed with excellent fit and blue and covered with Silvadene dressing the drapes were broken down the patient was gently rolled back supine position onto his stretcher woken up by anesthesia extubated appropriately and in good stable condition. He'll be admitted for observation and medical management and mobilization with minimal weightbearing bilateral lower extremities. We will follow him closely throughout his postoperative course
--- NOTE | 2022-09-29 12:23 | XR ---
Fluoroscopy INDICATION: Pain FINDINGS: Fluoroscopy time: 2 minutes 42 seconds. DAP: 58.417 mGycm^2 Images obtained: 6. IMPRESSIONS: 1. Documentation of fluoroscopy.
--- NOTE | 2022-09-29 12:25 | FL ---
Fluoroscopy INDICATION: Pain FINDINGS: Fluoroscopy time: Not recorded Images obtained: 0. IMPRESSIONS: 1. Documentation of fluoroscopy.
[2022-09-29] MEDS ORDERED: HYDROmorphone 0.5 MG/0.5 ML SYRINGE IVP ONE (14:57)
[2022-09-29] MEDS: SODIUM CHLORIDE 0.9% 1,000 ML IV SCH (15:09)
[2022-09-29] MEDS: lisinopriL 20 MG TAB PO SCH ×3 (15:10→23:47)
[2022-09-29] MEDS: METHADONE 10 MG TAB PO SCH ×3 (16:34→23:45)
--- NOTE | 2022-09-29 20:01 | CONS ---
CONSULTATION REASON FOR CONSULTATION: Advice regarding hypertension, hyperlipidemia, requested by Dr. Delgadillo. HISTORY OF PRESENT ILLNESS: This is a 67-year-old gentleman with past medical history of hypertension, hyperlipidemia, history of DJD, was admitted after minimally invasive bilateral sacroiliac joint fusion and placement of sacroiliac screws. The patient tolerated the procedure well. There is no history of any fever, rigors, or chills at this time. PAST MEDICAL HISTORY: Reviewed includes hypertension, hyperlipidemia, sleep apnea. Rest of the history and rest of the chart is also reviewed. HOME MEDICATIONS: Reviewed include trazodone, dose and rest of medications reviewed. ALLERGIES: Reviewed include cashews. The rest of the allergies reviewed. FAMILY HISTORY: History of breast cancer. SOCIAL HISTORY: No history of smoking or alcohol intake. REVIEW OF SYSTEMS: A 14-point review is negative except as mentioned earlier. PHYSICAL EXAMINATION: VITAL SIGNS: Pulse 71, blood pressure 108/60, respirations 18. HEENT: Conjunctivae normal. NECK: No JVD. CARDIOVASCULAR: S1, S2 muffled. RESPIRATIONS: Clear to auscultation. ABDOMEN: Soft. LEGS: No edema. NERVOUS SYSTEM: No focal deficits. SKIN: No ulcer, rash, bleeding. BACK: Status post surgery. LABORATORY DATA: Reviewed. ASSESSMENT: 1. Status post minimally invasive sacroiliac joint fusion. 2. Hypertension. 3. Hyperlipidemia. 4. Sleep apnea. 5. Cerebrovascular accident, transient ischemic attack. 6. Multiple medical issues. RECOMMENDATIONS AND DISCUSSION: This is a 67-year-old gentleman who presented with multiple medical issues. Recommend to continue the current medications. Resume the home medications. Continue with a CPAP setting as at home. Otherwise, DVT prophylaxis. Incentive spirometry. We will follow the patient closely with you. The patient may be asked to follow with primary physician closely after discharge. Thank you, Dr. Delgadillo. MMODL / IJN: [id number] /
[2022-09-29] MEDS ORDERED: TAMSULOSIN 0.4 MG CAP.ER.24H PO SCH (21:00)
[2022-09-30] MEDS: SODIUM CHLORIDE 0.9% 1,000 ML IV SCH ×2 (06:46→16:12)
[2022-09-30 07:46] VITALS: RESP 17
[2022-09-30] MEDS ORDERED: SENNOSIDES-DOCUSATE SODIUM 1 EACH TAB PO SCH (09:00)
[2022-09-30] MEDS ORDERED: amLODIPine 5 MG TAB PO SCH (09:00)
[2022-09-30] MEDS ORDERED: hydroCHLOROthiazide 25 MG TAB PO SCH (09:00)
[2022-09-30] MEDS: METHADONE 10 MG TAB PO SCH ×2 (09:23→12:43)
[2022-09-30] MEDS: lisinopriL 20 MG TAB PO SCH ×2 (09:25→12:41)
--- NOTE | 2022-09-30 10:51 | P.DS ---
Providers Date of admission: 09/30/22 06:59 Attending physician: Shyam Delgadillo Consults: 09/29/22 11:08 Consult Physician Routine Consulting Provider: María Suarez Consult Reason/Comments: Medical management Do you want consulting provider notified?: Already Contacted Primary care physician: Mauro Guzman Hospital Course: The patient presented on the day of admission as per their operative note. He f eels that his pain is SI joints is significantly improved. He has some pain around the surgical site but feels much better than prior to surgery. He is not having any changes in his lower extremity is. He has been able to tolerate regular diet and he is mobile for transfers and small ambulation with his walker. Physical Exam The incision site is clean dry and intact. There is no erythema no drainage. There is no purulence no evidence of infection. Abdomen soft and nontender. Chest has good excursion with deep inspiration and expiration. The patient has active and passive range of motion intact at the upper and lower extremities. There is no acute change in neurologic status. He has sustained dorsal flexion plantar flexion and EHL hip flexion and knee extension Hospital Course Postoperative day #1 status post minimally invasive bilateral sacroiliac joint fusion for his bilateral sacroiliitis with degenerative SI joint pain with history of prior lumbosacral fusion. The patient has been making good progress postoperatively. They have completed the prophylactic antibiotics without any signs or symptoms of infection. The patient has been able to advance their diet, and is tolerating diet adequately. The pain was initially controlled with IV medications and is now controlled appropriately with oral medications. The patient has been able to increase their mobilization. The patient has progressed appropriately. He has had some history of urinary retention postoperatively and he will have his Pierson discontinued this morning. Once he is able to void freely it is okay for discharge home today . I think they are in good stable condition for discharge today once he is able to void on his own. They will be sent home with appropriate prescriptions. I answered their questions to the best of my ability in a language that they can understand and they are agreeable with the plan. They will follow up as directed. Patient Condition at Discharge: Good Plan - Discharge Summary Discharge Rx Participant: No New Discharge Prescriptions: No Action amLODIPine [Norvasc] 5 mg PO QAM Tamsulosin [Flomax] 0.4 mg PO HS Testosterone Enanthate [Xyosted] 1 injection SQ Q14D hydroCHLOROthiazide 25 mg PO DAILY traZODone HCL [TraZODone HCl] 50 mg PO HS PRN PRN Reason: Insomnia predniSONE 5 mg PO DIRECTED PRN PRN Reason: joint inflammation Diclofenac Sodium Gel [Voltaren Gel] 2 - 3 gm TOPICAL QID PRN 30 Days #100 gm PRN Reason: Pain Enalapril [Vasotec] 10 mg PO QID Famotidine 20 mg PO BID PRN PRN Reason: acid reflux Sucralfate [Carafate] 1 gm PO ACHS PRN PRN Reason: acid reflux Lactulose 10 gm PO DAILY PRN PRN Reason: Constipation Naproxen [Naprosyn] 500 mg PO BID PRN 30 Days #60 tab PRN Reason: Inflammation Methadone HCl 10 mg PO QID 30 Days #120 tab HYDROcodone/APAP 10-325MG [[place] 10-325] 1 tab PO QID PRN 30 Days #120 tab PRN Reason: Pain Discharge Medication List amLODIPine [Norvasc] 5 mg PO QAM 03/26/19 [History] Tamsulosin [Flomax] 0.4 mg PO HS 09/06/19 [History] Testosterone Enanthate [Xyosted] 1 injection SQ Q14D 02/13/20 [History] hydroCHLOROthiazide 25 mg PO DAILY 04/04/20 [History] traZODone HCL [TraZODone HCl] 50 mg PO HS PRN 12/17/20 [History] Enalapril [Vasotec] 10 mg PO QID 02/26/21 [History] Famotidine 20 mg PO BID PRN 12/16/21 [History] Lactulose 10 gm PO DAILY PRN 12/16/21 [History] Sucralfate [Carafate] 1 gm PO ACHS PRN 12/16/21 [History] Naproxen [Naprosyn] 500 mg PO BID PRN 30 Days #60 tab 03/17/22 [Rx] predniSONE 5 mg PO DIRECTED PRN 06/16/22 [History] Diclofenac Sodium Gel [Voltaren Gel] 2 - 3 gm TOPICAL QID PRN 30 Days #100 gm 09/06/22 [Rx] HYDROcodone/APAP 10-325MG [[place] 10-325] 1 tab PO QID PRN 30 Days #120 tab 09/06/22 [Rx] Methadone HCl 10 mg PO QID 30 Days #120 tab 09/06/22 [Rx] Follow up Appointment(s)/Referral(s): Kerrie Babcock MD [STAFF PHYSICIAN] - As Needed Shyam Delgadillo DO [Doctor of Osteopathic Medicine] - 2 Weeks Activity/Diet/Wound Care/Special Instructions: Keep site clean. May shower with waterproof Tegaderm intact. Do not soak in a tub. After 72 hours postoperatively, patient May remove dressing and then may shower with area uncovered. Leave glue intact and allow it to fray off on its own. Limited ambulation. Okay to weight-bear for transfers to a wheelchair but should limit his ambulation. Avoid heavy or rigorous activity. No repetitive bending twisting or lifting. No overhead work. Discharge Disposition: HOME SELF-CARE
[2022-09-30] MEDS ORDERED: TAMSULOSIN 0.4 MG CAP.ER.24H PO STA (10:55)
[2022-09-30 15:00] VITALS: BP 124/71; PULSE 74; TEMP 98.2
--- NOTE | 2022-09-30 15:04 | PN ---
PROGRESS NOTE DATE OF SERVICE: 09/30/2022 SUBJECTIVE: This 67-year-old gentleman admitted after back surgery, some urinary retention. No chest pain, no palpitations, no fever. OBJECTIVE: VITAL SIGNS: Pulse 72, blood pressure 110/70, respirations 17. CHEST: Clear to auscultation. CARDIOVASCULAR: S1, S2 muffled. ABDOMEN: Soft. LABORATORY DATA: Noted. ASSESSMENT: 1. Status post minimally invasive sacroiliac joint fusion. 2. Possible acute urinary retention. 3. Hypertension. 4. Hyperlipidemia. 5. Multiple medical issues. RECOMMENDATIONS: Recommended to continue current medications, continue symptomatic treatment. Continue with Flomax. Continue with rest of the medications and follow up with primary physician closely in the outpatient setting after discharge. Rest of the recommendations per Orthopedic Surgery. MMODL / IJN: [id number] /
[2022-09-30] MEDS ORDERED: TAMSULOSIN 0.4 MG CAP.ER.24H PO SCH (21:00)
[2022-10-09] MEDS ORDERED: TESTOSTERONE ENANTHATE SQ SCH (12:00)
== END 2022-09-30 16:45 | disposition home or self-care (01) ==
LOC: OR 06:55 → 4SSUR 14:09 → OR 09-30 06:59
PROVIDERS: ADMIT Orthopaedic Surgery Orthopaedic Surgery of the Spine; ATTEND Orthopaedic Surgery Orthopaedic Surgery of the Spine
DX: M46.1 Sacroiliitis, not elsewhere classified (principal); M47.818 Spondylosis without myelopathy or radiculopathy, sacral and sacrococcygeal region; M53.3 Sacrococcygeal disorders, not elsewhere classified; I10 Essential (primary) hypertension; E78.5 Hyperlipidemia, unspecified; G47.33 Obstructive sleep apnea (adult) (pediatric); G89.29 Other chronic pain; M19.90 Unspecified osteoarthritis, unspecified site; R33.9 Retention of urine, unspecified; H91.90 Unspecified hearing loss, unspecified ear; Z79.899 Other long term (current) drug therapy; Z88.6 Allergy status to analgesic agent; Z91.018 Allergy to other foods; Z91.048 Other nonmedicinal substance allergy status; Z98.1 Arthrodesis status; Z86.718 Personal history of other venous thrombosis and embolism; Z97.3 Presence of spectacles and contact lenses; Z87.11 Personal history of peptic ulcer disease; Z86.73 Personal history of transient ischemic attack (TIA), and cerebral infarction without residual deficits; Z98.890 Other specified postprocedural states; Z80.3 Family history of malignant neoplasm of breast
CPT/HCPCS: 27279; 97161; 86900; 86901; 86850; 72220; G0378; C1713; J2250; J0330; J0690 ×2; J2405; J3010; S0109 ×2; J1170 ×2; J2370; J2704; J2001

== ENCOUNTER → 2022-11-29 | Outpatient (CLI) | payer MEDICARE ==
[2022-11-29 07:51] VITALS: BP 131/77; PULSE 59; RESP 18; TEMP 98.4
--- NOTE | 2022-12-02 07:40 | P.PAINPG ---
PQRS Measure Charge Sheet Comment: A 67 yr old male with a history of severe and chronic LBP secondary to lumbar DDD and spondylosis with facet arthropathy without myelopathy presents today for medication refills. Pain level is provoked at 5/10 in intensity, constant, localized in the lumbar spine, sharp in character w shooting towards the BLEs. Pain is provoked by over activity or standing for periods of 20 min or more. Pain is alleviated with PT x 5 wks in Apr 2022, chiropractic treatment is contraindicated, heat, ice, medications, topicals, repositioning and rest. Pt admits to having SI joint surgery w Dr Delgadillo approx 2 mo ago where he was ambulating w a wheelchair for several weeks. Interventional pain procedures completed include BL SI x 2, BL TFESI L1-L2, R RFA C3-C5, Caudal GEETHA w Lysis x2 Patient is currently on [place] , Methadone , Voltaren gel Patient denies any side effects of the medication(s), denies excessive drowsi ness or sleepiness, denies suicidal ideation and reports that the current pain medication is helping to control the pain and improve activities of daily living. Patient denies any motor or sensory deficits. Patient denies any fever or night sweats, denies any change in the bowel movements or urination. Physical Examination: -Constitutional: Cooperative. Not in acute distress . - Neurologic: Cranial nerve II to XII intact. No focal neurological deficits. - Psychatric: Alert & oriented x 3. Matching mood & appropriate affect. Judgment and insight intact. - Musculoskeletal: Cervical spine: Muscle bulk/ tone/ strength in the bilateral upper extremities normal Vertebral body tenderness to palpation over Spurling test positive Distraction test positive Facet loading test positive TTP Thoracic spine Muscle bulk / tone/ strength in the bilateral paraspinal muscles normal Vertebral body tender to palpation over Facet loading test positive TTP Lumbar spine: Motor bulk/ tone/ strength lower extremities , thigh and legs : 5/5 Deep tendon reflexes : Normal Knee Jerk. Normal Ankle Jerk . Vertebral body tenderness to palpation over Lumbar Facet Loading Test positive Straight Leg Raise: positive at 30 degrees right side/ left side Gaenslen's Test positive Sacral spine : Severe tenderness over the Sacroiliac joint: right side / left side Range of motion: Flexion of the lumbar spine <60 degrees Range of motion: Extension of the lumbar spine <20 degrees Gaenslen's Test positive right side / left side Rohan test: positive right side / left side Thigh Thrust Test positive right side / left side Sacral Thrust Test positive right side / left side Assessment and plan: Chronic LBP secondary to lumbar DDD, spondylosis with facet arthropathy without myelopathy Chronic and current use of high-risk medication (Opioids). The patient was counseled about risk of opioid use, psychological risk associated with opioids and was orally counseled to not overuse , divert or sell medications. Pt is to store medication in a safe location. The patient is counseled against driving while using narcotic medications and also not to use alcohol or any illicit recreational drugs. Patient verbalized understanding that the lack of compliance will result in failure to renew narcotic prescription(s) as well as possible discharge from the clinic Diagnoses, prognosis and treatment options including but not limited to physical therapy, surgical interventions, interventional therapies and medication management including narcotics and adjuvant medication were discussed. All patient questions answered MAPS reviewed and it was appropriate. UDS & EKG from 09/06/22 reviewed and consistent. Prescription refill for [place] 10/325mg # 120, Methadone 10mg #120, Voltaren gel w 1 RF I have spent less than 30 minutes on patient care today. Dr Lopez was available by phone for the evaluation of this patient. The time was used to review the medical records including relevant urine studies and Prescription history (MAPs), review of the available imaging, evaluation and examination of the patient, coordination of care with the medical staff and if applicable referring physicians, as well as creation of the medical record - Pain Location Bilateral Hip Non-Pharmacological Interventions: Heat, Ice, Inactivity, Physical Therapy, Sitting Pharmacological Interventions: Scheduled Medication, Topical Medication PQRS Narrative: Smoking Status Never smoker Narcotic Agreement Date Signed 01/20/22 Hx Alcohol Use (MH) No Home Medications: Ambulatory Orders amLODIPine [Norvasc] 5 mg PO QAM 03/26/19 Tamsulosin [Flomax] 0.4 mg PO HS 09/06/19 Testosterone Enanthate [Xyosted] 1 injection SQ Q14D 02/13/20 hydroCHLOROthiazide 25 mg PO DAILY 04/04/20 traZODone HCL [TraZODone HCl] 50 mg PO HS PRN 12/17/20 Enalapril [Vasotec] 10 mg PO QID 02/26/21 Famotidine 20 mg PO BID PRN 12/16/21 Lactulose 10 gm PO DAILY PRN 12/16/21 Sucralfate [Carafate] 1 gm PO ACHS PRN 12/16/21 Naproxen [Naprosyn] 500 mg PO BID PRN 30 Days #60 tab 03/17/22 predniSONE 5 mg PO DIRECTED PRN 06/16/22 Diclofenac Sodium Gel [Voltaren Gel] 2 - 3 gm TOPICAL QID PRN 30 Days #100 gm 11/29/22 HYDROcodone/APAP 10-325MG [[place] 10-325] 1 tab PO Q4HR PRN 30 Days #120 tab 11/29/22 HYDROcodone/APAP 10-325MG [[place] 10-325] 1 tab PO QID PRN 30 Days #120 tab 11/29/22 Methadone HCl 10 mg PO Q6H 30 Days #120 tab 11/29/22 Methadone HCl 10 mg PO QID 30 Days #120 tab 11/29/22 Controlled Substance Measures - Controlled Substance Measures Is patient prescribed a controlled substance at discharge?: Yes When asked, does pt state using other controlled substances?: No If prescribed controlled substance>3 days was MAPS reviewed?: Yes
== END ==
LOC: PNWHC3 07:13
PROVIDERS: ATTEND Specialist
DX: M51.36 Other intervertebral disc degeneration, lumbar region (principal); M47.816 Spondylosis without myelopathy or radiculopathy, lumbar region; G89.29 Other chronic pain; Z79.891 Long term (current) use of opiate analgesic; Z88.8 Allergy status to other drugs, medicaments and biological substances; Z91.018 Allergy to other foods; Z88.6 Allergy status to analgesic agent
CPT/HCPCS: 99211

== ENCOUNTER → 2023-01-24 | Outpatient (CLI) | payer MEDICARE ==
[2023-01-24 08:09] VITALS: BP 123/69; PULSE 68; RESP 15; TEMP 98.2
--- NOTE | 2023-01-24 14:29 | P.PAINPG ---
Objective - Vital Signs Vital signs: Intake & Output 01/23/23 01/24/23 01/24/23 18:59 06:59 18:59 Weight 111.13 kg PQRS Measure Charge Sheet Comment: A 67 yr old male with a history of severe and chronic LBP secondary to lumbar DDD and spondylosis with facet arthropathy without myelopathy presents today for medication refills. Pain level is provoked at 8/10 in intensity, constant, localized in the lumbar spine, sharp in character w shooting towards the BLEs. Pain is provoked by over activity or standing for periods of 20 min or more. Pain is alleviated with PT x 5 wks in May 2022, chiropractic treatment is contraindicated, heat, ice, medications, topicals, repositioning and rest. Oswestry axial pain score of 33. Interventional pain procedures completed include BL SI x 2, BL TFESI L1-L2, R RFA C3-C5, Caudal GEETHA w Lysis x2 Patient is currently on [place] , Methadone , Voltaren gel Patient denies any side effects of the medication(s), denies excessive drowsiness or sleepiness, denies suicidal ideation and reports that the current pain medication is helping to control the pain and improve activities of daily living. Patient denies any motor or sensory deficits. Patient denies any fever or night sweats, denies any change in the bowel movements or urination. Physical Examination: -Constitutional: Cooperative. Not in acute distress . - Neurologic: Cranial nerve II to XII intact. No focal neurological deficits. - Psychatric: Alert & oriented x 3. Matching mood & appropriate affect. Judgment and insight intact. - Musculoskeletal: Cervical spine: Muscle bulk/ tone/ strength in the bilateral upper extremities normal Vertebral body tenderness to palpation Spurling test positive Distraction test positive Facet loading test positive TTP Thoracic spine Muscle bulk / tone/ strength in the bilateral paraspinal muscles normal Vertebral body tender to palpation over Facet loading test positive TTP Lumbar spine: Motor bulk/ tone/ strength lower extremities , thigh and legs : 5/5 Deep tendon reflexes : Normal Knee Jerk. Normal Ankle Jerk . Vertebral body tenderness to palpation over L1 Lara Test positive Lumbar Facet Loading Test positive Straight Leg Raise: positive at 30 degrees right side/ left side Gaenslen's Test positive Sacral spine : Severe tenderness over the Sacroiliac joint: right side / left side Range of motion: Flexion of the lumbar spine <60 degrees Range of motion: Extension of the lumbar spine <20 degrees Gaenslen's Test positive right side / left side Rohan test: positive right side / left side Thigh Thrust Test positive right side / left side Sacral Thrust Test positive right side / left side Assessment and plan: Chronic LBP secondary to lumbar DDD, spondylosis with facet arthropathy without myelopathy Recommendation of BL TFESI L1-L2 #1. May need a series of injections for optimal pain relief. Risks, benefits of procedur discussed and pt verbalized understanding. Protocol for discontinuation/ continuation of medications cristobal procedure discussed. Chronic and current use of high-risk medication (Opioids). The patient was counseled about risk of opioid use, psychological risk associated with opioids and was orally counseled to not overuse , divert or sell medications. Pt is to store medication in a safe location. The patient is counseled against driving while using narcotic medications and also not to use alcohol or any illicit recreational drugs. Patient verbalized understanding that the lack of compliance will result in failure to renew narcotic prescription(s) as well as possible discharge from the clinic Diagnoses, prognosis and treatment options including but not limited to physical therapy, surgical interventions, interventional therapies and medication management including narcotics and adjuvant medication were discus sed. All patient questions answered. Opiate, narcotic agreement up to date 01/24/23 MAPS reviewed and it was appropriate. UDS & EKG from 09/06/22 reviewed and consistent. Prescription refill for [place] 10/325mg # 120, Methadone 10mg #120, Voltaren gel w 1 RF I have spent less than 30 minutes on patient care today. Dr Lopez was available by phone for the evaluation of this patient. The time was used to review the medical records including relevant urine studies and Prescription history (MAPs), review of the available imaging, evaluation and examination of the patient, coordination of care with the medical staff and if applicable referring physicians, as well as creation of the medical record PQRS Narrative: Smoking Status Never smoker Narcotic Agreement Date Signed 01/20/22 Hx Alcohol Use (MH) No Home Medications: Ambulatory Orders amLODIPine [Norvasc] 5 mg PO QAM 03/26/19 Tamsulosin [Flomax] 0.4 mg PO HS 09/06/19 Testosterone Enanthate [Xyosted] 1 injection SQ Q14D 02/13/20 hydroCHLOROthiazide 25 mg PO DAILY 04/04/20 traZODone HCL [TraZODone HCl] 50 mg PO HS PRN 12/17/20 Enalapril [Vasotec] 10 mg PO QID 02/26/21 Famotidine 20 mg PO BID PRN 12/16/21 Lactulose 10 gm PO DAILY PRN 12/16/21 Sucralfate [Carafate] 1 gm PO ACHS PRN 12/16/21 Naproxen [Naprosyn] 500 mg PO BID PRN 30 Days #60 tab 03/17/22 predniSONE 5 mg PO DIRECTED PRN 06/16/22 Diclofenac Sodium Gel [Voltaren Gel] 2 - 3 gm TOPICAL QID PRN 30 Days #100 gm 11/29/22 HYDROcodone/APAP 10-325MG [[place] 10-325] 1 tab PO Q4HR PRN 30 Days #120 tab 01/24/23 HYDROcodone/APAP 10-325MG [[place] 10-325] 1 tab PO QID PRN 30 Days #120 tab 01/24/23 Methadone HCl 10 mg PO Q6H 30 Days #120 tab 01/24/23 Methadone HCl 10 mg PO QID 30 Days #120 tab 01/24/23 Controlled Substance Measures - Controlled Substance Measures Is patient prescribed a controlled substance at discharge?: Yes When asked, does pt state using other controlled substances?: Yes If prescribed controlled substance>3 days was MAPS reviewed?: Yes If Rx opioid, was Start Talking consent form obtained?: Yes Was information provided regarding opioid addiction?: Yes
== END ==
LOC: PNWHC3 07:11
PROVIDERS: ATTEND Specialist
DX: M51.36 Other intervertebral disc degeneration, lumbar region (principal); M47.816 Spondylosis without myelopathy or radiculopathy, lumbar region; G89.29 Other chronic pain; Z79.891 Long term (current) use of opiate analgesic; Z88.6 Allergy status to analgesic agent; Z91.018 Allergy to other foods; Z91.09 Other allergy status, other than to drugs and biological substances
CPT/HCPCS: 99211

== ENCOUNTER 2023-02-15 08:00 | Day surgery (SDC) | payer MEDICARE ==
[~2023-02-15 08:00] MED LIST changes: +LACTATED RINGERS 1,000 ML IV SCH; -ceFAZolin 1,000 MG in SODIUM CHLORIDE 0.9% IRRIGATIO 1,000 ML IRRIGATION PRN
[2023-02-15 08:38] VITALS: TEMP 97
[2023-02-15] MEDS ORDERED: IOPAMIDOL M200 10 ML VIAL ONE (09:12)
[2023-02-15] MEDS ORDERED: DEXAMETHASONE SOD PHOSPHATE 10 MG/ML 1 ML VIAL ONE (09:12)
--- NOTE | 2023-02-15 09:43 | P.PCN ---
Date of Procedure: 02/15/23 Description of Procedure: PREOPERATIVE DIAGNOSIS: Lumbar postlaminectomy syndrome, Lumbar radiculopathy. POSTOPERATIVE DIAGNOSIS: Lumbar postlaminectomy syndrome, and Lumbar radiculopathy. PROCEDURE: 1) bilateral L1-L2 Transforaminal epidural steroid injection under fluoroscopic guidance, SURGEON: Kavon Alvarez ANESTHESIA: Local 1% lidocaine, and IV sedation: None EBL: None. Specimen removed: None Fluoroscopic imaging: saved to electronic medical record PROCEDURE INDICATION: The patient with continued lumbar pain with radiculopathy, and intervertebral disc disease without myelopathy that has failed to respond to adequate conservative management. PROCEDURE DESCRIPTION: The patient was seen and identified in the preoperative area. Risks, benefits, complications, and alternatives were discussed with the patient. The patient agreed to proceed with the procedure and signed the consent. IV was started, and vital signs were stable. Patient was taken to the OR and time out was completed. The patient was placed in the prone position on procedure table and a pillow was placed under the abdomen to reduce lumbar lordosis. The lumbosacral area was prepped with ChloraPrep 2 and draped in the usual sterile fashion. Critical pause was taken. Vital signs were closely monitored during the procedure. Using oblique fluoroscopy, the chin of the [place] dog L1 was identified, and the skin and deeper tissues just below was localized with 1% lidocaine. 22-guage 5-inch spinal needles were used for the procedure. The needles were guided by fluoroscopy just underneath the chin of the [place] dog of L1. Under AP fluoroscopy, the needles were advanced to the 6 o'clock position of the L1 pedicle. Lateral view neele tip postion confirmed. After negative aspiration of CSF and blood and with no paresthesias, 1 mL of [id number] contrast dye was injected anterior epidural spread and outlining of the L1 nerve root. 3 mL of block solution injected after negative aspiration. Block solution contained 10 mg of dexamethasone, with preservative-free 2 mL of normal saline preservative- free. Needle was removed intact. Entire procedure repeated on the left side. Skin was cleansed, and bandages were applied. COMPLICATIONS: None. DISPOSITION : The patient was placed in a supine position and transferred to the recovery area in a stable condition for observation and was discharged from the recovery room after meeting discharge criteria. Home discharge instructions given to the patient by the staff. The patient was reexamined prior to discharge. The patient will schedule follow-up visit in 4 weeks duration.
[2023-02-15 09:46] VITALS: RESP 16
[2023-02-15 10:01] VITALS: BP 134/81; PULSE 52
--- NOTE | 2023-02-15 10:03 | FL ---
Intraoperative/procedural fluoroscopic services were provided for bilateral transforaminal injection of the lumbar spine. Total fluoroscopy time is 24 seconds with a total of 4 submitted images to PACS. Total DAP [id number] mGym2. Please see the operative note for further details.
== END 2023-02-15 10:22 | disposition home or self-care (01) ==
LOC: ORPAIN 08:00
DX: M96.1 Postlaminectomy syndrome, not elsewhere classified (principal); M54.16 Radiculopathy, lumbar region; I10 Essential (primary) hypertension; E78.00 Pure hypercholesterolemia, unspecified; Z98.890 Other specified postprocedural states; Z79.899 Other long term (current) drug therapy
CPT/HCPCS: 64483; J1100; Q9966

== ENCOUNTER → 2023-03-03 | Outpatient (CLI) | payer MEDICARE ==
[2023-03-03 08:09] VITALS: BP 111/70; PULSE 65; RESP 16; TEMP 98.6
--- NOTE | 2023-03-03 13:04 | P.PAINPG ---
PQRS Measure Charge Sheet Comment: A 67 yr old male with a history of severe and chronic LBP secondary to lumbar DDD and spondylosis with facet arthropathy without myelopathy presents today for evaluation s/p BL TFESI L1-L2. Pt states he experienced 100% pain relief x 4 days s/p procedure. Pain level is provoked at 6/10 in intensity, constant, localized in the lumbar spine, sharp in character w shooting towards the BLEs. Pain is provoked by over activity or standing for periods of 20 min or more. Pain is alleviated with PT x 6 wks in Apr-May 2022, chiropractic treatment is contraindicated, heat, ice, medications, topicals, repositioning and rest. Oswestry axial pain score of 33. Interventional pain procedures completed include BL SI x 2, BL TFESI L1-L2 x2, R RFA C3-C5, Caudal GEETHA w Lysis x2 Patient is currently on [place] , Methadone , Naproxen, Voltaren gel Patient denies any side effects of the medication(s), denies excessive d rowsiness or sleepiness, denies suicidal ideation and reports that the current pain medication is helping to control the pain and improve activities of daily living. Patient denies any motor or sensory deficits. Patient denies any fever or night sweats, denies any change in the bowel movements or urination. Physical Examination: -Constitutional: Cooperative. Not in acute distress . - Neurologic: Cranial nerve II to XII intact. No focal neurological deficits. - Psychatric: Alert & oriented x 3. Matching mood & appropriate affect. Judgment and insight intact. - Musculoskeletal: Cervical spine: Muscle bulk/ tone/ strength in the bilateral upper extremities normal Vertebral body tenderness to palpation Spurling test positive Distraction test positive Facet loading test positive TTP Thoracic spine Muscle bulk / tone/ strength in the bilateral paraspinal muscles normal Vertebral body tender to palpation over Facet loading test positive TTP Lumbar spine: Motor bulk/ tone/ strength lower extremities , thigh and legs : 5/5 Deep tendon reflexes : Normal Knee Jerk. Normal Ankle Jerk . Vertebral body tenderness to palpation over L1 Lara Test positive Lumbar Facet Loading Test positive Straight Leg Raise: positive at 30 degrees right side/ left side Gaenslen's Test positive Sacral spine : Severe tenderness over the Sacroiliac joint: right side / left side Range of motion: Flexion of the lumbar spine <60 degrees Range of motion: Extension of the lumbar spine <20 degrees Gaenslen's Test positive right side / left side Rohan test: positive right side / left side Thigh Thrust Test positive right side / left side Sacral Thrust Test positive right side / left side Assessment and plan: Chronic LBP secondary to lumbar DDD, spondylosis with facet arthropathy without myelopathy Pt is considering surgery w Dr Delgadillo. Will manage residual pain and return to clinic for medication refills in 6 wks. All questions answered. I have spent less than 30 minutes on patient care today. Dr Lopez was available by phone for the evaluation of this patient. The time was used to review the medical records including relevant urine studies and Prescription history (MAPs), review of the available imaging, evaluation and examination of the patient, coordination of care with the medical staff and if applicable referring physicians, as well as creation of the medical record PQRS Narrative: Smoking Status Never smoker Narcotic Agreement Date Signed 01/24/23 Hx Alcohol Use (MH) No Home Medications: Ambulatory Orders amLODIPine [Norvasc] 5 mg PO QAM 03/26/19 Tamsulosin [Flomax] 0.4 mg PO HS 09/06/19 Testosterone Enanthate [Xyosted] 1 injection SQ Q14D 02/13/20 hydroCHLOROthiazide 25 mg PO DAILY 04/04/20 traZODone HCL [TraZODone HCl] 50 mg PO HS PRN 12/17/20 Enalapril [Vasotec] 10 mg PO QID 02/26/21 Famotidine 20 mg PO BID PRN 12/16/21 Lactulose 10 gm PO DAILY PRN 12/16/21 Sucralfate [Carafate] 1 gm PO ACHS PRN 12/16/21 Naproxen [Naprosyn] 500 mg PO BID PRN 30 Days #60 tab 03/17/22 predniSONE 5 mg PO DIRECTED PRN 06/16/22 Diclofenac Sodium Gel [Voltaren Gel] 2 - 3 gm TOPICAL QID PRN 30 Days #100 gm 11/29/22 HYDROcodone/APAP 10-325MG [[place] 10-325] 1 tab PO QID PRN 30 Days #120 tab Methadone HCl 10 mg PO QID 30 Days #120 tab 01/24/23 Controlled Substance Measures - Controlled Substance Measures Is patient prescribed a controlled substance at discharge?: No
== END ==
LOC: PNWHC3 07:10
PROVIDERS: ATTEND Specialist
DX: M51.36 Other intervertebral disc degeneration, lumbar region (principal); M47.816 Spondylosis without myelopathy or radiculopathy, lumbar region; G89.29 Other chronic pain; Z91.018 Allergy to other foods; Z88.8 Allergy status to other drugs, medicaments and biological substances; Z91.048 Other nonmedicinal substance allergy status
CPT/HCPCS: 99211

== ENCOUNTER → 2023-03-31 | Outpatient (CLI) | payer MEDICARE | END | disposition home or self-care (01) | LOC: LABPAT 09:08 | PROVIDERS: ATTEND Orthopaedic Surgery Orthopaedic Surgery of the Spine | DX: Z01.812 Encounter for preprocedural laboratory examination (principal); M48.00 Spinal stenosis, site unspecified | CPT/HCPCS: 36415; 86850; 86900; 86901 ==

== ENCOUNTER 2023-04-13 11:47 | Inpatient (IN) | payer MEDICARE ==
[~2023-04-13 11:47] MED LIST changes: +HYDROmorphone 0.5 MG/0.5 ML SYRINGE IVP PRN; -LACTATED RINGERS 1,000 ML IV SCH; +LIDOCAINE 1% (10MG/ML) FOR IV START INTRADERMA PRN; +ONDANSETRON 4 MG/2 ML VIAL IVP ONE; +ceFAZolin 1,000 MG in SODIUM CHLORIDE 0.9% IRRIGATIO 1,000 ML IRRIGATION PRN; +fentaNYL (PF) 50 MCG/ML 2 ML AMP IV PRN
[2023-04-13] MEDS: LACTATED RINGERS 1,000 ML IV SCH ×2 (12:10→22:00)
[2023-04-13 12:33] LABS: Glucose,Whole Blood 98 mg/dL (70-110)
[2023-04-13] MEDS ORDERED: WATER FOR INJECTION, STERILE 10 ML VIAL IV ONE (15:01)
[2023-04-13] MEDS ORDERED: MIDAZOLAM 2 MG/2 ML VIAL ONE (15:01)
[2023-04-13] MEDS ORDERED: ROCURONIUM 10 MG/ML (5 ML VIAL) IV ONE (15:01)
[2023-04-13] MEDS ORDERED: VASOPRESSIN 20 UNIT/ML 1 ML VIAL ONE (15:01)
[2023-04-13] MEDS ORDERED: KETAMINE HCL IN 0.9 % NACL 50 MG/5 ML SYRINGE ONE (15:01)
[2023-04-13] MEDS ORDERED: GLYCOPYRROLATE 0.2 MG/ML 2 ML VIAL ONE (15:01)
[2023-04-13] MEDS ORDERED: LIDOCAINE 1% INJ 10MG/ML (20 ML MDV) ONE (15:01)
[2023-04-13] MEDS ORDERED: HYDROmorphone (PF) 1 MG/ML ONE (15:01)
[2023-04-13] MEDS ORDERED: SUCCINYLCHOLINE CHLORIDE 200 MG/10 ML VIAL IV ONE (15:01)
[2023-04-13] MEDS ORDERED: ePHEDrine 50 MG/ML 1 ML VIAL ONE (15:01)
[2023-04-13] MEDS ORDERED: PHENYLEPHRINE-0.9% NACL SYG 1,000 MCG/10 ML SYRINGE ONE (15:01)
[2023-04-13] MEDS ORDERED: PROPOFOL 10 MG/ML 20 ML VIAL IV ONE (15:01)
[2023-04-13] MEDS ORDERED: NEOSTIGMINE 1 MG/ML 10 ML VIAL ONE (15:01)
[2023-04-13] MEDS ORDERED: fentaNYL (PF) 50 MCG/ML 2 ML AMP ONE (15:01)
[2023-04-13] MEDS ORDERED: LACTATED RINGERS 1,000 ML IV ONE ×2 (15:32→16:31)
[2023-04-13] MEDS ORDERED: LIDOCAINE 1%-EPI 1:100,000 50 ML VIAL SQ ONE (15:40)
[2023-04-13] MEDS ORDERED: GELATIN SPONGE,ABSORB (LARGE) 1 EACH SPONGE TOPICAL ONE (15:40)
[2023-04-13] MEDS ORDERED: THROMBIN (BOVINE) 5,000 UNIT VIAL TOPICAL ONE (15:40)
[2023-04-13] MEDS ORDERED: HYDROcodone/APAP 5-325MG 1 EACH TAB PO PRN (18:11)
[2023-04-13] MEDS ORDERED: HYDROmorphone 0.5 MG/0.5 ML SYRINGE IVP PRN (18:11)
[2023-04-13] MEDS ORDERED: BENZOCAINE/MENTHOL LOZENG 1 EACH LOZENGE MUCOUS MEM PRN (18:11)
[2023-04-13] MEDS ORDERED: SENNOSIDES-DOCUSATE SODIUM 1 EACH TAB PO PRN (18:12)
[2023-04-13] MEDS ORDERED: MAGNESIUM HYDROXIDE 2,400 MG/30 ML CUP PO PRN (18:12)
[2023-04-13] MEDS ORDERED: diazePAM 5 MG TAB PO PRN (18:12)
[2023-04-13] MEDS ORDERED: traZODone HCL 50 MG TAB PO PRN (18:14)
[2023-04-13] MEDS ORDERED: SUCRALFATE 1 GM TAB PO PRN (18:14)
[2023-04-13] MEDS ORDERED: LACTULOSE 20 GM/30 ML CUP PO PRN (18:14)
[2023-04-13] MEDS ORDERED: TESTOSTERONE ENANTHATE SQ SCH (18:15)
--- NOTE | 2023-04-13 18:23 | XR ---
EXAMINATION TYPE: XR lumbar spine 2 or 3V, FL guidance operating room DATE OF EXAM: 04/13/2023 Comparison: None Clinical History: 68-year-old male LUMBAR STENOSIS Findings: Intraoperative fluoroscopy during: L1-L2 FUSION AND HARDWARE REMOVAL 15 SEC FL 2113.87 mGycm2 DAP 5 images are provided. Impression: Intraoperative fluoroscopy as above.
--- NOTE | 2023-04-13 18:27 | P.OP ---
Date of Procedure: 04/13/23 Preoperative Diagnosis: Severe spinal stenosis L1-2, adjacent level degeneration, neurogenic claudication, radiculopathy, degenerative disc disease, history of prior lumbar fusion L2 to S1 with retained hardware Postoperative Diagnosis: Same with findings of solid fusion L2-3 Anesthesia: GETA Pathology: none sent Condition: stable Disposition: PACU Description of Procedure: BRIEF OPERATIVE NOTE Preoperative Diagnosis:Severe spinal stenosis L1-2, adjacent level degeneration, neurogenic claudication, radiculopathy, degenerative disc disease, history of prior lumbar fusion L2 to S1 with retained hardware Postoperative Diagnosis: Same with findings of solid fusion at L2-3 Procedure: CT-guided navigation intraoperatively with the scene monitoring for placement of pedicle screws at L1 bilaterally Laminectomy and decompression for decompression beyond that for preparation for fusion at L1-2 Posterior lateral decompression and fusion at L1-2 Removal of deep hardware from L2 and L3 Exploration of fusion L2-3 with findings of solid fusion Local autogenous bone grafting Use of Cell Saver Use of bone graft extenders Use of neuro monitoring Surgeon: Dr. Delgadillo School Administrator: Sukh Jordan is present throughout the entire the case persistence during positioning, dissection, exposure, visualization, and all crucial elements of the case as well as closure. Anesthesia: General anesthesia per Dr. Lopez Estimated blood loss: Approximately 200 mL Complications: None apparent Components implanted: We implanted K2M Sarbjit minimally invasive [place] pedicle screws measuring 5.5 and 6.5 mm in diameter with 2 rods. We explanted Medtronic Solera screws 2 rods 2 and Screws 4. Disposition: To recovery room in good stable condition. OPERATIVE INDICATIONS The patient has had long-standing issues in their lower back and lower extremities. The patient has been through multiple lumbar surgeries in the past. He feels he has done well with these however he has been developing worsening symptoms at his back and his lower extremities with findings of claudication and radiculopathy. His found have evidence of severe adjacent level degeneration at L1-2 with severe stenosis which really well with his low back and lower extremity symptoms. He was having progressive debility and having worsening pain. His prior surgeries appear to be stable in his prior hardware appeared to be stable. He had significant adjacent level degeneration at L1-2 which appeared to be causing the bulk of his symptoms at this point. The patient has been through conservative treatment. We discussed various treatment options including surgery, and the patient wishes to proceed with surgery We discussed the risk, patient's alternatives and benefits of surgery including but not limited to, risk of bleeding risk of infection, risk of need for further surgery, risk of decreased, loss of motion, muscle function, malunion nonunion, hardware failure, nerve damage, paralysis, heart attack, blindness and . OPERATIVE SUMMARY After discussing all the risks, patient alternatives and benefits at length, the patient elected to proceed with surgical intervention, signed informed consent, and presented for their procedure. The patient was seen and examined in the preoperative holding area and the surgical site was marked. The patient was given antibiotics and brought to the operating room. The patient was sedated and intubated by anesthesia in standard fashion. The patient was positioned on to the operating room table in a prone position on the appropriate frame which was well-padded and well molded. We were careful to pad any bony prominences and pressure points. We were careful to maintain the patient's cervical spine and good neutral alignment and position throughout. The patient was prepped and draped in a normal standard fashion. An appropriate timeout and keystone protocol performed. We were able to proceed with the surgery. The local wound area was infiltrated with local anesthetic. An incision was made at the midline longitudinally over the appropriate levels. Dissection was taken down subcutaneously to the level of the fascia which was split midline. He had prior surgery and there was significant scar tissue for mation around the area. Dissection was taken over the lamina bilaterally over the facet joints and to the transverse processes at L1. Intraoperative x-ray was taken which showed a marker at the appropriate level showing L1-2 above the prior hardware at L2-3. I used CT-guided navigation in order to place the new screws at L1. I placed a tracking guide at the spinous process at L1. We were then able to provide an intraoperative spin with the appropriate draping for the computed tomography scan device in order to use the navigation guidance in order to place the pedicle screws at L1 bilaterally. I was able place the screws appropriate bilaterally at L1 and position was checked and confirmed with excellent bony purchase and position at L1 bilaterally. I was able to place the appropriate size screw and good alignment and good position with good bony purchase. When the screws were inserted there were stimulated, and found to have no stimulation at 20 mA. At this point I turned my attention to evaluating the screws and the hardware at L2 and L3. We found extensive bone growth formation that was essentially almost completely [place] the hardware at L2 and L3 with bone. I was able to use chisels and high-speed bur nor to expose the rods and screw heads at L2 and L3. As able treatment with Screw devices bilaterally and then move remove the rods. There was evidence of solid fusion at L2-3 with testing. I was able to expose the screw head and L2 with significant excavation of the bone bilaterally. I was able to remove this proved bilaterally L2. The screw holes were checked and found irrigated. There is no evidence of any auricle breech. I tapped and was able place a new 6.5 mm screw at L2 bilaterally. These had excellent position alignment and capture. The pedicle screws at L3 were nearly encased in bone and I felt that we could leave the screws intact without further excavating further bone and further excavating the fusion mass. I chose to leave the L3 screws intact bilaterally. I was able to turn my attention to the decompression. decompression was performed with a combination of rongeurs, curettes, Kerrison rongeurs and a ball-tip feeler. At L1-2 there is obvious severe central and bilateral foraminal stenosis. As able to get excellent central and bilateral foraminal decompression. All of the bone that was removed was stripped and morcellized for use as autogenous bone graft later in the case. I was able to obtain good central decompression as well as wide bilateral foraminal decompression. There is no evidence of dural tear or leak. Good hemostasis was maintained. The wound was irrigated and suctioned dry. The wound was irrigated and suctioned dry. With the hardware intact, intraoperative x-ray was again taken which showed good alignment and position of the hardware at the appropriate levels at L1 2 with removal of hardware at L2 and L3. We were then able to measure, contour and place the rods and appropriate hardware bilaterally. I was able to place capcrews, tighten them down, and torque them off appropriately. With this intact I was able to place the local autogenous bone graft with additional bone graft enhancer as necessary into the posterior lateral gutters bilaterally. With the bone graft intact, a stable construct, and good decompression at the appropriate levels, we were able to proceed with closure. Good hemostasis was maintained. There is no evidence of dural tear or leak. The fascia was closed for a watertight closure. The subcutaneous tissue was closed over a superficial drain. The subcuticular tissue was closed with absorbable suture. The wound was cleaned and dried and dressed with the appropriate dressing. The drapes were broken down. The patient was gently rolled back onto their hospital bed being careful to maintain their cervical spine and good neutral alignment and position. They were woken up by anesthesia, extubated, and brought to the recovery room in good stable condition. The patient will be admitted to the hospital for appropriate postoperative care, medical management and monitoring. We will continue to follow them closely about the postoperative course.
[2023-04-13] MEDS: HYDROmorphone 0.5 MG/0.5 ML SYRINGE IVP PRN ×2 (18:51→19:10)
[2023-04-13] MEDS: HYDROcodone/APAP 10-325MG 1 EACH TAB PO PRN (20:25)
[2023-04-13] MEDS: TAMSULOSIN 0.4 MG CAP.ER.24H PO SCH (22:09)
[2023-04-13] MEDS: diazePAM 5 MG TAB PO PRN (22:09)
[2023-04-13] MEDS: lisinopriL 20 MG TAB PO SCH (22:09)
[2023-04-13] MEDS: SODIUM CHLORIDE 0.9% 1,000 ML IV SCH (22:09)
[2023-04-13] MEDS: METHADONE 10 MG TAB PO SCH (22:09)
[2023-04-14] MEDS: LACTATED RINGERS 1,000 ML IV SCH ×2 (06:29→07:58)
[2023-04-14] MEDS: ONDANSETRON 4 MG/2 ML VIAL IVP PRN ×3 (06:30→23:40)
[2023-04-14 06:37] LABS: Basophils % (A) 0 %; Eosinophils # (A) 0.1 k/uL (0-0.7); Eosinophils % (A) 1 %; HCT 36.2 % (39.0-53.0); HGB 12.4 gm/dL (13.0-17.5); Lymphocytes # (A) 0.8 k/uL (1.0-4.8); Lymphocytes % (A) 8 %; MCHC 34.3 g/dL (31.0-37.0); MCV 90.4 fL (80.0-100.0); Mean Platelet Volume 8.1; Monocytes # (A) 0.7 k/uL (0-1.0); Monocytes % (A) 7 %; Neutrophils # (A) 7.5 k/uL (1.3-7.7); Neutrophils % (A) 82 %; Platelet Count 211 k/uL (150-450); WBC 9.1 k/uL (3.8-10.6)
[2023-04-14 07:05] LABS: African American GFR (CKD) >90 (>60 ml/min/1.73 sqM); Anion Gap 7 mmol/L; Blood Urea Nitrogen 12 mg/dL (9-20); Calcium 8.8 mg/dL (8.4-10.2); Carbon Dioxide 25 mmol/L (22-30); Chloride 103 mmol/L (98-107); Glucose 125 mg/dL (74-99); Non-African American GFR(CKD) >90 (>60 ml/min/1.73 sqM); Potassium 4.3 mmol/L (3.5-5.1); Sodium 135 mmol/L (137-145)
[2023-04-14] MEDS: hydroCHLOROthiazide 25 MG TAB PO SCH (08:22)
[2023-04-14] MEDS: SENNOSIDES-DOCUSATE SODIUM 1 EACH TAB PO SCH (08:22)
[2023-04-14] MEDS: amLODIPine 5 MG TAB PO SCH (08:23)
[2023-04-14] MEDS: lisinopriL 20 MG TAB PO SCH ×4 (08:23→22:02)
[2023-04-14] MEDS: METHADONE 10 MG TAB PO SCH ×4 (08:28→22:02)
[2023-04-14] MEDS: HYDROmorphone 1 MG/ML 1 ML SYRINGE IVP PRN ×2 (08:33→19:57)
[2023-04-14] MEDS: SODIUM CHLORIDE 0.9% 1,000 ML IV SCH ×2 (08:34→22:45)
--- NOTE | 2023-04-14 10:24 | P.PN ---
Progress Note - Text Progress Note Date: 04/14/23 Postoperative day #1 Patient is seen and examined today at bedside. The patient has some pain around the surgical site as expected. Pain is being controlled with medication. He says his legs are doing well so far. He says the pain is quite difficult for him to bear and is asking to have it slightly increased. He has been able to get out of his bed and walk in his room. He has been able sit up in a chair. He still has his Pierson intact. He is worried about having his Pierson discontinue d as he has had trouble with urinating post catheterization in the past and would like to have another day. Physical Exam Afebrile with stable vital signs Abdomen is soft nontender. Chest has good excursion deep and space expiration The incision site is clean dry and intact. No erythema there is no purulence. Dressing is clear. He still has a strain intact. There is minimal drainage into the drain Extremities have not had neurologic change from prior to surgery. He has sustained dorsal flexion plantar flexion and EHL intact Calves and thighs were soft nontender without evidence of DVT. Assessment/Plan Postoperative day #1 status post open decompression fusion L1-2 with extension of prior fusion from L3 to S1 for his severe spinal stenosis with adjacent level degeneration and history of prior fusion Patient is progressing as expected from the surgery. He is already been up and mobile and that is encouraging. He is having difficulty with his pain and we can slightly increase it with a Dilaudid. I discussed with him the fact that he is on a significant amount of medications chronically and is somewhat difficult to control his pain due to this and he understands. I like to avoid repeated catheterizations and we will go ahead and leave the Pierson catheter intact until tomorrow morning and continue prophylactic antibiotics until then. In the morning we will discontinue the Hemovac drain and discontinue the Pierson as well. We will continue to increase the patient's mobilization with therapy. We will continue pain control with oral or IV medications. We'll continue to follow patient closely.
[2023-04-14] MEDS: HYDROmorphone 2 MG TAB PO PRN (11:45)
[2023-04-14] MEDS: SUCRALFATE 1 GM TAB PO SCH ×2 (11:50→18:33)
--- NOTE | 2023-04-14 14:47 | P.CONS ---
History of Present Illness - Reason for Consult Consult date: 04/14/23 Medical management - History of Present Illness History of present illness; patient is a 68-year-old gentleman with past medical history significant for hypertension, chronic back pain, history of back s urgeries who presented to the hospital for elective procedure with orthopedic's. The patient has had long-standing issues in his lower back and lower extremities. The patient has been through multiple lumbar surgeries in the past. Patient has been developing worsening symptoms at his back and his lower extremities with findings of claudication and radiculopathy. Patient was being followed outpatient by orthopedic spine and found have evidence of severe adjacent level degeneration at L1-2 with severe stenosis which really well. Patient had tried all conservative measures and those had failed so orthopedic spine decided to proceed with surgery. Postoperatively the medicine team were consulted REVIEW OF SYSTEMS: CONSTITUTIONAL: No fever, no malaise, no fatigue. HEENT: No recent visual problems or hearing problems. Denied any sore throat. CARDIOVASCULAR: No chest pain, orthopnea, PND, no palpitations, no syncope. PULMONARY: No shortness of breath, no cough, no hemoptysis. GASTROINTESTINAL: No diarrhea, no nausea, no vomiting, complaining of epigastric pain NEUROLOGICAL: No headaches, no weakness, no numbness. HEMATOLOGICAL: Denies any bleeding or petechiae. GENITOURINARY: Denies any burning micturition, frequency, or urgency. MUSCULOSKELETAL/RHEUMATOLOGICAL: Complaining of back pain ENDOCRINE: Denies any polyuria or polydipsia. The rest of the 14-point review of systems is negative. PHYSICAL EXAMINATION: GENERAL: The patient is alert and oriented x3, not in any acute distress. Well developed, well nourished. HEENT: Pupils are round and equally reacting to light. EOMI. No scleral icterus. No conjunctival pallor. Normocephalic, atraumatic. No pharyngeal erythema. No thyromegaly. CARDIOVASCULAR: S1 and S2 present. No murmurs, rubs, or gallops. PULMONARY: Chest is clear to auscultation, no wheezing or crackles. ABDOMEN: Soft, nontender, nondistended, normoactive bowel sounds. No palpable organomegaly. MUSCULOSKELETAL: No joint swelling or deformity. EXTREMITIES: No cyanosis, clubbing, or pedal edema. NEUROLOGICAL: Gross neurological examination did not reveal any focal deficits. SKIN: Lumbar area surgical incision seen, drain in place Assessment and plan Severe spinal stenosis L1-2 status post open decompression fusion L1-2 with extension of prior fusion from L3 to S1 for his severe spinal stenosis with adjacent level degeneration and history of prior fusion neurogenic claudication, radiculopathy history of prior lumbar fusion L2 to S1 with retained hardware Hypertension History of urinary retention Monitor vital signs Monitor CBC Monitor CMP Continue Norvasc, enalapril, hypothyroidism Continue Flomax, continue patient on bladder management per protocol Continue pain management per orthopedics Continue DVT prophylaxis per orthopedics PT and OT evaluation Labs and medication were reviewed.. Continue same treatment. Continue with symptomatic treatment. Resume home medication. Monitor labs and vitals. DVT and GI prophylaxis. Further recommendations as per clinical course of the patient Dictation was produced using [employer] dictation software. please excuse any grammatical, word or spelling errors. Past Medical History Past Medical History: Chest Pain / Angina, CVA/TIA, GERD/Reflux, Hyperlipidemia, Hypertension, Musculoskeletal Disorder, Osteoarthritis (OA), Sleep Apnea/CPAP/BIPAP, Vascular Disorder Additional Past Medical History / Comment(s): BACK PAIN/SCIATICA. HX SUPERFICIAL BLOOD CLOTS IN LEGS, NONE REQUIRED TX. uses cpap, chest pain daily extensive testing no cause found no longer happening was determined to be from back pain History of Any Multi-Drug Resistant Organisms: None Reported Past Surgical History: Back Surgery, Hernia Repair, Orthopedic Surgery Additional Past Surgical History / Comment(s): Back surgeries X14, right shoulder surgery, bilateral CARPAL TUNNEL X3, Umbilical hernia, VARICOSE VEIN SX, LEFT KNEE ARTHROSCOPY, MULTIPLE PAIN PROCEDURES, COLONOSCOPY, EGD, Fatty Tumor removed from neck x2, thyroid biopsy. x3, blateral sacral/ileac fusion 09/29/22 Past Anesthesia/Blood Transfusion Reactions: Previous Problems w/ Anesthesia Additional Past Anesthesia/Blood Transfusion Reaction / Comm: HAS BEEN AWAKE/ABLE TO HEAR PROCEDURE DURING PAIN CLINIC PROCEDURE AND ABLE TO FEEL PAIN. Past Psychological History: No Psychological Hx Reported Additional Psychological History / Comment(s): . Smoking Status: Never smoker Past Alcohol Use History: None Reported Past Drug Use History: None Reported - Past Family History Mother Family Medical History: Cancer Additional Family Medical History / Comment(s): Breast Cancer. Father Family Medical History: Cancer Additional Family Medical History / Comment(s): Lung cancer. Medications and Allergies Home Medications Medication Instructions Recorded Confirmed Type amLODIPine [Norvasc] 5 mg PO QAM 03/26/19 03/31/23 History Tamsulosin [Flomax] 0.4 mg PO HS 09/06/19 03/31/23 History Testosterone Enanthate [Xyosted] 1 injection SQ Q14D 02/13/20 03/31/23 History hydroCHLOROthiazide 25 mg PO DAILY 04/04/20 03/31/23 History traZODone HCL [TraZODone HCl] 50 mg PO HS PRN 12/17/20 03/31/23 History Enalapril [Vasotec] 10 mg PO QID 02/26/21 03/31/23 History Lactulose 10 gm PO DAILY PRN 12/16/21 03/31/23 History Sucralfate [Carafate] 1 gm PO ACHS PRN 12/16/21 03/31/23 History Naproxen [Naprosyn] 500 mg PO BID PRN 30 Days #60 tab 03/17/22 03/31/23 Rx predniSONE 5 mg PO DIRECTED PRN 06/16/22 03/31/23 History Diclofenac Sodium Gel [Voltaren 1% 2 - 3 gm TOPICAL QID PRN 30 Days 11/29/22 03/31/23 Rx Gel] #100 gm HYDROcodone/APAP 10-325MG [[place] 1 tab PO QID PRN 30 Days #120 tab 01/24/23 03/31/23 Rx 10-325] Methadone HCl 10 mg PO QID 30 Days #120 tab 01/24/23 03/31/23 Rx Allergies Allergy/AdvReac Type Severity Reaction Status Date / Time Hssfwpe-RKG-ZfQ Reductase AdvReac Unknown Abdominal Verified 04/13/23 12:02 Inhibitor Pain [Fncnixm-Bxz-Cxs Reductase Inhibitor] ibuprofen [From Motrin] AdvReac Nausea & Verified 04/13/23 12:02 Vomiting cashews Allergy Rash/Hives Uncoded 04/13/23 12:02 poison adán Allergy Rash/Hives Uncoded 04/13/23 12:02 POLYESTER AdvReac Rash/Hives Uncoded 04/13/23 12:02 Physical Exam Vitals: Vital Signs Temp Pulse Resp BP Pulse Ox 04/14/23 08:00 18 04/14/23 07:21 98.0 F 82 18 104/56 94 L 04/13/23 22:00 98.1 F 74 132/82 99 04/13/23 21:45 65 116/67 96 04/13/23 21:30 62 122/72 96 04/13/23 21:15 59 L 121/74 98 04/13/23 21:00 61 124/76 98 04/13/23 20:45 78 144/72 98 04/13/23 20:30 78 131/77 98 04/13/23 20:15 66 130/76 95 04/13/23 20:00 68 18 130/72 95 04/13/23 19:20 70 12 129/66 94 L 04/13/23 19:05 67 10 L 133/64 95 04/13/23 18:50 71 11 L 126/68 98 04/13/23 18:35 72 12 132/71 100 04/13/23 18:20 98.3 F 77 16 131/75 100 04/13/23 12:15 139/77 04/13/23 12:07 98.3 F 90 16 166/109 97 Intake and Output 04/13/23 04/14/23 04/14/23 22:59 06:59 14:59 Intake Total 2251 Output Total 710 625 25 Balance 1541 -625 -25 Intake: IV 2251 Output: Drainage 25 25 Back 25 25 Urine 510 600 Estimated Blood Loss 200 Other: Voiding Method Indwelling Catheter Indwelling Catheter Weight 101.8 kg Results CBC & Chem 7: 04/14/23 06:21 04/14/23 06:21 Labs: Abnormal Lab Results - Last 24 Hours (Table) 04/14/23 04/14/23 Range/Units 06:21 06:21 RBC 4.00 L (4.30-5.90) m/uL Hgb 12.4 L (13.0-17.5) gm/dL Hct 36.2 L (39.0-53.0) % Lymphocytes # 0.8 L (1.0-4.8) k/uL Sodium 135 L (137-145) mmol/L Glucose 125 H (74-99) mg/dL
[2023-04-14] MEDS: HYDROcodone/APAP 10-325MG 1 EACH TAB PO PRN ×2 (15:09→23:32)
[2023-04-14] MEDS: diazePAM 5 MG TAB PO PRN (19:57)
[2023-04-14] MEDS: TAMSULOSIN 0.4 MG CAP.ER.24H PO SCH (21:56)
[2023-04-15] MEDS: LACTATED RINGERS 1,000 ML IV SCH ×2 (03:03→05:40)
[2023-04-15] MEDS: diazePAM 5 MG TAB PO PRN (04:25)
[2023-04-15] MEDS: HYDROcodone/APAP 10-325MG 1 EACH TAB PO PRN (06:28)
[2023-04-15] MEDS: SUCRALFATE 1 GM TAB PO SCH (06:31)
[2023-04-15] MEDS: METHADONE 10 MG TAB PO SCH ×2 (07:49→12:02)
[2023-04-15] MEDS: amLODIPine 5 MG TAB PO SCH (07:50)
[2023-04-15] MEDS: SENNOSIDES-DOCUSATE SODIUM 1 EACH TAB PO SCH (07:50)
[2023-04-15] MEDS: hydroCHLOROthiazide 25 MG TAB PO SCH (07:50)
[2023-04-15] MEDS: lisinopriL 20 MG TAB PO SCH ×2 (07:50→12:02)
[2023-04-15 08:27] VITALS: RESP 16
[2023-04-15] MEDS: HYDROmorphone 2 MG TAB PO PRN (09:41)
[2023-04-15] MEDS: SODIUM CHLORIDE 0.9% 1,000 ML IV SCH (11:09)
--- NOTE | 2023-04-15 12:49 | P.PN ---
Subjective Progress Note Date: 04/15/23 patient is a 68-year-old gentleman with past medical history significant for hypertension, chronic back pain, history of back surgeries who presented to the hospital for elective procedure with orthopedic's. The patient has had long- standing issues in his lower back and lower extremities. The patient has been through multiple lumbar surgeries in the past. Patient has been developing worsening symptoms at his back and his lower extremities with findings of claudication and radiculopathy. Patient was being followed outpatient by orthopedic spine and found have evidence of severe adjacent level degeneration at L1-2 with severe stenosis which really well. Patient had tried all conservative measures and those had failed so orthopedic spine decided to proceed with surgery. Postoperatively the medicine team were consulted 04/15. Patient seen and examined. States he feels much better. Patient keen to go home. REVIEW OF SYSTEMS: CONSTITUTIONAL: No fever, no malaise,. CARDIOVASCULAR: No chest pain, no palpitations, no syncope. PULMONARY: No shortness of breath, no cough, GASTROINTESTINAL: No diarrhea, no nausea, no vomiting, no abdominal pain. NEUROLOGICAL: No headaches, no weakness, PHYSICAL EXAMINATION: GENERAL: The patient is alert and oriented x3, not in any acute distress. Well developed, well nourished. HEENT: Pupils are round and equally reacting to light. EOMI. No scleral icterus. No conjunctival pallor. Normocephalic, atraumatic. No pharyngeal erythema. No thyromegaly. CARDIOVASCULAR: S1 and S2 present. No murmurs, rubs, or gallops. PULMONARY: Chest is clear to auscultation, no wheezing or crackles. ABDOMEN: Soft, nontender, nondistended, normoactive bowel sounds. No palpable organomegaly. MUSCULOSKELETAL: No joint swelling or deformity. EXTREMITIES: No cyanosis, clubbing, or pedal edema. NEUROLOGICAL: Gross neurological examination did not reveal any focal deficits. SKIN: Lumbar area surgical incision seen, drain in place Assessment and plan Severe spinal stenosis L1-2 status post open decompression fusion L1-2 with extension of prior fusion from L3 to S1 for his severe spinal stenosis with adjacent level degeneration and history of prior fusion neurogenic claudication, radiculopathy history of prior lumbar fusion L2 to S1 with retained hardware Hypertension History of urinary retention Monitor vital signs Monitor CBC Monitor CMP Encourage use of I-S Continue Norvasc, enalapril, hypothyroidism Continue Flomax, continue patient on bladder management per protocol Continue pain management per orthopedics Continue DVT prophylaxis per orthopedics PT and OT evaluation Labs and medication were reviewed.. Continue same treatment. Continue with sy mptomatic treatment. Resume home medication. Monitor labs and vitals. DVT and GI prophylaxis. Further recommendations as per clinical course of the patient Dictation was produced using [employer] dictation software. please excuse any grammatical, word or spelling errors. Objective - Vital Signs Vital signs: Vital Signs Temp 97.8 F 04/15/23 06:50 Pulse 74 04/15/23 06:50 Resp 16 04/15/23 06:50 BP 145/74 04/15/23 06:50 Pulse Ox 100 04/15/23 06:50 FiO2 Intake & Output 04/14/23 04/15/23 04/15/23 18:59 06:59 18:59 Intake Total 300 950 Output Total 4755 1542 700 Balance -8889 -592 -700 Intake: Intake, IV Titration 950 Amount Sodium Chloride 0.9% 1, 900 000 ml @ 75 mls/hr IV . [id number] [facility] Rx#:[id number] ceFAZolin 2 gm In Sodium 50 Chloride 0.9% 50 ml @ 100 mls/hr IVPB Q8HR RAMÍREZ Rx# :[id number] Oral 300 Output: Drainage 75 42 Back 75 42 Urine 4680 1500 700 Other: Voiding Method Indwelling Catheter Indwelling Catheter - Labs CBC & Chem 7: 04/14/23 06:21 04/14/23 06:21
--- NOTE | 2023-04-15 12:54 | P.DS ---
Providers Date of admission: 04/14/23 13:31 Attending physician: Shyam Delgadillo Consults: 04/13/23 18:12 Consult Physician Routine Consulting Provider: María Suarez Consult Reason/Comments: Francisco Javier management Do you want consulting provider notified?: Yes Primary care physician: Mauro Guzman Hospital Course: The patient presented on the day of admission as per their operative note. He underwent open decompression fusion L2-3 with extension as prior fusion from L3 to S1 for his severe adjacent level degeneration with severe stenosis and lower extremity radiculopathy. He feels he is making progress. He feels his legs are having improvement. He is ambulating better in the room and tolerating his pain adequately. He has been able to void since the catheter was discontinued Physical Exam The incision site is clean dry and intact. There is no erythema no drainage. There is no purulence no evidence of infection. There is no active drainage or bleeding. Abdomen soft and nontender. Chest has good excursion with deep inspiration and expiration. The patient has active and passive range of motion intact at the upper and lower extremities. There is no acute change in neurologic status. He is ambulate in the room has sustained dorsal flexion plantar flexion and EHL intact Hospital Course Postoperative day #2 status post open decompression fusion L2-3 for severe spinal stenosis and adjacent level degeneration with history of prior fusion L3 to S1. The patient has been making good progress postoperatively. They have completed the prophylactic antibiotics without any signs or symptoms of infection. The patient has been able to advance their diet, and is tolerating diet adequately. The pain was initially controlled with IV medications and is now controlled appropriately with oral medications. The patient has been able to increase their mobilization. The patient has progressed appropriately. I think they are in good stable condition for discharge today. They will be sent home with appropriate prescriptions. I answered their questions to the best of my ability in a language that they can understand and they are agreeable with the plan. They will follow up as directed. Patient Condition at Discharge: Good Plan - Discharge Summary Discharge Rx Participant: No New Discharge Prescriptions: No Action amLODIPine [Norvasc] 5 mg PO QAM Tamsulosin [Flomax] 0.4 mg PO HS Testosterone Enanthate [Xyosted] 1 injection SQ Q14D hydroCHLOROthiazide 25 mg PO DAILY traZODone HCL [TraZODone HCl] 50 mg PO HS PRN PRN Reason: Insomnia predniSONE 5 mg PO DIRECTED PRN PRN Reason: joint inflammation Enalapril [Vasotec] 10 mg PO QID Sucralfate [Carafate] 1 gm PO ACHS PRN PRN Reason: acid reflux Lactulose 10 gm PO DAILY PRN PRN Reason: Constipation Naproxen [Naprosyn] 500 mg PO BID PRN 30 Days #60 tab PRN Reason: Inflammation Diclofenac Sodium Gel [Voltaren 1% Gel] 2 - 3 gm TOPICAL QID PRN 30 Days #100 gm PRN Reason: Pain Methadone HCl 10 mg PO QID 30 Days #120 tab HYDROcodone/APAP 10-325MG [[place] 10-325] 1 tab PO QID PRN 30 Days #120 tab PRN Reason: Pain Discharge Medication List amLODIPine [Norvasc] 5 mg PO QAM 03/26/19 [History] Tamsulosin [Flomax] 0.4 mg PO HS 09/06/19 [History] Testosterone Enanthate [Xyosted] 1 injection SQ Q14D 02/13/20 [History] hydroCHLOROthiazide 25 mg PO DAILY 04/04/20 [History] traZODone HCL [TraZODone HCl] 50 mg PO HS PRN 12/17/20 [History] Enalapril [Vasotec] 10 mg PO QID 02/26/21 [History] Lactulose 10 gm PO DAILY PRN 12/16/21 [History] Sucralfate [Carafate] 1 gm PO ACHS PRN 12/16/21 [History] Naproxen [Naprosyn] 500 mg PO BID PRN 30 Days #60 tab 03/17/22 [Rx] predniSONE 5 mg PO DIRECTED PRN 06/16/22 [History] Diclofenac Sodium Gel [Voltaren 1% Gel] 2 - 3 gm TOPICAL QID PRN 30 Days #100 gm 11/29/22 [Rx] HYDROcodone/APAP 10-325MG [[place] 10-325] 1 tab PO QID PRN 30 Days #120 tab 01/24/23 [Rx] Methadone HCl 10 mg PO QID 30 Days #120 tab 01/24/23 [Rx] Follow up Appointment(s)/Referral(s): Shyam Delgadillo DO [Doctor of Osteopathic Medicine] - 2 Weeks Activity/Diet/Wound Care/Special Instructions: Keep site clean. May shower with waterproof Tegaderm intact. Do not soak in a tub. After 72 hours postoperatively, patient May remove dressing and then may shower with area uncovered. Leave glue intact and allow it to fray off on its own. May ambulate as tolerated. Avoid heavy or rigorous activity. No repetitive bending twisting or lifting. No overhead work. Discharge Disposition: HOME SELF-CARE
[2023-04-15 14:04] VITALS: BP 132/67; PULSE 83; TEMP 98.9
== END 2023-04-15 14:57 | disposition home or self-care (01) | DRG 455 ==
LOC: OR 11:47 → 4SSUR 18:25 → OR 04-14 13:31 → 4SSUR 04-14 13:31
PROVIDERS: ADMIT Orthopaedic Surgery Orthopaedic Surgery of the Spine; ATTEND Orthopaedic Surgery Orthopaedic Surgery of the Spine
PROC: 0SG1071 Fusion of 2 or more Lumbar Vertebral Joints with Autologous Tissue Substitute, Posterior Approach, Posterior Column, Open Approach (ICD-10-PCS; 2023-04-13)
PROC: 0SP00AZ Removal of Interbody Fusion Device from Lumbar Vertebral Joint, Open Approach (ICD-10-PCS; 2023-04-13)
PROC: 01NB0ZZ Release Lumbar Nerve, Open Approach (ICD-10-PCS; 2023-04-13)
PROC: 8E0WXBG Computer Assisted Procedure of Trunk Region, With Computerized Tomography (ICD-10-PCS; 2023-04-13)
PROC: 30233H0 Transfusion of Autologous Whole Blood into Peripheral Vein, Percutaneous Approach (ICD-10-PCS; 2023-04-13)
PROC: 0SG10AJ Fusion of 2 or more Lumbar Vertebral Joints with Interbody Fusion Device, Posterior Approach, Anterior Column, Open Approach (ICD-10-PCS; principal; 2023-04-13 13:15)
DX: M51.16 Intervertebral disc disorders with radiculopathy, lumbar region (principal); I10 Essential (primary) hypertension; E78.5 Hyperlipidemia, unspecified; M48.062 Spinal stenosis, lumbar region with neurogenic claudication; R53.81 Other malaise; G89.29 Other chronic pain; R33.9 Retention of urine, unspecified; K21.9 Gastro-esophageal reflux disease without esophagitis; M19.90 Unspecified osteoarthritis, unspecified site; G47.30 Sleep apnea, unspecified; Z98.1 Arthrodesis status; Z79.899 Other long term (current) drug therapy; Z79.890 Hormone replacement therapy; Z79.891 Long term (current) use of opiate analgesic; Z88.8 Allergy status to other drugs, medicaments and biological substances; Z88.6 Allergy status to analgesic agent; Z91.018 Allergy to other foods; Z91.048 Other nonmedicinal substance allergy status
CPT/HCPCS: 72100; 80048; 85025; 86891

== ENCOUNTER → 2023-05-05 | Outpatient (CLI) | payer MEDICARE ==
[2023-05-05 08:25] VITALS: BP 123/76; PULSE 72; RESP 15; TEMP 98.5
--- NOTE | 2023-05-05 14:56 | P.PAINPG ---
PQRS Measure Charge Sheet Comment: A 67 yr old male with a history of severe and chronic LBP secondary to post laminectomy syndrome presents today for medication refills. Pt underwent a lumbar laminectomy w hardware placement w Dr Delgadillo approximately 3 wks ago and states his back is feeling better, just his LE pain is unchanged. Pain level is provoked at 4/10 in intensity, constant, localized in the lumbar spine, sharp in character w shooting towards the BLEs. Pain is provoked by over activity or standing for periods of 20 min or more. Pain is alleviated with PT x 6 wks in Apr-May 2022, chiropractic treatment is contraindicated, heat, ice, medications, topicals, repositioning and rest. Oswestry axial pain score of 31. Interventional pain procedures completed include BL SI x 2, BL TFESI L1-L2 x2, R RFA C3-C5, Caudal GEETHA w Lysis x2 Patient is currently on [place] 10/325mg #120, Methadone 10mg #120, Naproxen, Voltaren gel Patient denies any side effects of the medication(s), denies excessive drowsiness or sleepiness, denies suicidal ideation and reports that the current pain medication is helping to control the pain and improve activities of daily living. Patient denies any motor or sensory deficits. Patient denies any fever or night sweats, denies any change in the bowel movements or urination. Physical Examination: -Constitutional: Cooperative. Not in acute distress . - Neurologic: Cranial nerve II to XII intact. No focal neurological deficits. - Psychatric: Alert & oriented x 3. Matching mood & appropriate affect. Ju dgment and insight intact. - Musculoskeletal: Cervical spine: Muscle bulk/ tone/ strength in the bilateral upper extremities normal Vertebral body tenderness to palpation Spurling test positive Distraction test positive Facet loading test positive TTP Thoracic spine Muscle bulk / tone/ strength in the bilateral paraspinal muscles normal Vertebral body tender to palpation over Facet loading test positive TTP Lumbar spine: Motor bulk/ tone/ strength lower extremities , thigh and legs : 5/5 Deep tendon reflexes : Normal Knee Jerk. Normal Ankle Jerk . Vertebral body tenderness to palpation over L1 Lara Test positive Lumbar Facet Loading Test positive Straight Leg Raise: positive at 30 degrees right side/ left side Gaenslen's Test positive Sacral spine : Severe tenderness over the Sacroiliac joint: right side / left side Range of motion: Flexion of the lumbar spine <60 degrees Range of motion: Extension of the lumbar spine <20 degrees Gaenslen's Test positive right side / left side Rohan test: positive right side / left side Thigh Thrust Test positive right side / left side Sacral Thrust Test positive right side / left side Assessment and plan: Chronic LBP secondary to post laminectomy syndrome Recommendation of medication management. [place] 10/325mg #120, Methadone 10mg #120 w 1 RF. Use, side effects, adverse reactions and safe storage discussed. Pt acknowledged understanding. All questions answered. I have spent less than 30 minutes on patient care today. Dr Lopez was available by phone for the evaluation of this patient. The time was used to review the medical records including relevant urine studies and Prescription history (MAPs), review of the available imaging, evaluation and examination of the patient, coordination of care with the medical staff and if applicable referring physicians, as well as creation of the medical record PQRS Narrative: Smoking Status Never smoker Narcotic Agreement Date Signed 01/24/23 Hx Alcohol Use (MH) No Home Medications: Ambulatory Orders amLODIPine [Norvasc] 5 mg PO QAM 03/26/19 Tamsulosin [Flomax] 0.4 mg PO HS 09/06/19 Testosterone Enanthate [Xyosted] 1 injection SQ Q14D 02/13/20 hydroCHLOROthiazide 25 mg PO DAILY 04/04/20 traZODone HCL [TraZODone HCl] 50 mg PO HS PRN 12/17/20 Enalapril [Vasotec] 10 mg PO QID 02/26/21 Lactulose 10 gm PO DAILY PRN 12/16/21 Sucralfate [Carafate] 1 gm PO ACHS PRN 12/16/21 Naproxen [Naprosyn] 500 mg PO BID PRN 30 Days #60 tab 03/17/22 predniSONE 5 mg PO DIRECTED PRN 06/16/22 Diclofenac Sodium Gel [Voltaren 1% Gel] 2 - 3 gm TOPICAL QID PRN 30 Days #100 gm 11/29/22 HYDROcodone/APAP 10-325MG [[place] 10-325] 1 tab PO Q6H PRN 30 Days #120 tab 05/05/23 HYDROcodone/APAP 10-325MG [[place] 10-325] 1 tab PO QID PRN 30 Days #120 tab 11/09/23 Methadone HCl 10 mg PO QID 30 Days #120 tab 05/05/23 Methadone HCl 10 mg PO QID 30 Days #120 tab 05/05/23 Controlled Substance Measures - Controlled Substance Measures Is patient prescribed a controlled substance at discharge?: Yes When asked, does pt state using other controlled substances?: Yes If prescribed controlled substance>3 days was MAPS reviewed?: Yes
== END ==
LOC: PNWHC3 07:12
PROVIDERS: ATTEND Specialist
DX: M96.1 Postlaminectomy syndrome, not elsewhere classified (principal); G89.29 Other chronic pain; Z88.8 Allergy status to other drugs, medicaments and biological substances; Z88.6 Allergy status to analgesic agent; Z91.018 Allergy to other foods
CPT/HCPCS: 99211

== ENCOUNTER → 2023-07-14 | Outpatient (CLI) | payer MEDICARE ==
[2023-07-14 08:54] VITALS: BP 150/82; PULSE 84; RESP 16
--- NOTE | 2023-07-14 13:39 | P.PAINPG ---
Objective - Vital Signs Vital signs: Intake & Output 07/13/23 07/14/23 07/14/23 18:59 06:59 18:59 Weight 99.79 kg PQRS Measure Charge Sheet Comment: A 68 yr old male with a history of severe and chronic LBP secondary to post laminectomy syndrome presents today for medication refills. Pain level is provoked at 8/10 in intensity, constant, localized in the lumbar spine, sharp in character w shooting towards the BLEs. Pain is provoked by over activity or standing for periods of 20 min or more. Pain is alleviated with PT x 6 wks in Apr-May 2022, chiropractic treatment is contraindicated, heat, ice, medications, topicals, repositioning and rest. Oswestry axial pain score of 31. Interventional pain procedures completed include BL SI x 2, BL TFESI L1-L2 x2, R RFA C3-C5, Caudal GEETHA w Lysis x2 Patient is currently on [place] 10/325mg #120, Methadone 10mg #120, Naproxen, Voltaren gel Patient denies any side effects of the medication(s), denies excessive drowsiness or sleepiness, denies suicidal ideation and reports that the current pain medication is helping to control the pain and improve activities of daily living. Patient denies any motor or sensory deficits. Patient denies any fever or night sweats, denies any change in the bowel movements or urination. Physical Examination: -Constitutional: Cooperative. Not in acute distress . - Neurologic: Cranial nerve II to XII intact. No focal neurological deficits. - Psychatric: Alert & oriented x 3. Matching mood & appropriate affect. Judgment and insight intact. - Musculoskeletal: Cervical spine: Muscle bulk/ tone/ strength in the bilateral upper extremities normal Vertebral body tenderness to palpation Spurling test positive Distraction test positive Facet loading test positive TTP Thoracic spine Muscle bulk / tone/ strength in the bilateral paraspinal muscles normal Vertebral body tender to palpation over Facet loading test positive TTP Lumbar spine: Motor bulk/ tone/ strength lower extremities , thigh and legs : 5/5 Deep tendon reflexes : Normal Knee Jerk. Normal Ankle Jerk . Vertebral body tenderness to palpation over L1 Lara Test positive Lumbar Facet Loading Test positive Straight Leg Raise: positive at 30 degrees right side/ left side Gaenslen's Test positive Sacral spine : Severe tenderness over the Sacroiliac joint: right side / left side Range of motion: Flexion of the lumbar spine <60 degrees Range of motion: Extension of the lumbar spine <20 degrees Gaenslen's Test positive right side / left side Rohan test: positive right side / left side Thigh Thrust Test positive right side / left side Sacral Thrust Test positive right side / left side Assessment and plan: Chronic LBP secondary to post laminectomy syndrome Recommendation of medication management. [place] 10/325mg #120, Methadone 10mg #120 w 1 RF. 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 Use, side effects, a dverse reactions and safe storage discussed. Pt acknowledged understanding. All questions answered. I have spent less than 30 minutes on patient care today. Dr Lopez was available by phone for the evaluation of this patient. The time was used to review the medical records including relevant urine studies and Prescription history (MAPs), review of the available imaging, evaluation and examination of the patient, coordination of care with the medical staff and if applicable referring physicians, as well as creation of the medical record - Pain Location Bilateral Lower Back Non-Pharmacological Interventions: Heat, Ice, Inactivity, Physical Therapy, Position/Reposition, Sitting Pharmacological Interventions: Epidural, Scheduled Medication, Topical Medication PQRS Narrative: Smoking Status Never smoker Narcotic Agreement Date Signed 01/24/23 Hx Alcohol Use (MH) No Home Medications: Ambulatory Orders amLODIPine [Norvasc] 5 mg PO QAM 03/26/19 Tamsulosin [Flomax] 0.4 mg PO HS 09/06/19 Testosterone Enanthate [Xyosted] 1 injection SQ Q14D 02/13/20 hydroCHLOROthiazide 25 mg PO DAILY 04/04/20 traZODone HCL [TraZODone HCl] 50 mg PO HS PRN 12/17/20 Enalapril [Vasotec] 10 mg PO QID 02/26/21 Lactulose 10 gm PO DAILY PRN 12/16/21 Sucralfate [Carafate] 1 gm PO ACHS PRN 12/16/21 Naproxen [Naprosyn] 500 mg PO BID PRN 30 Days #60 tab 03/17/22 predniSONE 5 mg PO DIRECTED PRN 06/16/22 Diclofenac Sodium Gel [Voltaren 1% Gel] 2 - 3 gm TOPICAL QID PRN 30 Days #100 gm 11/29/22 HYDROcodone/APAP 10-325MG [[place] 10-325] 1 tab PO Q6H PRN 30 Days #120 tab 07/14/23 HYDROcodone/APAP 10-325MG [[place] 10-325] 1 tab PO QID PRN 30 Days #120 tab 07/14/23 Methadone HCl 10 mg PO QID 30 Days #120 tab 07/14/23 Methadone HCl 10 mg PO QID 30 Days #120 tab 07/14/23 Controlled Substance Measures - Controlled Substance Measures Is patient prescribed a controlled substance at discharge?: Yes When asked, does pt state using other controlled substances?: Yes If prescribed controlled substance>3 days was MAPS reviewed?: Yes
== END ==
LOC: PNWHC3 07:24
PROVIDERS: ATTEND Specialist
DX: M54.50 Low back pain, unspecified (principal); M96.1 Postlaminectomy syndrome, not elsewhere classified
CPT/HCPCS: 80307; G0463; 99212

== ENCOUNTER → 2023-07-14 | Outpatient (CLI) | payer MEDICARE | END | disposition home or self-care (01) | LOC: LABWHC1 08:42 | PROVIDERS: ATTEND Physician Assistant Medical | DX: Z79.891 Long term (current) use of opiate analgesic (principal) | CPT/HCPCS: 36415; 93005 ==

== ENCOUNTER → 2023-09-08 | Outpatient (CLI) | payer MEDICARE ==
[2023-09-08 08:50] VITALS: BP 129/75; PULSE 82; RESP 16; TEMP 97.1
--- NOTE | 2023-09-08 12:50 | P.PAINPG ---
Objective - Vital Signs Vital signs: Intake & Output 09/07/23 09/08/23 09/08/23 18:59 06:59 18:59 Weight 95.254 kg PQRS Measure Charge Sheet Comment: A 68 yr old male with a history of severe and chronic LBP secondary to post laminectomy syndrome presents today for medication refills. Pain level is provoked at 5 /10 in intensity, constant, localized in the lumbar spine, sharp in character w shooting towards the BL hips and LEs. Pain is provoked by over activity or standing for periods of 20 min or more. Pain is alleviated with PT x 6 wks in Apr-May 2022, chiropractic treatment is contraindicated, alternating heat & ice, medications, topicals, repositioning and rest. Oswestry axial pain score of 30. Interventional pain procedures completed include BL SI x 2, BL TFESI L1-L2 x2, R RFA C3-C5, Caudal GEETHA w Lysis x2 Patient is currently on [place] 10/325mg #120, Methadone 10mg #120, Naproxen, Voltaren gel Patient denies any side effects of the medication(s), denies excessive drowsiness or sleepiness, denies suicidal ideation and reports that the current pain medication is helping to control the pain and improve activities of daily living. Patient denies any motor or sensory deficits. Patient denies any fever or night sweats, denies any change in the bowel movements or urination. Physical Examination: -Constitutional: Cooperative. Not in acute distress . - Neurologic: Cranial nerve II to XII intact. No focal neurological deficits. - Psychatric: Alert & oriented x 3. Matching mood & appropriate affect. Judgment and insight intact. - Musculoskeletal: Cervical spine: Muscle bulk/ tone/ strength in the bilateral upper extremities normal Vertebral body tenderness to palpation Spurling test positive Distraction test positive Facet loading test positive TTP Thoracic spine Muscle bulk / tone/ strength in the bilateral paraspinal muscles normal Vertebral body tender to palpation over Facet loading test positive TTP Lumbar spine: Motor bulk/ tone/ strength lower extremities , thigh and legs : 5/5 Deep tendon reflexes : Normal Knee Jerk. Normal Ankle Jerk . Vertebral body tenderness to palpation over L1 Lara Test positive Lumbar Facet Loading Test positive Straight Leg Raise: positive at 30 degrees right side/ left side Gaenslen's Test positive Sacral spine : Severe tenderness over the Sacroiliac joint: right side / left side Range of motion: Flexion of the lumbar spine <60 degrees Range of motion: Extension of the lumbar spine <20 degrees Gaenslen's Test positive right side / left side Rohan test: positive right side / left side Thigh Thrust Test positive right side / left side Sacral Thrust Test positive right side / left side Assessment and plan: Chronic LBP secondary to post laminectomy syndrome Recommendation of medication management. [place] 10/325mg #120, Methadone 10mg #120 w 1 RF. EKG Dx Z79.891 fr Jun 2023 reviewed. Use, side effects, adverse reactions and safe storage discussed. Pt acknowledged understanding. All questions answered. I have spent less than 30 minutes on patient care today. Dr Lopez was avail able by phone for the evaluation of this patient. The time was used to review the medical records including relevant urine studies and Prescription history (MAPs), review of the available imaging, evaluation and examination of the patient, coordination of care with the medical staff and if applicable referring physicians, as well as creation of the medical record PQRS Narrative: Smoking Status Never smoker Narcotic Agreement Date Signed 01/24/23 Hx Alcohol Use (MH) No Home Medications: Ambulatory Orders amLODIPine [Norvasc] 5 mg PO QAM 03/26/19 Tamsulosin [Flomax] 0.4 mg PO HS 09/06/19 Testosterone Enanthate [Xyosted] 1 injection SQ Q14D 02/13/20 hydroCHLOROthiazide 25 mg PO DAILY 04/04/20 traZODone HCL [TraZODone HCl] 50 mg PO HS PRN 12/17/20 Enalapril [Vasotec] 10 mg PO QID 02/26/21 Lactulose 10 gm PO DAILY PRN 12/16/21 Sucralfate [Carafate] 1 gm PO ACHS PRN 12/16/21 Naproxen [Naprosyn] 500 mg PO BID PRN 30 Days #60 tab 03/17/22 predniSONE 5 mg PO DIRECTED PRN 06/16/22 Diclofenac Sodium Gel [Voltaren 1% Gel] 2 - 3 gm TOPICAL QID PRN 30 Days #100 gm 09/08/23 HYDROcodone/APAP 10-325MG [[place] 10-325] 1 tab PO Q6H PRN 30 Days #120 tab 09/08/23 HYDROcodone/APAP 10-325MG [[place] 10-325] 1 tab PO QID PRN 30 Days #120 tab 09/08/23 Methadone HCl 10 mg PO QID 30 Days #120 tab 09/08/23 Methadone HCl 10 mg PO QID 30 Days #120 tab 09/08/23 Controlled Substance Measures - Controlled Substance Measures Is patient prescribed a controlled substance at discharge?: Yes When asked, does pt state using other controlled substances?: No If prescribed controlled substance>3 days was MAPS reviewed?: Yes
== END ==
LOC: PNWHC3 07:26
PROVIDERS: ATTEND Specialist
DX: M96.1 Postlaminectomy syndrome, not elsewhere classified (principal); G89.29 Other chronic pain; Z88.8 Allergy status to other drugs, medicaments and biological substances; Z88.6 Allergy status to analgesic agent; Z91.018 Allergy to other foods
CPT/HCPCS: 99211

== ENCOUNTER 2023-11-08 07:10 | Day surgery (SDC) | payer MEDICARE ==
[2023-11-02 09:52] VITALS: BMI 30.8
[2023-11-08] MEDS ORDERED: LACTATED RINGERS 1,000 ML IV SCH (07:26)
[2023-11-08] MEDS ORDERED: LIDOCAINE 1% (10MG/ML) FOR IV START INTRADERMA PRN (07:26)
[2023-11-08] MEDS: LACTATED RINGERS 1,000 ML IV ONE (07:49)
[2023-11-08 08:23] VITALS: TEMP 98.1
[2023-11-08] MEDS ORDERED: PROPOFOL 10 MG/ML 20 ML VIAL IV ONE (08:33)
--- NOTE | 2023-11-08 08:55 | P.PCN ---
Date of Procedure: 11/08/23 Procedure(s) Performed: BRIEF HISTORY: Patient is a 68-year-old pleasant white male scheduled for an elective colonoscopy as a part of evaluation by history of colon polyps. Last colonoscopy was 6 years ago. PROCEDURE PERFORMED: Colonoscopy with snare polypectomy. PREOPERATIVE DIAGNOSIS: History of colon polyps. IV sedation per Anesthesia. PROCEDURE: After informed consent was obtained, the patient, was brought into the endoscopy unit. IV sedation was administered by Anesthesia under continuous monitoring. Digital rectal examination was normal. Initially the Olympus CF-160 flexible video colonoscope was then inserted in the rectum, gradually advanced into the cecum without any difficulty. Careful examination was performed as the scope was gradually being withdrawn. Ileocecal valve and the appendiceal orifice were visualized and appeared normal. Prep was excellent. Mucosa of the cecum, normal. The ascending colon there were 2 polyps measuring 5 and 1 cm in size both of which were removed by snare polypectomy. Rest of the ascending colon, transverse colon, descending colon, sigmoid colon, and rectum appeared normal. In the rectum there were two 5 mm polyps removed by cold snare polypectomy. Retroflexion was performed in the rectum and no lesions were seen. The patient tolerated the procedure well. IMPRESSION: 5 mm and 1 cm ascending colon polyp status post snare polypectomy 5 mm x 2 rectal polyps status post polypectomy RECOMMENDATIONS: Findings of this examination were discussed with the patient as well as her family. She was advised to follow-up with the biopsy results. If the biopsy reveals adenoma, recommended repeat colonoscopy in 3 years..
[2023-11-08 09:15] VITALS: BP 148/71; PULSE 78; RESP 16
== END 2023-11-08 09:29 | disposition home or self-care (01) ==
LOC: ORWHC2ENDO 07:10
PROVIDERS: ATTEND Internal Medicine Gastroenterology
DX: Z12.11 Encounter for screening for malignant neoplasm of colon (principal); D12.2 Benign neoplasm of ascending colon; D12.8 Benign neoplasm of rectum; I10 Essential (primary) hypertension; E78.5 Hyperlipidemia, unspecified; G47.33 Obstructive sleep apnea (adult) (pediatric); K21.9 Gastro-esophageal reflux disease without esophagitis; Z86.010 Personal history of colon polyps; Z98.890 Other specified postprocedural states; Z79.899 Other long term (current) drug therapy
CPT/HCPCS: 45385; J2704; 88305

== ENCOUNTER → 2023-11-17 | Outpatient (CLI) | payer MEDICARE ==
[2023-11-17 08:17] VITALS: BP 142/83; PULSE 62; RESP 16; TEMP 97.7
--- NOTE | 2023-11-17 14:46 | P.PAINPG ---
PQRS Measure Charge Sheet Comment: A 68 yr old male with a history of severe and chronic LBP secondary to post laminectomy syndrome presents today for medication refills. Pain level is provoked at 5-6 /10 in intensity, constant, localized in the lumbar spine, sharp in character w shooting towards the BL hips and LEs. Pain is provoked by over activity or standing for periods of 20 min or more. Pain is alleviated with PT x 6 wks in Apr-May 2022, chiropractic treatment is contraindicated, alternating heat & ice, medications, topical, repositioning and rest. Oswestry axial pain score of 29. Interventional pain procedures completed include BL SI x 2, BL TFESI L1-L2 x2, R RFA C3-C5, Caudal GEETHA w Lysis x2 Patient is currently on [place] 10/325mg #120, Methadone 10mg #120, Naproxen, Voltaren gel Patient denies any side effects of the medication(s), denies excessive drowsiness or sleepiness, denies suicidal ideation and reports that the current pain medication is helping to control the pain and improve activities of daily living. Patient denies any motor or sensory deficits. Patient denies any fever or night sweats, denies any change in the bowel movements or urination. Physical Examination: -Constitutional: Cooperative. Not in acute distress . - Neurologic: Cranial nerve II to XII intact. No focal neurological deficits. - Psychatric: Alert & oriented x 3. Matching mood & appropriate affect. Judgment and insight intact. - Musculoskeletal: Cervical spine: Muscle bulk/ tone/ strength in the bilateral upper extremities normal Vertebral body tenderness to palpation Spurling test positive Distraction test positive Facet loading test positive TTP Thoracic spine Muscle bulk / tone/ strength in the bilateral paraspinal muscles normal Vertebral body tender to palpation over Facet loading test positive TTP Lumbar spine: Motor bulk/ tone/ strength lower extremities , thigh and legs : 5/5 Deep tendon reflexes : Normal Knee Jerk. Normal Ankle Jerk . Vertebral body tenderness to palpation over L1 Lara Test positive Lumbar Facet Loading Test positive Straight Leg Raise: positive at 30 degrees right side/ left side Gaenslen's Test positive Sacral spine : Severe tenderness over the Sacroiliac joint: right side / left side Range of motion: Flexion of the lumbar spine <60 degrees Range of motion: Extension of the lumbar spine <20 degrees Gaenslen's Test positive right side / left side Rohan test: positive right side / left side Thigh Thrust Test positive right side / left side Sacral Thrust Test positive right side / left side Assessment and plan: Chronic LBP secondary to post laminectomy syndrome Recommendation of medication management. [place] 10/325mg #120, Methadone 10mg #120, Diclofenac gel w 1 RF. EKG Dx Z79.891 fr Jun 2023 reviewed. Use, side effects, adverse reactions and safe storage discussed. Pt acknowledged understanding. All questions answered. I have spent less than 30 minutes on patient care today. Dr Lopez was available by phone for the evaluation of this patient. The time was used to review the medical records including relevant urine studies and Prescription history (MAPs), review of the available imaging, evaluation and examination of the patient, coordination of care with the medical staff and if applicable referring physicians, as well as creation of the medical record PQRS Narrative: Smoking Status Never smoker Narcotic Agreement Date Signed 01/24/23 Hx Alcohol Use (MH) No Home Medications: Ambulatory Orders amLODIPine [Norvasc] 5 mg PO QAM 03/26/19 Tamsulosin [Flomax] 0.4 mg PO HS 09/06/19 Testosterone Enanthate [Xyosted] 1 injection SQ Q14D 02/13/20 hydroCHLOROthiazide 25 mg PO DAILY 04/04/20 traZODone HCL [TraZODone HCl] 50 mg PO HS PRN 12/17/20 Enalapril [Vasotec] 10 mg PO QID 02/26/21 Lactulose 10 gm PO DAILY PRN 12/16/21 Sucralfate [Carafate] 1 gm PO ACHS PRN 12/16/21 Naproxen [Naprosyn] 500 mg PO BID PRN 30 Days #60 tab 03/17/22 Diclofenac Sodium Gel [Voltaren 1% Gel] 2 - 3 gm TOPICAL QID PRN 30 Days #100 gm 11/17/23 HYDROcodone/APAP 10-325MG [[place] 10-325] 1 tab PO Q6H PRN 30 Days #120 tab 11/17/23 HYDROcodone/APAP 10-325MG [[place] 10-325] 1 tab PO Q6HR PRN 30 Days #120 tab 11/17/23 Methadone HCl 10 mg PO Q6H 30 Days #120 tab 11/17/23 Methadone HCl 10 mg PO QID 30 Days #120 tab 11/17/23 Controlled Substance Measures - Controlled Substance Measures Is patient prescribed a controlled substance at discharge?: Yes When asked, does pt state using other controlled substances?: Yes If prescribed controlled substance>3 days was MAPS reviewed?: Yes
== END ==
LOC: PNWHC3 07:10
PROVIDERS: ATTEND Specialist
DX: M96.1 Postlaminectomy syndrome, not elsewhere classified (principal); G89.29 Other chronic pain; Z88.8 Allergy status to other drugs, medicaments and biological substances; Z88.6 Allergy status to analgesic agent; Z91.018 Allergy to other foods
CPT/HCPCS: 99211

== ENCOUNTER → 2023-12-30 | Outpatient (CLI) | payer MEDICARE ==
--- NOTE | 2023-12-30 12:14 | XR ---
EXAMINATION TYPE: XR thoraco lumbar junction DATE OF EXAM: 12/30/2023 9:13 AM CLINICAL INDICATION:Male, 68 years old with history of M5135; [facility] COMPARISON: None TECHNIQUE: XR thoraco lumbar junction - Frontal, lateral views of the spine. FINDINGS: Fixation hardware at L1, L2 and L3. Hardware appears intact. No Evidence of any acute osseo us pathology. No evidence of loss of vertebral body height is seen. There is normal alignment of the lumbar vertebral bodies. Scattered disc space narrowing. Multilevel marginal osteophyte formation th roughout the visualized spine. There is facet joint arthropathy throughout the spine. Scattered at le ast mild neural foraminal stenosis. IMPRESSION: 1. Postsurgical changes, hardware intact, No acute fracture. 2. Moderate multilevel disc degeneration.
--- NOTE | 2023-12-30 16:53 | US ---
EXAMINATION TYPE: US abdomen complete DATE OF EXAM: 12/30/2023 COMPARISON: Gallbladder ultrasound 08/28/2018, CT abdomen and pelvis 08/18/2018 CLINICAL INDICATION: Male, 68 years old with history of R10.13 EPIGASTRIC PAIN, M5135; pain patient n ot NPO limited due to bowel gas. TECHNIQUE: Multiple sonographic images of the abdomen are obtained. FINDINGS: EXAM MEASUREMENTS: Liver Length: 14.2 cm Gallbladder Wall: .2 cm CBD: .2 cm Spleen: 11 cm Right Kidney: 10.7 x 5.1 x 6.3 cm Left Kidney: 12.3 x 4.8 x 4.6 cm FINGERER NOTES: Pancreas: Obscured by bowel gas Liver: wnl Gallbladder: No stones seen Evidence for sonographic Vaca's sign: No CBD: wnl Spleen: wnl Right Kidney: Anechoic area upper pole 4.1 x 3.7 x 3.9 cm Left Kidney: No hydronephrosis or masses seen Upper IVC: wnl Abd Aorta: wnl The liver is unremarkable. The intrahepatic portion of the IVC and proximal abdominal aorta are with in normal limits. There is no evidence of cholelithiasis. Gallbladder is contracted. Common bile du ct is unremarkable. The pancreas is obscured by overlying bowel gas. The spleen is unremarkable. Ki dneys are symmetric and free of hydronephrosis. Simple cysts identified within the upper pole of the right kidney measuring up to 4.1 cm. No solid renal lesions identified. IMPRESSION: No ultrasound evidence of acute process.
== END | disposition home or self-care (01) ==
LOC: RADUSWWP 08:37
PROVIDERS: ATTEND Family Medicine
DX: M51.35 Other intervertebral disc degeneration, thoracolumbar region (principal); M51.36 Other intervertebral disc degeneration, lumbar region; R10.13 Epigastric pain
CPT/HCPCS: 72080; 76700

== ENCOUNTER → 2024-01-12 | Outpatient (CLI) | payer MEDICARE ==
[2024-01-12 07:49] VITALS: BP 154/79; PULSE 64; RESP 16
--- NOTE | 2024-01-12 14:11 | P.PAINPG ---
PQRS Measure Charge Sheet Comment: A 68 yr old male with a history of severe and chronic thoracolumbar pain secondary to thoracic DDD, spondylosis, post laminectomy syndrome presents today for medication refills. Pain level is provoked at 5 /10 in intensity, constant, localized in the lumbar spine, sharp in character w shooting towards the BL hips and LEs. Pain is provoked by over activity or standing for periods of 20 min or more. Pain is alleviated with PT x 6 wks in Apr-May 2022, physician guided exercises every other day since May 2022, chiropractic treatment is contraindicated, alternating heat & ice, medications, topical, repositioning and rest. Pt has excellent age-appropriate muscle bulk and is physically active daily with gardening, yard work, fixing his barn, etc. Oswestry axial pain score of 28. Interventional pain procedures completed include BL SI x 2, BL TFESI L1-L2 x2, R RFA C3-C5, Caudal GEETHA w Lysis x2 Patient is currently on [place] 10/325mg #120, Methadone 10mg #120, Naproxen, Voltaren gel Patient denies any side effects of the medication(s), denies excessive drowsiness or sleepiness, denies suicidal ideation and reports that the current pain medication is helping to control the pain and improve activities of daily living. Patient denies any motor or sensory deficits. Patient denies any fever or night sweats, denies any change in the bowel movements or urination. Physical Examination: -Constitutional: Cooperative. Not in acute distress . - Neurologic: Cranial nerve II to XII intact. No focal neurological deficits. - Psychatric: Alert & oriented x 3. Matching mood & appropriate affect. Judgment and insight intact. - Musculoskeletal: Cervical spine: Muscle bulk/ tone/ strength in the bilateral upper extremities normal Vertebral body tenderness to palpation Spurling test positive Distraction test positive Facet loading test positive TTP Thoracic spine Muscle bulk / tone/ strength in the bilateral paraspinal muscles normal Vertebral body tender to palpation over T5 Facet loading test positive TTP Lumbar spine: Motor bulk/ tone/ strength lower extremities , thigh and legs : 5/5 Deep tendon reflexes : Normal Knee Jerk. Normal Ankle Jerk . Vertebral body tenderness to palpation over L1 Lara Test positive Lumbar Facet Loading Test positive Straight Leg Raise: positive at 30 degrees right side/ left side Gaenslen's Test positive Sacral spine : Severe tenderness over the Sacroiliac joint: right side / left side Range of motion: Flexion of the lumbar spine <60 degrees Range of motion: Extension of the lumbar spine <20 degrees Gaenslen's Test positive right side / left side Rohan test: positive right side / left side Thigh Thrust Test positive right side / left side Sacral Thrust Test positive right side / left side Imaging: X ray of thoracolumbar spine from 12/30/23 reviewed Assessment and plan: Chronic LBP secondary to post laminectomy syndrome Recommendation of medication management. [place] 10/325mg #120, Methadone 10mg #120, Diclofenac gel w 1 RF. EKG Dx Z79.891 ordered 01/12/24. UDS collected 01/12/24. Would benefit from additional imaging of thoracolumbar spine as last lumbar MRI was from 2021. Use, side effects, adverse reactions and safe storage discussed. Pt acknowledged understanding. All questions answered. I have spent less than 30 minutes on patient care today. Dr Lopez was available by phone for the evaluation of this patient. The time was used to review the medical records including relevant urine studies and Prescription history (MAPs), review of the available imaging, evaluation and examination of the patient, coordination of care with the medical staff and if applicable referring physicians, as well as creation of the medical record PQRS Narrative: Smoking Status Never smoker Narcotic Agreement Date Signed 01/24/23 Hx Alcohol Use (MH) No Home Medications: Ambulatory Orders amLODIPine [Norvasc] 5 mg PO QAM 03/26/19 Tamsulosin [Flomax] 0.4 mg PO HS 09/06/19 Testosterone Enanthate [Xyosted] 1 injection SQ Q14D 02/13/20 hydroCHLOROthiazide 25 mg PO DAILY 04/04/20 traZODone HCL [TraZODone HCl] 50 mg PO HS PRN 12/17/20 Enalapril [Vasotec] 10 mg PO QID 02/26/21 Lactulose 10 gm PO DAILY PRN 12/16/21 Sucralfate [Carafate] 1 gm PO ACHS PRN 12/16/21 Naproxen [Naprosyn] 500 mg PO BID PRN 30 Days #60 tab 03/17/22 Diclofenac Sodium Gel [Voltaren 1% Gel] 2 - 3 gm TOPICAL QID PRN 30 Days #100 gm 11/17/23 HYDROcodone/APAP 10-325MG [[place] 10-325] 1 tab PO Q6H PRN 30 Days #120 tab 01/12/24 HYDROcodone/APAP 10-325MG [[place] 10-325] 1 tab PO Q6HR PRN 30 Days #120 tab 01/12/24 Methadone HCl 10 mg PO Q6H 30 Days #120 tab 01/12/24 Methadone HCl 10 mg PO QID 30 Days #120 tab 01/12/24 Controlled Substance Measures - Controlled Substance Measures Is patient prescribed a controlled substance at discharge?: Yes When asked, does pt state using other controlled substances?: Yes If prescribed controlled substance>3 days was MAPS reviewed?: Yes
== END ==
LOC: PNWHC3 07:17
PROVIDERS: ATTEND Specialist
DX: M96.1 Postlaminectomy syndrome, not elsewhere classified (principal); Z79.891 Long term (current) use of opiate analgesic; Z88.8 Allergy status to other drugs, medicaments and biological substances; Z88.6 Allergy status to analgesic agent; Z91.018 Allergy to other foods
CPT/HCPCS: 93005; G0463; 99211

== ENCOUNTER → 2024-01-26 | Outpatient (CLI) | payer MEDICARE ==
--- NOTE | 2024-01-26 13:14 | MR ---
EXAMINATION TYPE: MR greg/lsgigi wo con DATE OF EXAM: 01/26/2024 COMPARISON: 11/11/2021 HISTORY: Mid back pain, hx of 16 surgeries on low back TECHNIQUE: Multiplanar, multisequence imaging of the thoracic spine and lumbar spine is performed wit hout IV contrast. Findings: MRI thoracic spine: The thoracic vertebral segments are normal in height and alignment and there is no fracture or sublux ation. There is mild disc space narrowing in the mid and lower thoracic spine indicating mild degenerative d isc disease. Secondary to prominent posterior disc bulge in hypertrophic spurring at the T10/T11 leve l, there is moderate to severe thoracic spinal stenosis. There is mild myelomalacia within the substa nce of the thoracic cord at this level. The paraspinal soft tissues are unremarkable. MRI lumbar spine. Lumbar vertebral segments are normal in height and alignment. There are postsurgical changes of poste rior fusion from L1 through S1. Secondary to posterior disc bulge and spondylosis, there is a mild to moderate spinal stenosis at the L1-2 level. There is no lumbar disc herniation. Evaluation of the neural foramina is limited by metallic artifact from the lumbar fusion There is marked atrophy of the paraspinal musculature. There is no significant interval change compared to the prior study dated 11/11/2021 IMPRESSION: A 1. Moderate to severe spinal stenosis at the T12/T11 level with myelomalacia as described above. 2. Extensive postsurgical changes of lumbar fusion from L1 to S1. 3. Mild spinal stenosis at the L1-2 level. 4. No definite evidence of lumbar disc herniation. 5. Marked paraspinal musculature atrophy. 6. Lumbar spine not significantly changed in the interval compared to the prior study.
== END | disposition home or self-care (01) ==
LOC: RADMRIMAIN 05:47
PROVIDERS: ATTEND Specialist
DX: M54.14 Radiculopathy, thoracic region (principal); M54.16 Radiculopathy, lumbar region; M48.04 Spinal stenosis, thoracic region; G95.89 Other specified diseases of spinal cord; M48.061 Spinal stenosis, lumbar region without neurogenic claudication; M62.50 Muscle wasting and atrophy, not elsewhere classified, unspecified site; Z98.1 Arthrodesis status
CPT/HCPCS: 72146; 72148

== ENCOUNTER → 2024-02-03 | Outpatient (CLI) | payer MEDICARE ==
--- NOTE | 2024-03-03 19:21 | US ---
Patient Pepe Christine ID [id number] Order # EXAMINATION TYPE: Ultrasound soft tissue distal left wrist DATE OF EXAM: 02/06/2024 3:27 PM CLINICAL INDICATION: Palpable abnormality left wrist SIDE PERFORMED: Left TECHNIQUE: Real-time linear array sonography is performed over a palpable abnormality distal left wr ist. Radial artery is identified and is patent. Superior to the radial artery is a complex heterogenous st ructure measuring 1.7 x 0.9 x 1.6 cm. No color flow is evident within this structure. The radial rocky ry however is closely associated posteriorly to this structure. Consider additional evaluation with M RI to evaluate for the tendons in relation to this structure. Radial Artery: Color flow seen Preliminary results were provided to the office. IMPRESSION: 1. Complex heterogenous mass correlating with the palpable abnormality appears to be superficial to t he radial artery. Additional workup with MRI is recommended.
== END | disposition home or self-care (01) ==
LOC: RADUSWWP 16:22
PROVIDERS: ATTEND Family Medicine
DX: I72.1 Aneurysm of artery of upper extremity (principal); R22.32 Localized swelling, mass and lump, left upper limb

== ENCOUNTER 2024-02-13 08:08 | Day surgery (SDC) | payer MEDICARE ==
[~2024-02-13 08:08] MED LIST changes: +HEPARIN SODIUM 1,000 UN/ML (10ML VL) ONE; -HYDROmorphone 0.5 MG/0.5 ML SYRINGE IVP PRN; -LIDOCAINE 1% (10MG/ML) FOR IV START INTRADERMA PRN; +LIDOCAINE 1% INJ 10MG/ML (20 ML MDV) ONE; +MIDAZOLAM 2 MG/2 ML VIAL ONE; -ONDANSETRON 4 MG/2 ML VIAL IVP ONE; +SODIUM CHLORIDE 0.9% 1,000 ML BAG ONE; +VERAPAMIL 2.5 MG/ML 2 ML AMP ONE; -ceFAZolin 1,000 MG in SODIUM CHLORIDE 0.9% IRRIGATIO 1,000 ML IRRIGATION PRN; -fentaNYL (PF) 50 MCG/ML 2 ML AMP IV PRN
[2024-02-13] MEDS: IOPAMIDOL-370 100ML BTL INJ ONE (08:15)
--- NOTE | 2024-03-09 11:19 | CC ---
CARDIAC CATHETERIZATION REPORT PERFORMING PHYSICIAN: Dr. Martin Prince. PROCEDURE PERFORMED: Selective right and left coronary angiogram and ultrasound guided access of the right radial artery. INDICATION: Chest discomfort concerning for angina. COMPLICATIONS: None. LEVEL OF SEDATION: Moderate, with sedation length of 7 minutes. PROCEDURE DESCRIPTION: After obtaining informed consent, the patient was brought to the cardiac clinical lab scientist. The right radial artery was cannulated using Micropuncture technique under ultrasound guidance, the Micropuncture wire passed easily. Then, I placed a 6-Spanish 11 cm sheath at the right radial artery. I did selective right and left coronary angiogram using JR4 and JL3.5 catheter with left heart catheterization was performed using the JR4 catheter. The procedure was completed. There was no complication. Please note that the patient was given 2 mg of verapamil intra-arterially and 5000 units of heparin intravenously. SELECTIVE CORONARY ANGIOGRAM: 1. The RCA is a large-caliber vessel and a dominant vessel, and appeared to be angiographically normal. 2. The left main is angiographically normal. It bifurcates into LCX and LAD. 3. The LCX is a large-caliber vessel, nondominant vessel, also appeared to be angiographically normal. 4. The LAD is a large caliber vessel, also appeared to be angiographically normal. HEMODYNAMICS: The LVEDP was around 5 mmHg with no gradient was identified across the aortic valve. CONCLUSION: 1. Normal coronary angiogram. 2. Normal left-sided filling pressure. MMODL / IJN: [id number] /
== END 2024-02-13 12:34 | disposition home or self-care (01) ==
LOC: CATHCVL 08:08
PROVIDERS: ATTEND Internal Medicine Interventional Cardiology
DX: R94.39 Abnormal result of other cardiovascular function study
CPT/HCPCS: 93458

== ENCOUNTER → 2024-02-16 | Outpatient (CLI) | payer MEDICARE | LOC: PNWHC3 08:00 → EDSTATUS 16:36 | PROVIDERS: ATTEND Specialist | DX: M54.14 Radiculopathy, thoracic region | CPT/HCPCS: 99211 ==

== ENCOUNTER → 2024-03-08 | Outpatient (CLI) | payer MEDICARE ==
[2024-03-08 08:16] VITALS: BP 129/68; PULSE 66; RESP 16; TEMP 97.7
--- NOTE | 2024-03-08 14:11 | P.PAINPG ---
PQRS Measure Charge Sheet Comment: A 68 yr old male with a history of severe and chronic thoracolumbar pain secondary to thoracic DDD, spondylosis, post laminectomy, T11-T12 severe spinal stenosis syndrome presents today for medication refills. Pain level is provoked at 5 /10 in intensity, constant, localized in the lumbar spine, sharp in ch aracter w shooting towards the BL hips and LEs. Pain is provoked by over activity or standing for periods of 20 min or more. Pain is alleviated with PT x 6 wks in Apr-May 2022, physician guided exercises every other day since May 2022, chiropractic treatment is contraindicated, alternating heat & ice, medications, topical, repositioning and rest. Pt has excellent age-appropriate muscle bulk and is physically active daily with gardening, yard work, fixing his barn, etc. Oswestry axial pain score of 28. Interventional pain procedures completed include BL SI x 2, BL TFESI L1-L2 x2, R RFA C3-C5, Caudal GEETHA w Lysis x2 Patient is currently on [place] 10/325mg #120, Methadone 10mg #120, Naproxen, Voltaren gel Patient denies any side effects of the medication(s), denies excessive drowsiness or sleepiness, denies suicidal ideation and reports that the current pain medication is helping to control the pain and improve activities of daily living. Patient denies any motor or sensory deficits. Patient denies any fever or night sweats, denies any change in the bowel movements or urination. Physical Examination: -Constitutional: Cooperative. Not in acute distress . - Neurologic: Cranial nerve II to XII intact. No focal neurological deficits. - Psychatric: Alert & oriented x 3. Matching mood & appropriate affect. Judgment and insight intact. - Musculoskeletal: Cervical spine: Muscle bulk/ tone/ strength in the bilateral upper extremities normal Vertebral body tenderness to palpation Spurling test positive Distraction test positive Facet loading test positive TTP Thoracic spine Muscle bulk / tone/ strength in the bilateral paraspinal muscles normal Vertebral body tender to palpation over T5 Facet loading test positive TTP Lumbar spine: Motor bulk/ tone/ strength lower extremities , thigh and legs : 5/5 Deep tendon reflexes : Normal Knee Jerk. Normal Ankle Jerk . Vertebral body tenderness to palpation over L1 Lara Test positive Lumbar Facet Loading Test positive Straight Leg Raise: positive at 30 degrees right side/ left side Gaenslen's Test positive Sacral spine : Severe tenderness over the Sacroiliac joint: right side / left side Range of motion: Flexion of the lumbar spine <60 degrees Range of motion: Extension of the lumbar spine <20 degrees Gaenslen's Test positive right side / left side Rohan test: positive right side / left side Thigh Thrust Test positive right side / left side Sacral Thrust Test positive right side / left side Imaging: X ray of thoracolumbar spine from 12/30/23 reviewed MRI non contrast of the thoracolumbar spine from 01/26/24 reviewed Assessment and plan: Chronic LBP secondary to post laminectomy syndrome, T11-T12 severe spinal stenosis Recommendation of medication management. [place] 10/325mg #120, Methadone 10mg #120, Diclofenac gel w 1 RF. EKG Dx Z79.891 01/12/24 reviewed and pt advised he followed up w parking technician. UDS from 01/12/24 reviewed and consistent. Use, side effects, adverse reactions and safe storage discussed. Pt acknowledged understanding. All questions answered. I have spent less than 30 minutes on patient care today. Dr Lopez was available by phone for the evaluation of this patient. The time was used to review the medical records including relevant urine studies and Prescription history (MAPs), review of the available imaging, evaluation and examination of the patient, coordination of care with the medical staff and if applicable referring physicians, as well as creation of the medical record PQRS Narrative: Smoking Status Never smoker Narcotic Agreement Date Signed 01/24/23 Hx Alcohol Use (MH) No Home Medications: Ambulatory Orders amLODIPine [Norvasc] 5 mg PO QAM 03/26/19 Tamsulosin [Flomax] 0.4 mg PO HS 09/06/19 Testosterone Enanthate [Xyosted] 1 injection SQ Q14D 02/13/20 hydroCHLOROthiazide 25 mg PO DAILY 04/04/20 traZODone HCL [TraZODone HCl] 50 mg PO HS PRN 12/17/20 Enalapril [Vasotec] 10 mg PO QID 02/26/21 Lactulose 10 gm PO DAILY PRN 12/16/21 Sucralfate [Carafate] 1 gm PO ACHS PRN 12/16/21 Naproxen [Naprosyn] 500 mg PO BID PRN 30 Days #60 tab 03/17/22 Diclofenac Sodium Gel [Voltaren 1% Gel] 2 - 3 gm TOPICAL QID PRN 30 Days #100 gm 03/08/24 HYDROcodone/APAP 10-325MG [[place] 10-325] 1 tab PO Q6H PRN 30 Days #120 tab 03/08/24 HYDROcodone/APAP 10-325MG [[place] 10-325] 1 tab PO Q6HR PRN 30 Days #120 tab 03/08/24 Methadone HCl 10 mg PO Q6H 30 Days #120 tab 03/08/24 Methadone HCl 10 mg PO QID 30 Days #120 tab 03/08/24 Controlled Substance Measures - Controlled Substance Measures Is patient prescribed a controlled substance at discharge?: Yes When asked, does pt state using other controlled substances?: No If prescribed controlled substance>3 days was MAPS reviewed?: Yes
== END ==
LOC: PNWHC3 07:15
PROVIDERS: ATTEND Specialist
DX: M96.1 Postlaminectomy syndrome, not elsewhere classified (principal); M47.815 Spondylosis without myelopathy or radiculopathy, thoracolumbar region; M48.04 Spinal stenosis, thoracic region; Z88.8 Allergy status to other drugs, medicaments and biological substances; Z88.6 Allergy status to analgesic agent; Z91.018 Allergy to other foods
CPT/HCPCS: 99211

== ENCOUNTER → 2024-03-13 | Day surgery (SDC) | payer MEDICARE ==
[2024-03-08 12:12] VITALS: BMI 31.5
[~2024-03-13] MED LIST changes: -HEPARIN SODIUM 1,000 UN/ML (10ML VL) ONE; +LACTATED RINGERS 1,000 ML IV SCH; -LIDOCAINE 1% INJ 10MG/ML (20 ML MDV) ONE; -MIDAZOLAM 2 MG/2 ML VIAL ONE; +ROPIVACAINE 5MG/ML 20ML VIAL ONE; -SODIUM CHLORIDE 0.9% 1,000 ML BAG ONE; +TRIAMCINOLONE ACETONIDE 40 MG/ML 1 ML VIAL ONE; -VERAPAMIL 2.5 MG/ML 2 ML AMP ONE
[2024-03-13 07:19] VITALS: TEMP 97
--- NOTE | 2024-03-13 08:15 | P.PCN ---
Date of Procedure: 03/13/24 Surgeon: Red Marin Pathology: none sent Condition: stable Disposition: PACU Description of Procedure: Pre and postop diagnosis: Myofascial pain in the Thoracic paravertebral musculature(T2-T8) Procedure: Trigger point injection in the thoracic paravertebral musculature from T2 to T8 bilaterally Anesthesia :none Physician: Red Marin MD Description of procedure: The patient was seen in preop holding area, consent was obtained, the trigger points were marked on skin. Then the patient was brought into the procedure room and placed in prone position. Skin was prepped with ChloraPrep and draped in a sterile manner. Then I used 25-gauge 1-1/2 inch needle to go through the skin and into the trigger points and injected 1 mL of ropivacaine 0.5% mixed with 40 mg of Kenalog in a solution of 5 MLS of ropivacaine 0.5% +40 mg of Kenalog. 1 mL of the solution was injected at each trigger point with a total of 6 trigger points injected in the thoracic paravertebral musculature . . Patient tolerated procedure well.
[2024-03-13 08:34] VITALS: BP 119/75; PULSE 64; RESP 14
== END ==
LOC: ORPAIN 06:33
PROVIDERS: ATTEND Anesthesiology
DX: M79.18 Myalgia, other site
CPT/HCPCS: 20553

== ENCOUNTER → 2024-05-10 | Outpatient (CLI) | payer MEDICARE ==
[2024-05-10 07:53] VITALS: BP 116/67; PULSE 64; RESP 16; TEMP 97.1
--- NOTE | 2024-05-10 14:27 | P.PAINPG ---
PQRS Measure Charge Sheet Comment: A 68 yr old male with a history of severe and chronic thoracolumbar pain secondary to radiculopathy, spondylosis, post laminectomy, T11-T12 severe spinal stenosis syndrome presents today for medication refills and evaluation s/p BL TPIs T2-T8 #1. Pt states he experienced 75% pain relief x 2-3 wks s/p procedure. Pain level is provoked at 4-5 /10 in intensity, predominantly axial, constant, localized in the thoracolumbar spine, sharp in character w occasional shooting towards the BL hips and LEs. Pain is provoked by over activity or standing for periods of 20 min or more. Pain is alleviated with PT x 6 wks in Apr-May 2022, physician guided exercises every other day since May 2022, chiropractic treatme nt is contraindicated, alternating heat & ice, medications, topical, repositioning and rest. Pt has excellent age-appropriate muscle bulk and is physically active daily with gardening, yard work, fixing his barn, etc. Interventional pain procedures completed include BL SI x 2, BL TFESI L1-L2 x2, R RFA C3-C5, Caudal GEETHA w Lysis x2, BL TPIs T2-T8 x1 Patient is currently on [place] 10/325mg #120, Methadone 10mg #120, Naproxen, Voltaren gel Patient denies any side effects of the medication(s), denies excessive drowsiness or sleepiness, denies suicidal ideation and reports that the current pain medication is helping to control the pain and improve activities of daily living. Patient denies any motor or sensory deficits. Patient denies any fever or night sweats, denies any change in the bowel movements or urination. Physical Examination: -Constitutional: Cooperative. Not in acute distress . - Neurologic: Cranial nerve II to XII intact. No focal neurological deficits. - Psychatric: Alert & oriented x 3. Matching mood & appropriate affect. Judgment and insight intact. - Musculoskeletal: Cervical spine: Muscle bulk/ tone/ strength in the bilateral upper extremities normal Vertebral body tenderness to palpation Spurling test positive Distraction test positive Facet loading test positive TTP Thoracic spine Muscle bulk / tone/ strength in the bilateral paraspinal muscles normal Vertebral body tender to palpation over T5 Facet loading test positive TTP Lumbar spine: Motor bulk/ tone/ strength lower extremities , thigh and legs : 5/5 Deep tendon reflexes : Normal Knee Jerk. Normal Ankle Jerk . Vertebral body tenderness to palpation over L1 Lara Test positive Lumbar Facet Loading Test positive Straight Leg Raise: positive at 30 degrees right side/ left side Gaenslen's Test positive Sacral spine : Severe tenderness over the Sacroiliac joint: right side / left side Range of motion: Flexion of the lumbar spine <60 degrees Range of motion: Extension of the lumbar spine <20 degrees Gaenslen's Test positive right side / left side Rohan test: positive right side / left side Thigh Thrust Test positive right side / left side Sacral Thrust Test positive right side / left side Imaging: X ray of thoracolumbar spine from 12/30/23 reviewed MRI non contrast of the thoracolumbar spine from 01/26/24 reviewed Assessment and plan: Chronic LBP secondary to post laminectomy syndrome, T11-T12 severe spinal stenosis Recommendation of medication management. [place] 10/325mg #120, Methadone 10mg #120, Diclofenac gel w 1 RF. Narcotic/ Opiate agreement renewed 05/10/24 . EKG Dx Z79.891 01/12/24 reviewed and pt advised he followed up w care team assistant. UDS from 01/12/24 reviewed and consistent. Use, side effects, adverse reactions and safe storage discussed. Pt acknowledged understanding. All questions answered. I have spent less than 30 minutes on patient care today. Dr Lopez was available by phone for the evaluation of this patient. The time was used to review the medical records including relevant urine studies and Prescription history (MAPs), review of the available imaging, evaluation and examination of the patient, coordination of care with the medical staff and if applicable referring physicians, as well as creation of the medical record - Pain Location Bilateral Lower Back Non-Pharmacological Interventions: Heat, Ice, Inactivity, Physical Therapy, Position/Reposition, Relaxation Technique, Sitting Pharmacological Interventions: Scheduled Medication, Topical Medication PQRS Narrative: Smoking Status Never smoker Narcotic Agreement Date Signed 01/24/23 Hx Alcohol Use (MH) No Home Medications: Ambulatory Orders amLODIPine [Norvasc] 10 mg PO DAILY 03/26/19 Tamsulosin [Flomax] 0.4 mg PO HS 09/06/19 Testosterone Enanthate [Xyosted] 1 injection SQ Q14D 02/13/20 hydroCHLOROthiazide 25 mg PO DAILY 04/04/20 traZODone HCL [TraZODone HCl] 50 mg PO HS 12/17/20 Enalapril [Vasotec] 10 mg PO DIRECTED 02/26/21 Lactulose 10 gm PO DAILY PRN 12/16/21 Naproxen [Naprosyn] 500 mg PO BID PRN 30 Days #60 tab 03/17/22 Dutasteride 0.5 mg PO DAILY 03/08/24 Ezetimibe [Zetia] 10 mg PO DAILY 03/08/24 Fluticasone Propionate [Fluticasone Propionate [place] 50 mcg Nasal [place]] 1 sprays EA NOSTRIL DAILY 03/08/24 Isosorbide Mononitrate [Isosorbide Mononitrate ER] 30 mg PO DAILY 03/08/24 Nystatin 1 applic TOPICAL DIRECTED 03/08/24 polyethylene glycoL 3350 [Miralax] 17 gm PO DAILY 03/08/24 Nitroglycerin 0.4 mg SL Q5M 03/13/24 Diclofenac Sodium Gel [Voltaren 1% Gel] 2 - 3 gm TOPICAL QID PRN 30 Days #100 gm 05/10/24 HYDROcodone/APAP 10-325MG [[place] 10-325] 1 tab PO Q6H PRN 30 Days #120 tab 05/10/24 HYDROcodone/APAP 10-325MG [[place] 10-325] 1 tab PO QID PRN 30 Days #120 tab 05/10/24 Methadone HCl 10 mg PO QID 30 Days #120 tab 05/10/24 Methadone HCl 10 mg PO QID 30 Days #120 tab 05/10/24 Controlled Substance Measures - Controlled Substance Measures Is patient prescribed a controlled substance at discharge?: Yes When asked, does pt state using other controlled substances?: Yes If prescribed controlled substance>3 days was MAPS reviewed?: Yes
== END ==
LOC: PNWHC3 07:15
PROVIDERS: ATTEND Specialist
DX: M96.1 Postlaminectomy syndrome, not elsewhere classified (principal); M48.04 Spinal stenosis, thoracic region; Z88.8 Allergy status to other drugs, medicaments and biological substances; Z88.6 Allergy status to analgesic agent; Z91.018 Allergy to other foods
CPT/HCPCS: 99211

== ENCOUNTER → 2024-07-23 | Outpatient (CLI) | payer MEDICARE ==
[2024-07-23 09:22] VITALS: BP 130/67; PULSE 98; RESP 16; TEMP 98.2
--- NOTE | 2024-07-23 14:55 | P.PAINPG ---
PQRS Measure Charge Sheet Comment: A 69 yr old male with a history of severe and chronic thoracolumbar pain secondary to radiculopathy, spondylosis, post laminectomy, T11-T12 severe spinal stenosis syndrome presents today for medication refills and evaluation s/p BL TPIs T2-T8 #1. Pt states he experienced 75% pain relief x 2-3 wks s/p procedure. Pain level is provoked at 4-5 /10 in intensity, predominantly axial, constant, localized in the thoracolumbar spine, sharp in character w occasional shooting towards the BL hips and LEs. Pain is provoked by over activity or standing for periods of 20 min or more. Pain is alleviated with PT x 6 wks in Apr-May 2022, physician guided exercises every other day since May 2022, chiropractic treatme nt is contraindicated, alternating heat & ice, medications, topical, repositioning and rest. Pt has excellent age-appropriate muscle bulk and is physically active daily with gardening, yard work, fixing his barn, etc. Interventional pain procedures completed include BL SI x 2, BL TFESI L1-L2 x2, R RFA C3-C5, Caudal GEETHA w Lysis x2, BL TPIs T2-T8 x1 Patient is currently on [place] 10/325mg #120, Methadone 10mg #120, Naproxen, Voltaren gel Patient denies any side effects of the medication(s), denies excessive drowsiness or sleepiness, denies suicidal ideation and reports that the current pain medication is helping to control the pain and improve activities of daily living. Patient denies any motor or sensory deficits. Patient denies any fever or night sweats, denies any change in the bowel movements or urination. Physical Examination: -Constitutional: Cooperative. Not in acute distress . - Neurologic: Cranial nerve II to XII intact. No focal neurological deficits. - Psychatric: Alert & oriented x 3. Matching mood & appropriate affect. Judgment and insight intact. - Musculoskeletal: Cervical spine: Muscle bulk/ tone/ strength in the bilateral upper extremities normal Vertebral body tenderness to palpation Spurling test positive Distraction test positive Facet loading test positive TTP Thoracic spine Muscle bulk / tone/ strength in the bilateral paraspinal muscles normal Vertebral body tender to palpation over T5 Facet loading test positive TTP Lumbar spine: Motor bulk/ tone/ strength lower extremities , thigh and legs : 5/5 Deep tendon reflexes : Normal Knee Jerk. Normal Ankle Jerk . Vertebral body tenderness to palpation over L1 Lara Test positive Lumbar Facet Loading Test positive Straight Leg Raise: positive at 30 degrees right side/ left side Gaenslen's Test positive Sacral spine : Severe tenderness over the Sacroiliac joint: right side / left side Range of motion: Flexion of the lumbar spine <60 degrees Range of motion: Extension of the lumbar spine <20 degrees Gaenslen's Test positive right side / left side Rohan test: positive right side / left side Thigh Thrust Test positive right side / left side Sacral Thrust Test positive right side / left side Imaging: X ray of thoracolumbar spine from 12/30/23 reviewed MRI non contrast of the thoracolumbar spine from 01/26/24 reviewed Assessment and plan: Chronic LBP secondary to post laminectomy syndrome, T11-T12 severe spinal stenosis Recommendation of medication management. Intermittent reduction of [place] 10/325mg #90, Methadone 10mg #120, Diclofenac gel w 1 RF. Narcotic/ Opiate agr eement renewed 05/10/24 . EKG Dx Z79.891 01/12/24 reviewed and pt advised he followed up w sales exec. UDS from 01/12/24 reviewed and consistent. Use, side effects, adverse reactions and safe storage discussed. Pt acknowledged understanding. All questions answered. I have spent less than 30 minutes on patient care today. Dr Lopez was available by phone for the evaluation of this patient. The time was used to review the medical records including relevant urine studies and Prescription history (MAPs), review of the available imaging, evaluation and examination of the patient, coordination of care with the medical staff and if applicable referring physicians, as well as creation of the medical record PQRS Narrative: Smoking Status Never smoker Narcotic Agreement Date Signed 05/10/24 Hx Alcohol Use (MH) No Home Medications: Ambulatory Orders amLODIPine [Norvasc] 10 mg PO DAILY 03/26/19 Tamsulosin [Flomax] 0.4 mg PO HS 09/06/19 Testosterone Enanthate [Xyosted] 1 injection SQ Q14D 02/13/20 hydroCHLOROthiazide 25 mg PO DAILY 04/04/20 traZODone HCL [TraZODone HCl] 50 mg PO HS 12/17/20 Enalapril [Vasotec] 10 mg PO DIRECTED 02/26/21 Lactulose 10 gm PO DAILY PRN 12/16/21 Naproxen [Naprosyn] 500 mg PO BID PRN 30 Days #60 tab 03/17/22 Dutasteride 0.5 mg PO DAILY 03/08/24 Ezetimibe [Zetia] 10 mg PO DAILY 03/08/24 Fluticasone Propionate [Fluticasone Propionate [place] 50 mcg Nasal [place]] 1 sprays EA NOSTRIL DAILY 03/08/24 Isosorbide Mononitrate [Isosorbide Mononitrate ER] 30 mg PO DAILY 03/08/24 Nystatin 1 applic TOPICAL DIRECTED 03/08/24 polyethylene glycoL 3350 [Miralax] 17 gm PO DAILY 03/08/24 Nitroglycerin 0.4 mg SL Q5M 03/13/24 Diclofenac Sodium Gel [Voltaren 1% Gel] 2 - 3 gm TOPICAL QID PRN 30 Days #100 gm 07/23/24 HYDROcodone/APAP 10-325MG [[place] 10-325] 1 tab PO TID PRN 30 Days #90 tab 07/23/24 HYDROcodone/APAP 10-325MG [[place] 10-325] 1 tab PO TID PRN 30 Days #90 tab 07/23/24 Methadone HCl 10 mg PO QID 30 Days #120 tab 07/23/24 Methadone HCl 10 mg PO QID 30 Days #120 tab 07/23/24 Controlled Substance Measures - Controlled Substance Measures Is patient prescribed a controlled substance at discharge?: Yes When asked, does pt state using other controlled substances?: No If prescribed controlled substance>3 days was MAPS reviewed?: Yes
== END ==
LOC: PNWHC3 07:13
PROVIDERS: ATTEND Specialist
DX: M96.1 Postlaminectomy syndrome, not elsewhere classified (principal); M48.04 Spinal stenosis, thoracic region; Z91.018 Allergy to other foods; Z88.6 Allergy status to analgesic agent; Z88.8 Allergy status to other drugs, medicaments and biological substances
CPT/HCPCS: 99212

== ENCOUNTER → 2024-09-17 | Outpatient (CLI) | payer MEDICARE ==
[2024-09-17 09:02] VITALS: BP 112/75; PULSE 63; RESP 15; TEMP 96.9
--- NOTE | 2024-09-17 14:42 | P.PAINPG ---
PQRS Measure Charge Sheet Comment: A 69 yr old male with a history of severe and chronic thoracolumbar pain secondary to radiculopathy, spondylosis, post laminectomy, T11-T12 severe spinal stenosis syndrome presents today for medication refills. Pain level is provoked at 4-6 /10 in intensity, predominantly axial, constant, localized in the t horacolumbar spine, sharp in character w occasional shooting towards the BL hips and LEs. Pain is provoked by over activity or standing for periods of 20 min or more. Pain is alleviated with PT x 6 wks in Apr-May 2022, physician guided exercises every other day since May 2022, chiropractic treatment is contraindicated, alternating heat & ice, medications, topical, repositioning and rest. Pt has excellent age-appropriate muscle bulk and is physically active daily with gardening, yard work, fixing his barn, etc. Interventional pain procedures completed include BL SI x 2, BL TFESI L1-L2 x2, R RFA C3-C5, Caudal GEETHA w Lysis x2, BL TPIs T2-T8 x1 Patient is currently on Council 10/325mg #120, Methadone 10mg #120, Naproxen, Voltaren gel Patient denies any side effects of the medication(s), denies excessive drowsiness or sleepiness, denies suicidal ideation and reports that the current pain medication is helping to control the pain and improve activities of daily living. Patient denies any motor or sensory deficits. Patient denies any fever or night sweats, denies any change in the bowel movements or urination. Physical Examination: -Constitutional: Cooperative. Not in acute distress . - Neurologic: Cranial nerve II to XII intact. No focal neurological deficits. - Psychatric: Alert & oriented x 3. Matching mood & appropriate affect. Judgment and insight intact. - Musculoskeletal: Cervical spine: Muscle bulk/ tone/ strength in the bilateral upper extremities normal Vertebral body tenderness to palpation Spurling test positive Distraction test positive Facet loading test positive TTP Thoracic spine Muscle bulk / tone/ strength in the bilateral paraspinal muscles normal Vertebral body tender to palpation over T5 Facet loading test positive TTP Lumbar spine: Motor bulk/ tone/ strength lower extremities , thigh and legs : 5/5 Deep tendon reflexes : Normal Knee Jerk. Normal Ankle Jerk . Vertebral body tenderness to palpation over L1 Lara Test positive Lumbar Facet Loading Test positive Straight Leg Raise: positive at 30 degrees right side/ left side Gaenslen's Test positive Sacral spine : Severe tenderness over the Sacroiliac joint: right side / left side Range of motion: Flexion of the lumbar spine <60 degrees Range of motion: Extension of the lumbar spine <20 degrees Gaenslen's Test positive right side / left side Rohan test: positive right side / left side Thigh Thrust Test positive right side / left side Sacral Thrust Test positive right side / left side Imaging: X ray of thoracolumbar spine from 12/30/23 reviewed MRI non contrast of the thoracolumbar spine from 01/26/24 reviewed Assessment and plan: Chronic LBP secondary to post laminectomy syndrome, T11-T12 severe spinal stenosis Recommendation of medication management. Intermittent reduction of Council 10/325mg #90, Methadone 10mg #120, Diclofenac gel w 1 RF. Narcotic/ Opiate agreement renewed 05/10/24 . EKG Dx Z79.891 01/12/24 reviewed and pt advised he followed up w occupational health and safety manager Dr Prince since his 07/23/24 visit. UDS collected 09/17/24. Use, side effects, adverse reactions and safe storage discussed. Pt acknowledged understanding. All questions answered. I have spent less than 30 minutes on patient care today. Dr Lopez was available by phone for the evaluation of this patient. The time was used to review the medical records including relevant urine studies and Prescription history (MAPs), review of the available imaging, evaluation and examination of the patient, coordination of care with the medical staff and if applicable referring physicians, as well as creation of the medical record PQRS Narrative: Smoking Status Never smoker Narcotic Agreement Date Signed 05/10/24 Hx Alcohol Use (MH) No Home Medications: Ambulatory Orders amLODIPine [Norvasc] 10 mg PO DAILY 03/26/19 Tamsulosin [Flomax] 0.4 mg PO HS 09/06/19 Testosterone Enanthate [Xyosted] 1 injection SQ Q14D 02/13/20 hydroCHLOROthiazide 25 mg PO DAILY 04/04/20 traZODone HCL [TraZODone HCl] 50 mg PO HS 12/17/20 Enalapril [Vasotec] 10 mg PO DIRECTED 02/26/21 Lactulose 10 gm PO DAILY PRN 12/16/21 Naproxen [Naprosyn] 500 mg PO BID PRN 30 Days #60 tab 03/17/22 Dutasteride 0.5 mg PO DAILY 03/08/24 Ezetimibe [Zetia] 10 mg PO DAILY 03/08/24 Fluticasone Propionate [Fluticasone Propionate Marston 50 mcg Nasal Marston] 1 sprays EA NOSTRIL DAILY 03/08/24 Isosorbide Mononitrate [Isosorbide Mononitrate ER] 30 mg PO DAILY 03/08/24 Nystatin 1 applic TOPICAL DIRECTED 03/08/24 polyethylene glycoL 3350 [Miralax] 17 gm PO DAILY 03/08/24 Nitroglycerin 0.4 mg SL Q5M 03/13/24 Diclofenac Sodium Gel [Voltaren 1% Gel] 2 - 3 gm TOPICAL QID PRN 30 Days #100 gm 09/17/24 HYDROcodone/APAP 10-325MG [Council 10-325] 1 tab PO TID PRN 30 Days #90 tab 09/17/24 HYDROcodone/APAP 10-325MG [Council 10-325] 1 tab PO TID PRN 30 Days #90 tab 09/17/24 Methadone HCl 10 mg PO QID 30 Days #120 tab 09/17/24 Methadone HCl 10 mg PO QID 30 Days #120 tab 09/17/24 Controlled Substance Measures - Controlled Substance Measures Is patient prescribed a controlled substance at discharge?: Yes When asked, does pt state using other controlled substances?: No If prescribed controlled substance>3 days was MAPS reviewed?: Yes
== END ==
LOC: PNWHC3 07:09
PROVIDERS: ATTEND Specialist
DX: M96.1 Postlaminectomy syndrome, not elsewhere classified (principal); M48.04 Spinal stenosis, thoracic region; G89.29 Other chronic pain; Z88.8 Allergy status to other drugs, medicaments and biological substances; Z91.02 Food additives allergy status; Z88.6 Allergy status to analgesic agent; Z91.018 Allergy to other foods; Z91.048 Other nonmedicinal substance allergy status
CPT/HCPCS: 80307; 99212

== ENCOUNTER → 2024-10-19 | Outpatient (CLI) | payer MEDICARE ==
--- NOTE | 2024-10-19 11:19 | US ---
EXAMINATION TYPE: US thyroid st tissue head/neck DATE OF EXAM: 10/19/2024 COMPARISON: Thyroid ultrasound 10/08/2021, 03/13/2020, ultrasound and FNA thyroid at 1622, 01/07/2022, 1 08/18/2019, 05/08/2020 CLINICAL INDICATION: Male, 69 years old with history of E04.1 NONTOXIC SINGLE THYROID NODULE; trouble swallowing. TECHNIQUE: Grayscale and color Doppler imaging of the thyroid gland. FINDINGS: GLAND SIZE: Right Lobe: 47 x 1.7 x 1.8 cm Overall Parenchyma: heterogeneous Left Lobe: 5.6 x 3.4 x 3.2 cm Overall Parenchyma: heterogeneous Isthmus Thickness: .7 cm NODULES RIGHT: # of nodules measured on right: Multiple largest. 1. 1.7 X 1.5 x 1.7 cm, lower , solid or almost completely solid, hypoechoic nodule, which is wider than tall, with smooth margins, without echogenic foci. TR 4. Prior size: 1.7 x 1.2 x 1.4 cm LEFT: # of nodules measured on left: 1 1. 3.2 X 2.3 x 2.7 cm, mid , solid or almost completely solid, hypoechoic nodule, which is wider th an tall, with smooth margins, without echogenic foci. TR 4. Prior size: 3.3 x 2.3 x 2.5 cm ISTHMUS: # of nodules measured in the isthmus: 0 Bilateral neck scanned, no evidence of lymphadenopathy. IMPRESSION: Stable bilateral TR 4 thyroid nodules which have been previously biopsied. No new or enlarging pulmon uday nodules. The need for repeat FNA and follow-up should be determined clinically. Highest TI-RADS level nodule reported: ACR TI-RADS LEVEL: TI-RADS 4 - Moderately Suspicious: Follow if > 1 cm, FNA if > 1.5 cm TI-RADS assessment score and recommendation for follow-up based on appropriate scoring and treatment protocols. TR3: If nodule size is ? 2.5 cm, FNA is recommended. If nodule size is ? 1.5 cm, follow-up imaging at 1, 3, and 5 years is recommended. TR4: If nodule size is ? 1.5 cm, FNA is recommended. If nodule size is ? 1.0 cm, follow-up imaging at 1, 2, 3, and 5 years is recommended. TR5: If nodule size is ? 1.0 cm, FNA is recommended. If nodule size is ? 0.5 cm, annual follow-up for up to 5 years is recommended. [email or web address] [facility], , 10/19/2024 11:17 AM
== END | disposition home or self-care (01) ==
LOC: RADUSWWP 10:46
PROVIDERS: ATTEND Family Medicine
DX: E04.2 Nontoxic multinodular goiter (principal)
CPT/HCPCS: 76536

== ENCOUNTER → 2025-01-18 | Outpatient (CLI) | payer MEDICARE ==
--- NOTE | 2025-01-18 10:55 | XR ---
EXAMINATION TYPE: XR chest 2V DATE OF EXAM: 01/18/2025 10:30 AM COMPARISON: 03/25/2023 CLINICAL INDICATION: Male, 69 years old with history of R07.89 CHEST PAIN, TECHNIQUE: XR chest 2V view(s) obtained. FINDINGS: The heart size is normal. The pulmonary vasculature is prominent. Mild increased lung markings are present greater on the right. Correlate for early pulmonary edema vo lume overload. IMPRESSION: 1. Clinical correlation for pulmonary edema and volume overload. [facility], , 01/18/2025 10:53 AM
== END | disposition home or self-care (01) ==
LOC: RADXRMAIN 10:08
PROVIDERS: ATTEND Family Medicine
DX: R07.89 Other chest pain (principal)
CPT/HCPCS: 71046

== ENCOUNTER → 2025-01-21 | Outpatient (CLI) | payer MEDICARE ==
[2025-01-21 07:49] VITALS: BP 134/77; PULSE 61; RESP 16; TEMP 97.2
--- NOTE | 2025-01-21 13:13 | P.PAINPG ---
Objective - Vital Signs Vital signs: Intake & Output 01/20/25 01/21/25 01/21/25 18:59 06:59 18:59 Weight 93.44 kg PQRS Measure Charge Sheet Comment: A 69 yr old male with a history of severe and chronic thoracolumbar pain secondary to radiculopathy, spondylosis, post laminectomy, T11-T12 severe spinal stenosis syndrome presents today for medication refills. Pain level is provoked at 4-8 /10 in intensity, predominantly axial, constant, localized in the thorac olumbar spine, sharp in character w occasional shooting towards the BL hips and LEs. Pain is provoked by over activity or standing for periods of 20 min or more. Pain is alleviated with PT x 6 wks in Apr-May 2022, physician guided exercises every other day since May 2022, chiropractic treatment is contraindicated, alternating heat & ice, medications, topical, repositioning and rest. Pt has excellent age-appropriate muscle bulk and is physically active daily with gardening, yard work, fixing his barn, etc. Interventional pain procedures completed include BL SI x 2, BL TFESI L1-L2 x2, R RFA C3-C5, Caudal GEETHA w Lysis x2, BL TPIs T2-T8 x1 Patient is currently on [place] 10/325mg #90, Methadone 10mg #120, Naproxen, Voltaren gel Patient denies any side effects of the medication(s), denies excessive drowsiness or sleepiness, denies suicidal ideation and reports that the current pain medication is helping to control the pain and improve activities of daily living. Patient denies any motor or sensory deficits. Patient denies any fever or night sweats, denies any change in the bowel movements or urination. Physical Examination: -Constitutional: Cooperative. Not in acute distress . - Neurologic: Cranial nerve II to XII intact. No focal neurological deficits. - Psychatric: Alert & oriented x 3. Matching mood & appropriate affect. Judgment and insight intact. - Musculoskeletal: Cervical spine: Muscle bulk/ tone/ strength in the bilateral upper extremities normal Vertebral body tenderness to palpation Spurling test positive Distraction test positive Facet loading test positive TTP Thoracic spine Muscle bulk / tone/ strength in the bilateral paraspinal muscles normal Vertebral body tender to palpation over T5 Facet loading test positive TTP Lumbar spine: Motor bulk/ tone/ strength lower extremities , thigh and legs : 5/5 Deep tendon reflexes : Normal Knee Jerk. Normal Ankle Jerk . Vertebral body tenderness to palpation over L1 Lara Test positive Lumbar Facet Loading Test positive Straight Leg Raise: positive at 30 degrees right side/ left side Gaenslen's Test positive Sacral spine : Severe tenderness over the Sacroiliac joint: right side / left side Range of motion: Flexion of the lumbar spine <60 degrees Range of motion: Extension of the lumbar spine <20 degrees Gaenslen's Test positive right side / left side Rohan test: positive right side / left side Thigh Thrust Test positive right side / left side Sacral Thrust Test positive right side / left side Imaging: X ray of thoracolumbar spine from 12/30/23 reviewed MRI non contrast of the thoracolumbar spine from 01/26/24 reviewed Assessment and plan: Chronic LBP secondary to post laminectomy syndrome, T11-T12 severe spinal stenosis Recommendation of medication management. Cheraw 10/325mg #90, Methadone 10mg #120, Diclofenac gel w 1 RF. Narcotic/ Opiate agreement renewed 05/10/24 . EKG Dx Z79.891 01/12/24 reviewed and pt advised he followed up w firer kil[employer] Dr Prince since his 07/23/24 visit. UDS 01/21/25. Use, side effects, adverse reactions and safe storage discussed. Pt acknowledged understanding. All questions answered. I have spent less than 30 minutes on patient care today. Dr Lopez was available by phone for the evaluation of this patient. The time was used to review the medical records including relevant urine studies and Prescription history (MAPs), review of the available imaging, evaluation and examination of the patient, coordination of care with the medical staff and if applicable referring physicians, as well as creation of the medical record PQRS Narrative: Smoking Status Never smoker Narcotic Agreement Date Signed 05/10/24 Hx Alcohol Use (MH) No Home Medications: Ambulatory Orders amLODIPine [Norvasc] 10 mg PO DAILY 03/26/19 Tamsulosin [Flomax] 0.4 mg PO HS 09/06/19 Testosterone Enanthate [Xyosted] 1 injection SQ Q14D 02/13/20 hydroCHLOROthiazide 25 mg PO DAILY 04/04/20 traZODone HCL [TraZODone HCl] 50 mg PO HS 12/17/20 Enalapril [Vasotec] 10 mg PO DIRECTED 02/26/21 Lactulose 10 gm PO DAILY PRN 12/16/21 Naproxen [Naprosyn] 500 mg PO BID PRN 30 Days #60 tab 03/17/22 Dutasteride 0.5 mg PO DAILY 03/08/24 Ezetimibe [Zetia] 10 mg PO DAILY 03/08/24 Fluticasone Propionate [Fluticasone Propionate Gore 50 mcg Nasal Gore] 1 sprays EA NOSTRIL DAILY 03/08/24 Isosorbide Mononitrate [Isosorbide Mononitrate ER] 30 mg PO DAILY 03/08/24 Nystatin 1 applic TOPICAL DIRECTED 03/08/24 polyethylene glycoL 3350 [Miralax] 17 gm PO DAILY 03/08/24 Nitroglycerin 0.4 mg SL Q5M 03/13/24 Diclofenac Sodium Gel [Voltaren 1% Gel] 2 - 3 gm TOPICAL QID PRN 30 Days #100 gm 09/17/24 HYDROcodone/APAP 10-325MG [Cheraw 10-325] 1 tab PO TID PRN 30 Days #90 tab 01/21/25 HYDROcodone/APAP 10-325MG [Cheraw 10-325] 1 tab PO TID PRN 30 Days #90 tab 01/21/25 Methadone HCl 10 mg PO QID 30 Days #120 tab 01/21/25 Methadone HCl 10 mg PO QID 30 Days #120 tab 01/21/25 Controlled Substance Measures - Controlled Substance Measures Is patient prescribed a controlled substance at discharge?: Yes When asked, does pt state using other controlled substances?: No If prescribed controlled substance>3 days was MAPS reviewed?: Yes
== END ==
LOC: PNWHC3 07:11
PROVIDERS: ATTEND Specialist
DX: M96.1 Postlaminectomy syndrome, not elsewhere classified (principal); M48.04 Spinal stenosis, thoracic region; Z88.8 Allergy status to other drugs, medicaments and biological substances; Z88.6 Allergy status to analgesic agent; Z91.018 Allergy to other foods; Z91.048 Other nonmedicinal substance allergy status
CPT/HCPCS: 80307; 99211

== ENCOUNTER → 2025-01-23 | Outpatient (CLI) | payer MEDICARE ==
--- NOTE | 2025-01-23 09:15 | CT ---
EXAMINATION TYPE: CT shoulder RT wo con CT DLP: 510 mGycm, Automated exposure control for dose reduction was used. DATE OF EXAM: 01/23/2025 8:57 AM COMPARISON: Right shoulder radiograph 08/10/2024 CLINICAL INDICATION:Male, 69 years old with history of M19.011 PRIMARY OSTEOARTHRITIS, RIGHT SHOULDER ; PHH, RIGHT SHOULDER PAIN TECHNIQUE: Axial images were obtained of the right shoulder without the use of IV contrast. Addition al coronal and sagittal reformatted images and soft tissue and bone window were obtained for review. 3-D reconstruction was created on a separate workstation. FINDINGS: No acute fracture, subluxation or dislocation. Severe osteoarthritic changes of the right s houlder with joint space narrowing, osteophyte formation, sclerosis, and subchondral cystic changes. There is flattening of the humeral head. [id number] contact with the glenoid and acromion. Moderate AC joint arthropathy with joint space narrowing and subchondral cystic changes with osteophytosis. M ultiple large calcified loose bodies within the right shoulder joint. Distended subacromial bursa wit h hyperdense wall. Multiple tree-in-bud nodular opacities demonstrated within the visualized right lung. Additional calc ified granuloma. IMPRESSION: 1. No acute fracture or dislocation. 2. Severe osteoarthritic changes of the right shoulder as described above with calcified loose bodies . 3. Moderate AC joint arthropathy. 4. Subacromial bursitis. 5. Tree-in-bud nodular opacities demonstrated within the visualized right lung consistent with an inf ectious/inflammatory bronchiolitis. [facility], , 01/23/2025 9:13 AM
== END | disposition home or self-care (01) ==
LOC: RADCTMAIN 08:06
PROVIDERS: ATTEND Orthopaedic Surgery
DX: M19.011 Primary osteoarthritis, right shoulder (principal); R91.8 Other nonspecific abnormal finding of lung field; M75.51 Bursitis of right shoulder